=== PATIENT | female | born 1945 | race Caucasian/White ===

== ENCOUNTER 2017-01-22 10:25 | Inpatient (IN) | payer OTHER ==
[2017-01-22 10:35] VITALS: BMI 35.9
--- NOTE | 2017-01-22 11:10 | C.PDOC ---
History Of Present Illness Patient is a 71 y/o female that is sent to the ED by PMD, Dr. Boone, for evaluation of productive cough getting worse for the past 2 weeks. Patient states she was diagnosed with Pneumonia by PMD, pt has lung cancer, diagnosed in 2004. (+) occasional chest pain. Otherwise, denies fever, chills, shortness of breath, or any other associated symptoms at this time. (+)Hx of pneumonia. Time Seen by Provider: 01/22/17 10:47 Chief Complaint (Nursing): Abnormal Labs History Per: Patient History/Exam Limitations: no limitations Onset/Duration Of Symptoms: Days (1 month) Current Symptoms Are (Timing): Still Present Severity: Mild Pain Scale Rating Of: 1 Reports Recently: Treated By A Physician Recent travel outside of the [place]: No Additional History Per: Patient Past Medical History Reviewed: Historical Data, Nursing Documentation, Vital Signs Vital Signs: Last Vital Signs Temp 97.7 F 01/22/17 12:08 Pulse 80 01/22/17 12:08 Resp 22 01/22/17 12:08 BP 179/97 H 01/22/17 12:08 Pulse Ox 96 01/22/17 14:07 - Medical History PMH: Anxiety, Arthritis, Dementia (FORGETFUL AT TIMES. AAO X 3 AT PRESENT), Depression, Diabetes (NIDDM), HTN, Hypercholesterolemia, Kidney Stones, Chronic Kidney Disease Denies: CHF, Colonic Polyps, COPD, HIV, Hypothyroidism, Rheumatoid Arthritis Surgical History: Denies: Pacemaker - [facility] Procedures ESOPHAGOGASTRODUODENOSCOPY [EGD] W/CLOSED BIOPSY (05/21/15) INJECT/INFUSE NEC (02/06/13) Family History: States: Unknown Family Hx - Social History Hx Tobacco Use: No Hx Alcohol Use: No Hx Substance Use: No - Immunization History Hx Tetanus Toxoid Vaccination: No Hx Influenza Vaccination: Yes (2013) Hx Pneumococcal Vaccination: Yes Review Of Systems Except As Marked, All Systems Reviewed And Found Negative. Constitutional: Negative for: Fever, Chills Cardiovascular: Negative for: Chest Pain, Palpitations Respiratory: Positive for: Cough. Negative for: Shortness of Breath, Hemoptysis , Sputum, Wheezing Gastrointestinal: Negative for: Nausea, Vomiting, Abdominal Pain Physical Exam - Physical Exam Appears: Non-toxic, No Acute Distress Skin: Normal Color, Warm, Dry Head: Atraumatic, Normacephalic Eye(s): bilateral: Normal Inspection, EOMI Neck: Normal ROM, Supple Chest: Symmetrical, No Tenderness Cardiovascular: Rhythm Regular, No Murmur Respiratory: No Rales, Rhonchi (bilaterally), Wheezing Gastrointestinal/Abdominal: Soft, No Tenderness Extremity: Normal ROM Neurological/Psych: Oriented x3, Normal Speech, Normal Cognition ED Course And Treatment - Laboratory Results Result Diagrams: 01/22/17 11:32 01/22/17 11:32 ECG: Interpreted By Me, Viewed By Me ECG Rhythm: Sinus Rhythm ECG Interpretation: No Acute Changes Interpretation Of ECG: Left ventricular hypertrophy Rate From EC (bpm) O2 Sat by Pulse Oximetry: 96 (on RA) Pulse Ox Interpretation: Normal - Radiology CXR: Interpreted by Me CXR Interpretation: Yes: No Acute Disease Progress Note: Labs, EKG, CXR ordered and reviewed. On reassessment, pt is resting comfortably, with no acute distress. Medical Decision Making Medical Decision Making: Spoke with Dr. Booen who recommended Zithromax, and Rocephin for the pt and requested regular admission. Disposition Counseled Patient/Family Regarding: Studies Performed, Diagnosis - Disposition Disposition: HOSPITALIZED Disposition Time: 11:34 Condition: STABLE - POA Present On Arrival: None - Clinical Impression Clinical Impression: Lung cancer, Cough - PA / DIRECTOR OF CRITICAL CARE / Resident Statement MD/DO has reviewed & agrees with the documentation as recorded. - Scribe Statement The provider has reviewed the documentation as recorded by the Scribe Sylvia Valencia All medical record entries made by the Scribe were at my direction and personally dictated by me. I have reviewed the chart and agree that the record accurately reflects my personal performance of the history, physical exam, medical decision making, and the department course for this patient. I have also personally directed, reviewed, and agree with the discharge instructions and disposition. Decision To Admit - Pt Status Changed To: Hospital Disposition Of: Inpatient - Admit Certification Admit to Inpatient:: After my assessment, the patient will require hospitalization for at least two midnights. This is because of the severity of symptoms shown, intensity of services needed, and/or the medical risk in this patient being treated as an outpatient. - InPatient: Physician Admission Certification: I certify that this patient requires 2 or more midnights of care for the following reason:: SEE NOTES - . Bed Request Type: Regular Admitting Physician: Rayne Boone Patient Diagnosis: Lung cancer, Cough
[2017-01-22] MEDS ORDERED: cefTRIAXone IV 1 gm in Dextros 50 ML IV ONE (11:13)
[2017-01-22] MEDS ORDERED: Azithromycin 500mg/250ML NS 500 MG/250 ML BAG IV SCH (11:15)
[2017-01-22] MEDS ORDERED: cefTRIAXone IV 1 gm in Dextros 50 ML IVPB ONE (11:21)
[2017-01-22] MEDS ORDERED: Azithromycin 500mg/250ML NS 500 MG/250 ML BAG IVPB ONE (11:22)
[2017-01-22 11:36] LABS: BASO % 0.8 % (0.0-2.0); EOS # 0.3 K/uL (0.0-0.7); EOS % 5.5 % (0.0-4.0); HEMOGLOBIN 13.8 g/dL (11.0-16.0); LYMPH % 33.7 % (20.0-40.0); MEAN CORPUSCULAR HEMOGLOBIN 30.2 pg (27.0-31.0); MEAN CORPUSCULAR HGB CONC 32.6 g/dL (33.0-37.0); MEAN PLATELET VOLUME 9.5 fL (7.2-11.7); MONO # 0.4 K/uL (0.0-0.8); NEUT # 3.2 K/uL (1.8-7.0); RBC 4.56 Mil/uL (3.80-5.20); RED CELL DISTRIBUTION WIDTH 12.9 % (11.5-14.5); WHITE BLOOD COUNT 6.1 K/uL (4.8-10.8)
[2017-01-22 11:37] LABS: MEAN CELL VOLUME 92.4 fL (81.0-99.0)
[2017-01-22 11:48] LABS: ALBUMIN 3.8 g/dL (3.5-5.0)
[2017-01-22 11:50] LABS: GFR AFRICAN-AMERICAN > 60; GFR NON-AFRICAN AMERICAN > 60
[2017-01-22 11:51] LABS: ALB/GLOB RATIO 0.9 (1.0-2.1); ALT/SGPT 46 U/L (9-52); AST/SGOT 56 U/L (14-36); BLOOD UREA NITROGEN 16 mg/dL (7-17)
[2017-01-22 11:52] LABS: CALCIUM 9.1 mg/dl (8.6-10.4)
[2017-01-22 12:00] LABS: B-TYPE NATRIURETIC PEPTIDE 201 pg/mL (0-900)
--- NOTE | 2017-01-22 12:55 | CP.PCM.HP ---
History of Present Illness - History of Present Illness History of Present Illness: Chief complaint: Cough History present illness: 70-year-old female with history of lung cancer, osteoporosis, osteoarthritis, hypertension, diabetes came to the ER with complaining of increasing cough for almost 2 weeks duration. Patient the past had a history of pneumonia also. She was diagnosed with the cancer in 2004. Following that she underwent a surgical intervention as well as chemotherapy. Patient there was doing well until recently, patient went to see a oncologist recently, who had a CAT scan of the chest. CT of the chest is showing evidence of increasing lung mass. Currently she is having increasing cough, and able to bring up the mucus, also associate with chest tightness. No fever noted. Denies any chest pain. But shortness of breath noted. no fever and no mucous but sob and cough Past medical history: Hypertension, hypercholesteremia, diabetes, lung cancer. Surgical history: Cholecystectomy the surgical intervention for the lung cancer chemotherapy. Family history noncontributory. Social history: He denies any alcohol or smoking, drinks coffee daily, no exercise currently. Current medications reviewed. Review of systems: Denies any headache, no visual symptoms, complaining of sore throat, cough, cough with the mucus production, which is yellow in color, sometimes chest tightness and chest pain noted, especially in the back, with the deepest patient. Now the abdominal symptoms, no urinary symptoms. Patient has some gastric mass noted recently, also Patient underwent upper endoscopy, again upper endoscopy scheduled On examination: HEENT PERRLA, neck supple No thyromegaly was noted and no cervical adenopathy noted Patient has a bilateral diffuse wheezing and rhonchi noted CVS regular heart sound, no murmur Abdomen soft and no organomegaly Extremities no pedal edema, no leg swelling, pedal pulses are good. 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 Patient CAT scan of the chest is reviewed. Showing evidence of mediastinal mass involving the left lung, Assessment and recommendation: 70-year-old female with history lung cancer, possible recurrence at this time, came to the office with a possible acute exacerbation of COPD. Antibiotic and corticosteroid advised. Nebulizers advised. possible pneumonia and BOOP lung cancer recurrence possible will add steroid chest CT again may need bronch orders in the cpoe Present on Admission - Present on Admission Any Indicators Present on Admission: No History of DVT/PE: No History of Uncontrolled Diabetes: No Urinary Catheter: No Decubitus Ulcer Present: No Past Patient History - Infectious Disease Hx of Infectious Diseases: None - Past Medical History & Family History Past Medical History?: Yes - Past Social History Smoking Status: Never Smoked - CARDIAC Hx Congestive Heart Failure: No Hx Hypercholesterolemia: Yes Hx Hypertension: Yes Hx Pacemaker: No - PULMONARY Hx Chronic Obstructive Pulmonary Disease (COPD): No - NEUROLOGICAL Hx Dementia: Yes (FORGETFUL AT TIMES. AAO X 3 AT PRESENT) - HEENT Hx HEENT Problems: No - RENAL Hx Chronic Kidney Disease: Yes Hx Kidney Stones: Yes - ENDOCRINE/METABOLIC Hx Diabetes Mellitus Type 2: Yes Hx Hypothyroidism: No - HEMATOLOGICAL/ONCOLOGICAL Hx Chemotherapy: Yes Hx Human Immunodeficiency Virus (HIV): No - INTEGUMENTARY Hx Dermatological Problems: No - MUSCULOSKELETAL/RHEUMATOLOGICAL Hx Arthritis: Yes Hx Falls: No - GASTROINTESTINAL Hx Gastrointestinal Disorders: No - GENITOURINARY/GYNECOLOGICAL Hx Genitourinary Disorders: No - PSYCHIATRIC Hx Anxiety: Yes Hx Bipolar Disorder: Yes Hx Substance Use: No - SURGICAL HISTORY Hx Tubal Ligation: Yes Other/Comment: Left lung - ANESTHESIA Hx Anesthesia: Yes Hx Anesthesia Reactions: No Hx Malignant Hyperthermia: No Meds Allergies/Adverse Reactions: Allergies Allergy/AdvReac Type Severity Reaction Status Date / Time No Known Allergies Allergy Verified 01/22/17 10:28 Results - Vital Signs Recent Vital Signs: Last Vital Signs Temp 97.7 F 01/22/17 12:08 Pulse 80 01/22/17 12:08 Resp 22 01/22/17 12:08 BP 179/97 H 01/22/17 12:08 Pulse Ox 96 01/22/17 12:33 - Labs Result Diagrams: 01/22/17 11:32 01/22/17 11:32 Labs: Laboratory Results - last 24 hr 01/22/17 01/22/17 11:32 11:32 WBC 6.1 RBC 4.56 Hgb 13.8 Hct 42.1 MCV 92.4 D MCH 30.2 MCHC 32.6 L RDW 12.9 Plt Count 219 MPV 9.5 Neut % (Auto) 53.0 Lymph % (Auto) 33.7 Dixon % (Auto) 7.0 Eos % (Auto) 5.5 H Baso % (Auto) 0.8 Neut # 3.2 Lymph # 2.0 Dixon # 0.4 Eos # 0.3 Baso # 0.0 Sodium 139 Potassium 4.3 Chloride 101 Carbon Dioxide 28 Anion Gap 13 BUN 16 Creatinine 0.8 Est GFR ( Amer) > 60 Est GFR (Non-Af Amer) > 60 Random Glucose 166 H Calcium 9.1 Total Bilirubin 1.3 AST 56 H ALT 46 Alkaline Phosphatase 230 H Troponin I < 0.0120 NT-Pro-B Natriuret Pep 201 Total Protein 7.9 Albumin 3.8 Globulin 4.1 H Albumin/Globulin Ratio 0.9 L
[2017-01-22] MEDS: Albuterol-Ipratrop 3 mg / 0.5 (3 ml) UD INH SCH ×2 (14:00→20:25)
[2017-01-22] MEDS: MethylPREDNISolone 40 mg Vial IVP SCH (17:50)
--- NOTE | 2017-01-22 19:42 | RAD ---
PROCEDURE: CHEST RADIOGRAPH, 1 VIEW HISTORY: COUGH COMPARISON: Comparison chest 10/14/2016 FINDINGS: LUNGS: Re- demonstrated is apparent left upper lobe mass density. There may be patchy surrounding infiltrate with possible infiltrate left lung base. Patchy infiltrate right lung base. Questionable left effusion. Followup CT scan recommended Note these findings were discussed with Dr. Glynn at approximately 7 20 p.m. with written down and read back verification. PLEURA: No pneumothorax or pleural fluid seen. CARDIOVASCULAR: Mild cardiomegaly. OSSEOUS STRUCTURES: No significant abnormalities. VISUALIZED UPPER ABDOMEN: Normal. OTHER FINDINGS: None. IMPRESSION: Re- demonstrated is left upper lobe mass density. There may be patchy surrounding infiltrate with possible infiltrate left lung base. Patchy infiltrate right lung base. . Follow-up CT scan recommended Note these findings were discussed with Dr. Parra at approximately 7 20 p.m. with written down and read back verification. Case also placed in PA review folder for followup.
--- NOTE | 2017-01-22 20:09 | CT ---
EXAM: CT Chest Without Intravenous Contrast CLINICAL HISTORY: 71 years old, female; Condition or disease; Lung condition and disease; Pneumonia TECHNIQUE: Axial computed tomography images of the chest without intravenous contrast. This CT exam was performed using one or more of the following dose reduction techniques: automated exposure control, adjustment of the mA and/or kV according to patient size, and/or use of iterative reconstruction technique. Coronal and sagittal reformatted images were created and reviewed. EXAM DATE/TIME: 01/22/2017 12:49 PM COMPARISON: There are no prior studies for comparison. FINDINGS: Lungs and pleural spaces: Trachea and main bronchi are patent. 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 There is left-sided volume loss with elevation of the left diaphragm. There is extensive airspace disease in the left upper lobe.. There are additional patchy parenchymal opacities in the aerated portions of left upper lobe There is partial consolidation of right middle lobe. There is patchy airspace disease in the right lower lobe. There are tree in bud opacities in the right upper lobe. There is no right effusion. There is a small left effusion. Heart and vasculature: The heart is mildly enlarged. There are coronary calcifications.There is fluid in the pericardial recesses. Aorta is normal in caliber.There are vascular calcifications. Main pulmonary artery is normal in caliber. Mediastinum: There are mildly prominent middle mediastinal nodes. Rola are not optimally evaluated without contrast material. There are clips in the left hilum. Thyroid: Thyroid is unremarkable Bones/joints: There are degenerative changes in the osseus structures. There are postsurgical changes of left thoracotomy. Soft tissues: unremarkable Vasculature: See above. Lymph nodes: See above. Liver: There are small calcifications in the liver. Pancreas: Pancreas is atrophic. Stomach and bowel: There is a radiopaque foreign body in the stomach. Upper abdomen: There is pneumobilia. IMPRESSION: Left lower lobe lobectomy; extensive bilateral airspace disease/pneumonia left greater than right with small left effusion; mild cardiomegaly and atherosclerotic disease; pneumobilia; foreign body in the stomach Additional findings as described above.
[2017-01-22] MEDS: Enoxaparin 30 mg Syringe SC SCH (21:20)
[2017-01-23] MEDS: Albuterol-Ipratrop 3 mg / 0.5 (3 ml) UD INH SCH ×2 (01:45→20:50)
[2017-01-23] MEDS: Enoxaparin 30 mg Syringe SC SCH ×2 (09:54→21:35)
[2017-01-23] MEDS: Azithromycin 500 MG in Sodium Chloride 0.9% 250 ML IVPB SCH (09:54)
[2017-01-23] MEDS: MethylPREDNISolone 40 mg Vial IVP SCH ×2 (09:56→17:49)
[2017-01-23] MEDS ORDERED: cefTRIAXone IV 1 gm in Dextros 1 GM in Dextrose 5% In Water 50 ML IVPB SCH (10:00)
[2017-01-24] MEDS: Albuterol-Ipratrop 3 mg / 0.5 (3 ml) UD INH SCH ×4 (01:08→19:51)
[2017-01-24] MEDS ORDERED: Pneumococcal 23-Valent Vaccine IM ONE (10:00)
[2017-01-24] MEDS: Azithromycin 500 MG in Sodium Chloride 0.9% 250 ML IVPB SCH (11:00)
[2017-01-24] MEDS: cefTRIAXone IV 1 gm in Dextros 50 ML IVPB SCH (11:00)
[2017-01-24] MEDS: MethylPREDNISolone 40 mg Vial IVP SCH ×2 (11:02→17:38)
[2017-01-24] MEDS: Enoxaparin 30 mg Syringe SC SCH ×2 (11:23→21:51)
--- NOTE | 2017-01-24 16:05 | CP.PCM.CON ---
History of Present Illness - History of Present Illness History of Present Illness: 71 yo woman known to me from the office, admitted with increasing SOB/MONCADA. Patient has a history of lung cancer in 2004, treated with surgery and ? local RT, has been c/o progressive MONCADA for the past few months, catscan showing B/L infiltrates and labs with increased CEA level. Patient denies any weight loss, dizzy spells. Feels well except fpr the increasing MONCADA. Past Patient History - Infectious Disease Hx of Infectious Diseases: None - Past Medical History & Family History Past Medical History?: Yes - Past Social History Smoking Status: Never Smoked - CARDIAC Hx Congestive Heart Failure: No Hx Hypercholesterolemia: Yes Hx Hypertension: Yes Hx Pacemaker: No - PULMONARY Hx Chronic Obstructive Pulmonary Disease (COPD): No - NEUROLOGICAL Hx Dementia: Yes (FORGETFUL AT TIMES. AAO X 3 AT PRESENT) - HEENT Hx HEENT Problems: No - RENAL Hx Chronic Kidney Disease: Yes Hx Kidney Stones: Yes - ENDOCRINE/METABOLIC Hx Hypothyroidism: No - HEMATOLOGICAL/ONCOLOGICAL Hx Human Immunodeficiency Virus (HIV): No - INTEGUMENTARY Hx Dermatological Problems: No - MUSCULOSKELETAL/RHEUMATOLOGICAL Hx Arthritis: Yes Hx Rheumatoid Arthritis: No - GASTROINTESTINAL Hx Gastrointestinal Disorders: No - GENITOURINARY/GYNECOLOGICAL Hx Genitourinary Disorders: No - PSYCHIATRIC Hx Anxiety: Yes Hx Depression: Yes Hx Substance Use: No - SURGICAL HISTORY Hx Tubal Ligation: Yes Other/Comment: Left lung - ANESTHESIA Hx Anesthesia: Yes Hx Anesthesia Reactions: No Hx Malignant Hyperthermia: No Meds Allergies/Adverse Reactions: Allergies Allergy/AdvReac Type Severity Reaction Status Date / Time No Known Allergies Allergy Verified 01/22/17 10:28 - Medications Medications: Current Medications Albuterol/Ipratropium (Duoneb 3 Mg/0.5 Mg (3 Ml) Ud) 3 ml INH RQ6 [facility] Last Admin: 01/24/17 13:35 Dose: 3 ml Enoxaparin Sodium (Lovenox) 30 mg SC Q12 [facility] Last Admin: 01/24/17 11:23 Dose: Not Given Famotidine (Pepcid) 20 mg PO DAILY [facility] Last Admin: 01/24/17 11:23 Dose: 20 mg Azithromycin 500 mg/ Sodium (Chloride) 250 mls @ 167 mls/hr IVPB Q24H [facility] Last Admin: 01/24/17 11:00 Dose: 167 mls/hr Ceftriaxone Sodium (Rocephin Iv 1 Gm Duplex) 50 mls @ 50 mls/30 min IVPB DAILY [facility] Last Admin: 01/24/17 11:00 Dose: 50 mls/30 min Lisinopril (Zestril) 20 mg PO DAILY [facility] Last Admin: 01/24/17 11:01 Dose: 20 mg Metformin HCl (Glucophage) 500 mg PO BIDBS [facility] Last Admin: 01/24/17 11:01 Dose: 500 mg Methylprednisolone (Solu-Medrol) 20 mg IVP BID [facility] Last Admin: 01/24/17 11:02 Dose: 20 mg Rosuvastatin Calcium (Crestor) 10 mg PO HS [facility] Results - Vital Signs Recent Vital Signs: Last Vital Signs Temp 97.8 F 01/24/17 07:32 Pulse 78 01/24/17 07:32 Resp 20 01/24/17 07:32 BP 147/79 01/24/17 07:32 Pulse Ox 100 01/24/17 07:32 - Labs Result Diagrams: 01/22/17 11:32 01/22/17 11:32 Labs: Laboratory Results - last 24 hr 01/23/17 01/23/17 01/24/17 15:58 20:57 07:24 POC Glucose (mg/dL) 259 H 254 H 227 H 01/24/17 11:35 POC Glucose (mg/dL) 239 H Assessment & Plan (1) Lung cancer Assessment and Plan: 71 yo woman with history of lung cancer in 2004, new MONCADA, increased CEA, increased infiltrates on CAT scan, ? benign process versus recurrent or new primary cancer. Patient is scheduled for a biopsy. Will reorder CEA level Status: Suspected
--- NOTE | 2017-01-24 19:37 | CP.PCM.PN ---
Subjective - Date & Time of Evaluation Date of Evaluation: 01/24/17 Time of Evaluation: 19:37 - Subjective Subjective: Patient is feeling much better today. But very eager for bronchoscopy. Patient is concerned about anesthesia related complications. Patient has no chest pain at this time. No nausea vomiting. Denies any other major active symptoms Objective - Vital Signs/Intake and Output Vital Signs (last 24 hours): Temp Pulse Resp BP Pulse Ox 98.1 F 84 20 171/93 H 96 01/24/17 16:00 01/24/17 16:00 01/24/17 16:00 01/24/17 16:00 01/24/17 16:00 Vital signs reviewed No neck vein distention noted Chest good air entry bilaterally, no wheezing or rales noted CVS regular heart sound, no murmur noted Abdomen soft, nontender. 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 3, no functional neurological deficit Intake and Output: 01/24/17 01/25/17 18:59 06:59 Intake Total 200 Balance 200 - Medications Medications: Current Medications Albuterol/Ipratropium (Duoneb 3 Mg/0.5 Mg (3 Ml) Ud) 3 ml INH RQ6 [facility] Last Admin: 01/24/17 13:35 Dose: 3 ml Enoxaparin Sodium (Lovenox) 30 mg SC Q12 [facility] Last Admin: 01/24/17 11:23 Dose: Not Given Famotidine (Pepcid) 20 mg PO DAILY [facility] Last Admin: 01/24/17 11:23 Dose: 20 mg Azithromycin 500 mg/ Sodium (Chloride) 250 mls @ 167 mls/hr IVPB Q24H [facility] Last Admin: 01/24/17 11:00 Dose: 167 mls/hr Ceftriaxone Sodium (Rocephin Iv 1 Gm Duplex) 50 mls @ 50 mls/30 min IVPB DAILY [facility] Last Admin: 01/24/17 11:00 Dose: 50 mls/30 min Lisinopril (Zestril) 20 mg PO DAILY [facility] Last Admin: 01/24/17 11:01 Dose: 20 mg Metformin HCl (Glucophage) 500 mg PO BIDBS [facility] Last Admin: 01/24/17 17:37 Dose: 500 mg Methylprednisolone (Solu-Medrol) 20 mg IVP BID [facility] Last Admin: 01/24/17 17:38 Dose: 20 mg Rosuvastatin Calcium (Crestor) 10 mg PO HS [facility] - Labs Labs: 01/22/17 11:32 01/22/17 11:32 Assessment and Plan (1) Atypical pneumonia Assessment & Plan: patient with a possible atypical pneumonia. Lung cancer cannot be rul recurrence. We'll plan for bronchosc in the morning. Status: Acute (2) Cough Status: Acute (3) Lung cancer Status: Suspected
--- NOTE | 2017-01-24 19:38 | CP.PCM.PN ---
Subjective - Date & Time of Evaluation Date of Evaluation: 01/23/17 Time of Evaluation: 19:38 - Subjective Subjective: The patient is feeling much better in her symptoms. The cough is less. Mucus production is less. Appetite is good. Currently patient is receiving antibiotic. Patient had a history of lung cancer. Currently being treated for pneumonia, atypical in this nature currently. Appetite is good. No diarrhea noted Objective - Vital Signs/Intake and Output Vital Signs (last 24 hours): Temp Pulse Resp BP Pulse Ox 98.1 F 84 20 171/93 H 96 01/24/17 16:00 01/24/17 16:00 01/24/17 16:00 01/24/17 16:00 01/24/17 16:00 Intake and Output: 01/24/17 01/25/17 18:59 06:59 Intake Total 200 Balance 200 Vital signs reviewed No neck vein distention noted Chest good air entry bilaterally, no wheezing or rales noted CVS regular heart sound, no murmur noted Abdomen soft, nontender. 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 3, no functional neurological deficit - Medications Medications: Current Medications Albuterol/Ipratropium (Duoneb 3 Mg/0.5 Mg (3 Ml) Ud) 3 ml INH RQ6 [facility] Last Admin: 01/24/17 13:35 Dose: 3 ml Enoxaparin Sodium (Lovenox) 30 mg SC Q12 [facility] Last Admin: 01/24/17 11:23 Dose: Not Given Famotidine (Pepcid) 20 mg PO DAILY [facility] Last Admin: 01/24/17 11:23 Dose: 20 mg Azithromycin 500 mg/ Sodium (Chloride) 250 mls @ 167 mls/hr IVPB Q24H [facility] Last Admin: 01/24/17 11:00 Dose: 167 mls/hr Ceftriaxone Sodium (Rocephin Iv 1 Gm Duplex) 50 mls @ 50 mls/30 min IVPB DAILY [facility] Last Admin: 01/24/17 11:00 Dose: 50 mls/30 min Lisinopril (Zestril) 20 mg PO DAILY [facility] Last Admin: 01/24/17 11:01 Dose: 20 mg Metformin HCl (Glucophage) 500 mg PO BIDBS [facility] Last Admin: 01/24/17 17:37 Dose: 500 mg Methylprednisolone (Solu-Medrol) 20 mg IVP BID [facility] Last Admin: 01/24/17 17:38 Dose: 20 mg Rosuvastatin Calcium (Crestor) 10 mg PO HS [facility] - Labs Labs: 01/22/17 11:32 01/22/17 11:32 Assessment and Plan (1) Atypical pneumonia Status: Acute (2) Lung cancer Assessment & Plan: Patient is currently having possibly atypical pneumonia, and empirical antibiotic. Lung cancer possible. Follow-up CAT scan. Status: Suspected
[2017-01-25] MEDS: Albuterol-Ipratrop 3 mg / 0.5 (3 ml) UD INH SCH ×4 (01:16→20:44)
[2017-01-25 07:24] LABS: MEAN CORPUSCULAR HEMOGLOBIN 30.2 pg (27.0-31.0)
[2017-01-25 07:30] LABS: ALBUMIN 3.5 g/dL (3.5-5.0)
[2017-01-25 07:32] LABS: GFR AFRICAN-AMERICAN > 60; GFR NON-AFRICAN AMERICAN > 60
[2017-01-25 07:33] LABS: ALB/GLOB RATIO 0.9 (1.0-2.1); ALT/SGPT 32 U/L (9-52); AST/SGOT 32 U/L (14-36); BLOOD UREA NITROGEN 18 mg/dL (7-17); PROTHROMBIN TIME 11.3 SECONDS (9.7-12.2)
[2017-01-25 07:34] LABS: CALCIUM 9.7 mg/dl (8.6-10.4)
[2017-01-25 07:41] LABS: HEMOGLOBIN 13.6 g/dL (11.0-16.0); MEAN CELL VOLUME 90.8 fL (81.0-99.0); MEAN CORPUSCULAR HGB CONC 33.2 g/dL (33.0-37.0); MEAN PLATELET VOLUME 10.2 fL (7.2-11.7); RBC 4.49 Mil/uL (3.80-5.20)
[2017-01-25 07:44] LABS: WHITE BLOOD COUNT 11.6 K/uL (4.8-10.8)
[2017-01-25] MEDS: Lidocaine 2% Inj (20ml) ONE ×2 (08:11→08:30)
[2017-01-25] MEDS: EPINEPHrine 1 mg/ml (1:1000) Inj ONE ×2 (08:13→08:30)
[2017-01-25] MEDS: MethylPREDNISolone 40 mg Vial IVP SCH ×2 (12:40→17:40)
[2017-01-25] MEDS: Enoxaparin 30 mg Syringe SC SCH ×2 (12:40→21:55)
[2017-01-25] MEDS: cefTRIAXone IV 1 gm in Dextros 50 ML IVPB SCH (12:41)
[2017-01-25] MEDS: Azithromycin 500 MG in Sodium Chloride 0.9% 250 ML IVPB SCH (12:42)
--- NOTE | 2017-01-25 14:42 | RAD ---
HISTORY: R/O PTX- POST BRONCH COMPARISON: 01/22/2017. FINDINGS: LUNGS: Postoperative findings, prior left lower lobectomy. Stable consolidative changes/ infiltrates bilaterally. PLEURA: No significant pleural effusion identified, no pneumothorax apparent. CARDIOVASCULAR: Normal. OSSEOUS STRUCTURES: No significant abnormalities. VISUALIZED UPPER ABDOMEN: Normal. OTHER FINDINGS: None. IMPRESSION: No significant interval change compared to the prior examination(s). No pneumothorax status post bronchoscopy.
--- NOTE | 2017-01-25 16:56 | RAD ---
PROCEDURE: Fluoroscopy up to 1 hour HISTORY: LUNG CA. COMPARISON: None TECHNIQUE: Total fluoroscopic time utilized during the procedure is 56.2 seconds FINDINGS: Submitted images current procedure 3 IMPRESSION: Less than 1 hour fluoroscopic time utilized during the performance of the procedure
--- NOTE | 2017-01-25 20:08 | CP.PCM.PN ---
Subjective - Date & Time of Evaluation Date of Evaluation: 01/25/17 Time of Evaluation: 20:06 - Subjective Subjective: Patient this morning underwent a bronchoscopy by Dr. Alexis. During the procedure patient had a slight tachycardia, tachypnea. But postoperatively patient is currently doing well, some cough noted, no mucus production. No chest pain. She is feeling much better, good appetite noted. Cough is still noted Objective - Vital Signs/Intake and Output Vital Signs (last 24 hours): Temp Pulse Resp BP Pulse Ox 98.3 F 78 20 117/75 96 01/25/17 16:00 01/25/17 16:00 01/25/17 16:00 01/25/17 16:01 01/25/17 16:00 Vital signs reviewed No neck vein distention noted bilateral wheezing CVS regular heart sound, no murmur noted Abdomen soft, nontender. 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 oriented 3, no functional neurological deficit Intake and Output: 01/25/17 01/26/17 18:59 06:59 Intake Total 500 Balance 500 - Medications Medications: Current Medications Albuterol/Ipratropium (Duoneb 3 Mg/0.5 Mg (3 Ml) Ud) 3 ml INH RQ6 [facility] Last Admin: 01/25/17 13:38 Dose: Not Given Amlodipine Besylate (Norvasc) 5 mg PO DAILY [facility] Last Admin: 01/25/17 12:39 Dose: 5 mg Enoxaparin Sodium (Lovenox) 30 mg SC Q12 [facility] Last Admin: 01/25/17 12:40 Dose: 30 mg Famotidine (Pepcid) 20 mg PO DAILY [facility] Last Admin: 01/25/17 12:39 Dose: 20 mg Azithromycin 500 mg/ Sodium (Chloride) 250 mls @ 167 mls/hr IVPB Q24H [facility] Last Admin: 01/25/17 12:42 Dose: 167 mls/hr Ceftriaxone Sodium (Rocephin Iv 1 Gm Duplex) 50 mls @ 50 mls/30 min IVPB DAILY [facility] Last Admin: 01/25/17 12:41 Dose: 50 mls/30 min Lisinopril (Zestril) 20 mg PO DAILY [facility] Last Admin: 01/25/17 12:40 Dose: 20 mg Metformin HCl (Glucophage) 500 mg PO BIDBS [facility] Last Admin: 01/25/17 17:40 Dose: 500 mg Methylprednisolone (Solu-Medrol) 20 mg IVP BID [facility] Last Admin: 01/25/17 17:40 Dose: 20 mg Rosuvastatin Calcium (Crestor) 10 mg PO HS [facility] Last Admin: 01/24/17 21:51 Dose: 10 mg - Labs Labs: 01/25/17 07:13 01/25/17 07:13 PT 11.3 SECONDS (9.7-12.2) 01/25/17 07:13 INR 1.0 01/25/17 07:13 APTT 28 SECONDS (21-34) 01/25/17 07:13 Assessment and Plan (1) Atypical pneumonia Assessment & Plan: Patient with a history of lung cancer, concerned about the recurrence at this time. Atypical pneumonia. Bronchoalveolar pneumonia cannot be ruled out. We'll follow the biopsy in the culture report. Probably will start the patient on corticosteroids. Tomorrow planned for a transthoracic biopsy. But will hold for now. Possibly will do a PET scan as an outpatient also. Continue the antibiotic Status: Acute (2) Cough Status: Acute (3) Lung cancer Status: Suspected
--- NOTE | 2017-01-25 20:39 | OP ---
PROCEDURE DATE: 01/25/2017 PROCEDURES: Fiberoptic bronchoscopy with bronchoalveolar lavage and biopsy. INDICATION: Bilateral infiltrates, left greater than right. Rule out infectious etiology. Rule out malignancy. DESCRIPTION OF PROCEDURE: After obtaining consent, through hand frame surgical elastic knitter explaining risks and benefits , the procedure was done by giving anesthesia by the anesthesiologist. The nose and throat were prep ared with lidocaine. The bronchoscope was passed through the left nostril into the throat. There wa s normal movement of vocal cords. After instilling lidocaine, the bronchoscope was advanced in the t rachea. The trachea appeared normal. The main cristhian was sharp. First, the bronchoscope passed int o the right side, which appeared normal. Later the bronchoscope pulled back and passed into the left side. No endobronchial lesions seen. The bronchoscope passed from the left upper lobe. First, the brushing under fluoro and then the multiple biopsies and bronchoalveolar lavage were done. The patient tolerated the procedure well. A small amount of bleeding noted, which stopped. Wei Alexis MD cc: 9 TT: 01/25/2017 20:39:05 karly
[2017-01-26] MEDS: Albuterol-Ipratrop 3 mg / 0.5 (3 ml) UD INH SCH ×4 (01:43→19:07)
[2017-01-26] MEDS: Enoxaparin 30 mg Syringe SC SCH ×2 (09:48→21:51)
[2017-01-26] MEDS: cefTRIAXone IV 1 gm in Dextros 50 ML IVPB SCH (11:53)
[2017-01-26] MEDS: MethylPREDNISolone 40 mg Vial IVP SCH ×2 (11:54→17:30)
[2017-01-26] MEDS: Azithromycin 500 MG in Sodium Chloride 0.9% 250 ML IVPB SCH (11:55)
[2017-01-26 16:00] VITALS: RESP 20
[2017-01-27] MEDS: Albuterol-Ipratrop 3 mg / 0.5 (3 ml) UD INH SCH ×3 (01:05→13:08)
[2017-01-27 09:01] VITALS: BP 136/75; PULSE 77; TEMP 97.7; O2SAT 96
[2017-01-27] MEDS: MethylPREDNISolone 40 mg Vial IVP SCH (10:10)
[2017-01-27] MEDS: Enoxaparin 30 mg Syringe SC SCH (10:16)
[2017-01-27] MEDS: cefTRIAXone IV 1 gm in Dextros 50 ML IVPB SCH (10:20)
[2017-01-27] MEDS: Azithromycin 500 MG in Sodium Chloride 0.9% 250 ML IVPB SCH (10:21)
--- NOTE | 2017-01-27 15:59 | CP.PCM.PN ---
Subjective - Date & Time of Evaluation Date of Evaluation: 01/27/17 Time of Evaluation: 11:00 - Subjective Subjective: Alert and oriented x3,NAD. Objective - Vital Signs/Intake and Output Vital Signs (last 24 hours): Temp Pulse Resp BP Pulse Ox 97.7 F 77 20 136/75 96 01/27/17 08:00 01/27/17 08:00 01/27/17 08:00 01/27/17 08:00 01/27/17 08:00 Intake and Output: 01/27/17 01/27/17 06:59 18:59 Intake Total 690 Balance 690 - Labs Labs: 01/25/17 07:13 01/25/17 07:13 PT 11.3 SECONDS (9.7-12.2) 01/25/17 07:13 INR 1.0 01/25/17 07:13 APTT 28 SECONDS (21-34) 01/25/17 07:13 Assessment and Plan - Assessment and Plan (Free Text) Assessment: Patient is seen and examined. Alert, awake, no acute distress. Able to walk with cane, oxygen saturation at room air remained >94%. D/W DR Boone , discharge plan for today on zithromax, prednisone tapering dose and nebulizer set up. Home PT arranged for to follow up at home for sob and weakness.
--- NOTE | 2017-01-28 16:38 | CARD ---
APPROVED REPORT EKG Measurement Heart [id number] <Conclusion> Normal sinus rhythm Voltage criteria for left ventricular hypertrophy Abnormal ECG
--- NOTE | 2017-02-24 20:51 | CP.PCM.DIS ---
Provider - Provider Date of Admission: 01/22/17 11:14 Attending physician: Rayne Boone MD Time Spent in preparation of Discharge (in minutes): 45 Diagnosis - Discharge Diagnosis (1) Atypical pneumonia Status: Acute (2) Cough Status: Acute (3) Lung cancer Status: Suspected Hospital Course - Lab Results Lab Results: Micro Results 01/25/17 11:56 Other: Please Indicate Mycobacterial Culture - Preliminary 01/25/17 Unknown Bronchial Washings Bronchial Culture - Final Blanca Albicans 01/25/17 Unknown Bronchial Washings Fungal Culture - Final Blanca Albicans 01/22/17 17:00 Blood Blood Culture - Final NO GROWTH AFTER 5 DAYS 01/22/17 17:00 Blood Gram Stain - Final TEST NOT PERFORMED 01/22/17 17:00 Blood Blood Culture - Final NO GROWTH AFTER 5 DAYS 01/22/17 17:00 Blood Gram Stain - Final TEST NOT PERFORMED 01/25/17 Unknown Bronchial Brushings Gram Stain - Final Most Recent Lab Values WBC 11.6 K/uL (4.8-10.8) H D 01/25/17 07:13 RBC 4.49 Mil/uL (3.80-5.20) 01/25/17 07:13 Hgb 13.6 g/dL (11.0-16.0) 01/25/17 07:13 Hct 40.8 % (34.0-47.0) 01/25/17 07:13 MCV 90.8 fL (81.0-99.0) 01/25/17 07:13 MCH 30.2 pg (27.0-31.0) 01/25/17 07:13 MCHC 33.2 g/dL (33.0-37.0) 01/25/17 07:13 RDW 13.0 % (11.5-14.5) 01/25/17 07:13 Plt Count 215 K/uL (130-400) 01/25/17 07:13 MPV 10.2 fL (7.2-11.7) 01/25/17 07:13 Neut % (Auto) 53.0 % (50.0-75.0) 01/22/17 11:32 Lymph % (Auto) 33.7 % (20.0-40.0) 01/22/17 11:32 [place] % (Auto) 7.0 % (0.0-10.0) 01/22/17 11:32 Eos % (Auto) 5.5 % (0.0-4.0) H 01/22/17 11:32 Baso % (Auto) 0.8 % (0.0-2.0) 01/22/17 11:32 Neut # 3.2 K/uL (1.8-7.0) 01/22/17 11:32 Lymph # 2.0 K/uL (1.0-4.3) 01/22/17 11:32 [place] # 0.4 K/uL (0.0-0.8) 01/22/17 11:32 Eos # 0.3 K/uL (0.0-0.7) 01/22/17 11:32 Baso # 0.0 K/uL (0.0-0.2) 01/22/17 11:32 PT 11.3 SECONDS (9.7-12.2) 01/25/17 07:13 INR 1.0 01/25/17 07:13 APTT 28 SECONDS (21-34) 01/25/17 07:13 Sodium 136 mmol/L (132-148) 01/25/17 07:13 Potassium 4.0 mmol/L (3.6-5.2) 01/25/17 07:13 Chloride 100 mmol/L (98-107) 01/25/17 07:13 Carbon Dioxide 27 mmol/L (22-30) 01/25/17 07:13 Anion Gap 14 (10-20) 01/25/17 07:13 BUN 18 mg/dL (7-17) H 01/25/17 07:13 Creatinine 0.7 MG/DL (0.7-1.2) 01/25/17 07:13 Est GFR ( Amer) > 60 01/25/17 07:13 Est GFR (Non-Af Amer) > 60 01/25/17 07:13 POC Glucose (mg/dL) 231 mg/dL (65-110) H 01/27/17 11:05 Random Glucose 198 mg/dL (65-105) H 01/25/17 07:13 Calcium 9.7 mg/dl (8.6-10.4) 01/25/17 07:13 Total Bilirubin 0.9 mg/dL (0.2-1.3) 01/25/17 07:13 AST 32 U/L (14-36) 01/25/17 07:13 ALT 32 U/L (9-52) 01/25/17 07:13 Alkaline Phosphatase 192 U/L (38-126) H 01/25/17 07:13 Troponin I < 0.0120 ng/mL (0.00-0.120) 01/22/17 11:32 NT-Pro-B Natriuret Pep 201 pg/mL (0-900) 01/22/17 11:32 Total Protein 7.4 g/dL (6.3-8.3) 01/25/17 07:13 Albumin 3.5 g/dL (3.5-5.0) 01/25/17 07:13 Globulin 3.8 gm/dL (2.2-3.9) 01/25/17 07:13 Albumin/Globulin Ratio 0.9 (1.0-2.1) L 01/25/17 07:13 - Hospital Course Hospital Course: Chief complaint: Cough History present illness: 70-year-old female with history of lung cancer, osteoporosis, osteoarthritis, hypertension, diabetes came to the ER with complaining of increasing cough for almost 2 weeks duration. Patient the past had a history of pneumonia also. She was diagnosed with the cancer in 2004. Following that she underwent a surgical intervention as well as chemotherapy. Patient there was doing well until recently, patient went to see a oncologist recently, who had a CAT scan of the chest. CT of the chest is showing evidence of increasing lung mass. Currently she is having increasing cough, and able to bring up the mucus, also associate with chest tightness. No fever noted. Denies any chest pain. But shortness of breath noted. no fever and no mucous but sob and cough Past medical history: Hypertension, hypercholesteremia, diabetes, lung cancer. Surgical history: Cholecystectomy the surgical intervention for the lung cancer chemotherapy. Family history noncontributory. Social history: He denies any alcohol or smoking, drinks coffee daily, no exercise currently. Current medications reviewed. Review of systems: Denies any headache, no visual symptoms, complaining of sore throat, cough, cough with the mucus production, which is yellow in color, sometimes chest tightness and chest pain noted, especially in the back, with the deepest patient. Now the abdominal symptoms, no urinary symptoms. Patient has some gastric mass noted recently, also Patient underwent upper endoscopy, again upper endoscopy scheduled On examination: HEENT PERRLA, neck supple No thyromegaly was noted and no cervical adenopathy noted Patient has a bilateral diffuse wheezing and rhonchi noted CVS regular heart sound, no murmur Abdomen soft and no organomegaly Extremities no pedal edema, no leg swelling, pedal pulses are good. 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 Patient CAT scan of the chest is reviewed. Showing evidence of mediastinal mass involving the left lung, Assessment and recommendation: 70-year-old female with history lung cancer, possible recurrence at this time, came to the office with a possible acute exacerbation of COPD. Antibiotic and corticosteroid advised. Nebulizers advised. possible pneumonia and BOOP lung cancer recurrence possible will add steroid chest CT again Patient was started on intravenous antibiotic. During the course the patient is agreed to have the bronchoscopy. Patient underwent a bronchoscopy. But doing the bronchoscopy patient having some difficulty in anesthesia, the complicated but this stabilized after that. Initial bronchoscopic evaluation was negative. Patient continued to improve with the cough. She was feeling better. Clinical stable. Patient discharged home on 01/27/2017. Final diagnosis possible pneumonia. 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 Will send the patient on by mouth antibiotic and a prednisone. Will get a PET scan as an outpatient. After the PET scan. Will follow the patient. Given the history of cancer. Underlying Jose's he cannot be ruled out. The biopsy. Will follow up as an outpatient Discharge Plan - Follow Up Plan Condition: STABLE Disposition: HOME/ ROUTINE Instructions: Prednisone (By mouth), Azithromycin (By mouth), Ipratropium/ Albuterol (By breathing), Lung Cancer (DC), Pneumonia (DC) Referrals: Rayne Boone MD [Staff Provider] -
--- NOTE | 2017-02-24 20:57 | CP.PCM.PN ---
Subjective - Date & Time of Evaluation Date of Evaluation: 01/26/17 Time of Evaluation: 20:57 - Subjective Subjective: patient medically stable. Post bronchoscopy. Cough better. Spoke to the patient and family. Possible discharge plan in morning. On examination: HEENT PERRLA, neck supple No thyromegaly was noted and no cervical adenopathy noted Chest bilateral good air entry, no wheezing or rales noted CVS regular heart sound, no murmur Abdomen soft and no organomegaly Extremities no pedal edema, no leg swelling, pedal pulses are good. 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 Patient with the multiple lung lesions. Possible pneumonia. Malignancy cannot be ruled out. Follow up biopsy Objective - Vital Signs/Intake and Output Vital Signs (last 24 hours): Temp Pulse Resp BP Pulse Ox 97.7 F 77 20 136/75 96 01/27/17 08:00 01/27/17 08:00 01/27/17 08:00 01/27/17 08:00 01/27/17 08:00 - Labs Labs: 01/25/17 07:13 01/25/17 07:13 PT 11.3 SECONDS (9.7-12.2) 01/25/17 07:13 INR 1.0 01/25/17 07:13 APTT 28 SECONDS (21-34) 01/25/17 07:13 Assessment and Plan (1) Atypical pneumonia Status: Acute (2) Cough Status: Acute (3) Lung cancer Status: Suspected
== END 2017-01-27 14:10 | disposition home or self-care (01) | DRG 167 ==
LOC: C.ER 10:25 → C.9E 11:14 → C.3T 11:27
PROVIDERS: ADMIT Internal Medicine; ATTEND Internal Medicine
PROC: 0B988ZX Drainage of Left Upper Lobe Bronchus, Via Natural or Artificial Opening Endoscopic, Diagnostic (ICD-10-PCS; principal; 2017-01-27)
PROC: 0BBG8ZX Excision of Left Upper Lung Lobe, Via Natural or Artificial Opening Endoscopic, Diagnostic (ICD-10-PCS; 2017-01-27)
DX: J18.9 Pneumonia, unspecified organism (principal); C34.12 Malignant neoplasm of upper lobe, left bronchus or lung; E11.22 Type 2 diabetes mellitus with diabetic chronic kidney disease; F03.90 Unspecified dementia, unspecified severity, without behavioral disturbance, psychotic disturbance, mood disturbance, and anxiety; E78.00 Pure hypercholesterolemia, unspecified; I12.9 Hypertensive chronic kidney disease with stage 1 through stage 4 chronic kidney disease, or unspecified chronic kidney disease; M81.0 Age-related osteoporosis without current pathological fracture; N18.9 Chronic kidney disease, unspecified; F41.9 Anxiety disorder, unspecified; F31.9 Bipolar disorder, unspecified; Z87.01 Personal history of pneumonia (recurrent); Z98.51 Tubal ligation status; Z87.442 Personal history of urinary calculi

== ENCOUNTER 2017-05-09 07:11 | Inpatient (IN) | payer OTHER ==
[2017-05-09 07:11] VITALS: BMI 37.8
--- NOTE | 2017-05-09 07:56 | C.PDOC ---
History Of Present Illness Patient is a 72 year female, with past medical history of lung CA, diabetes, HTN , is sent to Emergency Department by PMD, Dr. Boone, for evaluation of worsening pneumonia. Pt states that she developed symptoms of Pneumonia 2 weeks ago. Pt is complaining of worsening cough, and congestion. Patient admits to having chills, mild chest pain, and urinary frequency (pt is taking diuretics). Otherwise, denies any palpitations, abdominal pain, nausea, vomiting, diarrhea, fever, or any other associated symptoms at this time. Chest CT from 04/22/17 reviewed, which shows pt is s/p left lower lobectomy. Also shows increased infiltrates at the right upper and lower lobes. Pt was diagnosed with lung CA in 2004, and had surgical intervention for the lung cancer chemotherapy. Time Seen by Provider: 05/09/17 07:21 Chief Complaint (Nursing): Cough, Cold, Congestion History Per: Patient, Family History/Exam Limitations: no limitations Onset/Duration Of Symptoms: Days (2 weeks) Current Symptoms Are (Timing): Still Present Location Of Pain: None Associated Symptoms: Chills, Cough, Nasal Congestion. denies: Fever, Sore Throat, Sputum, Neck Pain, Nausea, Vomiting, Diarrhea Ear Symptoms: Bilateral: None Recent travel outside of the [place]: No Additional History Per: Patient Past Medical History Reviewed: Historical Data, Nursing Documentation, Vital Signs Vital Signs: Last Vital Signs Temp 97.5 F L 05/09/17 07:15 Pulse 72 05/09/17 08:19 Resp 20 05/09/17 07:15 BP 135/87 05/09/17 07:15 Pulse Ox 95 05/09/17 10:08 - Medical History PMH: Anxiety, Arthritis, Bipolar Disorder, Dementia (FORGETFUL AT TIMES. AAO X 3 AT PRESENT), Depression, Diabetes (NIDDM), HTN, Hypercholesterolemia, Kidney Stones, Chronic Kidney Disease Surgical History: - [facility] Procedures DRAINAGE OF LEFT UPPER LOBE BRONCHUS, ENDO, DIAGN (01/22/17) ESOPHAGOGASTRODUODENOSCOPY [EGD] W/CLOSED BIOPSY (05/21/15) EXCISION OF LEFT UPPER LUNG LOBE, ENDO, DIAGN (01/22/17) INJECT/INFUSE NEC (02/06/13) Family History: States: Unknown Family Hx - Social History Hx Tobacco Use: No Hx Alcohol Use: No Hx Substance Use: No - Immunization History Hx Tetanus Toxoid Vaccination: No Hx Influenza Vaccination: Yes (2013) Hx Pneumococcal Vaccination: Yes Review Of Systems Except As Marked, All Systems Reviewed And Found Negative. Constitutional: Positive for: Chills. Negative for: Fever ENT: Positive for: Nose Congestion. Negative for: Nose Discharge Cardiovascular: Positive for: Chest Pain. Negative for: Palpitations, Edema, Light Headedness Respiratory: Positive for: Cough. Negative for: Hemoptysis, Sputum Gastrointestinal: Negative for: Nausea, Vomiting, Abdominal Pain, Diarrhea Genitourinary: Positive for: Frequency. Negative for: Dysuria, Incontinence, Hematuria Musculoskeletal: Negative for: Neck Pain, Back Pain Skin: Negative for: Rash, Bruising Neurological: Negative for: Headache, Dizziness Physical Exam - Physical Exam Appears: Non-toxic, No Acute Distress Skin: Normal Color, Warm, Dry, No Rash Head: Atraumatic, Normacephalic Eye(s): bilateral: Normal Inspection, EOMI Oral Mucosa: Moist Neck: Normal ROM, Supple Chest: Symmetrical Cardiovascular: Rhythm Regular, No Murmur Respiratory: No Accessory Muscle Use, No Rales, No Rhonchi, No Wheezing, Other ( coarse breath sounds bilaterally) Gastrointestinal/Abdominal: Soft, No Tenderness Extremity: Normal ROM, No Tenderness, Pedal Edema (bilateral), Capillary Refill (<2 sec.), No Deformity Extremity: Bilateral: Atraumatic, Normal Color And Temperature Neurological/Psych: Oriented x3, Normal Speech, Normal Cognition ED Course And Treatment - Laboratory Results Result Diagrams: 05/09/17 08:14 05/09/17 08:14 ECG: Interpreted By Me, Viewed By Me ECG Rhythm: Sinus Rhythm ECG Interpretation: No Acute Changes Interpretation Of ECG: No acute ST/T wave elevation or depression. Rate From EC (bpm) O2 Sat by Pulse Oximetry: 95 (on RA) Pulse Ox Interpretation: Normal Medical Decision Making Medical Decision Making: EKG, CXR, blood work, influenza test ordered and reviewed. CXR shows dens infiltrates. Patient with no fever, normal white count. Attempted to contact DR. Boone, left message and called ICU, pending call back. Spoke with Dr. Boone, will hospitalize patient for further evaluation. Disposition Discussed With : Rayne Boone - Disposition Disposition: HOSPITALIZED Disposition Time: 10:51 Condition: GUARDED - POA Present On Arrival: None - Clinical Impression Clinical Impression: Lung disease - Scribe Statement The provider has reviewed the documentation as recorded by the Rajniibe Sylvia Valencia All medical record entries made by the Scribe were at my direction and personally dictated by me. I have reviewed the chart and agree that the record accurately reflects my personal performance of the history, physical exam, medical decision making, and the department course for this patient. I have also personally directed, reviewed, and agree with the discharge instructions and disposition. Decision To Admit - Pt Status Changed To: Hospital Disposition Of: Inpatient - Admit Certification Admit to Inpatient:: After my assessment, the patient will require hospitalization for at least two midnights. This is because of the severity of symptoms shown, intensity of services needed, and/or the medical risk in this patient being treated as an outpatient. - InPatient: Physician Admission Certification: I certify that this patient requires 2 or more midnights of care for the following reason:: worstening lung pathology - . Bed Request Type: Regular Patient Diagnosis: Lung disease
[2017-05-09 08:28] LABS: BASO # 0.1 K/uL (0.0-0.2); BASO % 0.7 % (0.0-2.0); EOS # 0.5 K/uL (0.0-0.7); EOS % 6.2 % (0.0-4.0); HEMATOCRIT 44.3 % (34.0-47.0); LYMPH # 2.4 K/uL (1.0-4.3); LYMPH % 31.9 % (20.0-40.0); MEAN CELL VOLUME 92.4 fL (81.0-99.0); MEAN CORPUSCULAR HEMOGLOBIN 30.3 pg (27.0-31.0); MEAN CORPUSCULAR HGB CONC 32.8 g/dL (33.0-37.0); MEAN PLATELET VOLUME 9.9 fL (7.2-11.7); MONO # 0.8 K/uL (0.0-0.8); MONO % 10.6 % (0.0-10.0); NRBC % 0.1 % (0.0-2.0); RED CELL DISTRIBUTION WIDTH 12.7 % (11.5-14.5); WHITE BLOOD COUNT 7.6 K/uL (4.8-10.8)
[2017-05-09 08:50] LABS: ALKALINE PHOSPHATASE 243 U/L (38-126); ALT/SGPT 53 U/L (9-52); AST/SGOT 48 U/L (14-36); BILIRUBIN,TOTAL 1.7 mg/dL (0.2-1.3); BLOOD UREA NITROGEN 15 mg/dL (7-17); CARBON DIOXIDE 25 mmol/L (22-30); CHLORIDE 104 mmol/L (98-107); GFR AFRICAN-AMERICAN > 60; GLUCOSE,RANDOM 146 mg/dL (65-105); POTASSIUM 3.9 mmol/L (3.6-5.2); SODIUM 139 mmol/L (132-148); TOTAL PROTEIN 7.1 g/dL (6.3-8.3)
--- NOTE | 2017-05-09 09:39 | RAD ---
PROCEDURE: CHEST RADIOGRAPH, 1 VIEW HISTORY: SOB COMPARISON: Portable chest 01/25/2017. FINDINGS: LUNGS: Dense infiltrates identified at the left upper lobe extending into the left perihilar region and also identified and are also identified at the left lower lobe/left base. Limited patchy infiltrates in the right perihilar region with remaining right lung adam clear as well as left apex. PLEURA: Small pleural effusions not excluded. None is seen the right. No pneumothorax bilaterally appear CARDIOVASCULAR: Inocencio silhouette appears stable. No definite pulmonary vascular derangement identified. OSSEOUS STRUCTURES: No significant abnormalities. VISUALIZED UPPER ABDOMEN: Normal. OTHER FINDINGS: None. IMPRESSION: Interval dense infiltrate is seen at the mid inferior left lung zones with small pleural effusion not excluded. Limited patchy infiltrate is seen at the right perihilar region.
[2017-05-09] MEDS ORDERED: Albuterol 0.083% Inhal Sol (2.5 mg/3 mL) UD INH PRN (15:25)
[2017-05-09] MEDS: cefTRIAXone IV 1 gm in Dextros 50 ML IVPB SCH (16:46)
[2017-05-09] MEDS: (Novolog) Insulin Aspart, Recombinant 100 u/ml 10 ml vial SC SCH ×2 (16:55→22:11)
[2017-05-09] MEDS: guaiFENesin 600 mg ER Tab PO SCH (17:53)
[2017-05-09] MEDS: Azithromycin 500 MG in Sodium Chloride 0.9% 250 ML IVPB SCH (17:53)
[2017-05-09] MEDS: Albuterol-Ipratrop 3 mg / 0.5 (3 ml) UD INH SCH (19:36)
--- NOTE | 2017-05-09 20:06 | CP.PCM.PN ---
Subjective - Date & Time of Evaluation Date of Evaluation: 05/09/17 Time of Evaluation: 20:04 - Subjective Subjective: pt admitted with worsening cough left lung mass or penumonia spoke to family will need bronch but last time she had bronch but non specific will continue to monitor on antibiotic on steroid Cough History present illness: 70-year-old female with history of lung cancer, osteoporosis, osteoarthritis, hypertension, diabetes came to the ER with complaining of increasing cough for almost 2 weeks duration. Patient the past had a history of pneumonia also. She was diagnosed with the cancer in 2004. Following that she underwent a surgical intervention as well as chemotherapy. Patient there was doing well until recently, patient went to see a oncologist recently, who had a CAT scan of the chest. CT of the chest is showing evidence of increasing lung mass. Currently she is having increasing cough, and able to bring up the mucus, also associate with chest tightness. No fever noted. Denies any chest pain. But shortness of breath noted. no fever and no mucous but sob and cough Past medical history: Hypertension, hypercholesteremia, diabetes, lung cancer. Surgical history: Cholecystectomy the surgical intervention for the lung cancer chemotherapy. Family history noncontributory. Social history: He denies any alcohol or smoking, drinks coffee daily, no exercise currently. Current medications reviewed. Review of systems: Denies any headache, no visual symptoms, complaining of sore throat, cough, cough with the mucus production, which is yellow in color, sometimes chest tightness and chest pain noted, especially in the back, with the deepest patient. Now the abdominal symptoms, no urinary symptoms. Patient has some gastric mass noted recently, also Patient underwent upper endoscopy, again upper endoscopy scheduled On examination: HEENT PERRLA, neck supple No thyromegaly was noted and no cervical adenopathy noted Patient has a bilateral diffuse wheezing and rhonchi noted CVS regular heart sound, no murmur Abdomen soft and no organomegaly Extremities no pedal edema, no leg swelling, pedal pulses are good. 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 Patient CAT scan of the chest is reviewed. Showing evidence of mediastinal mass involving the left lung, Assessment and recommendation: 70-year-old female with history lung cancer, possible recurrence at this time, came to the office with a possible acute exacerbation of COPD. Antibiotic and corticosteroid advised. Nebulizers advised. possible pneumonia and BOOP lung cancer recurrence possible will add steroid chest CT again may need bronch orders in the cpoe Objective - Vital Signs/Intake and Output Vital Signs (last 24 hours): Temp Pulse Resp BP Pulse Ox 97.7 F 81 20 138/73 94 L 05/09/17 15:38 05/09/17 19:36 05/09/17 15:38 05/09/17 15:38 05/09/17 15:38 - Medications Medications: Current Medications Albuterol Sulfate (Albuterol 0.083% Inhal Juanis (2.5 Mg/3 Ml) Ud) 2.5 mg INH RQ6 PRN PRN Reason: Shortness of Breath Albuterol/Ipratropium (Duoneb 3 Mg/0.5 Mg (3 Ml) Ud) 3 ml INH RQ6 [facility] Last Admin: 05/09/17 19:36 Dose: 3 ml Furosemide (Lasix) 20 mg PO QAM [facility] Guaifenesin (Mucinex La) 600 mg PO BID [facility] Last Admin: 05/09/17 17:53 Dose: 600 mg Ceftriaxone Sodium (Rocephin Iv 1 Gm Duplex) 50 mls @ 100 mls/hr IVPB DAILY [facility] Last Admin: 05/09/17 16:46 Dose: 100 mls/hr Azithromycin 500 mg/ Sodium (Chloride) 250 mls @ 167 mls/hr IVPB DAILY [facility] Last Admin: 05/09/17 17:53 Dose: 167 mls/hr Insulin Aspart (Novolog) 0 unit SC ACHS [facility] PRN Reason: Protocol Last Admin: 05/09/17 16:55 Dose: Not Given Lisinopril (Zestril) 20 mg PO QAM [facility] Metformin HCl (Glucophage) 500 mg PO BID [facility] Last Admin: 05/09/17 17:53 Dose: 500 mg Methylprednisolone (Solu-Medrol) 40 mg IVP Q8 [facility]
[2017-05-09] MEDS: MethylPREDNISolone 40 mg Vial IVP SCH (21:20)
[2017-05-10] MEDS: Albuterol-Ipratrop 3 mg / 0.5 (3 ml) UD INH SCH ×4 (01:41→19:56)
[2017-05-10] MEDS: MethylPREDNISolone 40 mg Vial IVP SCH ×3 (06:17→21:41)
[2017-05-10 08:06] LABS: HEMATOCRIT 43.6 % (34.0-47.0); MEAN CELL VOLUME 91.6 fL (81.0-99.0); MEAN CORPUSCULAR HEMOGLOBIN 30.5 pg (27.0-31.0); MEAN CORPUSCULAR HGB CONC 33.3 g/dL (33.0-37.0); MEAN PLATELET VOLUME 10.3 fL (7.2-11.7); RED CELL DISTRIBUTION WIDTH 12.7 % (11.5-14.5); WHITE BLOOD COUNT 7.6 K/uL (4.8-10.8)
[2017-05-10 08:27] LABS: CHLORIDE 105 mmol/L (98-107); POTASSIUM 4.1 mmol/L (3.6-5.2); SODIUM 139 mmol/L (132-148)
[2017-05-10 08:29] LABS: GFR AFRICAN-AMERICAN > 60
[2017-05-10 08:30] LABS: ALKALINE PHOSPHATASE 240 U/L (38-126); ALT/SGPT 55 U/L (9-52); AST/SGOT 50 U/L (14-36); BLOOD UREA NITROGEN 16 mg/dL (7-17); CALCIUM 9.6 mg/dl (8.6-10.4); CARBON DIOXIDE 21 mmol/L (22-30); GLUCOSE,RANDOM 246 mg/dL (65-105); TOTAL PROTEIN 7.2 g/dL (6.3-8.3)
[2017-05-10] MEDS: (Novolog) Insulin Aspart, Recombinant 100 u/ml 10 ml vial SC SCH ×4 (08:51→21:53)
[2017-05-10] MEDS: guaiFENesin 600 mg ER Tab PO SCH ×2 (09:42→17:28)
[2017-05-10] MEDS: cefTRIAXone IV 1 gm in Dextros 50 ML IVPB SCH (09:42)
[2017-05-10] MEDS: Azithromycin 500 MG in Sodium Chloride 0.9% 250 ML IVPB SCH (10:50)
--- NOTE | 2017-05-10 14:52 | CARD ---
APPROVED REPORT EKG Measurement Heart [id number] <Conclusion> Normal sinus rhythm Voltage criteria for left ventricular hypertrophy Abnormal ECG
--- NOTE | 2017-05-10 21:19 | CP.PCM.HP ---
History of Present Illness - History of Present Illness History of Present Illness: Chief complaint: Cough History present illness: 72-year-old female with history of lung cancer, osteoporosis, osteoarthritis, hypertension, diabetes came to the ER with complaining of increasing cough for almost 2 weeks duration. Patient the past had a history of pneumonia also. She was diagnosed with the lung cancer in 2004. Following that she underwent a surgical intervention as well as chemotherapy. Patient there was doing well until recently, patient went to see a oncologist recently, who had a CAT scan of the chest. CT of the chest is showing evidence of increasing lung mass. Currently she is having increasing cough, and able to bring up the mucus, also associate with chest tightness. No fever noted. Denies any chest pain. But shortness of breath noted. no fever and no mucous but sob and cough Past medical history: Hypertension, hypercholesteremia, diabetes, lung cancer. Surgical history: Cholecystectomy the surgical intervention for the lung cancer chemotherapy. Family history noncontributory. Social history: He denies any alcohol or smoking, drinks coffee daily, no exercise currently. Current medications reviewed. Review of systems: Denies any headache, no visual symptoms, complaining of sore throat, cough, cough with the mucus production, which is yellow in color, sometimes chest tightness and chest pain noted, especially in the back, with the deepest patient. Now the abdominal symptoms, no urinary symptoms. Patient has some gastric mass noted recently, also Patient had a bronchoscopy in the past. On examination: HEENT PERRLA, neck supple No thyromegaly was noted and no cervical adenopathy noted Patient has a bilateral diffuse wheezing and rhonchi noted CVS regular heart sound, no murmur Abdomen soft and no organomegaly Extremities no pedal edema, no leg swelling, pedal pulses are good. 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 Ration recently underwent a CT of the chest, increasing left upper lung mass noted. CT of the PET scan showing there was no increased metabolic activity noted. But the size of the masses increasing at this time. Assessment and recommendation: 72-year-old female with history lung cancer, possible recurrence at this time, came to the office with a possible acute exacerbation of COPD. Antibiotic and corticosteroid advised. Nebulizers advised. possible pneumonia and BOOP lung cancer recurrence possible will add steroid may need bronch orders in the cpoe Present on Admission - Present on Admission Any Indicators Present on Admission: No History of DVT/PE: No History of Uncontrolled Diabetes: No Urinary Catheter: No Decubitus Ulcer Present: No Past Patient History - Infectious Disease Hx of Infectious Diseases: None - Past Medical History & Family History Past Medical History?: Yes - Past Social History Smoking Status: Never Smoked - CARDIAC Hx Hypertension: Yes - PULMONARY Hx Respiratory Disorders: Yes Hx Chronic Obstructive Pulmonary Disease (COPD): No Hx Lung Cancer: Yes Hx Pneumonia: Yes - NEUROLOGICAL Hx Neurological Disorder: Yes Hx Dementia: Yes (FORGETFUL AT TIMES. AAO X 3 AT PRESENT) - HEENT Hx HEENT Problems: No - RENAL Hx Chronic Kidney Disease: Yes Hx Kidney Stones: Yes - ENDOCRINE/METABOLIC Hx Diabetes Mellitus Type 2: Yes - HEMATOLOGICAL/ONCOLOGICAL Hx Blood Disorders: No Hx Human Immunodeficiency Virus (HIV): No - INTEGUMENTARY Hx Dermatological Problems: No - MUSCULOSKELETAL/RHEUMATOLOGICAL Hx Arthritis: Yes - GASTROINTESTINAL Hx Gastrointestinal Disorders: No - GENITOURINARY/GYNECOLOGICAL Hx Genitourinary Disorders: No - PSYCHIATRIC Hx Psychophysiologic Disorder: Yes Hx Anxiety: Yes Hx Bipolar Disorder: Yes Hx Depression: Yes Hx Substance Use: No - SURGICAL HISTORY Hx Surgeries: Yes Other/Comment: left lower lobectomy - ANESTHESIA Hx Anesthesia: Yes Hx Anesthesia Reactions: No Hx Malignant Hyperthermia: No Has any member of the family had a problem w/ anesthesia?: No Meds Allergies/Adverse Reactions: Allergies Allergy/AdvReac Type Severity Reaction Status Date / Time No Known Allergies Allergy Verified 01/28/17 13:56 Results - Vital Signs Recent Vital Signs: Last Vital Signs Temp 97.6 F 05/10/17 15:37 Pulse 75 05/10/17 15:37 Resp 18 05/10/17 15:37 BP 135/82 05/10/17 15:37 Pulse Ox 97 05/10/17 15:37 - Labs Result Diagrams: 05/10/17 07:51 05/10/17 07:51 Labs: Laboratory Results - last 24 hr 05/09/17 05/10/17 05/10/17 21:40 06:26 07:51 WBC 7.6 RBC 4.76 Hgb 14.5 Hct 43.6 MCV 91.6 MCH 30.5 MCHC 33.3 RDW 12.7 Plt Count 249 MPV 10.3 Sodium Potassium Chloride Carbon Dioxide Anion Gap BUN Creatinine Est GFR ( Amer) Est GFR (Non-Af Amer) POC Glucose (mg/dL) 147 H 285 H Random Glucose Calcium Total Bilirubin AST ALT Alkaline Phosphatase Total Protein Albumin Globulin Albumin/Globulin Ratio 05/10/17 05/10/17 05/10/17 07:51 11:27 16:41 WBC RBC Hgb Hct MCV MCH MCHC RDW Plt Count MPV Sodium 139 Potassium 4.1 Chloride 105 Carbon Dioxide 21 L Anion Gap 17 BUN 16 Creatinine 0.8 Est GFR ( Amer) > 60 Est GFR (Non-Af Amer) > 60 POC Glucose (mg/dL) 370 H 262 H Random Glucose 246 H Calcium 9.6 Total Bilirubin 1.0 AST 50 H ALT 55 H Alkaline Phosphatase 240 H Total Protein 7.2 Albumin 3.6 Globulin 3.6 Albumin/Globulin Ratio 1.0 05/10/17 20:51 WBC RBC Hgb Hct MCV MCH MCHC RDW Plt Count MPV Sodium Potassium Chloride Carbon Dioxide Anion Gap BUN Creatinine Est GFR ( Amer) Est GFR (Non-Af Amer) POC Glucose (mg/dL) 348 H Random Glucose Calcium Total Bilirubin AST ALT Alkaline Phosphatase Total Protein Albumin Globulin Albumin/Globulin Ratio
--- NOTE | 2017-05-10 21:23 | CP.PCM.PN ---
Subjective - Date & Time of Evaluation Date of Evaluation: 05/10/17 Time of Evaluation: 21:23 - Subjective Subjective: Patient is feeling much better in her symptoms. Less cough noted, less congestion noted, and also less shortness of breath. She denies any nausea vomiting. Patient's vital signs reviewed Chest good air entry, minimal expiratory wheezing Assessment and recommendation: 72-year-old female with history of hypertension, lung cancer, pedal edema. Patient now admitted with a possible acute exacerbation of underlying bronchopneumonia. COPD exacerbation possible. Currently on antibiotic and corticosteroids. Even though there is a worsening lung mass, but so for the evidence is less likely for malignancy. But underlying bronchopneumonia, other infectious process cannot be ruled out. Definitely will get the biopsy if needed. We'll plan need possibly on Objective - Vital Signs/Intake and Output Vital Signs (last 24 hours): Temp Pulse Resp BP Pulse Ox 97.6 F 75 18 135/82 97 05/10/17 15:37 05/10/17 15:37 05/10/17 15:37 05/10/17 15:37 05/10/17 15:37 - Medications Medications: Current Medications Albuterol/Ipratropium (Duoneb 3 Mg/0.5 Mg (3 Ml) Ud) 3 ml INH RQ6 [facility] Last Admin: 05/10/17 19:56 Dose: 3 ml Furosemide (Lasix) 20 mg PO QAM [facility] Last Admin: 05/10/17 09:42 Dose: 20 mg Guaifenesin (Mucinex La) 600 mg PO BID [facility] Last Admin: 05/10/17 17:28 Dose: 600 mg Ceftriaxone Sodium (Rocephin Iv 1 Gm Duplex) 50 mls @ 100 mls/hr IVPB DAILY [facility] Last Admin: 05/10/17 09:42 Dose: 100 mls/hr Azithromycin 500 mg/ Sodium (Chloride) 250 mls @ 167 mls/hr IVPB DAILY [facility] Last Admin: 05/10/17 10:50 Dose: 167 mls/hr Insulin Aspart (Novolog) 0 unit SC ACHS [facility] PRN Reason: Protocol Last Admin: 05/10/17 17:28 Dose: 4 unit Lisinopril (Zestril) 20 mg PO QAM [facility] Last Admin: 05/10/17 09:42 Dose: 20 mg Metformin HCl (Glucophage) 500 mg PO BID [facility] Last Admin: 05/10/17 17:28 Dose: 500 mg Methylprednisolone (Solu-Medrol) 40 mg IVP Q8 [facility] Last Admin: 05/10/17 14:52 Dose: 40 mg - Labs Labs: 05/10/17 07:51 05/10/17 07:51
[2017-05-11] MEDS: Albuterol-Ipratrop 3 mg / 0.5 (3 ml) UD INH SCH ×4 (01:50→20:15)
[2017-05-11] MEDS: MethylPREDNISolone 40 mg Vial IVP SCH ×3 (05:39→22:25)
[2017-05-11 08:21] LABS: HEMATOCRIT 44.7 % (34.0-47.0); MEAN CELL VOLUME 92.5 fL (81.0-99.0); MEAN CORPUSCULAR HEMOGLOBIN 30.7 pg (27.0-31.0); MEAN CORPUSCULAR HGB CONC 33.2 g/dL (33.0-37.0); MEAN PLATELET VOLUME 10.6 fL (7.2-11.7); RED CELL DISTRIBUTION WIDTH 12.6 % (11.5-14.5)
[2017-05-11 08:24] LABS: WHITE BLOOD COUNT 16.6 K/uL (4.8-10.8)
[2017-05-11 08:27] LABS: CHLORIDE 103 mmol/L (98-107); POTASSIUM 4.2 mmol/L (3.6-5.2); SODIUM 137 mmol/L (132-148)
[2017-05-11 08:30] LABS: CARBON DIOXIDE 23 mmol/L (22-30); GFR AFRICAN-AMERICAN > 60
[2017-05-11 08:31] LABS: BLOOD UREA NITROGEN 19 mg/dL (7-17); CALCIUM 9.9 mg/dl (8.6-10.4); GLUCOSE,RANDOM 313 mg/dL (65-105)
[2017-05-11] MEDS: (Novolog) Insulin Aspart, Recombinant 100 u/ml 10 ml vial SC SCH ×4 (08:34→22:26)
[2017-05-11] MEDS: cefTRIAXone IV 1 gm in Dextros 50 ML IVPB SCH (10:32)
[2017-05-11] MEDS: guaiFENesin 600 mg ER Tab PO SCH ×2 (10:36→18:46)
[2017-05-11] MEDS: Azithromycin 500 MG in Sodium Chloride 0.9% 250 ML IVPB SCH (11:22)
[2017-05-12] MEDS: Albuterol-Ipratrop 3 mg / 0.5 (3 ml) UD INH SCH ×4 (02:05→19:18)
[2017-05-12] MEDS: MethylPREDNISolone 40 mg Vial IVP SCH ×3 (05:04→22:18)
[2017-05-12] MEDS: (Novolog) Insulin Aspart, Recombinant 100 u/ml 10 ml vial SC SCH ×4 (07:30→22:18)
[2017-05-12] MEDS: cefTRIAXone IV 1 gm in Dextros 50 ML IVPB SCH (10:01)
[2017-05-12] MEDS: guaiFENesin 600 mg ER Tab PO SCH ×2 (10:04→18:32)
[2017-05-12] MEDS: Azithromycin 500 MG in Sodium Chloride 0.9% 250 ML IVPB SCH (10:04)
--- NOTE | 2017-05-12 10:28 | CP.PCM.PN ---
Subjective - Date & Time of Evaluation Date of Evaluation: 05/11/17 Time of Evaluation: 10:28 - Subjective Subjective: Patient is having significant improvement in the cough, shortness of breath also improving. Patient is able tablet without any difficulty. Less cough noted On examination: HEENT PERRLA, neck supple No thyromegaly was noted and no cervical adenopathy noted Minimal wheezing noted bilaterally CVS regular heart sound, no murmur Abdomen soft and no organomegaly Extremities no pedal edema, no leg swelling, pedal pulses are good. 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 Chest x-ray bilateral diffuse infiltrative changes. Assessment and recommendation: 72-year-old female admitted with a diffuse worsening pneumonia, most likely noninfectious process. Recent CAT scan showing evidence of worsening pneumonia, I advised the patient to start on anti-inflammatory to, on corticosteroid, and antibiotic now. Bronchoscopy in a.m. Objective - Vital Signs/Intake and Output Vital Signs (last 24 hours): Temp Pulse Resp BP Pulse Ox 97.5 F L 82 20 157/94 H 95 05/12/17 07:05 05/12/17 07:05 05/12/17 07:05 05/12/17 07:05 05/12/17 07:05 Intake and Output: 05/12/17 05/12/17 06:59 18:59 Intake Total 410 Balance 410 - Medications Medications: Current Medications Albuterol/Ipratropium (Duoneb 3 Mg/0.5 Mg (3 Ml) Ud) 3 ml INH RQ6 [facility] Last Admin: 05/12/17 07:51 Dose: 3 ml Furosemide (Lasix) 20 mg PO QAM [facility] Last Admin: 05/12/17 10:03 Dose: Not Given Guaifenesin (Mucinex La) 600 mg PO BID [facility] Last Admin: 05/12/17 10:04 Dose: Not Given Ceftriaxone Sodium (Rocephin Iv 1 Gm Duplex) 50 mls @ 100 mls/hr IVPB DAILY [facility] Last Admin: 05/12/17 10:01 Dose: 100 mls/hr Azithromycin 500 mg/ Sodium (Chloride) 250 mls @ 167 mls/hr IVPB DAILY [facility] Last Admin: 05/12/17 10:04 Dose: 167 mls/hr Insulin Aspart (Novolog) 0 unit SC ACHS [facility] PRN Reason: Protocol Last Admin: 05/12/17 07:30 Dose: Not Given Lisinopril (Zestril) 20 mg PO QAM [facility] Last Admin: 05/12/17 10:03 Dose: Not Given Metformin HCl (Glucophage) 500 mg PO BID [facility] Last Admin: 05/12/17 10:03 Dose: Not Given Methylprednisolone (Solu-Medrol) 40 mg IVP Q8 [facility] Last Admin: 05/12/17 05:04 Dose: 40 mg - Labs Labs: 05/11/17 08:04 05/11/17 08:04 PT 11.8 SECONDS (9.7-12.2) 05/11/17 11:14 INR 1.0 05/11/17 11:14 APTT 28 SECONDS (21-34) 05/11/17 11:14
[2017-05-12] MEDS ORDERED: EPINEPHrine 1 mg/ml (1:1000) Inj ONE (12:59)
[2017-05-12] MEDS ORDERED: Sodium Chloride 0.9% 0 ML IV ONE (12:59)
[2017-05-12] MEDS ORDERED: Lidocaine 2% Inj (20ml) ONE (12:59)
[2017-05-12] MEDS ORDERED: Propofol 10 mg/ml Inj (20 ML) ONE (13:54)
[2017-05-12] MEDS ORDERED: Midazolam 2 MG/2 ML VIAL ONE (13:54)
[2017-05-12] MEDS ORDERED: Lactated Ringer's 1,000 ML IV ONE (13:55)
[2017-05-12] MEDS ORDERED: Lidocaine 4% (Laryng-O-Jet) Kit MM ONE (13:58)
--- NOTE | 2017-05-12 14:20 | PCM.SURG1 ---
Surgeon's Initial Post Op Note - Surgeon's Notes Surgeon: Paolo Financial Investigator: none Pre-Operative Diagnosis: lung mass Operative Findings: diffuse bronchial erythema and easy bleeding and lung mass Post-Operative Diagnosis: same Operation Performed: brochial biopsy. washing. brushing Specimen/Specimens Removed: bal and washing and brushing Estimated Blood Loss: EBL {In ML}: 2 Date of Surgery/Procedure: 05/12/17 Time of Surgery/Procedure: 14:19
[2017-05-12] MEDS ORDERED: Albuterol-Ipratrop 3 mg / 0.5 (3 ml) UD INH ONE (14:30)
[2017-05-12] MEDS ORDERED: Albuterol 0.083% Inhal Sol (2.5 mg/3 mL) UD INH PRN (14:47)
[2017-05-12] MEDS ORDERED: Racepinephrine 2.25% Inhal Soln 0.5 ML UD NEB ONE (15:00)
--- NOTE | 2017-05-12 16:31 | RAD ---
HISTORY: bronchoscopy COMPARISON: 05/09/2017 0750 hour FINDINGS: LUNGS: The left perihilar mass is similar-appearing. The right mid lung zone patchy infiltrate the more extensive. The left basal opacity/ consolidation and/or effusion and/or atelectasis is similar. PLEURA: As above. No pneumothorax CARDIOVASCULAR: Normal. OSSEOUS STRUCTURES: Thoracic spondylosis VISUALIZED UPPER ABDOMEN: Normal. OTHER FINDINGS: None. IMPRESSION: Status post bronchoscopy. No pneumothorax seen. Left perihilar mass as before Left basal consolidation and/or effusion similar. Right mid lung zone patchy opacity slightly increased
--- NOTE | 2017-05-12 16:36 | RAD ---
PROCEDURE: HISTORY: COMPARISON: TECHNIQUE: Total fluoroscopic time utilized during the procedure: 23.8 seconds. Total dose 0.77831 mGy cm squared FINDINGS: Submitted images from the current procedure: 3 Please refer to the physician's notes performing the procedure. IMPRESSION: Less than 1 hour fluoroscopic time utilized during performance of the procedure
[2017-05-12 16:54] VITALS: RESP 20
[2017-05-13] MEDS: Albuterol-Ipratrop 3 mg / 0.5 (3 ml) UD INH SCH ×3 (02:03→13:32)
[2017-05-13 02:28] VITALS: TEMP 97.7
[2017-05-13] MEDS: MethylPREDNISolone 40 mg Vial IVP SCH (05:39)
[2017-05-13] MEDS: (Novolog) Insulin Aspart, Recombinant 100 u/ml 10 ml vial SC SCH ×2 (08:02→12:00)
[2017-05-13 08:34] VITALS: PULSE 70; O2SAT 95
[2017-05-13] MEDS: guaiFENesin 600 mg ER Tab PO SCH (09:40)
[2017-05-13] MEDS: cefTRIAXone IV 1 gm in Dextros 50 ML IVPB SCH (09:41)
[2017-05-13 09:42] VITALS: BP 142/67
[2017-05-13] MEDS: Azithromycin 500 MG in Sodium Chloride 0.9% 250 ML IVPB SCH (09:43)
--- NOTE | 2017-05-13 12:37 | CP.PCM.PN ---
Subjective - Date & Time of Evaluation Date of Evaluation: 05/13/17 Time of Evaluation: 12:31 - Subjective Subjective: PT SEEN BY INSIDE SALES SUPERVISOR AND DR. NDIAYE. PER DR. NDIAYE PT IS CLEARED TO GO HOME LATE AFTERNOON/EARLY EVENING. PT IS COMFORTABLE. HAS C/O SCANT VAGINAL BLEEDING BUT NO PELVIC PAIN. PER DR. NDIAYE, PT TO F/U OP WITH ELECTRONICS SCALE TESTER (PT GOES TO [facility]) AND WILL MAKE APPT WITH THEM FOR 1 WEEK. TO F/U WITH DR. NDIAYE IN THE OFFICE WITHIN 1 WEEK. RX FOR ZITHRO AND MEDROL SENT TO PT'S PHARMACY. ALL MEDS, D/C AND F/U INFORMATION DISCUSSED WITH PT AND DAUGHTER AT BEDSIDE. NO FURTHER ORDERS. Objective - Vital Signs/Intake and Output Vital Signs (last 24 hours): Temp Pulse Resp BP Pulse Ox 97.7 F 70 20 142/67 95 05/13/17 07:20 05/13/17 07:20 05/13/17 07:20 05/13/17 09:40 05/13/17 07:20 Intake and Output: 05/13/17 05/13/17 06:59 18:59 Intake Total 850 Balance 850 - Medications Medications: Current Medications Albuterol Sulfate (Albuterol 0.083% Inhal Juanis (2.5 Mg/3 Ml) Ud) 2.5 mg INH ONCE PRN PRN Reason: Wheezing Albuterol/Ipratropium (Duoneb 3 Mg/0.5 Mg (3 Ml) Ud) 3 ml INH RQ6 [facility] Last Admin: 05/13/17 07:22 Dose: 3 ml Furosemide (Lasix) 20 mg PO QAM [facility] Last Admin: 05/13/17 09:40 Dose: 20 mg Guaifenesin (Mucinex La) 600 mg PO BID [facility] Last Admin: 05/13/17 09:40 Dose: 600 mg Ceftriaxone Sodium (Rocephin Iv 1 Gm Duplex) 50 mls @ 100 mls/hr IVPB DAILY [facility] Last Admin: 05/13/17 09:41 Dose: 100 mls/hr Azithromycin 500 mg/ Sodium (Chloride) 250 mls @ 167 mls/hr IVPB DAILY [facility] Last Admin: 05/13/17 09:43 Dose: 167 mls/hr Insulin Aspart (Novolog) 0 unit SC ACHS [facility] PRN Reason: Protocol Last Admin: 05/13/17 08:02 Dose: 6 unit Lisinopril (Zestril) 20 mg PO QAM [facility] Last Admin: 05/13/17 09:40 Dose: 20 mg Metformin HCl (Glucophage) 500 mg PO BID [facility] Last Admin: 05/13/17 09:41 Dose: 500 mg Methylprednisolone (Solu-Medrol) 40 mg IVP Q8 [facility] Last Admin: 05/13/17 05:39 Dose: 40 mg - Labs Labs: 05/11/17 08:04 05/11/17 08:04 PT 11.8 SECONDS (9.7-12.2) 05/11/17 11:14 INR 1.0 05/11/17 11:14 APTT 28 SECONDS (21-34) 05/11/17 11:14
--- NOTE | 2017-05-13 14:41 | CP.PCM.DIS ---
Provider - Provider Date of Admission: 05/09/17 10:52 Attending physician: Rayne Boone MD Time Spent in preparation of Discharge (in minutes): 45 Hospital Course - Lab Results Lab Results: Micro Results 05/09/17 08:15 Blood Blood Culture - Preliminary NO GROWTH AFTER 3 DAYS 05/09/17 07:45 Blood Blood Culture - Preliminary NO GROWTH AFTER 3 DAYS Most Recent Lab Values WBC 16.6 K/uL (4.8-10.8) H D 05/11/17 08:04 RBC 4.83 Mil/uL (3.80-5.20) 05/11/17 08:04 Hgb 14.8 g/dL (11.0-16.0) 05/11/17 08:04 Hct 44.7 % (34.0-47.0) 05/11/17 08:04 MCV 92.5 fL (81.0-99.0) 05/11/17 08:04 MCH 30.7 pg (27.0-31.0) 05/11/17 08:04 MCHC 33.2 g/dL (33.0-37.0) 05/11/17 08:04 RDW 12.6 % (11.5-14.5) 05/11/17 08:04 Plt Count 267 K/uL (130-400) 05/11/17 08:04 MPV 10.6 fL (7.2-11.7) 05/11/17 08:04 Neut % (Auto) 50.6 % (50.0-75.0) 05/09/17 08:14 Lymph % (Auto) 31.9 % (20.0-40.0) 05/09/17 08:14 [place] % (Auto) 10.6 % (0.0-10.0) H 05/09/17 08:14 Eos % (Auto) 6.2 % (0.0-4.0) H 05/09/17 08:14 Baso % (Auto) 0.7 % (0.0-2.0) 05/09/17 08:14 Neut # 3.8 K/uL (1.8-7.0) 05/09/17 08:14 Lymph # 2.4 K/uL (1.0-4.3) 05/09/17 08:14 [place] # 0.8 K/uL (0.0-0.8) 05/09/17 08:14 Eos # 0.5 K/uL (0.0-0.7) 05/09/17 08:14 Baso # 0.1 K/uL (0.0-0.2) 05/09/17 08:14 PT 11.8 SECONDS (9.7-12.2) 05/11/17 11:14 INR 1.0 05/11/17 11:14 APTT 28 SECONDS (21-34) 05/11/17 11:14 Sodium 137 mmol/L (132-148) 05/11/17 08:04 Potassium 4.2 mmol/L (3.6-5.2) 05/11/17 08:04 Chloride 103 mmol/L (98-107) 05/11/17 08:04 Carbon Dioxide 23 mmol/L (22-30) 05/11/17 08:04 Anion Gap 15 (10-20) 05/11/17 08:04 BUN 19 mg/dL (7-17) H 05/11/17 08:04 Creatinine 0.7 MG/DL (0.7-1.2) 05/11/17 08:04 Est GFR ( Amer) > 60 05/11/17 08:04 Est GFR (Non-Af Amer) > 60 05/11/17 08:04 POC Glucose (mg/dL) 333 mg/dL (65-110) H 05/13/17 11:33 Random Glucose 313 mg/dL (65-105) H 05/11/17 08:04 Calcium 9.9 mg/dl (8.6-10.4) 05/11/17 08:04 Total Bilirubin 1.0 mg/dL (0.2-1.3) 05/10/17 07:51 AST 50 U/L (14-36) H 05/10/17 07:51 ALT 55 U/L (9-52) H 05/10/17 07:51 Alkaline Phosphatase 240 U/L (38-126) H 05/10/17 07:51 Troponin I < 0.0120 ng/mL (0.00-0.120) 05/09/17 08:14 NT-Pro-B Natriuret Pep 140 pg/mL (0-900) 05/09/17 08:14 Total Protein 7.2 g/dL (6.3-8.3) 05/10/17 07:51 Albumin 3.6 g/dL (3.5-5.0) 05/10/17 07:51 Globulin 3.6 gm/dL (2.2-3.9) 05/10/17 07:51 Albumin/Globulin Ratio 1.0 (1.0-2.1) 05/10/17 07:51 Influenza Typ A,B (EIA) Negative for flu a/b (NEGATIVE) 05/09/17 07:52 - Hospital Course Hospital Course: Cough History present illness: 72-year-old female with history of lung cancer, osteoporosis, osteoarthritis, hypertension, diabetes came to the ER with complaining of increasing cough for almost 2 weeks duration. Patient the past had a history of pneumonia also. She was diagnosed with the lung cancer in 2004. Following that she underwent a surgical intervention as well as chemotherapy. Patient there was doing well until recently, patient went to see a oncologist recently, who had a CAT scan of the chest. CT of the chest is showing evidence of increasing lung mass. Currently she is having increasing cough, and able to bring up the mucus, also associate with chest tightness. No fever noted. Denies any chest pain. But shortness of breath noted. no fever and no mucous but sob and cough Past medical history: Hypertension, hypercholesteremia, diabetes, lung cancer. Surgical history: Cholecystectomy the surgical intervention for the lung cancer chemotherapy. Family history noncontributory. Social history: He denies any alcohol or smoking, drinks coffee daily, no exercise currently. Current medications reviewed. Review of systems: Denies any headache, no visual symptoms, complaining of sore throat, cough, cough with the mucus production, which is yellow in color, sometimes chest tightness and chest pain noted, especially in the back, with the deepest patient. Now the abdominal symptoms, no urinary symptoms. Patient has some gastric mass noted recently, also Patient had a bronchoscopy in the past. On examination: HEENT PERRLA, neck supple No thyromegaly was noted and no cervical adenopathy noted Patient has a bilateral diffuse wheezing and rhonchi noted CVS regular heart sound, no murmur Abdomen soft and no organomegaly Extremities no pedal edema, no leg swelling, pedal pulses are good. 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 Ration recently underwent a CT of the chest, increasing left upper lung mass noted. CT of the PET scan showing there was no increased metabolic activity noted. But the size of the masses increasing at this time. Assessment and recommendation: 72-year-old female with history lung cancer, possible recurrence at this time, came to the office with a possible acute exacerbation of COPD. Antibiotic and corticosteroid advised. Nebulizers advised. possible pneumonia and BOOP lung cancer recurrence possible will add steroid may need bronch orders in the oe Hospital course: Patient initially started on intravenous corticosteroid, bronchodilators, and the antibiotic. Within 3 days the patient started having significant improvement in the cough, and shortness of breath. Will get oxygen also improving. Patient is currently stable otherwise. I spoke to the patient's family. They agreed for bronchoscopy. Bronchoscopy was done yesterday. Post bronchoscopy. She's doing well. Minimal mucus with the blood noted, otherwise patient is doing well. Patient will be discharged home today. She will continue Zithromax, Medrol Misael, bronchodilators. Will closely monitor the lung mass. Follow up the pathology of the bronchoscopy. Even though there is a worsening lung changes in the CAT scan, recent pet scan is inconclusive. I explained to the family the chance of having a recurrent lung cancer is though it is high, still no pathological evidence yet. . Not able to get it we will repeat the PET scan aching, and possibly biopsy again used to be done. Most likely patient has bronchial pneumonia, possible chronic organizing pneumonia, may need long-term corticosteroid. Discharge Plan - Discharge Medications Prescriptions: Aspirin [Adult Low Dose Aspirin EC] 81 mg PO DAILY #30 tablet. Methylprednisolone [Medrol Dose Pack (21 tabs)] 4 mg PO DAILY #21 mg Azithromycin [Zithromax] 500 mg PO DAILY #5 tab - Follow Up Plan Condition: GUARDED Disposition: HOME/ ROUTINE Instructions: Aspirin (By mouth), Azithromycin (By mouth), Methylprednisolone ( By mouth), Heart Healthy Diet (DC), Flexible Bronchoscopy (DC), Pneumonia (DC) Additional Instructions: CELESTE VITALIY PHILIP DEL DR. BOONE EN DURAN OFICINA ENTRE VITALIY SEMANA---LLAME LA OFICINA PARA HACER LA HORA DE PHILIP. SIGUE TOMANDO DURAN MEDICAMENTOS EN CASA. DOS RECETAS NUEVAS: ZITHROMAX (ANTIBIOTICO) 500 MG POR LA BOCA DIARIA PARA VITALIY SEMANA. MEDROL (STEROID, PARA INFLAMACCION DE LOS PULMONES) TERMINA EL PACQUETE ENTRE. ES NORMAL PARA QUE DURAN AZUCAR SUBE CON EL STEROID; YA CUANDO TERMINAS TOMANDO LA MEDICINA DURAN AZUCAR REGRESA A NORMAL. CELESTE VITALIY PHILIP CON DURAN GYNOCOLOGO EN LA OFICINA ENTRE VITALIY SEMANA. SI USTED TIENES MAS PREGUNTAS, PUEDE LLAMAR AL OFICINA DE DURAN MEDICO. Referrals: Rayne Boone MD [Staff Provider] -
== END 2017-05-13 15:24 | disposition home or self-care (01) | DRG 197 ==
LOC: C.ER 07:11 → C.9E 10:52 → C.6T 12:53
PROVIDERS: ADMIT Internal Medicine; ATTEND Internal Medicine
DX: J84.89 Other specified interstitial pulmonary diseases (principal); J44.0 Chronic obstructive pulmonary disease with (acute) lower respiratory infection; E11.22 Type 2 diabetes mellitus with diabetic chronic kidney disease; F03.90 Unspecified dementia, unspecified severity, without behavioral disturbance, psychotic disturbance, mood disturbance, and anxiety; J44.1 Chronic obstructive pulmonary disease with (acute) exacerbation; E11.9 Type 2 diabetes mellitus without complications; F31.9 Bipolar disorder, unspecified; F41.9 Anxiety disorder, unspecified; E78.00 Pure hypercholesterolemia, unspecified; I12.9 Hypertensive chronic kidney disease with stage 1 through stage 4 chronic kidney disease, or unspecified chronic kidney disease; N18.9 Chronic kidney disease, unspecified; Z79.4 Long term (current) use of insulin; Z85.118 Personal history of other malignant neoplasm of bronchus and lung; M19.90 Unspecified osteoarthritis, unspecified site

== ENCOUNTER 2017-06-03 08:20 | Day surgery (SDC) | payer OTHER ==
[2017-06-03] MEDS ORDERED: ceFAZolin 1 gm FROZEN Premix 1 GM/50 ML ML IVPB ONE (10:01)
--- NOTE | 2017-06-03 10:23 | CP.SDSHP ---
Same Day Surgery H & P - History Proposed Procedure: Right port placement Pre-Op Diagnosis: Lung cancer - Allergies Allergies: Allergies No Known Allergies Allergy (Verified 01/28/17 13:56) - Physical Exam Mental Status: Alert & Oriented x3 Neuro: WNL Heart: WNL Lungs: WNL - Impression Impression: Pt with recently diagnosed left lung cancer refered for port placement. Plan right IJV port placement. Informed consent obtained. Pt. 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
[2017-06-03] MEDS ORDERED: Midazolam 2 MG/2 ML VIAL ONE (10:29)
--- NOTE | 2017-06-03 11:13 | PCM.SURG1 ---
Surgeon's Initial Post Op Note - Surgeon's Notes Surgeon: Laureano Ling MD Jacquard Plate Maker: NONE Type of Anesthesia: IV Sedation Pre-Operative Diagnosis: Lung cancer Operative Findings: US showed a patent right IJV Post-Operative Diagnosis: Lung cancer Operation Performed: Right port placement. Specimen/Specimens Removed: none Estimated Blood Loss: EBL {In ML}: 4 Blood Products Given: N/A Drains Used: No Drains Post-Op Condition: Fair Date of Surgery/Procedure: 06/03/17 Time of Surgery/Procedure: 11:10
== END 2017-06-03 13:15 | disposition home or self-care (01) ==
LOC: C.SPRAD 08:20
PROVIDERS: ATTEND Radiology Vascular & Interventional Radiology
DX: C34.92 Malignant neoplasm of unspecified part of left bronchus or lung (principal)
CPT/HCPCS: 36569; J0690; J1644; J2250

== ENCOUNTER 2017-08-31 10:03 | Inpatient (IN) | payer OTHER ==
[2017-08-31 10:04] VITALS: BMI 37.8
[2017-08-31] MEDS ORDERED: Sodium Chloride 0.9% 1,000 ML IV SCH (10:45)
[2017-08-31] MEDS: Albuterol-Ipratrop 3 mg / 0.5 (3 ml) UD IH SCH ×3 (10:55→12:06)
[2017-08-31] MEDS ORDERED: Albuterol-Ipratrop 3 mg / 0.5 (3 ml) UD ONE ×2 (10:55→11:51)
--- NOTE | 2017-08-31 10:58 | RAD ---
PROCEDURE: Chest dated HISTORY: SOB. COMPARISON: Comparison chest dated 05/12/[address] scan chest dated 04/22/2017. FINDINGS: Interval placement right IJ MediPort with tip in the SVC. LUNGS: Changes of left lower lobectomy less well seen compared to high-resolution CT chest however persistent elevation left hemidiaphragm with opacity in the left upper/mid lung stone and possibly some atelectasis and or scarring left lung base. Small left effusion not excluded. Masslike opacity in the right perihilar region. PLEURA: As above. No obvious pneumothorax CARDIOVASCULAR: Normal. OSSEOUS STRUCTURES: No significant abnormalities. VISUALIZED UPPER ABDOMEN: Normal. OTHER FINDINGS: None. IMPRESSION: Changes of left lower lobectomy less well seen compared to high-resolution CT chest however persistent elevation left hemidiaphragm with opacity in the left upper/mid lung stone and possibly some atelectasis and or scarring left lung base. Small left effusion not excluded. Masslike opacity in the right perihilar region.
--- NOTE | 2017-08-31 10:59 | C.PDOC ---
History Of Present Illness 72 y/o female with PMHx of Lung cancer presents to ED with complaints of RUQ abdominal pain and cough for "few days". As per daughter who is at bedside, patient is on chemotherapy and last received on 08/18. Patient is noted to have pedal edema but as per daughter that is at baseline. Patient denies fever, chills, vomiting, diarrhea or any other complaints at this time. Time Seen by Provider: 08/31/17 10:15 Chief Complaint (Nursing): Shortness Of Breath History Per: Patient, Family History/Exam Limitations: language barrier Onset/Duration Of Symptoms: Days Current Symptoms Are (Timing): Still Present Initiating Event: Upper Respiratory Illness Past Medical History Reviewed: Historical Data, Nursing Documentation, Vital Signs Vital Signs: Last Vital Signs Temp 97.4 F L 08/31/17 10:13 Pulse 125 H 08/31/17 17:00 Resp 30 H 08/31/17 17:00 BP 132/78 08/31/17 17:00 Pulse Ox 90 L 08/31/17 17:32 - Medical History PMH: Anxiety, Arthritis, Bipolar Disorder, CHF, Dementia (FORGETFUL AT TIMES. AAO X 3 AT PRESENT), Depression, Diabetes (NIDDM), HTN, Hypercholesterolemia, Kidney Stones, Pneumonia, Chronic Kidney Disease Surgical History: No Surg Hx - [facility] Procedures DRAINAGE OF LEFT LUNG, ENDO, DIAGN (05/09/17) DRAINAGE OF LEFT UPPER LUNG LOBE, ENDO, DIAGN (01/22/17) ESOPHAGOGASTRODUODENOSCOPY [EGD] W/CLOSED BIOPSY (05/21/15) EXCISION OF LEFT UPPER LOBE BRONCHUS, ENDO, DIAGN (01/22/17) INJECT/INFUSE NEC (02/06/13) Family History: States: No Known Family Hx - Social History Hx Tobacco Use: No Hx Alcohol Use: No Hx Substance Use: No - Immunization History Hx Tetanus Toxoid Vaccination: No Hx Influenza Vaccination: Yes (2013) Hx Pneumococcal Vaccination: Yes Review Of Systems Constitutional: Negative for: Fever, Chills Cardiovascular: Negative for: Chest Pain Respiratory: Positive for: Cough. Negative for: Shortness of Breath Gastrointestinal: Positive for: Abdominal Pain. Negative for: Nausea, Vomiting Skin: Negative for: Rash Physical Exam - Physical Exam Appears: Non-toxic, No Acute Distress Skin: Warm, Dry, No Rash Head: Atraumatic, Normacephalic Oral Mucosa: Moist Throat: Normal, No Erythema, No Exudate Neck: Supple Chest: Other (Port on right upper chest) Cardiovascular: Rhythm Regular Respiratory: No Rales, Rhonchi (Bilateral), No Wheezing Gastrointestinal/Abdominal: Soft, No Tenderness, No Guarding, No Rebound Back: No CVA Tenderness, Other (Right anterior lateral rib tenderness) Extremity: Normal ROM, Pedal Edema Neurological/Psych: Oriented x3 ED Course And Treatment - Laboratory Results Result Diagrams: 08/31/17 11:04 08/31/17 11:04 Lab Interpretation: No Acute Changes ECG: Interpreted By Me ECG Rhythm: Sinus Tachycardia ECG Interpretation: No Acute Changes Rate From EC O2 Sat by Pulse Oximetry: 90 (RA) Pulse Ox Interpretation: Normal - Radiology CXR: Viewed By Me (FINDINGS:), Read By Radiologist - CT Scan/US No standard instances Other Rad Studies (CT/US): Read By Radiologist, Radiology Report Reviewed CT/US Interpretation: FINDINGS: PULMONARY ARTERIES: Study reveals filling defects within distal aspect right pulmonary artery extending superiorly middle lobe and lower lobe branches as well as the proximal segmental branches of the right upper middle and lower lobes. Note these findings were discussed with ER nurse Estella at approximately 3:25 p.m. with written down and read back verification. The left main pulmonary artery and left upper lobe branches appear patent. Distal left lower lobe segmental and subsegmental branches are not well delineated due to left lower lobe consolidation that may represent atelectasis and/or infiltrate. There is also a small left-sided effusion which contributes. . Pulmonary trunk measures approximately 3.2 cm. AORTA: No acute findings. No thoracic aortic aneurysm. Ascending thoracic aorta measures approximately 3.05 cm and descending thoracic aorta measures approximately 2.4 cm. LUNGS: As mentioned above, there are bilateral lower lobe consolidation changes which may in part represent atelectasis and/or infiltrate and the case in the right lower and middle lobe regions, possible concomitant infarct changes. Consolidation changes left upper lobe. . PLEURAL SPACES: Small left- sided effusion as described above. No evidence of pneumothorax. HEART: The heart size is within range of normal. Slight left ventricular hypertrophy. No significant pericardial effusion. LYMPH NODES: Few tiny prevascular and mediastinal lymph nodes are present nonspecific. Evaluation for hilar adenopathy slightly limited due to on the aforementioned pulmonary embolus some on the right side and bilateral consolidation changes. BONES, CHEST WALL: Mild multilevel degenerative spondylosis of the thoracic spine. No acute compression fractures no retropulsed fragments. OTHER FINDINGS: Note again made of small amount of pneumobilia left lobe liver decreased from prior study however. IMPRESSION: Large pulmonary embolus within the distal right main pulmonary artery that extends into the upper lobe middle lobe and lower lobe branches and proximal segmental/ subsegmental branches. Bilateral lower lobe consolidation may represent some combination of atelectasis and or infiltrate with left-sided effusion ; concomitant infarct changes on the right side may contribute. . Mild consolidation changes also present within the middle lobe. Mild biapical pleural thickening and minimal adjacent parenchymal scarring. Referring clinician where these findings as detailed above. Progress Note: treated with duoneb x 3. IVF NSS @ 100 ml/hr. Patient developed increase dyspnea and hypoxia with exertion. Treated with non- rebreathing mask. CTA ordered. Case discussed with Dr Amisha Valencia (hospitalist) who agrees with admission to Dr Shirley. CTA (+) PE. Heparin bolus at 5,000 units. Heparin drip per protocol. case discussed and patient evaluated by Dr Shirley wgo requested ABGs Reassessment Condition: Unchanged - Physician Consult Information Physician Contacted: Sanjay Shirley Outcome Of Conversation: admit to tele Medical Decision Making Medical Decision Making: Plan: Blood work, UA, ECG, Influenza, Albuterol ordered Disposition Discussed With .: Sanjay Shirley Doctor Will See Patient In The: Hospital - Disposition Disposition: HOSPITALIZED Disposition Time: 17:00 Condition: GUARDED - POA Present On Arrival: None - Clinical Impression Clinical Impression: Pulmonary embolism, History of lung cancer - PA / [employer]ISTRATOR / Resident Statement MD/DO has reviewed & agrees with the documentation as recorded. - Scribe Statement The provider has reviewed the documentation as recorded by the Rufino Vallecillo All medical record entries made by the Rufino were at my direction and personally dictated by me. I have reviewed the chart and agree that the record accurately reflects my personal performance of the history, physical exam, medical decision making, and the department course for this patient. I have also personally directed, reviewed, and agree with the discharge instructions and disposition. Decision To Admit - Pt Status Changed To: Hospital Disposition Of: Inpatient - Admit Certification Admit to Inpatient:: After my assessment, the patient will require hospitalization for at least two midnights. This is because of the severity of symptoms shown, intensity of services needed, and/or the medical risk in this patient being treated as an outpatient. - InPatient: Physician Admission Certification: I certify that this patient requires 2 or more midnights of care for the following reason:: PE. Dyspnea. Lung Ca - . Bed Request Type: Telemetry Admitting Physician: Sanjay Shirley Patient Diagnosis: Pulmonary embolism, History of lung cancer
[2017-08-31 11:17] LABS: BASO % 0.1 % (0.0-2.0); EOS % 0.5 % (0.0-4.0); LYMPH # 1.3 K/uL (1.0-4.3); LYMPH % 21.1 % (20.0-40.0); MEAN CELL VOLUME 91.9 fL (81.0-99.0); MEAN CORPUSCULAR HEMOGLOBIN 31.1 pg (27.0-31.0); MEAN CORPUSCULAR HGB CONC 33.8 g/dL (33.0-37.0); MEAN PLATELET VOLUME 10.1 fL (7.2-11.7); MONO # 1.2 K/uL (0.0-0.8); MONO % 19.9 % (0.0-10.0); NEUT # 3.6 K/uL (1.8-7.0); NEUT % 58.4 % (50.0-75.0); RBC 3.88 Mil/uL (3.80-5.20); RED CELL DISTRIBUTION WIDTH 14.6 % (11.5-14.5)
[2017-08-31 11:21] LABS: ALBUMIN 3.3 g/dL (3.5-5.0); ALT/SGPT 57 U/L (9-52); AST/SGOT 60 U/L (14-36); BLOOD UREA NITROGEN 6 mg/dL (7-17); CALCIUM 8.7 mg/dl (8.6-10.4); GFR AFRICAN-AMERICAN > 60; GFR NON-AFRICAN AMERICAN > 60; LIPASE 38 U/L (23-300)
[2017-08-31 11:25] LABS: HEMOGLOBIN 12.1 g/dL (11.0-16.0); WHITE BLOOD COUNT 6.1 K/uL (4.8-10.8)
[2017-08-31 11:27] LABS: ALB/GLOB RATIO 0.8 (1.0-2.1)
[2017-08-31 11:28] LABS: B-TYPE NATRIURETIC PEPTIDE 2870 pg/mL (0-900)
[2017-08-31] MEDS ORDERED: Albuterol 0.083% Inhal Sol (2.5 mg/3 mL) UD ONE (12:35)
[2017-08-31] MEDS ORDERED: Iodixanol 320 MG/ML 100 ML BOTTLE IV ONE ×2 (13:23→13:52)
--- NOTE | 2017-08-31 15:41 | CT ---
PROCEDURE: CTA chest dated 08/31/2016 HISTORY: Dyspnea. COMPARISON: Comparison made with CT scan chest 04/22/2017. TECHNIQUE: Axial computed tomography images were obtained of the chest in the pulmonary arterial phase of enhancement. Coronal and sagittal reformatted images were created and reviewed. Intravenous contrast dose: 100 cc Visipaque 320 Radiation dose: Total exam DLP = 467.47 mGy-cm. This CT exam was performed using one or more of the following dose reduction techniques: Automated exposure control, adjustment of the mA and/or kV according to patient size, and/or use of iterative reconstruction technique. FINDINGS: PULMONARY ARTERIES: Study reveals filling defects within distal aspect right pulmonary artery extending superiorly middle lobe and lower lobe branches as well as the proximal segmental branches of the right upper middle and lower lobes. Note these findings were discussed with ER nurse Estella at approximately 3:25 p.m. with written down and read back verification. The left main pulmonary artery and left upper lobe branches appear patent. Distal left lower lobe segmental and subsegmental branches are not well delineated due to left lower lobe consolidation that may represent atelectasis and/or infiltrate. There is also a small left-sided effusion which contributes. . Pulmonary trunk measures approximately 3.2 cm. AORTA: No acute findings. No thoracic aortic aneurysm. Ascending thoracic aorta measures approximately 3.05 cm and descending thoracic aorta measures approximately 2.4 cm. LUNGS: As mentioned above, there are bilateral lower lobe consolidation changes which may in part represent atelectasis and/or infiltrate and the case in the right lower and middle lobe regions, possible concomitant infarct changes. Consolidation changes left upper lobe. . PLEURAL SPACES: Small left-sided effusion as described above. No evidence of pneumothorax. HEART: The heart size is within range of normal. Slight left ventricular hypertrophy. No significant pericardial effusion. LYMPH NODES: Few tiny prevascular and mediastinal lymph nodes are present nonspecific. Evaluation for hilar adenopathy slightly limited due to on the aforementioned pulmonary embolus some on the right side and bilateral consolidation changes BONES, CHEST WALL: Mild multilevel degenerative spondylosis of the thoracic spine. No acute compression fractures no retropulsed fragments. OTHER FINDINGS: Note again made of small amount of pneumobilia left lobe liver decreased from prior study however. IMPRESSION: Large pulmonary embolus within the distal right main pulmonary artery that extends into the upper lobe middle lobe and lower lobe branches and proximal segmental/ subsegmental branches. Bilateral lower lobe consolidation may represent some combination of atelectasis and or infiltrate with left-sided effusion ; concomitant infarct changes on the right side may contribute. . Mild consolidation changes also present within the middle lobe. Mild biapical pleural thickening and minimal adjacent parenchymal scarring. Referring clinician where these findings as detailed above.
[2017-08-31] MEDS ORDERED: Heparin 25,000units in D5W 25,000 UNITS/250 ML BAG IV ONE (16:00)
[2017-08-31 16:08] LABS: ABG ALLEN TEST PO; ARTERIAL BLOOD GAS HCO3 20.6 mmol/L (21-28); ARTERIAL BLOOD GAS HEMOGLOBIN 12.2 g/dL (11.7-17.4); ARTERIAL BLOOD GAS O2 SAT 98.6 % (95-98); ARTERIAL BLOOD GAS PCO2 27 mm/Hg (35-45); ARTERIAL BLOOD GAS PH 7.42 (7.35-7.45); ARTERIAL BLOOD GAS PO2 187 mm/Hg (80-100); ARTERIAL BLOOD GAS TCO2 18.3 mmol/L (22-28)
[2017-08-31] MEDS ORDERED: Heparin25000 units/250ml 1/2NS 25,000 UNITS/250 ML BAG IV ONE (16:15)
[2017-08-31] MEDS ORDERED: Enoxaparin 80 mg Syringe SC STA (16:21)
[2017-08-31] MEDS ORDERED: Enoxaparin 100 mg Syringe SC STA (16:26)
--- NOTE | 2017-08-31 17:36 | CP.PCM.CON ---
<Karmen Zheng - Last Filed: 08/31/17 18:52> History of Present Illness - History of Present Illness History of Present Illness: CC difficulty breathing HPI: 72F PMH: lung cancer, anxiety, arthritis, bipolar disorder, CHF, dementia, depression, diabetes (NIDDM/T2DM), hypercholesterolemia, kidney stones, CKD Patient states she has had difficulty breathing and a dry cough for 3 days. Patient states she walks at home with a cane without problems or shortness of breath. Per patient she does not have high cholesterol or kidney problems. per EHR, PMH history list is as listed above. ROS: admits to edema, non-productive cough. Patient denies abdominal pain, chest pain, diarrhea, constipation. Last chemotherapy 08/18/17 02/23/17 PET: no evidence of FDG avid lymphadenopathy in chest and abdomen. No evidence of distant mets to abdomen and pelvis. PMH: lung cancer, anxiety, arthritis, bipolar disorder, CHF, dementia, depression, diabetes (NIDDM/T2DM), hypercholesterolemia, kidney stones, CKD, diverticulosis Surgery: Portacath 06/03/2017, left lobectomy,tubal ligation Social history: no smoking history, no alcohol history, no illicit drugs. Allergies: NKDA Past Patient History - Infectious Disease Hx of Infectious Diseases: None - Past Medical History & Family History Past Medical History?: Yes - Past Social History Smoking Status: Never Smoked - CARDIAC Hx Congestive Heart Failure: Yes Hx Hypercholesterolemia: Yes Hx Hypertension: Yes - PULMONARY Hx Pneumonia: Yes - NEUROLOGICAL Hx Dementia: Yes (FORGETFUL AT TIMES. AAO X 3 AT PRESENT) - HEENT Hx HEENT Problems: No - RENAL Hx Chronic Kidney Disease: Yes Hx Kidney Stones: Yes - INTEGUMENTARY Hx Dermatological Problems: No - MUSCULOSKELETAL/RHEUMATOLOGICAL Hx Arthritis: Yes - GASTROINTESTINAL Hx Gastrointestinal Disorders: No - GENITOURINARY/GYNECOLOGICAL Hx Genitourinary Disorders: No - PSYCHIATRIC Hx Anxiety: Yes Hx Bipolar Disorder: Yes Hx Depression: Yes Hx Substance Use: No - SURGICAL HISTORY Hx Surgeries: Yes Hx Pulmonary Surgery: Yes (LEFT LUNG) Hx Tubal Ligation: Yes Other/Comment: HX:left lower lobectomy. HX: BRONCHOSCOPY(05/12/17) - ANESTHESIA Hx Anesthesia: Yes Hx Anesthesia Reactions: No Hx Malignant Hyperthermia: No Meds Allergies/Adverse Reactions: Allergies Allergy/AdvReac Type Severity Reaction Status Date / Time No Known Allergies Allergy Verified 01/28/17 13:56 - Medications Medications: Current Medications Aspirin (Ecotrin) 81 mg PO DAILY [facility] Enoxaparin Sodium (Lovenox) 90 mg SC Q12 [facility] Furosemide (Lasix) 20 mg PO QAM [facility] Glipizide (Glucotrol) 5 mg PO DAILY [facility] Sodium Chloride (Sodium Chloride 0.9%) 1,000 mls @ 100 mls/hr IV .Q10H [facility] Last Admin: 08/31/17 11:02 Dose: 100 mls/hr Megestrol Acetate (Megace) 40 mg PO DAILY [facility] Pantoprazole Sodium (Protonix Ec Tab) 40 mg PO DAILY [facility] Prednisone (Prednisone Tab) 20 mg PO DAILY [facility] Sitagliptin Phosphate (Januvia) 25 mg PO DAILY [facility] Physical Exam - Constitutional Appears: Well, Non-toxic - Head Exam Head Exam: ATRAUMATIC, NORMAL INSPECTION - Eye Exam Eye Exam: EOMI, Normal appearance - ENT Exam ENT Exam: Mucous Membranes Moist - Neck Exam Neck exam: Positive for: Full Rom. Negative for: Tenderness - Respiratory Exam Respiratory Exam: Decreased Breath Sounds (on left), NORMAL BREATHING PATTERN. absent: Accessory Muscle Use - Cardiovascular Exam Cardiovascular Exam: REGULAR RHYTHM, +S1, +S2 - GI/Abdominal Exam GI & Abdominal Exam: Normal Bowel Sounds, Soft. absent: Tenderness - Extremities Exam Extremities exam: Positive for: pedal edema - Neurological Exam Neurological exam: Alert, CN II-XII Intact, Oriented x3 - Skin Skin Exam: Dry, Mottled, Warm Results - Vital Signs Recent Vital Signs: Last Vital Signs Temp 97.4 F L 08/31/17 10:13 Pulse 125 H 08/31/17 17:00 Resp 30 H 08/31/17 17:00 BP 132/78 08/31/17 17:00 Pulse Ox 90 L 08/31/17 17:32 - Labs Result Diagrams: 08/31/17 11:04 08/31/17 11:04 Labs: Laboratory Results - last 24 hr 08/31/17 08/31/17 08/31/17 10:37 11:04 11:04 WBC 6.1 D RBC 3.88 Hgb 12.1 D Hct 35.7 MCV 91.9 MCH 31.1 H MCHC 33.8 RDW 14.6 H Plt Count 120 L D MPV 10.1 Neut % (Auto) 58.4 Lymph % (Auto) 21.1 [place] % (Auto) 19.9 H Eos % (Auto) 0.5 Baso % (Auto) 0.1 Neut # 3.6 Lymph # 1.3 [place] # 1.2 H Eos # 0.0 Baso # 0.0 Differential Comment Puncture Site pCO2 pO2 HCO3 ABG pH ABG Total CO2 ABG O2 Saturation ABG Base Excess ABG Hemoglobin ABG Carboxyhemoglobin POC ABG HHb (Measured) ABG Methemoglobin Patricio Test A-a O2 Difference Respiratory Index Hgb O2 Saturation FiO2 Sodium 133 Potassium 3.3 L Chloride 104 Carbon Dioxide 23 Anion Gap 9 L BUN 6 L Creatinine 0.6 L Est GFR ( Amer) > 60 Est GFR (Non-Af Amer) > 60 Random Glucose 245 H Calcium 8.7 Total Bilirubin 1.6 H AST 60 H ALT 57 H Alkaline Phosphatase 295 H D NT-Pro-B Natriuret Pep 2870 H Total Protein 7.3 Albumin 3.3 L Globulin 4.0 H Albumin/Globulin Ratio 0.8 L Lipase 38 Influenza Typ A,B (EIA) Negative for flu a/b 08/31/17 16:05 WBC RBC Hgb Hct MCV MCH MCHC RDW Plt Count MPV Neut % (Auto) Lymph % (Auto) [place] % (Auto) Eos % (Auto) Baso % (Auto) Neut # Lymph # [place] # Eos # Baso # Differential Comment Puncture Site Rr pCO2 27 L pO2 187 H HCO3 20.6 L ABG pH 7.42 ABG Total CO2 18.3 L ABG O2 Saturation 98.6 H ABG Base Excess -5.6 L ABG Hemoglobin 12.2 ABG Carboxyhemoglobin 0.8 POC ABG HHb (Measured) 1.4 ABG Methemoglobin 1.1 Patricio Test Po A-a O2 Difference 492.0 Respiratory Index 2.6 Hgb O2 Saturation 96.7 FiO2 100.0 Sodium Potassium Chloride Carbon Dioxide Anion Gap BUN Creatinine Est GFR ( Amer) Est GFR (Non-Af Amer) Random Glucose Calcium Total Bilirubin AST ALT Alkaline Phosphatase NT-Pro-B Natriuret Pep Total Protein Albumin Globulin Albumin/Globulin Ratio Lipase Influenza Typ A,B (EIA) Assessment & Plan - Assessment and Plan (Free Text) Assessment: 72F PMH: lung cancer, anxiety, arthritis, bipolar disorde,r CHF, dementia, depression, diabetes (NIDDM/T2DM), hypercholesterolemia, kidney stones, pneumonia, chronic kidney disease presents with abdominal pain and cough for a few days and was found to have a PE on CTA last chemo 08/18 Neuro: history of dementia history of bipolar disorder history of depression Sedation: none Cardio: CHF history (preserved EF, diastolic dysfunction. last echo 01/18/16) Pulm: history of pneumonia history of Lung cancer (last chemo 08/18) 08/31/17 found to have PE 08/31/17 CTA: right sided PE 08/31/17 CXR left lower lobectomy less well seen compared to CT chest. elevation of left hemidiaphragm with atelectasis and or scarring left lung base. small left effusion not excluded. Masslike opacity in the right perihilar region. lovenox for PE 90mg SC Q12H Prednisone 20mg POQD GI: f/u CMP 05/2015 colonoscopy: diverticulosis, internal hemorrhoids, bowel adhesions. no bleeding Endo: NIDDM/T2DM Hx Hypercholesterolemia Accucheck ACHS home meds: glipizide 5mg POQD, januvia 25mg POQD Megestrol 40mg PO QD Nephro history of kidney stones CKD history, BUN/Cr, GFR >60 I/Os IVF: NS 100cc/hr Prophylaxis: DVT: patient is on lovenox for PE 90mg SC Q12H GI: protonix 40mg PO QD discussed with Dr. Reuben Zheng DO PGY1 - Date & Time Date: 08/31/17 Time: 17:37 <Wei Alexis - Last Filed: 08/31/17 19:08> Meds - Medications Medications: Current Medications Aspirin (Ecotrin) 81 mg PO DAILY [facility] Enoxaparin Sodium (Lovenox) 90 mg SC Q12 [facility] Furosemide (Lasix) 20 mg PO QAM [facility] Glipizide (Glucotrol) 5 mg PO DAILY [facility] Sodium Chloride (Sodium Chloride 0.9%) 1,000 mls @ 100 mls/hr IV .Q10H [facility] Last Admin: 08/31/17 11:02 Dose: 100 mls/hr Megestrol Acetate (Megace) 40 mg PO DAILY [facility] Pantoprazole Sodium (Protonix Ec Tab) 40 mg PO DAILY [facility] Potassium Chloride (K-Dur 20 Meq Er Tab) 20 meq PO DAILY [facility] Prednisone (Prednisone Tab) 20 mg PO DAILY [facility] Sitagliptin Phosphate (Januvia) 25 mg PO DAILY [facility] Results - Vital Signs Recent Vital Signs: Last Vital Signs Temp 98.4 F 08/31/17 18:44 Pulse 118 H 08/31/17 18:44 Resp 24 08/31/17 18:44 BP 127/70 08/31/17 18:44 Pulse Ox 100 08/31/17 18:44 - Labs Result Diagrams: 08/31/17 11:04 08/31/17 11:04 Labs: Laboratory Results - last 24 hr 08/31/17 08/31/17 08/31/17 10:37 11:04 11:04 WBC 6.1 D RBC 3.88 Hgb 12.1 D Hct 35.7 MCV 91.9 MCH 31.1 H MCHC 33.8 RDW 14.6 H Plt Count 120 L D MPV 10.1 Neut % (Auto) 58.4 Lymph % (Auto) 21.1 [place] % (Auto) 19.9 H Eos % (Auto) 0.5 Baso % (Auto) 0.1 Neut # 3.6 Lymph # 1.3 [place] # 1.2 H Eos # 0.0 Baso # 0.0 Differential Comment Puncture Site pCO2 pO2 HCO3 ABG pH ABG Total CO2 ABG O2 Saturation ABG Base Excess ABG Hemoglobin ABG Carboxyhemoglobin POC ABG HHb (Measured) ABG Methemoglobin Patricio Test A-a O2 Difference Respiratory Index Hgb O2 Saturation FiO2 Sodium 133 Potassium 3.3 L Chloride 104 Carbon Dioxide 23 Anion Gap 9 L BUN 6 L Creatinine 0.6 L Est GFR ( Amer) > 60 Est GFR (Non-Af Amer) > 60 Random Glucose 245 H Calcium 8.7 Total Bilirubin 1.6 H AST 60 H ALT 57 H Alkaline Phosphatase 295 H D NT-Pro-B Natriuret Pep 2870 H Total Protein 7.3 Albumin 3.3 L Globulin 4.0 H Albumin/Globulin Ratio 0.8 L Lipase 38 Urine Color Urine Clarity Urine pH Ur Specific Veteran Urine Protein Urine Glucose (UA) Urine Ketones Urine Blood Urine Nitrate Urine Bilirubin Urine Urobilinogen Ur Leukocyte Esterase Urine WBC (Auto) Urine RBC (Auto) Ur Squamous Epith Cells Urine Bacteria Influenza Typ A,B (EIA) Negative for flu a/b 08/31/17 08/31/17 16:05 18:07 WBC RBC Hgb Hct MCV MCH MCHC RDW Plt Count MPV Neut % (Auto) Lymph % (Auto) [place] % (Auto) Eos % (Auto) Baso % (Auto) Neut # Lymph # [place] # Eos # Baso # Differential Comment Puncture Site Rr pCO2 27 L pO2 187 H HCO3 20.6 L ABG pH 7.42 ABG Total CO2 18.3 L ABG O2 Saturation 98.6 H ABG Base Excess -5.6 L ABG Hemoglobin 12.2 ABG Carboxyhemoglobin 0.8 POC ABG HHb (Measured) 1.4 ABG Methemoglobin 1.1 Patricio Test Po A-a O2 Difference 492.0 Respiratory Index 2.6 Hgb O2 Saturation 96.7 FiO2 100.0 Sodium Potassium Chloride Carbon Dioxide Anion Gap BUN Creatinine Est GFR ( Amer) Est GFR (Non-Af Amer) Random Glucose Calcium Total Bilirubin AST ALT Alkaline Phosphatase NT-Pro-B Natriuret Pep Total Protein Albumin Globulin Albumin/Globulin Ratio Lipase Urine Color Yellow Urine Clarity Clear Urine pH 5.0 Ur Specific Veteran 1.010 Urine Protein 1+ H Urine Glucose (UA) 3+ H Urine Ketones 1+ H Urine Blood Negative Urine Nitrate Negative Urine Bilirubin Negative Urine Urobilinogen 2.0 H Ur Leukocyte Esterase Neg Urine WBC (Auto) 2 Urine RBC (Auto) 2 Ur Squamous Epith Cells 3 Urine Bacteria Rare Influenza Typ A,B (EIA) Attending/Attestation - Attestation I have personally seen and examined this patient.: Yes I have fully participated in the care of the patient.: Yes I have reviewed all pertinent clinical information: Yes Notes (Text): 08/31/17 19:07 patient seen and examined Spoke with family at length 72-year-old female with a history of lung cancer admitted with shortness of breath CT angio consistent with pulmonary embolism On Lovenox Refusing BiPAP High flow oxygen Echocardiogram Venous Doppler of the lower legs
--- NOTE | 2017-08-31 18:10 | CP.PCM.HP ---
History of Present Illness - History of Present Illness History of Present Illness: CC difficulty breathing HPI: 72F PMH: lung cancer, anxiety, arthritis, bipolar disorder, CHF, dementia, depression, diabetes (NIDDM/T2DM), hypercholesterolemia, kidney stones, CKD Patient states she has had difficulty breathing and a dry cough for 3 days. Patient states she walks at home with a cane without problems or shortness of breath. Per patient she does not have high cholesterol or kidney problems. per EHR, PMH history list is as listed above. ROS: admits to edema, non-productive cough. Patient denies abdominal pain, chest pain, diarrhea, constipation. Last chemotherapy 08/18/17 02/23/17 PET: no evidence of FDG avid lymphadenopathy in chest and abdomen. No evidence of distant mets to abdomen and pelvis. PMH: lung cancer, anxiety, arthritis, bipolar disorder, CHF, dementia, depression, diabetes (NIDDM/T2DM), hypercholesterolemia, kidney stones, CKD, diverticulosis Surgery: Portacat 06/03/2017, left lobectomy,tubal ligation Social history: no smoking history, no alcohol history, no illicit drugs. Allergies: NKDA Present on Admission - Present on Admission Any Indicators Present on Admission: Yes History of DVT/PE: Yes History of Uncontrolled Diabetes: No Urinary Catheter: No Decubitus Ulcer Present: No Past Patient History - Infectious Disease Hx of Infectious Diseases: None - Past Medical History & Family History Past Medical History?: Yes - Past Social History Smoking Status: Never Smoked - CARDIAC Hx Congestive Heart Failure: Yes Hx Hypercholesterolemia: Yes Hx Hypertension: Yes - PULMONARY Hx Pneumonia: Yes - NEUROLOGICAL Hx Dementia: Yes (FORGETFUL AT TIMES. AAO X 3 AT PRESENT) - HEENT Hx HEENT Problems: No - RENAL Hx Chronic Kidney Disease: Yes Hx Kidney Stones: Yes - INTEGUMENTARY Hx Dermatological Problems: No - MUSCULOSKELETAL/RHEUMATOLOGICAL Hx Arthritis: Yes - GASTROINTESTINAL Hx Gastrointestinal Disorders: No - GENITOURINARY/GYNECOLOGICAL Hx Genitourinary Disorders: No - PSYCHIATRIC Hx Anxiety: Yes Hx Bipolar Disorder: Yes Hx Depression: Yes Hx Substance Use: No - SURGICAL HISTORY Hx Surgeries: Yes Hx Pulmonary Surgery: Yes (LEFT LUNG) Hx Tubal Ligation: Yes Other/Comment: HX:left lower lobectomy. HX: BRONCHOSCOPY(05/12/17) - ANESTHESIA Hx Anesthesia: Yes Hx Anesthesia Reactions: No Hx Malignant Hyperthermia: No Meds Allergies/Adverse Reactions: Allergies Allergy/AdvReac Type Severity Reaction Status Date / Time No Known Allergies Allergy Verified 01/28/17 13:56 Physical Exam - Additional Findings Additional findings: - Constitutional Appears: Well, Non-toxic - Head Exam Head Exam: ATRAUMATIC, NORMAL INSPECTION - Eye Exam Eye Exam: EOMI, Normal appearance - ENT Exam ENT Exam: Mucous Membranes Moist - Neck Exam Neck exam: Positive for: Full Rom. Negative for: Tenderness - Respiratory Exam Respiratory Exam: Decreased Breath Sounds (on left), NORMAL BREATHING PATTERN. absent: Accessory Muscle Use - Cardiovascular Exam Cardiovascular Exam: REGULAR RHYTHM, +S1, +S2 - GI/Abdominal Exam GI & Abdominal Exam: Normal Bowel Sounds, Soft. absent: Tenderness - Extremities Exam Extremities exam: Positive for: pedal edema - Neurological Exam Neurological exam: Alert, CN II-XII Intact, Oriented x3 - Skin Skin Exam: Dry, Mottled, Warm Results - Vital Signs Recent Vital Signs: Last Vital Signs Temp 97.4 F L 08/31/17 10:13 Pulse 125 H 08/31/17 17:00 Resp 32 H 08/31/17 17:40 BP 132/78 08/31/17 17:00 Pulse Ox 90 L 08/31/17 17:34 - Labs Result Diagrams: 08/31/17 11:04 08/31/17 11:04 Labs: Laboratory Results - last 24 hr 08/31/17 08/31/17 08/31/17 10:37 11:04 11:04 WBC 6.1 D RBC 3.88 Hgb 12.1 D Hct 35.7 MCV 91.9 MCH 31.1 H MCHC 33.8 RDW 14.6 H Plt Count 120 L D MPV 10.1 Neut % (Auto) 58.4 Lymph % (Auto) 21.1 Jerome % (Auto) 19.9 H Eos % (Auto) 0.5 Baso % (Auto) 0.1 Neut # 3.6 Lymph # 1.3 Jerome # 1.2 H Eos # 0.0 Baso # 0.0 Differential Comment Puncture Site pCO2 pO2 HCO3 ABG pH ABG Total CO2 ABG O2 Saturation ABG Base Excess ABG Hemoglobin ABG Carboxyhemoglobin POC ABG HHb (Measured) ABG Methemoglobin Patricio Test A-a O2 Difference Respiratory Index Hgb O2 Saturation FiO2 Sodium 133 Potassium 3.3 L Chloride 104 Carbon Dioxide 23 Anion Gap 9 L BUN 6 L Creatinine 0.6 L Est GFR ( Amer) > 60 Est GFR (Non-Af Amer) > 60 Random Glucose 245 H Calcium 8.7 Total Bilirubin 1.6 H AST 60 H ALT 57 H Alkaline Phosphatase 295 H D NT-Pro-B Natriuret Pep 2870 H Total Protein 7.3 Albumin 3.3 L Globulin 4.0 H Albumin/Globulin Ratio 0.8 L Lipase 38 Influenza Typ A,B (EIA) Negative for flu a/b 08/31/17 16:05 WBC RBC Hgb Hct MCV MCH MCHC RDW Plt Count MPV Neut % (Auto) Lymph % (Auto) Jerome % (Auto) Eos % (Auto) Baso % (Auto) Neut # Lymph # Jerome # Eos # Baso # Differential Comment Puncture Site Rr pCO2 27 L pO2 187 H HCO3 20.6 L ABG pH 7.42 ABG Total CO2 18.3 L ABG O2 Saturation 98.6 H ABG Base Excess -5.6 L ABG Hemoglobin 12.2 ABG Carboxyhemoglobin 0.8 POC ABG HHb (Measured) 1.4 ABG Methemoglobin 1.1 Patricio Test Po A-a O2 Difference 492.0 Respiratory Index 2.6 Hgb O2 Saturation 96.7 FiO2 100.0 Sodium Potassium Chloride Carbon Dioxide Anion Gap BUN Creatinine Est GFR ( Amer) Est GFR (Non-Af Amer) Random Glucose Calcium Total Bilirubin AST ALT Alkaline Phosphatase NT-Pro-B Natriuret Pep Total Protein Albumin Globulin Albumin/Globulin Ratio Lipase Influenza Typ A,B (EIA) Assessment & Plan - Assessment and Plan (Free Text) Assessment: 72F PMH: lung cancer, anxiety, arthritis, bipolar disorde,r CHF, dementia, depression, diabetes (NIDDM/T2DM), hypercholesterolemia, kidney stones, pneumonia, chronic kidney disease presents with abdominal pain and cough for a few days and was found to have a PE on CTA last chemo 08/18 Neuro: history of dementia history of bipolar disorder history of depression Sedation: none Cardio: CHF history (preserved EF, diastolic dysfunction. last echo 01/18/16) Pulm: history of pneumonia history of Lung cancer (last chemo 08/18) 08/31/17 found to have PE 08/31/17 CTA: right sided PE 08/31/17 CXR left lower lobectomy less well seen compared to CT chest. elevation of left hemidiaphragm with atelectasis and or scarring left lung base. small left effusion not excluded. Masslike opacity in the right perihilar region. lovenox for PE 90mg SC Q12H Prednisone 20mg POQD GI: f/u CMP 05/2015 colonoscopy: diverticulosis, internal hemorrhoids, bowel adhesions. no bleeding Endo: NIDDM/T2DM Hx Hypercholesterolemia Accucheck ACHS home meds: glipizide 5mg POQD, januvia 25mg POQD Megestrol 40mg PO QD Nephro history of kidney stones CKD history, BUN/Cr, GFR >60 I/Os IVF: NS 100cc/hr Prophylaxis: DVT: patient is on lovenox for PE 90mg SC Q12H GI: protonix 40mg PO QD discussed with Dr. Reuben Zheng DO PGY1 - Date & Time Date: 08/31/17 Time: 18:10
[2017-08-31 18:15] LABS: SQUAMOUS EPITHIAL 3 /hpf (0-5); URINE BACTERIA RARE (<OCC); URINE BILIRUBIN NEGATIVE (NEGATIVE); URINE BLOOD NEGATIVE (NEGATIVE); URINE CLARITY Clear (Clear); URINE COLOR Yellow (YELLOW); URINE GLUCOSE (UA) 3+ mg/dL (Normal); URINE LEUKOCYTE ESTERASE NEG Leu/uL (Negative); URINE NITRATE NEGATIVE (NEGATIVE); URINE PROTEIN 1+ mg/dL (NEGATIVE)
--- NOTE | 2017-08-31 19:43 | CP.PCM.HP ---
History of Present Illness - History of Present Illness History of Present Illness: Hx taken from Patient, patient's daughter, and patients granddaughter This patient is a 72 year old Swedish speaking female with a stated PMHx of Lung CA, s/p 2005 lobectomty, HTN, DMII, HLD (from past chart), and chronic leg edema who presents with complaints of progressively worsening SOB, dry cough, and 10/10 sharp, radiating rib pain that begins in the right flank area and radiates to under her right breast. Patient had reoccurrence Pain is worse with deep inspiration. Patient deny sick contacts but states she had URI symptoms for the past month. She also denies any recent travel or immobility. She states that she does need 2 pillows to sleep without getting SOB. Normally she states she can walk about 5 blocks without getting short of breath. She denied any history of CHF. She denies any fevers, chills, palpitations, nausea, vomiting, abdominal pain, changes in bowel habits or urinary symptoms. Patient lives alone and is minimally able to to her ADL's around the house. Her daughter has had to help her more with her ADL's recently. She normally uses a cane to walk. Denied any hx of CHF or hyperlipidemia. Denies being on home oxygen. ROS POSITIVE: radiating back pain, SOB, non-productive cough, recent URI, orthopnea NEGATIVES: Sick contacts, long period of immobilization, pato, chills, palpitations, nausea, vomiting, abdominal pain, changes in bowel habits or urinary symptoms PMHx: Lung CA, s/p 2005 lobectomty, HTN, DMII, HLD (from past chart), and chronic leg edema PSHx: Lobectomy 2004, tubal ligation Allergies: NKDA Social Hx: Denies smoking, alcohol, or any illicit drug use. Lives alone. 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 Jesus Dillon Support Services Specialist: Dr. Boone Oncologist: Sasha Miller Present on Admission - Present on Admission Any Indicators Present on Admission: No Past Patient History - Infectious Disease Hx of Infectious Diseases: None - Past Medical History & Family History Past Medical History?: Yes - Past Social History Smoking Status: Never Smoked - CARDIAC Hx Congestive Heart Failure: Yes Hx Hypercholesterolemia: Yes Hx Hypertension: Yes - PULMONARY Hx Pneumonia: Yes - NEUROLOGICAL Hx Dementia: Yes (FORGETFUL AT TIMES. AAO X 3 AT PRESENT) - HEENT Hx HEENT Problems: No - RENAL Hx Chronic Kidney Disease: Yes Hx Kidney Stones: Yes - INTEGUMENTARY Hx Dermatological Problems: No - MUSCULOSKELETAL/RHEUMATOLOGICAL Hx Arthritis: Yes - GASTROINTESTINAL Hx Gastrointestinal Disorders: No - GENITOURINARY/GYNECOLOGICAL Hx Genitourinary Disorders: No - PSYCHIATRIC Hx Anxiety: Yes Hx Bipolar Disorder: Yes Hx Depression: Yes Hx Substance Use: No - SURGICAL HISTORY Hx Surgeries: Yes Hx Pulmonary Surgery: Yes (LEFT LUNG) Hx Tubal Ligation: Yes Other/Comment: HX:left lower lobectomy. HX: BRONCHOSCOPY(05/12/17) - ANESTHESIA Hx Anesthesia: Yes Hx Anesthesia Reactions: No Hx Malignant Hyperthermia: No Meds Allergies/Adverse Reactions: Allergies Allergy/AdvReac Type Severity Reaction Status Date / Time No Known Allergies Allergy Verified 01/28/17 13:56 Physical Exam - Constitutional Appears: Non-toxic, In Acute Distress, Chronically Ill - Head Exam Head Exam: NORMAL INSPECTION, NORMOCEPHALIC - Eye Exam Eye Exam: EOMI, Normal appearance - ENT Exam ENT Exam: Mucous Membranes Moist - Respiratory Exam Respiratory Exam: Accessory Muscle Use, Rhonchi (Left Lower Lobe). absent: Rales, Wheezes, Stridor, NORMAL BREATHING PATTERN - Cardiovascular Exam Cardiovascular Exam: Tachycardia, REGULAR RHYTHM, +S1, +S2 - GI/Abdominal Exam GI & Abdominal Exam: Distended (Habitus), Normal Bowel Sounds, Soft. absent: Firm, Guarding, Rebound, Rigid, Tenderness - Extremities Exam Extremities exam: Positive for: pedal edema (chronic, non pitting ), tenderness (Lower Ext. B/L ) - Back Exam Back exam: CVA tenderness (R) - Neurological Exam Neurological exam: Alert, Oriented x3 - Psychiatric Exam Psychiatric exam: Normal Affect, Normal Mood - Skin Skin Exam: Dry, Intact, Normal Color, Warm Results - Vital Signs Recent Vital Signs: Last Vital Signs Temp 98.4 F 08/31/17 18:44 Pulse 118 H 08/31/17 18:44 Resp 24 08/31/17 18:44 BP 127/70 08/31/17 18:44 Pulse Ox 100 08/31/17 18:44 - Labs Result Diagrams: 08/31/17 11:04 08/31/17 11:04 Labs: Laboratory Results - last 24 hr 08/31/17 08/31/17 08/31/17 10:37 11:04 11:04 WBC 6.1 D RBC 3.88 Hgb 12.1 D Hct 35.7 MCV 91.9 MCH 31.1 H MCHC 33.8 RDW 14.6 H Plt Count 120 L D MPV 10.1 Neut % (Auto) 58.4 Lymph % (Auto) 21.1 Barton % (Auto) 19.9 H Eos % (Auto) 0.5 Baso % (Auto) 0.1 Neut # 3.6 Lymph # 1.3 Barton # 1.2 H Eos # 0.0 Baso # 0.0 Differential Comment Puncture Site pCO2 pO2 HCO3 ABG pH ABG Total CO2 ABG O2 Saturation ABG Base Excess ABG Hemoglobin ABG Carboxyhemoglobin POC ABG HHb (Measured) ABG Methemoglobin Patricio Test A-a O2 Difference Respiratory Index Hgb O2 Saturation FiO2 Sodium 133 Potassium 3.3 L Chloride 104 Carbon Dioxide 23 Anion Gap 9 L BUN 6 L Creatinine 0.6 L Est GFR ( Amer) > 60 Est GFR (Non-Af Amer) > 60 Random Glucose 245 H Calcium 8.7 Total Bilirubin 1.6 H AST 60 H ALT 57 H Alkaline Phosphatase 295 H D NT-Pro-B Natriuret Pep 2870 H Total Protein 7.3 Albumin 3.3 L Globulin 4.0 H Albumin/Globulin Ratio 0.8 L Lipase 38 Urine Color Urine Clarity Urine pH Ur Specific [place] Urine Protein Urine Glucose (UA) Urine Ketones Urine Blood Urine Nitrate Urine Bilirubin Urine Urobilinogen Ur Leukocyte Esterase Urine WBC (Auto) Urine RBC (Auto) Ur Squamous Epith Cells Urine Bacteria Influenza Typ A,B (EIA) Negative for flu a/b 08/31/17 08/31/17 16:05 18:07 WBC RBC Hgb Hct MCV MCH MCHC RDW Plt Count MPV Neut % (Auto) Lymph % (Auto) Barton % (Auto) Eos % (Auto) Baso % (Auto) Neut # Lymph # Barton # Eos # Baso # Differential Comment Puncture Site Rr pCO2 27 L pO2 187 H HCO3 20.6 L ABG pH 7.42 ABG Total CO2 18.3 L ABG O2 Saturation 98.6 H ABG Base Excess -5.6 L ABG Hemoglobin 12.2 ABG Carboxyhemoglobin 0.8 POC ABG HHb (Measured) 1.4 ABG Methemoglobin 1.1 Patricio Test Po A-a O2 Difference 492.0 Respiratory Index 2.6 Hgb O2 Saturation 96.7 FiO2 100.0 Sodium Potassium Chloride Carbon Dioxide Anion Gap BUN Creatinine Est GFR ( Amer) Est GFR (Non-Af Amer) Random Glucose Calcium Total Bilirubin AST ALT Alkaline Phosphatase NT-Pro-B Natriuret Pep Total Protein Albumin Globulin Albumin/Globulin Ratio Lipase Urine Color Yellow Urine Clarity Clear Urine pH 5.0 Ur Specific [place] 1.010 Urine Protein 1+ H Urine Glucose (UA) 3+ H Urine Ketones 1+ H Urine Blood Negative Urine Nitrate Negative Urine Bilirubin Negative Urine Urobilinogen 2.0 H Ur Leukocyte Esterase Neg Urine WBC (Auto) 2 Urine RBC (Auto) 2 Ur Squamous Epith Cells 3 Urine Bacteria Rare Influenza Typ A,B (EIA) Assessment & Plan - Assessment and Plan (Free Text) Assessment: 72 year old Swedish speaking female with a stated PMHx of Lung CA, s/p 2005 lobectomty, HTN, DMII, HLD (from past chart), and chronic leg edema admitted for evaluation and treatment of PE Plan: PE (Pulmonary Embolism) Likely 2/2 to decreased mobility and Malignancy CXR (Admission): Changes of left lower lobectomy less well seen compared to high -resolution CT chest however persistent elevation left hemidiaphragm with opacity in the left upper/mid lung stone and possibly some atelectasis and or scarring left lung base. Small left effusion not excluded. Masslike opacity in the right perihilar region. Chest CT (Admission): Large pulmonary embolus within the distal right main pulmonary artery that extends into the upper lobe middle lobe and lower lobe branches and proximal segmental/ subsegmental branches. Bilateral lower lobe consolidation may represent some combination of atelectasis and or infiltrate with left-sided effusion ; concomitant infarct changes on the right side may contribute. . Mild consolidation changes also present within the middle lobe. Mild biapical pleural thickening and minimal adjacent parenchymal scarring. Referring clinician where these findings as detailed above. EKG (Admission): Sinus Tach, No acute ST or T wave changes. Official Read - PENDING Pulm/ICU Consult - Dr. Alexis Oncology Consult - Dr. Palathingal Palliative Care consult - Massimo Chambers Heparin Bolus in the ED Lovenox 90mg SC Q12. Duonebs PRN Hx of Lung CA Last chemotherapy session was 08/18/17. Home Prednisone 20 PO daily Home Megestrol 40mg PO Oncology Consult - Dr. Bowie Hx of HTN No HTN meds in home med list. She has been Normotensive Monitor Home ASA 81 Daily Hx of B/L leg edema Home Furosemide 20 QAM Hx of DMII Home GlipiZide 5mg Daily Home Sitagliptin 25mg Daily HypoKalemia One 40 meQ Potassium Ordered 20 meq LUANN Daily per ICU Dispo: Called daughter at 20:14 today and asked if she can bring all the patient 's medications in tomorrow for review. She agreed Patient seen and discussed with Attending Danilo Rubi PGY1 - Date & Time Date: 08/31/17 Time: 16:00
[2017-08-31] MEDS ORDERED: Potassium Chloride 20 mEq ER Tab PO ONE (21:01)
[2017-08-31] MEDS: Albuterol-Ipratrop 3 mg / 0.5 (3 ml) UD INH PRN (21:26)
[2017-08-31] MEDS ORDERED: Enoxaparin 100 mg Syringe SC SCH (22:00)
--- NOTE | 2017-09-01 01:03 | CARD ---
APPROVED REPORT EKG Measurement Heart [id number] <Conclusion> Sinus tachycardia Left anterior fascicular block Voltage criteria for left ventricular hypertrophy T wave abnormality, consider anterior ischemia Abnormal ECG
[2017-09-01] MEDS: Enoxaparin 100 mg Syringe SC SCH ×3 (03:57→22:47)
[2017-09-01 06:20] LABS: BASO % 0.1 % (0.0-2.0); EOS % 0.4 % (0.0-4.0); LYMPH # 1.3 K/uL (1.0-4.3); LYMPH % 23.4 % (20.0-40.0); MEAN CELL VOLUME 93.2 fL (81.0-99.0); MEAN CORPUSCULAR HEMOGLOBIN 31.3 pg (27.0-31.0); MEAN CORPUSCULAR HGB CONC 33.6 g/dL (33.0-37.0); MEAN PLATELET VOLUME 10.8 fL (7.2-11.7); MONO # 1.2 K/uL (0.0-0.8); MONO % 21.9 % (0.0-10.0); NEUT % 54.2 % (50.0-75.0); PLATELET COUNT 152 K/uL (130-400); RBC 3.51 Mil/uL (3.80-5.20); WHITE BLOOD COUNT 5.6 K/uL (4.8-10.8)
[2017-09-01 07:36] LABS: HDL CHOLESTEROL 32 mg/dL (30-70)
[2017-09-01 07:47] LABS: LDL CHOLESTEROL 97 mg/dL (0-129)
[2017-09-01 08:09] LABS: LYMPHOCYTE 29 % (20-40); MONOCYTE 16 % (0-10); NEUTROPHIL 55 % (50-75); TOTAL CELLS COUNTED 100
[2017-09-01 08:10] LABS: ANISOCYTOSIS SLIGHT; PLATELET ESTIMATE NORMAL (NORMAL)
[2017-09-01 08:29] LABS: ALB/GLOB RATIO 0.8 (1.0-2.1); ALT/SGPT 62 U/L (9-52); AST/SGOT 64 U/L (14-36); BLOOD UREA NITROGEN 7 mg/dL (7-17); CALCIUM 8.4 mg/dl (8.6-10.4); GFR AFRICAN-AMERICAN > 60; GFR NON-AFRICAN AMERICAN > 60
[2017-09-01] MEDS: Albuterol-Ipratrop 3 mg / 0.5 (3 ml) UD INH PRN (08:45)
[2017-09-01] MEDS: Pantoprazole 40 mg EC Tab PO SCH (09:57)
[2017-09-01] MEDS: Potassium Chloride 20 mEq ER Tab PO SCH (09:58)
[2017-09-01] MEDS: (Novolin R) Insulin Human Regular 100 units/ml vial SC SCH ×3 (12:09→22:00)
--- NOTE | 2017-09-01 17:05 | CP.PCM.CON ---
History of Present Illness - History of Present Illness History of Present Illness: 72 yo woman with history of metastatic lung cancer on chemo with Alimta/Carbo/ ketruda for the past 2 months, admitted with SOB, difficulty speaking at rest increasing SOB, found to have a large P.E., currently on Lovenox, . The patient says she feels a little better, is able to talk, but still in bed, unable to walk independently. Patient denies any fever, cough, phlegm.The patient has a past medical history of lung cancer in 2004, S/p resection followed by chemo. Past Patient History - Infectious Disease Hx of Infectious Diseases: None - Past Medical History & Family History Past Medical History?: Yes - Past Social History Smoking Status: Never Smoked - CARDIAC Hx Congestive Heart Failure: Yes Hx Hypercholesterolemia: Yes Hx Hypertension: Yes - PULMONARY Hx Pneumonia: Yes - NEUROLOGICAL Hx Dementia: Yes (FORGETFUL AT TIMES. AAO X 3 AT PRESENT) - HEENT Hx HEENT Problems: No - RENAL Hx Chronic Kidney Disease: Yes Hx Kidney Stones: Yes - INTEGUMENTARY Hx Dermatological Problems: No - MUSCULOSKELETAL/RHEUMATOLOGICAL Hx Arthritis: Yes - GASTROINTESTINAL Hx Gastrointestinal Disorders: No - GENITOURINARY/GYNECOLOGICAL Hx Genitourinary Disorders: No - PSYCHIATRIC Hx Anxiety: Yes Hx Bipolar Disorder: Yes Hx Depression: Yes Hx Substance Use: No - SURGICAL HISTORY Hx Surgeries: Yes Hx Pulmonary Surgery: Yes (LEFT LUNG) Hx Tubal Ligation: Yes Other/Comment: HX:left lower lobectomy. HX: BRONCHOSCOPY(05/12/17) - ANESTHESIA Hx Anesthesia: Yes Hx Anesthesia Reactions: No Hx Malignant Hyperthermia: No Meds Allergies/Adverse Reactions: Allergies Allergy/AdvReac Type Severity Reaction Status Date / Time No Known Allergies Allergy Verified 01/28/17 13:56 - Medications Medications: Current Medications Albuterol/Ipratropium (Duoneb 3 Mg/0.5 Mg (3 Ml) Ud) 3 ml INH RQ2 PRN PRN Reason: SOB and Cough Last Admin: 09/01/17 08:45 Dose: 3 ml Aspirin (Ecotrin) 81 mg PO DAILY [facility] Last Admin: 09/01/17 09:57 Dose: 81 mg Enoxaparin Sodium (Lovenox) 90 mg SC Q12 [facility] Last Admin: 09/01/17 09:59 Dose: 90 mg Furosemide (Lasix) 20 mg PO QAM [facility] Last Admin: 09/01/17 09:58 Dose: 20 mg Glipizide (Glucotrol) 5 mg PO DAILY [facility] Last Admin: 09/01/17 09:57 Dose: 5 mg Insulin Human Regular (Novolin R) 0 unit SC ACHS [facility] PRN Reason: Protocol Last Admin: 09/01/17 12:09 Dose: 4 unit Megestrol Acetate (Megace) 40 mg PO DAILY [facility] Last Admin: 09/01/17 09:57 Dose: 40 mg Pantoprazole Sodium (Protonix Ec Tab) 40 mg PO DAILY [facility] Last Admin: 09/01/17 09:57 Dose: 40 mg Potassium Chloride (K-Dur 20 Meq Er Tab) 20 meq PO DAILY [facility] Last Admin: 09/01/17 09:58 Dose: 20 meq Prednisone (Prednisone Tab) 20 mg PO DAILY [facility] Last Admin: 09/01/17 10:25 Dose: 20 mg Sitagliptin Phosphate (Januvia) 25 mg PO DAILY [facility] Last Admin: 09/01/17 09:57 Dose: 25 mg Results - Vital Signs Recent Vital Signs: Last Vital Signs Temp 98.0 F 09/01/17 15:00 Pulse 101 H 09/01/17 15:00 Resp 18 09/01/17 15:00 BP 106/75 09/01/17 15:00 Pulse Ox 95 09/01/17 15:00 - Labs Result Diagrams: 09/01/17 06:13 09/01/17 06:13 Labs: Laboratory Results - last 24 hr 08/31/17 08/31/17 08/31/17 18:07 21:11 22:09 WBC RBC Hgb Hct MCV MCH MCHC RDW Plt Count MPV Neut % (Auto) Lymph % (Auto) [place] % (Auto) Eos % (Auto) Baso % (Auto) Neut # Lymph # [place] # Eos # Baso # Neutrophils % (Manual) Lymphocytes % (Manual) Monocytes % (Manual) Platelet Estimate Anisocytosis (manual) Sodium Potassium Chloride Carbon Dioxide Anion Gap BUN Creatinine Est GFR ( Amer) Est GFR (Non-Af Amer) POC Glucose (mg/dL) 275 H Random Glucose Hemoglobin A1c 8.3 H D Calcium Total Bilirubin AST ALT Alkaline Phosphatase Total Protein Albumin Globulin Albumin/Globulin Ratio Triglycerides Cholesterol LDL Cholesterol Direct HDL Cholesterol Urine Color Yellow Urine Clarity Clear Urine pH 5.0 Ur Specific [place] 1.010 Urine Protein 1+ H Urine Glucose (UA) 3+ H Urine Ketones 1+ H Urine Blood Negative Urine Nitrate Negative Urine Bilirubin Negative Urine Urobilinogen 2.0 H Ur Leukocyte Esterase Neg Urine WBC (Auto) 2 Urine RBC (Auto) 2 Ur Squamous Epith Cells 3 Urine Bacteria Rare 09/01/17 09/01/17 09/01/17 06:13 06:13 06:13 WBC 5.6 RBC 3.51 L Hgb 11.0 Hct 32.7 L MCV 93.2 MCH 31.3 H MCHC 33.6 RDW 15.0 H Plt Count 152 MPV 10.8 Neut % (Auto) 54.2 Lymph % (Auto) 23.4 [place] % (Auto) 21.9 H Eos % (Auto) 0.4 Baso % (Auto) 0.1 Neut # 3.0 Lymph # 1.3 [place] # 1.2 H Eos # 0.0 Baso # 0.0 Neutrophils % (Manual) 55 Lymphocytes % (Manual) 29 Monocytes % (Manual) 16 H Platelet Estimate Normal Anisocytosis (manual) Slight Sodium 134 Potassium 4.3 Chloride 106 Carbon Dioxide 23 Anion Gap 10 BUN 7 Creatinine 0.6 L Est GFR ( Amer) > 60 Est GFR (Non-Af Amer) > 60 POC Glucose (mg/dL) Random Glucose 244 H Hemoglobin A1c Calcium 8.4 L Total Bilirubin 1.9 H AST 64 H ALT 62 H Alkaline Phosphatase 252 H Total Protein 6.6 Albumin 3.0 L Globulin 3.6 Albumin/Globulin Ratio 0.8 L Triglycerides 75 Cholesterol 149 LDL Cholesterol Direct 97 HDL Cholesterol 32 Urine Color Urine Clarity Urine pH Ur Specific [place] Urine Protein Urine Glucose (UA) Urine Ketones Urine Blood Urine Nitrate Urine Bilirubin Urine Urobilinogen Ur Leukocyte Esterase Urine WBC (Auto) Urine RBC (Auto) Ur Squamous Epith Cells Urine Bacteria 09/01/17 09/01/17 09/01/17 06:38 11:55 16:30 WBC RBC Hgb Hct MCV MCH MCHC RDW Plt Count MPV Neut % (Auto) Lymph % (Auto) [place] % (Auto) Eos % (Auto) Baso % (Auto) Neut # Lymph # [place] # Eos # Baso # Neutrophils % (Manual) Lymphocytes % (Manual) Monocytes % (Manual) Platelet Estimate Anisocytosis (manual) Sodium Potassium Chloride Carbon Dioxide Anion Gap BUN Creatinine Est GFR ( Amer) Est GFR (Non-Af Amer) POC Glucose (mg/dL) 223 H 253 H 270 H Random Glucose Hemoglobin A1c Calcium Total Bilirubin AST ALT Alkaline Phosphatase Total Protein Albumin Globulin Albumin/Globulin Ratio Triglycerides Cholesterol LDL Cholesterol Direct HDL Cholesterol Urine Color Urine Clarity Urine pH Ur Specific [place] Urine Protein Urine Glucose (UA) Urine Ketones Urine Blood Urine Nitrate Urine Bilirubin Urine Urobilinogen Ur Leukocyte Esterase Urine WBC (Auto) Urine RBC (Auto) Ur Squamous Epith Cells Urine Bacteria Assessment & Plan - Assessment and Plan (Free Text) Assessment: Metastatic lung cancer on palliative chemo, new large PE, patient feeling a little better, with stable vitals, most likely etio being cancer, chemo and relative immobilization. Agree with AC, no indication for hypercoagulable work up.
--- NOTE | 2017-09-01 17:22 | CP.PCM.CON ---
History of Present Illness - History of Present Illness History of Present Illness: Palliative consult requested by Elicia MCCARTHY for goals of care and Code status discussion Patient is a 72 yo female admitted from home with RUQ pain and cough X 2 days. Upon admission the CT chest was significant for PE to right pulmonary artery. Patient started on Lovenox 90 mcg BID. PMH: lung CA, diagnosed 2004, on / off chemo Tx, fallowed by Doctor Azeb Baez for onco, ordered chemo X 6 weeks, last chemo 08/18/17 Soc. Hx: lives alone, , daughter Sarah involved in care Fam. Hx: mother from DM complications Review of Systems - Review of Systems All systems: reviewed and no additional remarkable complaints except Review of Systems: ROS obtained from nuring due to patient's shortness of breath. per nursing, patient remained on high flow of O2, afebrile Past Patient History - Infectious Disease Hx of Infectious Diseases: None - Past Medical History & Family History Past Medical History?: Yes - Past Social History Smoking Status: Never Smoked - CARDIAC Hx Congestive Heart Failure: Yes Hx Hypercholesterolemia: Yes Hx Hypertension: Yes - PULMONARY Hx Pneumonia: Yes - NEUROLOGICAL Hx Dementia: Yes (FORGETFUL AT TIMES. AAO X 3 AT PRESENT) - HEENT Hx HEENT Problems: No - RENAL Hx Chronic Kidney Disease: Yes Hx Kidney Stones: Yes - INTEGUMENTARY Hx Dermatological Problems: No - MUSCULOSKELETAL/RHEUMATOLOGICAL Hx Arthritis: Yes - GASTROINTESTINAL Hx Gastrointestinal Disorders: No - GENITOURINARY/GYNECOLOGICAL Hx Genitourinary Disorders: No - PSYCHIATRIC Hx Anxiety: Yes Hx Bipolar Disorder: Yes Hx Depression: Yes Hx Substance Use: No - SURGICAL HISTORY Hx Surgeries: Yes Hx Pulmonary Surgery: Yes (LEFT LUNG) Hx Tubal Ligation: Yes Other/Comment: HX:left lower lobectomy. HX: BRONCHOSCOPY(05/12/17) - ANESTHESIA Hx Anesthesia: Yes Hx Anesthesia Reactions: No Hx Malignant Hyperthermia: No Meds Allergies/Adverse Reactions: Allergies Allergy/AdvReac Type Severity Reaction Status Date / Time No Known Allergies Allergy Verified 01/28/17 13:56 - Medications Medications: Current Medications Albuterol/Ipratropium (Duoneb 3 Mg/0.5 Mg (3 Ml) Ud) 3 ml INH RQ2 PRN PRN Reason: SOB and Cough Last Admin: 09/01/17 08:45 Dose: 3 ml Aspirin (Ecotrin) 81 mg PO DAILY [facility] Last Admin: 09/01/17 09:57 Dose: 81 mg Enoxaparin Sodium (Lovenox) 90 mg SC Q12 [facility] Last Admin: 09/01/17 09:59 Dose: 90 mg Furosemide (Lasix) 20 mg PO QAM [facility] Last Admin: 09/01/17 09:58 Dose: 20 mg Glipizide (Glucotrol) 5 mg PO DAILY [facility] Last Admin: 09/01/17 09:57 Dose: 5 mg Insulin Human Regular (Novolin R) 0 unit SC [facility] PRN Reason: Protocol Last Admin: 09/01/17 12:09 Dose: 4 unit Megestrol Acetate (Megace) 40 mg PO DAILY [facility] Last Admin: 09/01/17 09:57 Dose: 40 mg Pantoprazole Sodium (Protonix Ec Tab) 40 mg PO DAILY [facility] Last Admin: 09/01/17 09:57 Dose: 40 mg Potassium Chloride (K-Dur 20 Meq Er Tab) 20 meq PO DAILY [facility] Last Admin: 09/01/17 09:58 Dose: 20 meq Prednisone (Prednisone Tab) 20 mg PO DAILY [facility] Last Admin: 09/01/17 10:25 Dose: 20 mg Sitagliptin Phosphate (Januvia) 25 mg PO DAILY [facility] Last Admin: 09/01/17 09:57 Dose: 25 mg Physical Exam - Constitutional Appears: In Acute Distress, Chronically Ill - Head Exam Head Exam: ATRAUMATIC, NORMAL INSPECTION, NORMOCEPHALIC - Eye Exam Eye Exam: EOMI, Normal appearance, PERRL Pupil Exam: NORMAL ACCOMODATION, PERRL - Neck Exam Neck exam: Positive for: Normal Inspection - Respiratory Exam Respiratory Exam: Accessory Muscle Use, Decreased Breath Sounds - Cardiovascular Exam Cardiovascular Exam: Tachycardia, REGULAR RHYTHM - GI/Abdominal Exam GI & Abdominal Exam: Normal Bowel Sounds, Soft - Rectal Exam Rectal Exam: Deferred - Extremities Exam Extremities exam: Positive for: pedal edema - Back Exam Back exam: NORMAL INSPECTION - Neurological Exam Neurological exam: Alert, Oriented x3 Additional comments: lack of short term memory - Psychiatric Exam Psychiatric exam: Normal Affect, Normal Mood - Skin Skin Exam: Mottled, Normal Color, Warm Results - Vital Signs Recent Vital Signs: Last Vital Signs Temp 98.0 F 09/01/17 15:00 Pulse 101 H 09/01/17 15:00 Resp 18 09/01/17 15:00 BP 106/75 09/01/17 15:00 Pulse Ox 95 09/01/17 15:00 - Labs Result Diagrams: 09/01/17 06:13 09/01/17 06:13 Labs: Laboratory Results - last 24 hr 08/31/17 08/31/17 08/31/17 18:07 21:11 22:09 WBC RBC Hgb Hct MCV MCH MCHC RDW Plt Count MPV Neut % (Auto) Lymph % (Auto) Bureau % (Auto) Eos % (Auto) Baso % (Auto) Neut # Lymph # Bureau # Eos # Baso # Neutrophils % (Manual) Lymphocytes % (Manual) Monocytes % (Manual) Platelet Estimate Anisocytosis (manual) Sodium Potassium Chloride Carbon Dioxide Anion Gap BUN Creatinine Est GFR ( Amer) Est GFR (Non-Af Amer) POC Glucose (mg/dL) 275 H Random Glucose Hemoglobin A1c 8.3 H D Calcium Total Bilirubin AST ALT Alkaline Phosphatase Total Protein Albumin Globulin Albumin/Globulin Ratio Triglycerides Cholesterol LDL Cholesterol Direct HDL Cholesterol Urine Color Yellow Urine Clarity Clear Urine pH 5.0 Ur Specific Glade 1.010 Urine Protein 1+ H Urine Glucose (UA) 3+ H Urine Ketones 1+ H Urine Blood Negative Urine Nitrate Negative Urine Bilirubin Negative Urine Urobilinogen 2.0 H Ur Leukocyte Esterase Neg Urine WBC (Auto) 2 Urine RBC (Auto) 2 Ur Squamous Epith Cells 3 Urine Bacteria Rare 09/01/17 09/01/17 09/01/17 06:13 06:13 06:13 WBC 5.6 RBC 3.51 L Hgb 11.0 Hct 32.7 L MCV 93.2 MCH 31.3 H MCHC 33.6 RDW 15.0 H Plt Count 152 MPV 10.8 Neut % (Auto) 54.2 Lymph % (Auto) 23.4 Bureau % (Auto) 21.9 H Eos % (Auto) 0.4 Baso % (Auto) 0.1 Neut # 3.0 Lymph # 1.3 Bureau # 1.2 H Eos # 0.0 Baso # 0.0 Neutrophils % (Manual) 55 Lymphocytes % (Manual) 29 Monocytes % (Manual) 16 H Platelet Estimate Normal Anisocytosis (manual) Slight Sodium 134 Potassium 4.3 Chloride 106 Carbon Dioxide 23 Anion Gap 10 BUN 7 Creatinine 0.6 L Est GFR ( Amer) > 60 Est GFR (Non-Af Amer) > 60 POC Glucose (mg/dL) Random Glucose 244 H Hemoglobin A1c Calcium 8.4 L Total Bilirubin 1.9 H AST 64 H ALT 62 H Alkaline Phosphatase 252 H Total Protein 6.6 Albumin 3.0 L Globulin 3.6 Albumin/Globulin Ratio 0.8 L Triglycerides 75 Cholesterol 149 LDL Cholesterol Direct 97 HDL Cholesterol 32 Urine Color Urine Clarity Urine pH Ur Specific Glade Urine Protein Urine Glucose (UA) Urine Ketones Urine Blood Urine Nitrate Urine Bilirubin Urine Urobilinogen Ur Leukocyte Esterase Urine WBC (Auto) Urine RBC (Auto) Ur Squamous Epith Cells Urine Bacteria 09/01/17 09/01/17 09/01/17 06:38 11:55 16:30 WBC RBC Hgb Hct MCV MCH MCHC RDW Plt Count MPV Neut % (Auto) Lymph % (Auto) Bureau % (Auto) Eos % (Auto) Baso % (Auto) Neut # Lymph # Bureau # Eos # Baso # Neutrophils % (Manual) Lymphocytes % (Manual) Monocytes % (Manual) Platelet Estimate Anisocytosis (manual) Sodium Potassium Chloride Carbon Dioxide Anion Gap BUN Creatinine Est GFR ( Amer) Est GFR (Non-Af Amer) POC Glucose (mg/dL) 223 H 253 H 270 H Random Glucose Hemoglobin A1c Calcium Total Bilirubin AST ALT Alkaline Phosphatase Total Protein Albumin Globulin Albumin/Globulin Ratio Triglycerides Cholesterol LDL Cholesterol Direct HDL Cholesterol Urine Color Urine Clarity Urine pH Ur Specific Glade Urine Protein Urine Glucose (UA) Urine Ketones Urine Blood Urine Nitrate Urine Bilirubin Urine Urobilinogen Ur Leukocyte Esterase Urine WBC (Auto) Urine RBC (Auto) Ur Squamous Epith Cells Urine Bacteria Assessment & Plan - Assessment and Plan (Free Text) Assessment: Palliative consult Code status Full Code, there is no Advance Directive on chart, PPS 20% I reviewed medical records, all diagnostic studies, examined patient in the bed , discussed goals of care with Daughter Sarah Patient is alert, oriented to person, with lack of short term memory. Patent is on O2 via NC. Breathing shallow, fast, shortness of breath worsened with exertion while talking. Oral mucousa dry. Patient is obese. There is a significant pitting edema of LEs. Per daughter at bed side, it has been patient' s normal. BNP 2870 on admission. lasix on board. Pain denied. BP 110/47, HR 112, O2Sat 100 %., afebrile WBC 5.6, Hb 11.0, Alb 3.0 Goals of care discussed with patient's daughter Sarah. Translation to Setswana used. Daughter sates that her mother had been fighting cancer for many years, since 2004. Per daughter, patient was pretty much independent at home with some assistance with grocery shopping and food preparing. The daughter also admits that she had discussion with Doctor Donnie and understood that patient had a cloth in her lungs what makes her breathing difficult. Daughter hopes , her mother will recover from this episode of PE and return home. She would like her mother to continue with her last chemo tx on 09/18/17. I offered more information about usual course of lung cancer and suggested Code status discussion. Daughter was questioned if she had ever talked to her mother about the end of life care and how would she want to . The daughter was very clear that her and her mother would want all reasonable care to be applied to support patent's life, including chemo Tx. If comes to the point that patient reaches end of her life and no more Tx was left to offer, patient would prefer to natural . RITA reviewed. Daughter stated understanding. She reported needing to discuss it over with the rest of her 4 brothers. I supported her. Impression * This is a chronically ill patient with acute PE causing respiratory distress * Patient is in need of O2 supply and assistance with ADLs to preserve energy * SOB on exertion * Significant pedal edema * Lack of short term memory, forgetful * Daughter Sarah ) advocates for patient * Code status discussed but not decided upon; 4 more sons to be involved in decision Suggestion * Continue O2 supplement * Continue lasix * Assist with ADLs * Promote skin integrity Palliative care will continue to fallow up with this patient for further goals of care discussion. Daughter Sarah provided with my contact info. Discussed with nursing. Time taken to discuss Advanced Care planing is 45 min. Thank you for consulting palliative care
--- NOTE | 2017-09-01 18:07 | CP.PCM.PN ---
Subjective - Date & Time of Evaluation Date of Evaluation: 09/01/17 Time of Evaluation: 10:00 - Subjective Subjective: the patient seen and examined Still on high flow oxygen Appears tachypneic Denies chest pain Daughter said patient slept well last night Afebrile No chest pain On Lovenox Seen by cardiology Awaiting echocardiogram Objective - Vital Signs/Intake and Output Vital Signs (last 24 hours): Temp Pulse Resp BP Pulse Ox 98.0 F 101 H 18 106/75 95 09/01/17 15:00 09/01/17 15:00 09/01/17 15:00 09/01/17 15:00 09/01/17 15:00 Intake and Output: 09/01/17 09/01/17 06:59 18:59 Intake Total 480 Balance 480 - Medications Medications: Current Medications Albuterol/Ipratropium (Duoneb 3 Mg/0.5 Mg (3 Ml) Ud) 3 ml INH RQ2 PRN PRN Reason: SOB and Cough Last Admin: 09/01/17 08:45 Dose: 3 ml Aspirin (Ecotrin) 81 mg PO DAILY [facility] Last Admin: 09/01/17 09:57 Dose: 81 mg Enoxaparin Sodium (Lovenox) 90 mg SC Q12 [facility] Last Admin: 09/01/17 09:59 Dose: 90 mg Furosemide (Lasix) 20 mg PO QAM [facility] Last Admin: 09/01/17 09:58 Dose: 20 mg Glipizide (Glucotrol) 5 mg PO DAILY [facility] Last Admin: 09/01/17 09:57 Dose: 5 mg Insulin Human Regular (Novolin R) 0 unit SC [facility] PRN Reason: Protocol Last Admin: 09/01/17 12:09 Dose: 4 unit Megestrol Acetate (Megace) 40 mg PO DAILY [facility] Last Admin: 09/01/17 09:57 Dose: 40 mg Pantoprazole Sodium (Protonix Ec Tab) 40 mg PO DAILY [facility] Last Admin: 09/01/17 09:57 Dose: 40 mg Potassium Chloride (K-Dur 20 Meq Er Tab) 20 meq PO DAILY [facility] Last Admin: 09/01/17 09:58 Dose: 20 meq Prednisone (Prednisone Tab) 20 mg PO DAILY [facility] Last Admin: 09/01/17 10:25 Dose: 20 mg Sitagliptin Phosphate (Januvia) 25 mg PO DAILY [facility] Last Admin: 09/01/17 09:57 Dose: 25 mg - Labs Labs: 09/01/17 06:13 09/01/17 06:13 - Head Exam Head Exam: ATRAUMATIC, NORMOCEPHALIC - Eye Exam Eye Exam: Normal appearance - ENT Exam ENT Exam: Mucous Membranes Moist - Neck Exam Neck Exam: Normal Inspection - Respiratory Exam Respiratory Exam: Decreased Breath Sounds - Cardiovascular Exam Cardiovascular Exam: Tachycardia - GI/Abdominal Exam GI & Abdominal Exam: Soft, Normal Bowel Sounds - Rectal Exam Rectal Exam: NORMAL INSPECTION - Neurological Exam Neurological Exam: Awake Assessment and Plan (1) Pulmonary embolism Assessment & Plan: Lovenox Echocardiogram Venous Doppler lower extremities Patient refusing BiPAP high flow oxygen ICU eval Status: Acute (2) History of lung cancer Status: Acute
[2017-09-01] MEDS ORDERED: Potassium Chloride 20 mEq ER Tab PO ONE (20:18)
--- NOTE | 2017-09-01 21:15 | CP.PCM.PN ---
Subjective - Date & Time of Evaluation Date of Evaluation: 09/01/17 Time of Evaluation: 10:00 - Subjective Subjective: Patient has been seen and examined. Patient reports mild improvement of her back pain that radiates to her front. She also reports only mild improvement of her SOB. She still reports some chest pain with deep inspiration but states that it has improved from yesterday. Objective - Vital Signs/Intake and Output Vital Signs (last 24 hours): Temp Pulse Resp BP Pulse Ox 98.0 F 101 H 18 106/75 95 09/01/17 15:00 09/01/17 15:00 09/01/17 15:00 09/01/17 15:00 09/01/17 15:00 Intake and Output: 09/01/17 09/02/17 18:59 06:59 Intake Total 480 Balance 480 - Medications Medications: Current Medications Albuterol/Ipratropium (Duoneb 3 Mg/0.5 Mg (3 Ml) Ud) 3 ml INH RQ2 PRN PRN Reason: SOB and Cough Last Admin: 09/01/17 08:45 Dose: 3 ml Aspirin (Ecotrin) 81 mg PO DAILY [facility] Last Admin: 09/01/17 09:57 Dose: 81 mg Enoxaparin Sodium (Lovenox) 90 mg SC Q12 [facility] Last Admin: 09/01/17 09:59 Dose: 90 mg Furosemide (Lasix) 20 mg PO QAM [facility] Last Admin: 09/01/17 09:58 Dose: 20 mg Glipizide (Glucotrol) 5 mg PO DAILY [facility] Last Admin: 09/01/17 09:57 Dose: 5 mg Insulin Human Regular (Novolin R) 0 unit SC ACHS [facility] PRN Reason: Protocol Last Admin: 09/01/17 18:06 Dose: 4 unit Megestrol Acetate (Megace) 40 mg PO DAILY [facility] Last Admin: 09/01/17 09:57 Dose: 40 mg Pantoprazole Sodium (Protonix Ec Tab) 40 mg PO DAILY [facility] Last Admin: 09/01/17 09:57 Dose: 40 mg Potassium Chloride (K-Dur 20 Meq Er Tab) 20 meq PO DAILY [facility] Last Admin: 09/01/17 09:58 Dose: 20 meq Prednisone (Prednisone Tab) 20 mg PO DAILY [facility] Last Admin: 09/01/17 10:25 Dose: 20 mg Sitagliptin Phosphate (Januvia) 25 mg PO DAILY [facility] Last Admin: 09/01/17 09:57 Dose: 25 mg - Labs Labs: 09/01/17 06:13 09/01/17 06:13 - Additional Findings Additional findings: - Constitutional Appears: Non-toxic, In Acute Distress, Chronically Ill - Head Exam Head Exam: NORMAL INSPECTION, NORMOCEPHALIC - Eye Exam Eye Exam: EOMI, Normal appearance - ENT Exam ENT Exam: Mucous Membranes Moist - Respiratory Exam Respiratory Exam: Accessory Muscle Use, Rhonchi (Left Lower Lobe). absent: Rales, Wheezes, Stridor, NORMAL BREATHING PATTERN - Cardiovascular Exam Cardiovascular Exam: Tachycardia, REGULAR RHYTHM, +S1, +S2 - GI/Abdominal Exam GI & Abdominal Exam: Distended (Habitus), Normal Bowel Sounds, Soft, Tenderness (RLQ, RUQ) absent: Firm, Guarding, Rebound, Rigid, - Extremities Exam Extremities exam: Positive for: pedal edema (chronic, non pitting ), tenderness (improved) (Lower Ext. B/L ) - Back Exam Back exam: CVA tenderness (R) - Neurological Exam Neurological exam: Alert, Oriented x3 - Psychiatric Exam Psychiatric exam: Normal Affect, Normal Mood - Skin Skin Exam: Dry, Intact, Normal Color, Warm Assessment and Plan - Assessment and Plan (Free Text) Assessment: 72 year old Romanian speaking female with a stated PMHx of Lung CA, s/p 2005 lobectomty, HTN, DMII, HLD (from past chart), and chronic leg edema admitted for evaluation and treatment of PE Plan: PE (Pulmonary Embolism) Likely 2/2 to decreased chemo, relative immobility and Malignancy CXR (Admission): Changes of left lower lobectomy less well seen compared to high -resolution CT chest however persistent elevation left hemidiaphragm with opacity in the left upper/mid lung stone and possibly some atelectasis and or scarring left lung base. Small left effusion not excluded. Masslike opacity in the right perihilar region. Chest CT (Admission): Large pulmonary embolus within the distal right main pulmonary artery that extends into the upper lobe middle lobe and lower lobe branches and proximal segmental/ subsegmental branches. Bilateral lower lobe consolidation may represent some combination of atelectasis and or infiltrate with left-sided effusion ; concomitant infarct changes on the right side may contribute. . Mild consolidation changes also present within the middle lobe. Mild biapical pleural thickening and minimal adjacent parenchymal scarring. Referring clinician where these findings as detailed above. EKG (Admission): Sinus Tach, No acute ST or T wave changes. Official Read - PENDING Pulm/ICU Consult - Dr. Alexis Oncology Consult - Dr. Bowie Palliative Care consult - Massimo Chambers Heparin Bolus in the ED Lovenox 90mg SC Q12. Duonebs PRN Hx of Lung CA Last chemotherapy session was 08/18/17. Home Prednisone 20 PO daily Home Megestrol 40mg PO Oncology Consult - Dr. Bowie - Recs Appreciated Hx of HTN No HTN meds in home med list. She has been Normotensive Monitor Home ASA 81 Daily Hx of B/L leg edema Home Furosemide 20 QAM B/L Lower Ext. venous dopplers - Done, F/U on Read. Hx of DMII Home GlipiZide 5mg Daily Home Sitagliptin 25mg Daily ISS HypoKalemia (Resolved) Monitor 20 meq LUANN Daily per ICU Goals of Care Palliative Care Consult - Recs Appreciated Palliative care will continue to oallow up with this patient for further goals of care discussion. Daughter Sarah provided with contact info. Dispo: Spoke to daughter again today, and she stated she would bring medications tomorrow Patient seen and discussed with Attending Danilo Rubi PGY1
[2017-09-02 07:25] LABS: BASO % 0.2 % (0.0-2.0); EOS % 0.8 % (0.0-4.0); HEMOGLOBIN 10.8 g/dL (11.0-16.0); LYMPH # 1.5 K/uL (1.0-4.3); LYMPH % 24.9 % (20.0-40.0); MEAN CELL VOLUME 93.6 fL (81.0-99.0); MEAN CORPUSCULAR HEMOGLOBIN 31.9 pg (27.0-31.0); MEAN CORPUSCULAR HGB CONC 34.1 g/dL (33.0-37.0); MEAN PLATELET VOLUME 10.6 fL (7.2-11.7); MONO # 1.2 K/uL (0.0-0.8); NEUT # 3.1 K/uL (1.8-7.0); NEUT % 53.1 % (50.0-75.0); NRBC % 0.1 % (0.0-2.0); PLATELET COUNT 196 K/uL (130-400); RBC 3.39 Mil/uL (3.80-5.20); RED CELL DISTRIBUTION WIDTH 15.6 % (11.5-14.5); WHITE BLOOD COUNT 5.9 K/uL (4.8-10.8)
[2017-09-02] MEDS: (Novolin R) Insulin Human Regular 100 units/ml vial SC SCH ×4 (08:11→21:27)
[2017-09-02 08:21] LABS: ALB/GLOB RATIO 0.8 (1.0-2.1); ALT/SGPT 69 U/L (9-52); AST/SGOT 61 U/L (14-36); BLOOD UREA NITROGEN 12 mg/dL (7-17); CALCIUM 8.8 mg/dl (8.6-10.4); GFR AFRICAN-AMERICAN > 60; GFR NON-AFRICAN AMERICAN > 60
[2017-09-02] MEDS: Pantoprazole 40 mg EC Tab PO SCH (09:27)
[2017-09-02] MEDS: Potassium Chloride 20 mEq ER Tab PO SCH (09:28)
[2017-09-02] MEDS: Enoxaparin 100 mg Syringe SC SCH ×2 (09:28→22:24)
--- NOTE | 2017-09-02 09:42 | CP.PCM.PN ---
Subjective - Date & Time of Evaluation Date of Evaluation: 09/02/17 Time of Evaluation: 09:36 - Subjective Subjective: PGY-[address] Shirley. No acute events overnight. She is currently refusing bipap and is on high flow oxygen. Patient reports mild improvement of her back pain that radiates to her front. She also reports only mild improvement of her SOB. She still reports some chest pain with deep inspiration but states that it has improved from yesterday. Objective - Vital Signs/Intake and Output Vital Signs (last 24 hours): Temp Pulse Resp BP Pulse Ox 98.3 F 101 H 20 116/75 96 09/02/17 08:45 09/02/17 08:45 09/02/17 09:03 09/02/17 09:30 09/02/17 08:45 - Medications Medications: Current Medications Albuterol/Ipratropium (Duoneb 3 Mg/0.5 Mg (3 Ml) Ud) 3 ml INH RQ2 PRN PRN Reason: SOB and Cough Last Admin: 09/01/17 08:45 Dose: 3 ml Aspirin (Ecotrin) 81 mg PO DAILY [facility] Last Admin: 09/02/17 09:28 Dose: 81 mg Enoxaparin Sodium (Lovenox) 90 mg SC Q12 [facility] Last Admin: 09/02/17 09:28 Dose: 90 mg Furosemide (Lasix) 20 mg PO QAM [facility] Last Admin: 09/02/17 09:30 Dose: 20 mg Glipizide (Glucotrol) 5 mg PO DAILY [facility] Last Admin: 09/02/17 09:28 Dose: 5 mg Insulin Human Regular (Novolin R) 0 unit SC ACHS [facility] PRN Reason: Protocol Last Admin: 09/02/17 08:11 Dose: 2 unit Megestrol Acetate (Megace) 40 mg PO DAILY [facility] Last Admin: 09/02/17 09:28 Dose: 40 mg Pantoprazole Sodium (Protonix Ec Tab) 40 mg PO DAILY [facility] Last Admin: 09/02/17 09:27 Dose: 40 mg Potassium Chloride (K-Dur 20 Meq Er Tab) 20 meq PO DAILY [facility] Last Admin: 09/02/17 09:28 Dose: 20 meq Prednisone (Prednisone Tab) 20 mg PO DAILY [facility] Last Admin: 09/02/17 09:28 Dose: 20 mg Sitagliptin Phosphate (Januvia) 25 mg PO DAILY [facility] Last Admin: 09/02/17 09:28 Dose: 25 mg - Labs Labs: 09/02/17 07:01 09/02/17 07:01 - Additional Findings Additional findings: - Constitutional Appears: Non-toxic, In Acute Distress, Chronically Ill - Head Exam Head Exam: NORMAL INSPECTION, NORMOCEPHALIC - Eye Exam Eye Exam: EOMI, Normal appearance - ENT Exam ENT Exam: Mucous Membranes Moist - Respiratory Exam Respiratory Exam: Accessory Muscle Use, Rhonchi (Left Lower Lobe). absent: Rales, Wheezes, Stridor, NORMAL BREATHING PATTERN - Cardiovascular Exam Cardiovascular Exam: Tachycardia, REGULAR RHYTHM, +S1, +S2 - GI/Abdominal Exam GI & Abdominal Exam: Distended (Habitus), Normal Bowel Sounds, Soft, Tenderness (RLQ, RUQ) absent: Firm, Guarding, Rebound, Rigid, - Extremities Exam Extremities exam: Positive for: pedal edema (chronic, non pitting ), tenderness (improved) (Lower Ext. B/L ) - Back Exam Back exam: CVA tenderness (R) - Neurological Exam Neurological exam: Alert, Oriented x3 - Psychiatric Exam Psychiatric exam: Normal Affect, Normal Mood - Skin Skin Exam: Dry, Intact, Normal Color, Warm Assessment and Plan - Assessment and Plan (Free Text) Assessment: Assessment: 72 year old Armenian speaking female with a stated PMHx of Lung CA, s/p 2005 lobectomty, HTN, DMII, HLD (from past chart), and chronic leg edema admitted for evaluation and treatment of PE PE (Pulmonary Embolism) Likely 2/2 to decreased chemo, relative immobility and Malignancy Pulm/ICU Consult - Dr. Alexis Oncology Consult - Dr. Bowie * Agree with AC, no indication for hypercoagulable work up Palliative Care consult - Massimo Chambers * Code status discussed but not decided upon On high flow oxygen - decrease FiO2 slowly Imaging: CXR (Admission): Changes of left lower lobectomy less well seen compared to high -resolution CT chest however persistent elevation left hemidiaphragm with opacity in the left upper/mid lung stone and possibly some atelectasis and or scarring left lung base. Small left effusion not excluded. Masslike opacity in the right perihilar region. Chest CT (Admission): Large pulmonary embolus within the distal right main pulmonary artery that extends into the upper lobe middle lobe and lower lobe branches and proximal segmental/ subsegmental branches. Bilateral lower lobe consolidation may represent some combination of atelectasis and or infiltrate with left-sided effusion ; concomitant infarct changes on the right side may contribute. . Mild consolidation changes also present within the middle lobe. Mild biapical pleural thickening and minimal adjacent parenchymal scarring. Referring clinician where these findings as detailed above. EKG (Admission): Sinus Tach, No acute ST or T wave changes. F/U ECHO Meds: Heparin Bolus in the ED Lovenox 90mg SC Q12. Duonebs PRN Hx of Lung CA Oncology Consult - Dr. Bowie - Recs Appreciated * on chemo with Alimta/Carbo/ketruda for the past 2 months Last chemotherapy session was 08/18/17 Home Prednisone 20 PO daily Home Megestrol 40mg PO Hx of HTN No HTN meds in home med list. She has been Normotensive Monitor Home ASA 81 Daily Hx of B/L leg edema Home Furosemide 20 QAM Duplex scan LE B/L 08/31/17: No evidence of deep or superficial vein thrombosis of lower extremities bilaterally. Normal valve function bilaterally. Hx of DMII Home GlipiZide 5mg Daily Home Sitagliptin 25mg Daily ISS HypoKalemia (Resolved) Monitor 20 meq LUANN Daily per ICU Goals of Care Palliative Care Consult - Recs Appreciated Palliative care will continue to oallow up with this patient for further goals of care discussion. Marciano Smith provided with contact info. Dispo: Spoke to daughter again today, and she stated she would bring medications tomorrow Patient seen and discussed with Attending
[2017-09-02 09:52] LABS: BANDS 1 % (0-2); LYMPHOCYTE 27 % (20-40); MONOCYTE 20 % (0-10); NEUTROPHIL 52 % (50-75); TOTAL CELLS COUNTED 100
[2017-09-02 09:53] LABS: PLATELET ESTIMATE NORMAL (NORMAL)
[2017-09-02 09:54] LABS: ANISOCYTOSIS SLIGHT; POIKILOCYTOSIS SLIGHT
--- NOTE | 2017-09-02 11:16 | VASCLAB ---
PROCEDURE: Lower Extremity Venous Duplex Exam. HISTORY: Rule out DVT PRIORS: None. TECHNIQUE: Bilateral common femoral, femoral, popliteal and posterior tibial, peroneal and great saphenous veins were evaluated. Flow was assessed with color Doppler, compressibility, assessment of phasic flow and augmentation response. Report prepared by Angel Lee, AZUL, RVT FINDINGS: RIGHT: 1. Common Femoral Vein: 1.1. Compressibility - Fully compressible: Thrombus - None : Flow - Phasic: Augmentation -Normal: Reflux - None. 2. Femoral Vein: 2.1. Compressibility - Fully compressible: Thrombus - None : Flow - Phasic: Augmentation -Normal: Reflux - None. 3. Popliteal Vein: 3.1. Compressibility - Fully compressible: Thrombus - None : Flow - Phasic: Augmentation -Normal: Reflux - None. 4. Posterior Tibial Vein: 4.1. Compressibility - Fully compressible: Thrombus - None: Flow - Phasic: Augmentation -Normal: Reflux - None. 5. Peroneal Vein: 5.1. Compressibility - Fully compressible: Thrombus - None: Flow - Phasic: Augmentation -Normal: Reflux - None. 6. Great Saphenous Vein: 6.1. Compressibility - Fully compressible: Thrombus - None: Flow - Phasic: Augmentation - Normal: Reflux - None. LEFT: 1. Common Femoral Vein: 1.1. Compressibility - Fully compressible: Thrombus - None: Flow - Phasic: Augmentation -Normal: Reflux - None. 2. Femoral Vein: 2.1. Compressibility - Fully compressible: Thrombus - None: Flow - Phasic: Augmentation -Normal: Reflux - None. 3. Popliteal Vein: 3.1. Compressibility - Fully compressible: Thrombus - None : Flow - Phasic: Augmentation -Normal: Reflux - None. 4. Posterior Tibial Vein: 4.1. Compressibility - Fully compressible: Thrombus - None: Flow - Phasic: Augmentation -Normal: Reflux - None. 5. Peroneal Vein: 5.1. Compressibility - Fully compressible: Thrombus - None: Flow - Phasic: Augmentation -Normal: Reflux - None. 6. Great Saphenous Vein: 6.1. Compressibility - Fully compressible: Thrombus - None: Flow - Phasic: Augmentation - Normal: Reflux - None. OTHER FINDINGS: Right: None significant. Left: None significant. IMPRESSION: Right: No evidence of deep or superficial vein thrombosis of the right lower extremity. Normal valve function noted of the right side. Left: No evidence of deep or superficial vein thrombosis of the left lower extremity. Normal valve function noted of the left side.
--- NOTE | 2017-09-02 12:52 | CP.PCM.PN ---
Subjective - Date & Time of Evaluation Date of Evaluation: 09/02/17 Time of Evaluation: 10:20 - Subjective Subjective: Patient seen and examined Still complaining of shortness of breath Afebrile Denies any cough Being treated for pulmonary embolism Awaiting echocardiogram Objective - Vital Signs/Intake and Output Vital Signs (last 24 hours): Temp Pulse Resp BP Pulse Ox 98.3 F 101 H 20 116/75 96 09/02/17 08:45 09/02/17 08:45 09/02/17 09:03 09/02/17 09:30 09/02/17 08:45 - Medications Medications: Current Medications Albuterol/Ipratropium (Duoneb 3 Mg/0.5 Mg (3 Ml) Ud) 3 ml INH RQ2 PRN PRN Reason: SOB and Cough Last Admin: 09/01/17 08:45 Dose: 3 ml Aspirin (Ecotrin) 81 mg PO DAILY [facility] Last Admin: 09/02/17 09:28 Dose: 81 mg Enoxaparin Sodium (Lovenox) 90 mg SC Q12 [facility] Last Admin: 09/02/17 09:28 Dose: 90 mg Furosemide (Lasix) 20 mg PO QAM [facility] Last Admin: 09/02/17 09:30 Dose: 20 mg Glipizide (Glucotrol) 5 mg PO DAILY [facility] Last Admin: 09/02/17 09:28 Dose: 5 mg Insulin Human Regular (Novolin R) 0 unit SC ACHS [facility] PRN Reason: Protocol Last Admin: 09/02/17 12:33 Dose: 3 unit Megestrol Acetate (Megace) 40 mg PO DAILY [facility] Last Admin: 09/02/17 09:28 Dose: 40 mg Pantoprazole Sodium (Protonix Ec Tab) 40 mg PO DAILY [facility] Last Admin: 09/02/17 09:27 Dose: 40 mg Potassium Chloride (K-Dur 20 Meq Er Tab) 20 meq PO DAILY [facility] Last Admin: 09/02/17 09:28 Dose: 20 meq Prednisone (Prednisone Tab) 20 mg PO DAILY [facility] Last Admin: 09/02/17 09:28 Dose: 20 mg Sitagliptin Phosphate (Januvia) 25 mg PO DAILY [facility] Last Admin: 09/02/17 09:28 Dose: 25 mg - Labs Labs: 09/02/17 07:01 09/02/17 07:01 - Head Exam Head Exam: ATRAUMATIC, NORMOCEPHALIC - Eye Exam Eye Exam: Normal appearance - ENT Exam ENT Exam: Mucous Membranes Moist - Neck Exam Neck Exam: Normal Inspection - Respiratory Exam Respiratory Exam: Decreased Breath Sounds - Cardiovascular Exam Cardiovascular Exam: Irregular Rhythm - GI/Abdominal Exam GI & Abdominal Exam: Soft, Normal Bowel Sounds Assessment and Plan (1) Pulmonary embolism Assessment & Plan: Continue Lovenox Echocardiogram and venous Doppler Cardiology followup High flow oxygen Status: Acute (2) History of lung cancer Status: Acute
--- NOTE | 2017-09-02 18:39 | CP.PCM.CON ---
History of Present Illness - History of Present Illness History of Present Illness: I was asked to see patient by Dr Alexis. Patient is a 72 year old female with PMH HTN lung carcinoma who presents with dyspnea. Patient started with a dry cough, and progressive dyspnea. Patient was found to have a PE. She complains of dyspnea at rest, and was found to have a PE. She has improved with oxygen therapy. Review of Systems - Constitutional Constitutional: absent: As Per HPI, Anorexia, Chills, Daytime Sleepiness, Excessive Sweating, Fatigue, Fever, Frequent Falls, Headache, Increased Appetite , Lethargy, Malaise, Night Sweats, Snoring, Sleep Apnea, Weight Gain, Weight Loss, Weakness, Other - EENT Eyes: absent: As Per HPI, Blind Spots, Blurred Vision, Change in Vision, Decreased Night Vision, Diplopia, Discharge, Dry Eye, Exophthalmos, Floaters, Irritation, Itchy Eyes, Loss of Peripheral Vision, Pain, Photophobia, Requires Corrective Lenses, Sees Flashes, Spots in Vision, Tunnel Vision, Other Visual Disturbances, Loss of Vision, Other Ears: absent: As Per HPI, Decreased Hearing, Ear Discharge, Ear Pain, Tinnitus, Abnormal Hearing, Disequilibrium, Dizziness, Other Nose/Mouth/Throat: absent: As Per HPI, Epistaxis, Nasal Congestion, Nasal Discharge, Nasal Obstruction, Nasal Trauma, Nose Pain, Post Nasal Drip, Sinus Pain, Sinus Pressure, Bleeding Gums, Change in Voice, Dental Pain, Dry Mouth, Dysphagia, Halitosis, Hoarsness, Lip Swelling, Mouth Lesions, Mouth Pain, Odynophagia, Sore Throat, Throat Swelling, Tongue Swelling, Facial Pain, Neck Pain, Neck Mass, Other - Breasts Breasts: absent: As Per HPI, Change in Shape, Mass, Pain, Nipple Discharge, Nipple Inversion, Skin Changes, Swelling, Other - Cardiovascular Cardiovascular: Dyspnea - Respiratory Respiratory: Dyspnea, Chest Congestion - Gastrointestinal Gastrointestinal: absent: As Per HPI, Abdominal Pain, Belching, Bloating, Change in Bowel Habits, Change in Stool Character, Coffee Ground Emesis, Constipation, Cramping, Diarrhea, Dyspepsia, Dysphagia, Early Satiety, Excessive Flatus, Fecal Incontinence, Heartburn, Hematemesis, Hematochezia, Loose Stools, Melena, Nausea, Odynophagia, Temesmus, Vomiting, Other - Genitourinary Genitourinary: absent: As Per HPI, Change in Urinary Stream, Difficulty Urinating, Dysuria, Flank Pain, Hematuria, Pyuria, Nocturia, Urinary Incontinence, Urinary Frequency, Urinary Hesitance, Urinary Urgency, Voiding Freq/Small Amts, Freq UTI, Hx Renal/Bladder Calculi, Hx /Renal Surgery, Bladder Distension, Other - Musculoskeletal Musculoskeletal: absent: As Per HPI, Abnormal Gait, Arthralgias, Atrophy, Back Pain, Deformity, Joint Swelling, Limited Range of Motion, Loss of Height, Muscle Cramps, Muscle Weakness, Myalgias, Neck Pain, Numbness, Radiating Pain into Limb, Stiffness, Tingling, Other - Integumentary Integumentary: absent: As Per HPI, Acne, Alopecia, Bleeding Lesions, Change in Hair, Change in Nails, Change in Pigmentation, Changing Lesions, Dry Skin, Erythema, Furuncle, Hirsutism, Lesions, New Lesions, Non-Healing Lesions, Photosensitivity, Pruritus, Rash, Skin Pain, Skin Ulcer, Sores, Striae, Swelling , Unusual Bruising, Wounds, Jaundice, Other - Neurological Neurological: absent: As Per HPI, Abnormal Gait, Abnormal Hearing, Abnormal Movements, Abnormal Speech, Behavioral Changes, Burning Sensations, Confusion, Convulsions, Disequilibrium, Dizziness, Numbness, Focal Weakness, Frequent Falls , Headaches, Lack of Coordination, Loss of Vision, Memory Loss, Paresthesias, Radicular Pain, Restless Legs, Sensory Deficit, Syncope, Tingling, Tremor, Vertigo, Weakness, Other Visual Disturbances, Other - Psychiatric Psychiatric: absent: As Per HPI, Abnormal Sleep Pattern, Anhedonia, Anxiety, Auditory Hallucinations, Behavioral Changes, Change in Appetite, Change in Libido, Confusion, Depression, Difficulty Concentrating, Hallucinations, Homicidal Ideation, Hopelessness, Irritability, Memory Loss, Mood Swings, Panic Attacks, Paranoia, Suicidal Ideation, Visual Hallucinations, Tactile Hallucinations, Other - Endocrine Endocrine: absent: As Per HPI, Change in Body Appearance, Change in Libido, Cold Intolorance, Deepening of Voice, Excessive Sweating, Fatigue, Flushing, Heat Intolorance, Increase in Ring/Shoe/Hat Size, Palpitations, Polydipsia, Polyphagia, Polyuria, Other - Hematologic/Lymphatic Hematologic: absent: As Per HPI, Easy Bleeding, Easy Bruising, Lymphadenopathy, Other Past Patient History - Infectious Disease Hx of Infectious Diseases: None - Past Medical History & Family History Past Medical History?: Yes - Past Social History Smoking Status: Never Smoked - CARDIAC Hx Congestive Heart Failure: Yes Hx Hypercholesterolemia: Yes Hx Hypertension: Yes - PULMONARY Hx Pneumonia: Yes - NEUROLOGICAL Hx Dementia: Yes (FORGETFUL AT TIMES. AAO X 3 AT PRESENT) - HEENT Hx HEENT Problems: No - RENAL Hx Chronic Kidney Disease: Yes Hx Kidney Stones: Yes - INTEGUMENTARY Hx Dermatological Problems: No - MUSCULOSKELETAL/RHEUMATOLOGICAL Hx Arthritis: Yes - GASTROINTESTINAL Hx Gastrointestinal Disorders: No - GENITOURINARY/GYNECOLOGICAL Hx Genitourinary Disorders: No - PSYCHIATRIC Hx Anxiety: Yes Hx Bipolar Disorder: Yes Hx Depression: Yes Hx Substance Use: No - SURGICAL HISTORY Hx Surgeries: Yes Hx Pulmonary Surgery: Yes (LEFT LUNG) Hx Tubal Ligation: Yes Other/Comment: HX:left lower lobectomy. HX: BRONCHOSCOPY(05/12/17) - ANESTHESIA Hx Anesthesia: Yes Hx Anesthesia Reactions: No Hx Malignant Hyperthermia: No Meds Allergies/Adverse Reactions: Allergies Allergy/AdvReac Type Severity Reaction Status Date / Time No Known Allergies Allergy Verified 01/28/17 13:56 - Medications Medications: Current Medications Albuterol/Ipratropium (Duoneb 3 Mg/0.5 Mg (3 Ml) Ud) 3 ml INH RQ2 PRN PRN Reason: SOB and Cough Last Admin: 09/01/17 08:45 Dose: 3 ml Aspirin (Ecotrin) 81 mg PO DAILY [facility] Last Admin: 09/02/17 09:28 Dose: 81 mg Enoxaparin Sodium (Lovenox) 90 mg SC Q12 [facility] Last Admin: 09/02/17 09:28 Dose: 90 mg Furosemide (Lasix) 20 mg PO QAM [facility] Last Admin: 09/02/17 09:30 Dose: 20 mg Glipizide (Glucotrol) 5 mg PO DAILY [facility] Last Admin: 09/02/17 09:28 Dose: 5 mg Insulin Human Regular (Novolin R) 0 unit SC ACHS [facility] PRN Reason: Protocol Last Admin: 09/02/17 17:13 Dose: 6 unit Megestrol Acetate (Megace) 40 mg PO DAILY [facility] Last Admin: 09/02/17 09:28 Dose: 40 mg Pantoprazole Sodium (Protonix Ec Tab) 40 mg PO DAILY [facility] Last Admin: 09/02/17 09:27 Dose: 40 mg Potassium Chloride (K-Dur 20 Meq Er Tab) 20 meq PO DAILY [facility] Last Admin: 09/02/17 09:28 Dose: 20 meq Prednisone (Prednisone Tab) 20 mg PO DAILY [facility] Last Admin: 09/02/17 09:28 Dose: 20 mg Sitagliptin Phosphate (Januvia) 25 mg PO DAILY [facility] Last Admin: 09/02/17 09:28 Dose: 25 mg Physical Exam - Constitutional Appears: Toxic - Head Exam Head Exam: NORMAL INSPECTION - Eye Exam Eye Exam: Normal appearance - ENT Exam ENT Exam: Mucous Membranes Moist - Neck Exam Neck exam: Positive for: Full Rom - Respiratory Exam Respiratory Exam: Decreased Breath Sounds - Cardiovascular Exam Cardiovascular Exam: REGULAR RHYTHM - GI/Abdominal Exam GI & Abdominal Exam: Normal Bowel Sounds - Rectal Exam Rectal Exam: Deferred - Extremities Exam Extremities exam: Positive for: normal inspection - Back Exam Back exam: NORMAL INSPECTION - Neurological Exam Neurological exam: Alert, Oriented x3 - Skin Skin Exam: Normal Color Results - Vital Signs Recent Vital Signs: Last Vital Signs Temp 98.2 F 09/02/17 15:20 Pulse 99 H 09/02/17 15:20 Resp 16 09/02/17 17:39 BP 122/69 09/02/17 15:20 Pulse Ox 96 09/02/17 15:20 - Labs Result Diagrams: 09/02/17 07:01 09/02/17 07:01 Labs: Laboratory Results - last 24 hr 09/01/17 09/02/17 09/02/17 21:44 06:19 07:01 WBC 5.9 RBC 3.39 L Hgb 10.8 L Hct 31.8 L MCV 93.6 MCH 31.9 H MCHC 34.1 RDW 15.6 H Plt Count 196 MPV 10.6 Neut % (Auto) 53.1 Lymph % (Auto) 24.9 [place] % (Auto) 21.0 H Eos % (Auto) 0.8 Baso % (Auto) 0.2 Neut # 3.1 Lymph # 1.5 [place] # 1.2 H Eos # 0.0 Baso # 0.0 Neutrophils % (Manual) 52 Band Neutrophils % 1 Lymphocytes % (Manual) 27 Monocytes % (Manual) 20 H Platelet Estimate Normal Poikilocytosis (manual Slight Anisocytosis (manual) Slight Sodium Potassium Chloride Carbon Dioxide Anion Gap BUN Creatinine Est GFR ( Amer) Est GFR (Non-Af Amer) POC Glucose (mg/dL) 262 H 186 H Random Glucose Calcium Total Bilirubin AST ALT Alkaline Phosphatase Total Protein Albumin Globulin Albumin/Globulin Ratio 09/02/17 09/02/17 09/02/17 07:01 12:11 16:19 WBC RBC Hgb Hct MCV MCH MCHC RDW Plt Count MPV Neut % (Auto) Lymph % (Auto) [place] % (Auto) Eos % (Auto) Baso % (Auto) Neut # Lymph # [place] # Eos # Baso # Neutrophils % (Manual) Band Neutrophils % Lymphocytes % (Manual) Monocytes % (Manual) Platelet Estimate Poikilocytosis (manual Anisocytosis (manual) Sodium 136 Potassium 3.6 Chloride 106 Carbon Dioxide 27 Anion Gap 8 L BUN 12 Creatinine 0.7 Est GFR ( Amer) > 60 Est GFR (Non-Af Amer) > 60 POC Glucose (mg/dL) 218 H 316 H Random Glucose 189 H Calcium 8.8 Total Bilirubin 1.6 H AST 61 H ALT 69 H Alkaline Phosphatase 255 H Total Protein 6.6 Albumin 3.0 L Globulin 3.6 Albumin/Globulin Ratio 0.8 L - EKG Data EKG Interpreted by: Myself Assessment & Plan (1) Pulmonary embolism Assessment and Plan: Patient will require anticoagulant therapy. will review echocardiogram. I discussed case with the family Status: Acute
--- NOTE | 2017-09-02 18:45 | CP.PCM.PN ---
Subjective - Date & Time of Evaluation Date of Evaluation: 09/02/17 Time of Evaluation: 18:40 - Subjective Subjective: Echocardiogram reviewed. Left ventricular function is at the lower limits of normal. The RV appears dilated and mildly hypokinetic. Pleural effusion is noted. continue anticoagulation. Objective - Vital Signs/Intake and Output Vital Signs (last 24 hours): Temp Pulse Resp BP Pulse Ox 98.2 F 99 H 16 122/69 96 09/02/17 15:20 09/02/17 15:20 09/02/17 17:39 09/02/17 15:20 09/02/17 15:20 Intake and Output: 09/02/17 09/02/17 06:59 18:59 Intake Total 600 Balance 600 - Medications Medications: Current Medications Albuterol/Ipratropium (Duoneb 3 Mg/0.5 Mg (3 Ml) Ud) 3 ml INH RQ2 PRN PRN Reason: SOB and Cough Last Admin: 09/01/17 08:45 Dose: 3 ml Aspirin (Ecotrin) 81 mg PO DAILY [facility] Last Admin: 09/02/17 09:28 Dose: 81 mg Enoxaparin Sodium (Lovenox) 90 mg SC Q12 [facility] Last Admin: 09/02/17 09:28 Dose: 90 mg Furosemide (Lasix) 20 mg PO QAM [facility] Last Admin: 09/02/17 09:30 Dose: 20 mg Glipizide (Glucotrol) 5 mg PO DAILY [facility] Last Admin: 09/02/17 09:28 Dose: 5 mg Insulin Human Regular (Novolin R) 0 unit SC ACHS [facility] PRN Reason: Protocol Last Admin: 09/02/17 17:13 Dose: 6 unit Megestrol Acetate (Megace) 40 mg PO DAILY [facility] Last Admin: 09/02/17 09:28 Dose: 40 mg Pantoprazole Sodium (Protonix Ec Tab) 40 mg PO DAILY [facility] Last Admin: 09/02/17 09:27 Dose: 40 mg Potassium Chloride (K-Dur 20 Meq Er Tab) 20 meq PO DAILY [facility] Last Admin: 09/02/17 09:28 Dose: 20 meq Prednisone (Prednisone Tab) 20 mg PO DAILY [facility] Last Admin: 09/02/17 09:28 Dose: 20 mg Sitagliptin Phosphate (Januvia) 25 mg PO DAILY [facility] Last Admin: 09/02/17 09:28 Dose: 25 mg - Labs Labs: 09/02/17 07:01 09/02/17 07:01 Assessment and Plan (1) Pulmonary embolism Status: Acute
[2017-09-03] MEDS: Albuterol-Ipratrop 3 mg / 0.5 (3 ml) UD INH PRN ×5 (00:58→21:49)
[2017-09-03 06:55] LABS: ALBUMIN 3.1 g/dL (3.5-5.0); ALT/SGPT 78 U/L (9-52); AST/SGOT 72 U/L (14-36); BASO % 0.1 % (0.0-2.0); BLOOD UREA NITROGEN 14 mg/dL (7-17); CALCIUM 9.1 mg/dl (8.6-10.4); EOS # 0.1 K/uL (0.0-0.7); GFR AFRICAN-AMERICAN > 60; GFR NON-AFRICAN AMERICAN > 60; HEMOGLOBIN 11.2 g/dL (11.0-16.0); LYMPH # 1.7 K/uL (1.0-4.3); LYMPH % 25.8 % (20.0-40.0); MEAN CORPUSCULAR HEMOGLOBIN 31.8 pg (27.0-31.0); MEAN CORPUSCULAR HGB CONC 34.2 g/dL (33.0-37.0); MEAN PLATELET VOLUME 10.1 fL (7.2-11.7); MONO # 1.4 K/uL (0.0-0.8); MONO % 21.5 % (0.0-10.0); NEUT # 3.4 K/uL (1.8-7.0); NEUT % 51.6 % (50.0-75.0); PLATELET COUNT 284 K/uL (130-400); RBC 3.52 Mil/uL (3.80-5.20); RED CELL DISTRIBUTION WIDTH 15.3 % (11.5-14.5); WHITE BLOOD COUNT 6.5 K/uL (4.8-10.8)
[2017-09-03 06:57] LABS: ALB/GLOB RATIO 0.8 (1.0-2.1)
[2017-09-03] MEDS: (Novolin R) Insulin Human Regular 100 units/ml vial SC SCH ×4 (07:41→22:38)
--- NOTE | 2017-09-03 09:10 | CP.PCM.PN ---
<NormKarmen - Last Filed: 09/03/17 15:54> Subjective - Date & Time of Evaluation Date of Evaluation: 09/03/17 Time of Evaluation: 09:12 - Subjective Subjective: Progress note for Dr. Alvarado Patient seen and examined at bedside on hi-lisbeth 30%. Patient states she hasn't been sleeping well for the past four days and that she feels really hot. Ice packs were brought for the patient and she felt better. Patient denies fevers, chills. Patient used a non-rebreather overnight and continues to use breathing treatments. Objective - Vital Signs/Intake and Output Vital Signs (last 24 hours): Temp Pulse Resp BP Pulse Ox 98.4 F 111 H 18 93/65 L 99 09/03/17 08:57 09/03/17 08:57 09/03/17 08:57 09/03/17 08:57 09/03/17 08:57 Intake and Output: 09/03/17 09/03/17 06:59 18:59 Intake Total 660 Balance 660 - Medications Medications: Current Medications Albuterol/Ipratropium (Duoneb 3 Mg/0.5 Mg (3 Ml) Ud) 3 ml INH RQ2 PRN PRN Reason: SOB and Cough Last Admin: 09/03/17 07:25 Dose: 3 ml Aspirin (Ecotrin) 81 mg PO DAILY [facility] Last Admin: 09/02/17 09:28 Dose: 81 mg Docusate Sodium (Colace) 100 mg PO BID [facility] Last Admin: 09/02/17 22:24 Dose: 100 mg Enoxaparin Sodium (Lovenox) 90 mg SC Q12 [facility] Last Admin: 09/02/17 22:24 Dose: 90 mg Furosemide (Lasix) 20 mg PO QAM [facility] Last Admin: 09/02/17 09:30 Dose: 20 mg Glipizide (Glucotrol) 5 mg PO DAILY [facility] Last Admin: 09/02/17 09:28 Dose: 5 mg Potassium Chloride (Potassium Chloride 20 Meq/100 Ml) 20 meq in 100 mls @ 50 mls/hr IVPB Q2H [facility] Stop: 09/03/17 13:59 Last Admin: 09/03/17 08:16 Dose: 50 mls/hr Insulin Human Regular (Novolin R) 0 unit SC ACHS [facility] PRN Reason: Protocol Last Admin: 09/03/17 07:41 Dose: Not Given Megestrol Acetate (Megace) 40 mg PO DAILY [facility] Last Admin: 09/02/17 09:28 Dose: 40 mg Pantoprazole Sodium (Protonix Ec Tab) 40 mg PO DAILY [facility] Last Admin: 09/02/17 09:27 Dose: 40 mg Potassium Chloride (K-Dur 20 Meq Er Tab) 20 meq PO DAILY [facility] Last Admin: 09/02/17 09:28 Dose: 20 meq Prednisone (Prednisone Tab) 20 mg PO DAILY [facility] Last Admin: 09/02/17 09:28 Dose: 20 mg Sitagliptin Phosphate (Januvia) 25 mg PO DAILY [facility] Last Admin: 09/02/17 09:28 Dose: 25 mg - Labs Labs: 09/03/17 06:34 09/03/17 06:34 - Constitutional Appears: Non-toxic, No Acute Distress - Head Exam Head Exam: NORMAL INSPECTION - Eye Exam Eye Exam: EOMI, Normal appearance - ENT Exam ENT Exam: Mucous Membranes Moist - Neck Exam Neck Exam: Full ROM. absent: Tenderness, Thyromegaly - Respiratory Exam Respiratory Exam: Rhonchi (left lower lobe), Wheezes (expiratory), NORMAL BREATHING PATTERN. absent: Accessory Muscle Use - Cardiovascular Exam Cardiovascular Exam: Tachycardia, REGULAR RHYTHM, +S1, +S2 - GI/Abdominal Exam GI & Abdominal Exam: Soft. absent: Tenderness - Extremities Exam Extremities Exam: Pedal Edema, Tenderness (tenderness on palpation.). absent: Joint Swelling - Back Exam Back Exam: Full ROM - Neurological Exam Neurological Exam: Alert, Awake, Oriented x3 - Psychiatric Exam Psychiatric exam: Normal Affect, Normal Mood - Skin Skin Exam: Dry, Warm Assessment and Plan - Assessment and Plan (Free Text) Assessment: 72 year old Amharic speaking female with a stated PMHx of Lung CA, s/p 2005 lobectomy, HTN, T2DM, HLD (from past chart), and chronic leg edema admitted for evaluation and treatment of PE PE (Pulmonary Embolism) Likely 2/2 to decreased chemo, relative immobility and Malignancy Pulm/ICU Consult - Dr. Alexis Oncology Consult - Dr. Bowie * Agree with AC, no indication for hypercoagulable work up Palliative Care consult - Massimo Chambers * Code status discussed but not decided upon On high flow oxygen - decrease FiO2 slowly Imaging: CXR (Admission): Changes of left lower lobectomy less well seen compared to high -resolution CT chest however persistent elevation left hemidiaphragm with opacity in the left upper/mid lung stone and possibly some atelectasis and or scarring left lung base. Small left effusion not excluded. Masslike opacity in the right perihilar region. Chest CT (Admission): Large pulmonary embolus within the distal right main pulmonary artery that extends into the upper lobe middle lobe and lower lobe branches and proximal segmental/ subsegmental branches. Bilateral lower lobe consolidation may represent some combination of atelectasis and or infiltrate with left-sided effusion ; concomitant infarct changes on the right side may contribute. . Mild consolidation changes also present within the middle lobe. Mild biapical pleural thickening and minimal adjacent parenchymal scarring. Referring clinician where these findings as detailed above. EKG (Admission): Sinus Tach, No acute ST or T wave changes. F/U ECHO Meds: Heparin Bolus in the ED Lovenox 90mg SC Q12. Duonebs PRN Constipation Colace PRN ordered Miralax 17gm QD PRN Hx of Lung CA Oncology Consult - Dr. Bowie - Recs Appreciated * on chemo with Alimta/Carbo/ketruda for the past 2 months Last chemotherapy session was 08/18/17 Home Prednisone 20 PO daily Home Megestrol 40mg PO Hx of HTN No HTN meds in home med list. She has been Normotensive Monitor Home ASA 81 Daily Hx of B/L leg edema Home Furosemide 20 QAM Duplex scan LE B/L 08/31/17: No evidence of deep or superficial vein thrombosis of lower extremities bilaterally. Normal valve function bilaterally. Hx of DMII Home GlipiZide 5mg Daily Home Sitagliptin 25mg Daily ISS HypoKalemia (Resolved) Monitor 20 meq LUANN Daily per ICU Goals of Care Palliative Care Consult - Recs Appreciated Palliative care will continue to oallow up with this patient for further goals of care discussion. Daughter Sarah provided with contact info. Dispo: Spoke to daughter again today, and she stated she would bring medications tomorrow Patient seen and discussed with Attending Karmen Zheng DO PGY1 <Mary Alvarado V - Last Filed: 09/03/17 20:23> Objective - Vital Signs/Intake and Output Vital Signs (last 24 hours): Temp Pulse Resp BP Pulse Ox 98.2 F 99 H 20 110/77 100 01/13/18 15:25 09/03/17 15:25 09/03/17 15:25 09/03/17 15:25 09/03/17 15:25 Intake and Output: 09/03/17 09/04/17 18:59 06:59 Intake Total 680 Balance 680 - Medications Medications: Current Medications Acetylcysteine (Acetylcysteine 20%) 4 ml INH Q6H [facility] Albuterol/Ipratropium (Duoneb 3 Mg/0.5 Mg (3 Ml) Ud) 3 ml INH RQ2 PRN PRN Reason: SOB and Cough Last Admin: 09/03/17 14:02 Dose: 3 ml Aspirin (Ecotrin) 81 mg PO DAILY [facility] Last Admin: 09/03/17 10:10 Dose: 81 mg Docusate Sodium (Colace) 100 mg PO BID [facility] Last Admin: 09/03/17 17:48 Dose: 100 mg Enoxaparin Sodium (Lovenox) 90 mg SC Q12 [facility] Furosemide (Lasix) 20 mg PO QAM [facility] Last Admin: 09/03/17 10:10 Dose: 20 mg Glipizide (Glucotrol) 5 mg PO DAILY [facility] Last Admin: 09/03/17 10:11 Dose: 5 mg Magnesium Sulfate/Dextrose (Magnesium Sulfate 1 Gm/100 Ml D5w) 1 gm in 100 mls @ 200 mls/hr IVPB ONCE ONE Stop: 09/03/17 21:29 Insulin Human Regular (Novolin R) 0 unit SC ACHS [facility] PRN Reason: Protocol Last Admin: 09/03/17 17:30 Dose: 6 unit Megestrol Acetate (Megace) 40 mg PO DAILY [facility] Last Admin: 09/03/17 10:10 Dose: 40 mg Pantoprazole Sodium (Protonix Ec Tab) 40 mg PO DAILY [facility] Last Admin: 09/03/17 10:10 Dose: 40 mg Polyethylene Glycol (Miralax) 17 gm PO DAILY PRN PRN Reason: Constipation Last Admin: 09/03/17 11:08 Dose: 17 gm Potassium Chloride (K-Dur 20 Meq Er Tab) 20 meq PO DAILY [facility] Last Admin: 09/03/17 10:10 Dose: 20 meq Prednisone (Prednisone Tab) 20 mg PO DAILY [facility] Last Admin: 09/03/17 10:10 Dose: 20 mg Sitagliptin Phosphate (Januvia) 25 mg PO DAILY [facility] Last Admin: 09/03/17 10:10 Dose: 25 mg - Labs Labs: 09/03/17 06:34 09/03/17 06:34 Attending/Attestation - Attestation I have personally seen and examined this patient.: Yes I have fully participated in the care of the patient.: Yes I have reviewed all pertinent clinical information, including history, physical exam and plan: Yes Notes (Text): Patient seen, examined and case discussed with day-time resident. Patient will known history of lung cancer on active chemotherapy for past two months, last session 08/18/17. Patient came in as acute respiratory distress, was found to have pulmonary embolus involving right main pulm artery and extending upper lobe middle lobe and lower lobe. Patient is on theraputic Lovenox. Patient seen with her daughter and grand-daughter at bedside. Patient reports she has not had bowel movements in several days. Patient reports respiratory distress requiring nebulizer machine treatments. Patient doesn't like Bipap but is tolerating Vasoperm at bedside. Assessment/Plan 1) Pulmonary Embolus Acute Respiratory Distress * Well's Criteria: high risk for Pulmonary Embolus * Pulmonary - Dr. Alexis help appreciated * Cardiology: Dr. Donahue on board-->help appreciated * Echocardiogram reviewed. * Left ventricular function is at the lower limits of normal. * The RV appears dilated and mildly hypokinetic. * Oncology Consult - Dr. Bowie help appreciated * Palliative Care consult - Massimo Chambers help appreciated * Imaging: * CXR (Admission): Changes of left lower lobectomy less well seen compared to high-resolution CT chest however persistent elevation left hemidiaphragm with opacity in the left upper/mid lung stone and possibly some atelectasis and or scarring left lung base. Small left effusion not excluded. Masslike opacity in the right perihilar region. * Chest CT (Admission): Large pulmonary embolus within the distal right main pulmonary artery that extends into the upper lobe middle lobe and lower lobe branches and proximal segmental/ subsegmental branches. Bilateral lower lobe consolidation may represent some combination of atelectasis and or infiltrate with left-sided effusion ; concomitant infarct changes on the right side may contribute. Mild consolidation changes also present within the middle lobe. Mild biapical pleural thickening and minimal adjacent parenchymal scarring. Referring clinician where these findings as detailed above. * EKG (Admission): Sinus Tach, No acute ST or T wave changes. * Pending official report on echocardiogram * Meds: * Heparin Bolus in the ED * Lovenox 90mg SC Q12. 2) Constipation * Colace 100mg PO BID * Miralax 17gm QD PRN constipation * Recommend prune juice * Patient reports she has not had bowel movements for multiple days 3) Hx of Metastatic Lung CA * Oncology Consult - Dr. Bowie - Dmitry Appreciated * Hx of s/p resection; followed by chemo with Alimta/Carbo/ketruda for the past 2 months * Last chemotherapy session was 08/18/17 * Home Prednisone 20 PO daily * Home Megestrol 40mg PO daily 4) Hx of Hypertension * Home ASA 81mg Daily as cardioprotective agent * Home Furosemide 20mg PO QAM * Kdur 20mg PO daily * Monitor vital signs 5) Hx of B/L leg edema * Home Furosemide 20 QAM * Duplex scan LE B/L 08/31/17: No evidence of deep or superficial vein thrombosis of lower extremities bilaterally. Normal valve function bilaterally. 6) Hx of DMII * [id number]: 8.3 * Home GlipiZide 5mg Daily * Home Sitagliptin 25mg Daily * RISS 7) HypoKalemia * Repleted today * monitor check Mg2+ and K daily 8) Prophylactic care * Therapeutic lovenox * Pulm is recommending for eliquis * Protonix 40mg PO daily for GI ppx * Palliative care on board * Lack of short term memory, forgetful * Daughter Sarah ) advocates for patient * Code status discussed but not decided upon; 4 more sons to be involved in decision Disposition: monitor respiratory status f/u heme onc in regards to pulm recommendation to start eliquis f/u for bowel movement f/u official echocardiogram
[2017-09-03 09:31] LABS: ANISOCYTOSIS SLIGHT; BANDS 2 % (0-2); EOSINOPHIL 1 % (0-4); LARGE PLATELETS PRESENT; LYMPHOCYTE 19 % (20-40); MONOCYTE 19 % (0-10); NEUTROPHIL 59 % (50-75); PLATELET ESTIMATE NORMAL (NORMAL); TOTAL CELLS COUNTED 100
[2017-09-03 09:32] LABS: GIANT PLATELETS PRESENT
[2017-09-03 09:33] LABS: HYPOCHROMIC SLIGHT; POLYCHROMIC SLIGHT; TOXIC GRANULATION PRESENT
[2017-09-03] MEDS: Enoxaparin 100 mg Syringe SC SCH (10:09)
[2017-09-03] MEDS: Pantoprazole 40 mg EC Tab PO SCH (10:10)
[2017-09-03] MEDS: Potassium Chloride 20 mEq ER Tab PO SCH (10:10)
[2017-09-03] MEDS: POLYETHYLENE GLYCOL 3350 17 GM/Dose PACKET PO PRN (11:08)
[2017-09-03 12:06] LABS: MAGNESIUM 1.5 mg/dL (1.6-2.3)
--- NOTE | 2017-09-03 17:28 | CP.PCM.PN ---
Subjective - Date & Time of Evaluation Date of Evaluation: 09/03/17 Time of Evaluation: 16:00 - Subjective Subjective: the patient seen and examined On high flow oxygen Less shortness of breath Afebrile No chest pain On Lovenox Objective - Vital Signs/Intake and Output Vital Signs (last 24 hours): Temp Pulse Resp BP Pulse Ox 98.2 F 99 H 20 110/77 100 09/03/17 15:25 09/03/17 15:25 09/03/17 15:25 09/03/17 15:25 09/03/17 15:25 Intake and Output: 09/03/17 09/03/17 06:59 18:59 Intake Total 660 680 Balance 660 680 - Medications Medications: Current Medications Acetylcysteine (Acetylcysteine 20%) 4 ml INH Q6H [facility] Albuterol/Ipratropium (Duoneb 3 Mg/0.5 Mg (3 Ml) Ud) 3 ml INH RQ2 PRN PRN Reason: SOB and Cough Last Admin: 09/03/17 14:02 Dose: 3 ml Aspirin (Ecotrin) 81 mg PO DAILY [facility] Last Admin: 09/03/17 10:10 Dose: 81 mg Docusate Sodium (Colace) 100 mg PO BID [facility] Last Admin: 09/03/17 10:10 Dose: 100 mg Enoxaparin Sodium (Lovenox) 90 mg SC Q12 [facility] Furosemide (Lasix) 20 mg PO QAM [facility] Last Admin: 09/03/17 10:10 Dose: 20 mg Glipizide (Glucotrol) 5 mg PO DAILY [facility] Last Admin: 09/03/17 10:11 Dose: 5 mg Insulin Human Regular (Novolin R) 0 unit SC ACHS [facility] PRN Reason: Protocol Last Admin: 09/03/17 11:54 Dose: 2 unit Megestrol Acetate (Megace) 40 mg PO DAILY [facility] Last Admin: 09/03/17 10:10 Dose: 40 mg Pantoprazole Sodium (Protonix Ec Tab) 40 mg PO DAILY [facility] Last Admin: 09/03/17 10:10 Dose: 40 mg Polyethylene Glycol (Miralax) 17 gm PO DAILY PRN PRN Reason: Constipation Last Admin: 09/03/17 11:08 Dose: 17 gm Potassium Chloride (K-Dur 20 Meq Er Tab) 20 meq PO DAILY [facility] Last Admin: 09/03/17 10:10 Dose: 20 meq Prednisone (Prednisone Tab) 20 mg PO DAILY [facility] Last Admin: 09/03/17 10:10 Dose: 20 mg Sitagliptin Phosphate (Januvia) 25 mg PO DAILY [facility] Last Admin: 09/03/17 10:10 Dose: 25 mg - Labs Labs: 09/03/17 06:34 09/03/17 06:34 - Head Exam Head Exam: ATRAUMATIC, NORMOCEPHALIC - Eye Exam Eye Exam: Normal appearance - ENT Exam ENT Exam: Mucous Membranes Moist - Neck Exam Neck Exam: Normal Inspection - Respiratory Exam Respiratory Exam: Clear to Ausculation Bilateral - Cardiovascular Exam Cardiovascular Exam: REGULAR RHYTHM - GI/Abdominal Exam GI & Abdominal Exam: Soft Assessment and Plan (1) Pulmonary embolism Assessment & Plan: continue Lovenox Start eliquis Status: Acute (2) History of lung cancer Status: Acute
[2017-09-03 19:35] LABS: ABG ALLEN TEST P; ARTERIAL BLOOD GAS HCO3 19.4 mmol/L (21-28); ARTERIAL BLOOD GAS HEMOGLOBIN 9.2 g/dL (11.7-17.4); ARTERIAL BLOOD GAS O2 SAT 99.2 % (95-98); ARTERIAL BLOOD GAS PCO2 25 mm/Hg (35-45); ARTERIAL BLOOD GAS PH 7.42 (7.35-7.45); ARTERIAL BLOOD GAS PO2 182 mm/Hg (80-100)
[2017-09-03] MEDS ORDERED: Magnesium Sulfate 1 gm in D5W 1 GM/100 ML BAG IVPB ONE (21:00)
[2017-09-03] MEDS: Acetylcysteine 20% Inhal Soln (4ml) INH SCH (21:49)
[2017-09-03] MEDS: Enoxaparin 120 mg Syringe SC SCH (21:57)
[2017-09-04] MEDS: Acetylcysteine 20% Inhal Soln (4ml) INH SCH ×3 (03:55→19:32)
[2017-09-04] MEDS: Albuterol-Ipratrop 3 mg / 0.5 (3 ml) UD INH PRN (03:55)
[2017-09-04] MEDS: (Novolin R) Insulin Human Regular 100 units/ml vial SC SCH ×4 (07:42→22:13)
[2017-09-04 07:47] LABS: BASO % 0.2 % (0.0-2.0); EOS # 0.1 K/uL (0.0-0.7); EOS % 1.6 % (0.0-4.0); HEMOGLOBIN 11.2 g/dL (11.0-16.0); LYMPH # 1.8 K/uL (1.0-4.3); LYMPH % 24.9 % (20.0-40.0); MEAN CELL VOLUME 92.2 fL (81.0-99.0); MEAN CORPUSCULAR HEMOGLOBIN 32.2 pg (27.0-31.0); MEAN PLATELET VOLUME 9.9 fL (7.2-11.7); MONO # 1.4 K/uL (0.0-0.8); MONO % 19.8 % (0.0-10.0); NEUT # 3.8 K/uL (1.8-7.0); NEUT % 53.5 % (50.0-75.0); NRBC % 0.1 % (0.0-2.0); RBC 3.48 Mil/uL (3.80-5.20); WHITE BLOOD COUNT 7.1 K/uL (4.8-10.8)
[2017-09-04 08:11] LABS: ALB/GLOB RATIO 0.9 (1.0-2.1); ALBUMIN 3.1 g/dL (3.5-5.0); ALT/SGPT 79 U/L (9-52); AST/SGOT 64 U/L (14-36); BLOOD UREA NITROGEN 10 mg/dL (7-17); CALCIUM 8.7 mg/dl (8.6-10.4); GFR AFRICAN-AMERICAN > 60; GFR NON-AFRICAN AMERICAN > 60
[2017-09-04] MEDS: POLYETHYLENE GLYCOL 3350 17 GM/Dose PACKET PO PRN (09:39)
[2017-09-04] MEDS: Enoxaparin 120 mg Syringe SC SCH (09:39)
[2017-09-04] MEDS: Potassium Chloride 20 mEq ER Tab PO SCH (09:39)
[2017-09-04] MEDS: Pantoprazole 40 mg EC Tab PO SCH (09:40)
--- NOTE | 2017-09-04 11:58 | CP.PCM.PN ---
<Karmen Zheng - Last Filed: 09/04/17 12:04> Subjective - Date & Time of Evaluation Date of Evaluation: 09/04/17 Time of Evaluation: 12:02 - Subjective Subjective: Progress note for Dr. Paulino Patient states she has a headache, denies fever, chills. Patient admits to chest pain, which is not new, related to Pulmonary embolism. Patient states she doesn't like the breathing treatment. Objective - Vital Signs/Intake and Output Vital Signs (last 24 hours): Temp Pulse Resp BP Pulse Ox 98.2 F 108 H 20 106/74 96 09/04/17 07:25 09/04/17 07:25 09/04/17 07:25 09/04/17 09:40 09/04/17 07:25 Intake and Output: 09/04/17 09/04/17 06:59 18:59 Intake Total 540 Balance 540 - Medications Medications: Current Medications Acetylcysteine (Acetylcysteine 20%) 4 ml INH Q6H [facility] Last Admin: 09/04/17 08:46 Dose: Not Given Albuterol/Ipratropium (Duoneb 3 Mg/0.5 Mg (3 Ml) Ud) 3 ml INH RQ2 PRN PRN Reason: SOB and Cough Last Admin: 09/04/17 03:55 Dose: 3 ml Aspirin (Ecotrin) 81 mg PO DAILY [facility] Last Admin: 09/04/17 09:40 Dose: 81 mg Docusate Sodium (Colace) 100 mg PO BID [facility] Last Admin: 09/04/17 09:40 Dose: 100 mg Enoxaparin Sodium (Lovenox) 90 mg SC Q12 [facility] Last Admin: 09/04/17 09:39 Dose: 90 mg Furosemide (Lasix) 20 mg PO QAM [facility] Last Admin: 09/04/17 09:40 Dose: 20 mg Glipizide (Glucotrol) 5 mg PO DAILY [facility] Last Admin: 09/04/17 09:40 Dose: 5 mg Insulin Human Regular (Novolin R) 0 unit SC ACHS [facility] PRN Reason: Protocol Last Admin: 09/04/17 07:42 Dose: Not Given Megestrol Acetate (Megace) 40 mg PO DAILY [facility] Last Admin: 09/04/17 09:40 Dose: 40 mg Pantoprazole Sodium (Protonix Ec Tab) 40 mg PO DAILY [facility] Last Admin: 09/04/17 09:40 Dose: 40 mg Polyethylene Glycol (Miralax) 17 gm PO DAILY PRN PRN Reason: Constipation Last Admin: 09/04/17 09:39 Dose: 17 gm Potassium Chloride (K-Dur 20 Meq Er Tab) 20 meq PO DAILY [facility] Last Admin: 09/04/17 09:39 Dose: 20 meq Prednisone (Prednisone Tab) 20 mg PO DAILY [facility] Last Admin: 09/04/17 09:40 Dose: 20 mg Sitagliptin Phosphate (Januvia) 25 mg PO DAILY [facility] Last Admin: 09/04/17 09:40 Dose: 25 mg - Labs Labs: 09/04/17 07:30 09/04/17 07:30 - Constitutional Appears: Non-toxic - Head Exam Head Exam: ATRAUMATIC, NORMAL INSPECTION, NORMOCEPHALIC - Eye Exam Eye Exam: EOMI, Normal appearance - ENT Exam ENT Exam: Mucous Membranes Moist - Neck Exam Neck Exam: Full ROM, Normal Inspection - Respiratory Exam Respiratory Exam: Clear to Ausculation Bilateral, NORMAL BREATHING PATTERN - Cardiovascular Exam Cardiovascular Exam: REGULAR RHYTHM, +S1, +S2 - GI/Abdominal Exam GI & Abdominal Exam: Soft Additional comments: no guarding, rebound. distended, no tenderness - Extremities Exam Extremities Exam: Full ROM, Normal Inspection, Pedal Edema (chronic pedal edema with dry, hyperpigmented skin) - Back Exam Back Exam: Full ROM, NORMAL INSPECTION - Neurological Exam Neurological Exam: Alert, Awake - Psychiatric Exam Psychiatric exam: Normal Affect, Normal Mood - Skin Skin Exam: Dry, Intact, Normal Color Assessment and Plan - Assessment and Plan (Free Text) Assessment: 72 year old [place]er speaking female with a stated PMHx of Lung CA, s/p 2005 lobectomy, HTN, T2DM, HLD (from past chart), and chronic leg edema admitted for evaluation and treatment of PE PE (Pulmonary Embolism) Likely 2/2 to decreased chemo, relative immobility and Malignancy Pulm/ICU Consult - Dr. Alexis Oncology Consult - Dr. Bowie * Agree with AC, no indication for hypercoagulable work up Palliative Care consult - Massimo Chambers * Code status discussed but not decided upon On high flow oxygen - decrease FiO2 slowly Imaging: CXR (Admission): Changes of left lower lobectomy less well seen compared to high -resolution CT chest however persistent elevation left hemidiaphragm with opacity in the left upper/mid lung stone and possibly some atelectasis and or scarring left lung base. Small left effusion not excluded. Masslike opacity in the right perihilar region. Chest CT (Admission): Large pulmonary embolus within the distal right main pulmonary artery that extends into the upper lobe middle lobe and lower lobe branches and proximal segmental/ subsegmental branches. Bilateral lower lobe consolidation may represent some combination of atelectasis and or infiltrate with left-sided effusion ; concomitant infarct changes on the right side may contribute. . Mild consolidation changes also present within the middle lobe. Mild biapical pleural thickening and minimal adjacent parenchymal scarring. Referring clinician where these findings as detailed above. EKG (Admission): Sinus Tach, No acute ST or T wave changes. F/U ECHO Meds: Heparin Bolus in the ED Lovenox 90mg SC Q12. Duonebs PRN Constipation Colace PRN ordered Miralax 17gm QD PRN Hx of Lung CA Oncology Consult - Dr. Bowie - Recs Appreciated * on chemo with Alimta/Carbo/ketruda for the past 2 months Last chemotherapy session was 08/18/17 Home Prednisone 20 PO daily Home Megestrol 40mg PO Hx of HTN No HTN meds in home med list. She has been Normotensive Monitor Home ASA 81 Daily Hx of B/L leg edema Home Furosemide 20 QAM Duplex scan LE B/L 08/31/17: No evidence of deep or superficial vein thrombosis of lower extremities bilaterally. Normal valve function bilaterally. Hx of t2dm Home GlipiZide 5mg Daily Home Sitagliptin 25mg Daily ISS HypoKalemia (Resolved) Monitor 20 meq LUANN Daily per ICU Goals of Care Palliative Care Consult - Recs Appreciated Palliative care will continue to follow up with this patient for further goals of care discussion. Daughter Sarah provided with contact info. per Dr. Alexis, switch to Eliquis Patient seen and discussed with Attending 09/04: patient switched to Eliquis discussed with Dr. Jefferson Zheng, DO PGY1 <Hallie Paulino - Last Filed: 09/04/17 15:48> Objective - Vital Signs/Intake and Output Vital Signs (last 24 hours): Temp Pulse Resp BP Pulse Ox 98.2 F 108 H 20 106/74 96 09/04/17 07:25 09/04/17 07:25 09/04/17 07:25 09/04/17 09:40 09/04/17 07:25 Intake and Output: 09/04/17 09/04/17 06:59 18:59 Intake Total 540 480 Balance 540 480 - Medications Medications: Current Medications Acetylcysteine (Acetylcysteine 20%) 4 ml INH Q6H [facility] Last Admin: 09/04/17 08:46 Dose: Not Given Albuterol/Ipratropium (Duoneb 3 Mg/0.5 Mg (3 Ml) Ud) 3 ml INH RQ2 PRN PRN Reason: SOB and Cough Last Admin: 09/04/17 03:55 Dose: 3 ml Aspirin (Ecotrin) 81 mg PO DAILY [facility] Last Admin: 09/04/17 09:40 Dose: 81 mg Docusate Sodium (Colace) 100 mg PO BID [facility] Last Admin: 09/04/17 09:40 Dose: 100 mg Enoxaparin Sodium (Lovenox) 90 mg SC Q12 [facility] Last Admin: 09/04/17 09:39 Dose: 90 mg Furosemide (Lasix) 20 mg PO QAM [facility] Last Admin: 09/04/17 09:40 Dose: 20 mg Glipizide (Glucotrol) 5 mg PO DAILY [facility] Last Admin: 09/04/17 09:40 Dose: 5 mg Insulin Human Regular (Novolin R) 0 unit SC ACHS [facility] PRN Reason: Protocol Last Admin: 09/04/17 12:27 Dose: 2 unit Megestrol Acetate (Megace) 40 mg PO DAILY [facility] Last Admin: 09/04/17 09:40 Dose: 40 mg Pantoprazole Sodium (Protonix Ec Tab) 40 mg PO DAILY [facility] Last Admin: 09/04/17 09:40 Dose: 40 mg Polyethylene Glycol (Miralax) 17 gm PO DAILY PRN PRN Reason: Constipation Last Admin: 09/04/17 09:39 Dose: 17 gm Potassium Chloride (K-Dur 20 Meq Er Tab) 20 meq PO DAILY [facility] Last Admin: 09/04/17 09:39 Dose: 20 meq Prednisone (Prednisone Tab) 20 mg PO DAILY [facility] Last Admin: 09/04/17 09:40 Dose: 20 mg Sitagliptin Phosphate (Januvia) 25 mg PO DAILY [facility] Last Admin: 09/04/17 09:40 Dose: 25 mg - Labs Labs: 09/04/17 07:30 09/04/17 07:30 Attending/Attestation - Attestation I have personally seen and examined this patient.: Yes I have fully participated in the care of the patient.: Yes I have reviewed all pertinent clinical information, including history, physical exam and plan: Yes Notes (Text): Patient was seen and examined,lying comfortable D/W the resident 1. PE (Pulmonary Embolism) Likely 2/2 to decreased chemo, relative immobility and Malignancy Pulm/ICU Consult - Dr. Alexis start on Eliquis Oncology Consult - Dr. Bowie continue Eliquis,follow Echo Imaging: CXR (Admission): Changes of left lower lobectomy less well seen compared to high -resolution CT chest however persistent elevation left hemidiaphragm with opacity in the left upper/mid lung stone and possibly some atelectasis and or scarring left lung base. Small left effusion not excluded. Masslike opacity in the right perihilar region. Chest CT (Admission): Large pulmonary embolus within the distal right main pulmonary artery that extends into the upper lobe middle lobe and lower lobe branches and proximal segmental/ subsegmental branches. Bilateral lower lobe consolidation may represent some combination of atelectasis and or infiltrate with left-sided effusion ; concomitant infarct changes on the right side may contribute. . Mild consolidation changes also present within the middle lobe. Mild biapical pleural thickening and minimal adjacent parenchymal scarring. Referring clinician where these findings as detailed above. EKG (Admission): Sinus Tach, No acute ST or T wave changes. 2.Constipation Colace PRN ordered Miralax 17gm QD PRN 3.Lung CA Oncology Consult - Dr. Bowie chemo with Alimta/Carbo/ketruda for the past 2 months Last chemotherapy session was 08/18/17 Prednisone 20 PO daily and megace palliative card consult requested 4.Hx of HTN monitor BP Home ASA 81 Daily 5.Hx of B/L leg edema Home Furosemide 20 QAM No DVT on doppler 6.Hx of DMII Home GlipiZide 5mg Daily Home Sitagliptin 25mg Daily ISS 7.Goals of Care Palliative Care Consult - Recs Appreciated Dr Alvarado Spoke to daughter yesterday
[2017-09-05] MEDS: Acetylcysteine 20% Inhal Soln (4ml) INH SCH ×3 (01:35→19:46)
[2017-09-05 06:19] LABS: BASO % 0.1 % (0.0-2.0); EOS # 0.1 K/uL (0.0-0.7); EOS % 1.6 % (0.0-4.0); HEMOGLOBIN 10.7 g/dL (11.0-16.0); LYMPH # 2.4 K/uL (1.0-4.3); LYMPH % 30.7 % (20.0-40.0); MEAN CORPUSCULAR HEMOGLOBIN 32.2 pg (27.0-31.0); MEAN CORPUSCULAR HGB CONC 34.6 g/dL (33.0-37.0); MEAN PLATELET VOLUME 9.8 fL (7.2-11.7); MONO # 1.5 K/uL (0.0-0.8); MONO % 18.3 % (0.0-10.0); NEUT # 3.9 K/uL (1.8-7.0); NEUT % 49.3 % (50.0-75.0); RBC 3.34 Mil/uL (3.80-5.20); RED CELL DISTRIBUTION WIDTH 14.9 % (11.5-14.5); WHITE BLOOD COUNT 7.9 K/uL (4.8-10.8)
[2017-09-05 06:42] LABS: ALB/GLOB RATIO 0.8 (1.0-2.1); ALBUMIN 2.9 g/dL (3.5-5.0); ALT/SGPT 71 U/L (9-52); AST/SGOT 60 U/L (14-36); BLOOD UREA NITROGEN 14 mg/dL (7-17); GFR AFRICAN-AMERICAN > 60; GFR NON-AFRICAN AMERICAN > 60
--- NOTE | 2017-09-05 07:31 | CP.PCM.PN ---
<SarahMaikel silva - Last Filed: 09/05/17 17:36> Subjective - Date & Time of Evaluation Date of Evaluation: 09/05/17 Time of Evaluation: 08:40 - Subjective Subjective: Medicine progress note for Dr. Paulino Patient seen and examined at bedside. Patient complaining of dry cough, diffuse generalized body pain, and dyspnea at times. Patient had poor sleep last night due to her pain and cough. Objective - Vital Signs/Intake and Output Vital Signs (last 24 hours): Temp Pulse Resp BP Pulse Ox 97.6 F 92 H 20 114/75 99 09/04/17 23:15 09/04/17 23:15 09/04/17 23:15 09/04/17 23:15 09/04/17 23:15 Intake and Output: 09/05/17 09/05/17 06:59 18:59 Intake Total 720 Balance 720 - Medications Medications: Current Medications Acetylcysteine (Acetylcysteine 20%) 4 ml INH RQ6 [facility] Last Admin: 09/05/17 01:35 Dose: Not Given Albuterol/Ipratropium (Duoneb 3 Mg/0.5 Mg (3 Ml) Ud) 3 ml INH RQ2 PRN PRN Reason: SOB and Cough Last Admin: 09/04/17 03:55 Dose: 3 ml Apixaban (Eliquis) 10 mg PO BID [facility] Stop: 09/11/17 10:01 Last Admin: 09/04/17 17:19 Dose: 10 mg Apixaban (Eliquis) 5 mg PO BID [facility] Aspirin (Ecotrin) 81 mg PO DAILY [facility] Last Admin: 09/04/17 09:40 Dose: 81 mg Docusate Sodium (Colace) 100 mg PO BID [facility] Last Admin: 09/04/17 17:19 Dose: 100 mg Furosemide (Lasix) 20 mg PO QAM [facility] Last Admin: 09/04/17 09:40 Dose: 20 mg Glipizide (Glucotrol) 5 mg PO DAILY [facility] Last Admin: 09/04/17 09:40 Dose: 5 mg Insulin Human Regular (Novolin R) 0 unit SC ACHS [facility] PRN Reason: Protocol Last Admin: 09/04/17 22:13 Dose: Not Given Megestrol Acetate (Megace) 40 mg PO DAILY [facility] Last Admin: 09/04/17 09:40 Dose: 40 mg Pantoprazole Sodium (Protonix Ec Tab) 40 mg PO DAILY [facility] Last Admin: 09/04/17 09:40 Dose: 40 mg Polyethylene Glycol (Miralax) 17 gm PO DAILY PRN PRN Reason: Constipation Last Admin: 09/04/17 09:39 Dose: 17 gm Potassium Chloride (K-Dur 20 Meq Er Tab) 20 meq PO DAILY [facility] Last Admin: 09/04/17 09:39 Dose: 20 meq Prednisone (Prednisone Tab) 20 mg PO DAILY [facility] Last Admin: 09/04/17 09:40 Dose: 20 mg Sitagliptin Phosphate (Januvia) 25 mg PO DAILY [facility] Last Admin: 09/04/17 09:40 Dose: 25 mg - Labs Labs: 09/05/17 06:10 09/05/17 06:10 - Constitutional Appears: No Acute Distress - Eye Exam Eye Exam: EOMI, Normal appearance - ENT Exam ENT Exam: Mucous Membranes Moist - Respiratory Exam Respiratory Exam: Decreased Breath Sounds. absent: Rales, Rhonchi, Wheezes - Cardiovascular Exam Cardiovascular Exam: REGULAR RHYTHM, +S1, +S2 - GI/Abdominal Exam GI & Abdominal Exam: Soft, Normal Bowel Sounds. absent: Distended, Tenderness - Extremities Exam Extremities Exam: Pedal Edema (chronic with dry, hyperpigmented skin) - Neurological Exam Neurological Exam: Alert, Awake - Psychiatric Exam Psychiatric exam: Normal Affect, Normal Mood - Skin Skin Exam: Dry, Warm Assessment and Plan - Assessment and Plan (Free Text) Plan: PE (Pulmonary Embolism) Likely 2/2 to decreased chemo, relative immobility and Malignancy Pulm/ICU Consult - Dr. Alexis Oncology Consult - Dr. Bowie * Agree with AC, no indication for hypercoagulable work up Palliative Care consult - Massimo Chambers * Code status discussed but not decided upon On high flow oxygen - decrease FiO2 slowly Imaging: CXR (Admission): Changes of left lower lobectomy less well seen compared to high -resolution CT chest however persistent elevation left hemidiaphragm with opacity in the left upper/mid lung stone and possibly some atelectasis and or scarring left lung base. Small left effusion not excluded. Masslike opacity in the right perihilar region. Chest CT (Admission): Large pulmonary embolus within the distal right main pulmonary artery that extends into the upper lobe middle lobe and lower lobe branches and proximal segmental/ subsegmental branches. Bilateral lower lobe consolidation may represent some combination of atelectasis and or infiltrate with left-sided effusion ; concomitant infarct changes on the right side may contribute. . Mild consolidation changes also present within the middle lobe. Mild biapical pleural thickening and minimal adjacent parenchymal scarring. Referring clinician where these findings as detailed above. EKG (Admission): Sinus Tach, No acute ST or T wave changes. F/U ECHO Patient off of Nasal cannula was saturating about 91% on room air, and this dropped to 88% saturation with ambulation on room air. Patient will need home oxygen, so discharge is delayed pending home O2. Meds: Heparin Bolus in the ED Lovenox 90mg SC A69--krizlfov to Eliquis per pulm starting on 09/04 Duonebs PRN Constipation Colace 100 mg PO BID Miralax 17gm QD PRN Hx of Lung CA Oncology Consult - Dr. Bowie - Recs Appreciated * on chemo with Alimta/Carbo/ketruda for the past 2 months Last chemotherapy session was 08/18/17 Home Prednisone 20 PO daily Home Megestrol 40mg PO Hx of HTN No HTN meds in home med list. She has been Normotensive Monitor Home ASA 81 Daily Hx of B/L leg edema Home Furosemide 20 QAM Duplex scan LE B/L 08/31/17: No evidence of deep or superficial vein thrombosis of lower extremities bilaterally. Normal valve function bilaterally. Hx of t2dm Home GlipiZide 5mg Daily Home Sitagliptin 25mg Daily ISS HypoKalemia (Resolved) Monitor 20 meq LUANN Daily per ICU Goals of Care Palliative Care Consult - Recs Appreciated Palliative care will continue to follow up with this patient for further goals of care discussion. Daughter Sarah provided with contact info. Disposition: Patient off of Nasal cannula was saturating about 91% on room air, and this dropped to 88% saturation with ambulation on room air. Patient will need home oxygen, so discharge is delayed pending home O2. Case DW Dr. Jefferson Gould PGY-1 <Hallie Paulino - Last Filed: 09/05/17 18:17> Objective - Vital Signs/Intake and Output Vital Signs (last 24 hours): Temp Pulse Resp BP Pulse Ox 98.1 F 86 20 118/74 90 L 09/05/17 16:00 09/05/17 16:00 09/05/17 16:00 09/05/17 16:00 09/05/17 16:20 Intake and Output: 09/05/17 09/05/17 06:59 18:59 Intake Total 720 Balance 720 - Medications Medications: Current Medications Acetaminophen (Tylenol 325mg Tab) 650 mg PO Q6 PRN PRN Reason: headache, pain, fever Last Admin: 09/05/17 13:34 Dose: 650 mg Acetylcysteine (Acetylcysteine 20%) 4 ml INH RQ6 [facility] Last Admin: 09/05/17 08:11 Dose: Not Given Albuterol/Ipratropium (Duoneb 3 Mg/0.5 Mg (3 Ml) Ud) 3 ml INH RQ2 PRN PRN Reason: SOB and Cough Last Admin: 09/04/17 03:55 Dose: 3 ml Apixaban (Eliquis) 10 mg PO BID [facility] Stop: 09/11/17 10:01 Last Admin: 09/05/17 11:10 Dose: 10 mg Apixaban (Eliquis) 5 mg PO BID [facility] Last Admin: 09/05/17 17:32 Dose: 5 mg Aspirin (Ecotrin) 81 mg PO DAILY [facility] Last Admin: 09/05/17 11:10 Dose: 81 mg Docusate Sodium (Colace) 100 mg PO BID [facility] Last Admin: 09/05/17 17:31 Dose: 100 mg Furosemide (Lasix) 20 mg PO QAM [facility] Last Admin: 09/05/17 11:05 Dose: 20 mg Glipizide (Glucotrol) 5 mg PO DAILY [facility] Last Admin: 09/05/17 11:10 Dose: 5 mg Insulin Human Regular (Novolin R) 0 unit SC ACHS [facility] PRN Reason: Protocol Last Admin: 09/05/17 13:06 Dose: 3 unit Megestrol Acetate (Megace) 40 mg PO DAILY [facility] Last Admin: 09/05/17 11:10 Dose: 40 mg Pantoprazole Sodium (Protonix Ec Tab) 40 mg PO DAILY [facility] Last Admin: 09/05/17 11:10 Dose: 40 mg Polyethylene Glycol (Miralax) 17 gm PO DAILY PRN PRN Reason: Constipation Last Admin: 09/05/17 11:10 Dose: 17 gm Potassium Chloride (K-Dur 20 Meq Er Tab) 20 meq PO DAILY [facility] Last Admin: 09/05/17 11:10 Dose: 20 meq Prednisone (Prednisone Tab) 20 mg PO DAILY [facility] Last Admin: 09/05/17 11:10 Dose: 20 mg Sitagliptin Phosphate (Januvia) 25 mg PO DAILY [facility] Last Admin: 09/05/17 11:10 Dose: 25 mg - Labs Labs: 09/05/17 06:10 09/05/17 06:10 Attending/Attestation - Attestation I have personally seen and examined this patient.: Yes I have fully participated in the care of the patient.: Yes I have reviewed all pertinent clinical information, including history, physical exam and plan: Yes Notes (Text): patient was seen and examined Discussed with the resident Her pulse ox went down to 88% on ambulation. She will need home oxygen.She refuses to got to rehab We will f/u pulmonary and possible d/c home tomorrow I agree with the resident's documentation of the assessment and the plan
[2017-09-05] MEDS: (Novolin R) Insulin Human Regular 100 units/ml vial SC SCH ×4 (07:51→21:27)
[2017-09-05] MEDS: Potassium Chloride 20 mEq ER Tab PO SCH (11:10)
[2017-09-05] MEDS: POLYETHYLENE GLYCOL 3350 17 GM/Dose PACKET PO PRN (11:10)
[2017-09-05] MEDS: Pantoprazole 40 mg EC Tab PO SCH (11:10)
[2017-09-05] MEDS ORDERED: Potassium Chloride 20 mEq ER Tab PO ONE (11:31)
--- NOTE | 2017-09-05 18:16 | CP.PCM.PN ---
Subjective - Date & Time of Evaluation Date of Evaluation: 09/05/17 Time of Evaluation: 09:00 - Subjective Subjective: Patient seen and examined Breathing much improved Started on eliquis No active bleeding Afebrile Objective - Vital Signs/Intake and Output Vital Signs (last 24 hours): Temp Pulse Resp BP Pulse Ox 98.1 F 86 20 118/74 90 L 09/05/17 16:00 09/05/17 16:00 09/05/17 16:00 09/05/17 16:00 09/05/17 16:20 Intake and Output: 09/05/17 09/05/17 06:59 18:59 Intake Total 720 Balance 720 - Medications Medications: Current Medications Acetaminophen (Tylenol 325mg Tab) 650 mg PO Q6 PRN PRN Reason: headache, pain, fever Last Admin: 09/05/17 13:34 Dose: 650 mg Acetylcysteine (Acetylcysteine 20%) 4 ml INH RQ6 [facility] Last Admin: 09/05/17 08:11 Dose: Not Given Albuterol/Ipratropium (Duoneb 3 Mg/0.5 Mg (3 Ml) Ud) 3 ml INH RQ2 PRN PRN Reason: SOB and Cough Last Admin: 09/04/17 03:55 Dose: 3 ml Apixaban (Eliquis) 10 mg PO BID [facility] Stop: 09/11/17 10:01 Last Admin: 09/05/17 11:10 Dose: 10 mg Apixaban (Eliquis) 5 mg PO BID [facility] Last Admin: 09/05/17 17:32 Dose: 5 mg Aspirin (Ecotrin) 81 mg PO DAILY [facility] Last Admin: 09/05/17 11:10 Dose: 81 mg Docusate Sodium (Colace) 100 mg PO BID [facility] Last Admin: 09/05/17 17:31 Dose: 100 mg Furosemide (Lasix) 20 mg PO QAM [facility] Last Admin: 09/05/17 11:05 Dose: 20 mg Glipizide (Glucotrol) 5 mg PO DAILY [facility] Last Admin: 09/05/17 11:10 Dose: 5 mg Insulin Human Regular (Novolin R) 0 unit SC ACHS [facility] PRN Reason: Protocol Last Admin: 09/05/17 13:06 Dose: 3 unit Megestrol Acetate (Megace) 40 mg PO DAILY [facility] Last Admin: 09/05/17 11:10 Dose: 40 mg Pantoprazole Sodium (Protonix Ec Tab) 40 mg PO DAILY [facility] Last Admin: 09/05/17 11:10 Dose: 40 mg Polyethylene Glycol (Miralax) 17 gm PO DAILY PRN PRN Reason: Constipation Last Admin: 09/05/17 11:10 Dose: 17 gm Potassium Chloride (K-Dur 20 Meq Er Tab) 20 meq PO DAILY [facility] Last Admin: 09/05/17 11:10 Dose: 20 meq Prednisone (Prednisone Tab) 20 mg PO DAILY [facility] Last Admin: 09/05/17 11:10 Dose: 20 mg Sitagliptin Phosphate (Januvia) 25 mg PO DAILY [facility] Last Admin: 09/05/17 11:10 Dose: 25 mg - Labs Labs: 09/05/17 06:10 09/05/17 06:10 Assessment and Plan (1) Pulmonary embolism Status: Acute (2) History of lung cancer Status: Acute
--- NOTE | 2017-09-05 18:48 | CARD ---
APPROVED REPORT EXAM: Two-dimensional and M-mode echocardiogram with Doppler and color Doppler. Other Information Quality : GoodRhythm : INDICATION Dyspnea Pulmonary Embolism Congestive Heart Failure Lung Cancer RISK FACTORS Diabetes 2D DIMENSIONS IVSd0.9 (0.7-1.1cm)LVDd2.6 (3.9-5.9cm) PWd1.3 (0.7-1.1cm)LVDs1.7 (2.5-4.0cm) FS (%) 34.5 %LVEF (%)65.7 (>50%) M-Mode DIMENSIONS Left Atrium (MM)3.78 (2.5-4.0cm)Aortic Root2.86 (2.2-3.7cm) Aortic Cusp Exc.1.99 (1.5-2.0cm) Mitral Valve MV E Lbbtixnp84.6cm/sMV A Hqgusign393.0cm/sE/A ratio0.5 TDI E/Lateral E'0.0E/Medial E'0.0 Tricuspid Valve TR Peak Lrxbdqpf760pf/sTR Peak Gr.[id number] <Conclusion> Left ventricle: thickness: normal; size: normal; overall ejection fraction: 65%: diastolic filling pressures: elevated Mitral valve: annulus: normal: leaflets:l mild calcific thickening: excursion: normal; no significant trans-mitral gradient:no significant incompetence: left atrium: normal Aortic valve: leaflets: normal: excursion: normal; no significant trans-aortic gradient: No significant incompetence: aortic root: normal Right sided Structures: chambers appear dilated Pulmonary valve: normal; no significant incompetence; Tricuspid valve: normal; mild incompetence: Intra-cardiac hemodynamics: pulmonary systolic pressures: 60 mmHg; central venous pressures: normal No pericardial effusion
[2017-09-06] MEDS: Acetylcysteine 20% Inhal Soln (4ml) INH SCH ×3 (01:16→13:33)
[2017-09-06 07:22] LABS: ALB/GLOB RATIO 0.8 (1.0-2.1); ALBUMIN 3.3 g/dL (3.5-5.0); ALT/SGPT 91 U/L (9-52); AST/SGOT 77 U/L (14-36); BASO % 0.2 % (0.0-2.0); BLOOD UREA NITROGEN 14 mg/dL (7-17); CALCIUM 9.4 mg/dl (8.6-10.4); EOS # 0.2 K/uL (0.0-0.7); EOS % 1.9 % (0.0-4.0); GFR AFRICAN-AMERICAN > 60; GFR NON-AFRICAN AMERICAN > 60; HEMOGLOBIN 12.1 g/dL (11.0-16.0); LYMPH # 2.8 K/uL (1.0-4.3); LYMPH % 28.3 % (20.0-40.0); MEAN CELL VOLUME 93.4 fL (81.0-99.0); MEAN CORPUSCULAR HEMOGLOBIN 31.9 pg (27.0-31.0); MEAN CORPUSCULAR HGB CONC 34.2 g/dL (33.0-37.0); MONO # 1.6 K/uL (0.0-0.8); MONO % 16.4 % (0.0-10.0); NEUT # 5.2 K/uL (1.8-7.0); NEUT % 53.2 % (50.0-75.0); NRBC % 0.1 % (0.0-2.0); RBC 3.8 Mil/uL (3.80-5.20); RED CELL DISTRIBUTION WIDTH 15.4 % (11.5-14.5); WHITE BLOOD COUNT 9.8 K/uL (4.8-10.8)
[2017-09-06] MEDS: Albuterol-Ipratrop 3 mg / 0.5 (3 ml) UD INH PRN (08:07)
[2017-09-06 08:09] VITALS: TEMP 98
[2017-09-06 10:17] VITALS: RESP 22
[2017-09-06] MEDS: POLYETHYLENE GLYCOL 3350 17 GM/Dose PACKET PO PRN (10:31)
[2017-09-06] MEDS: Potassium Chloride 20 mEq ER Tab PO SCH (10:32)
[2017-09-06] MEDS: Pantoprazole 40 mg EC Tab PO SCH (10:33)
[2017-09-06 10:35] VITALS: BP 120/70
[2017-09-06] MEDS: (Novolin R) Insulin Human Regular 100 units/ml vial SC SCH ×2 (10:35→12:19)
[2017-09-06 10:37] LABS: ABG ALLEN TEST POS; ARTERIAL BLOOD GAS HCO3 23.9 mmol/L (21-28); ARTERIAL BLOOD GAS HEMOGLOBIN 11.5 g/dL (11.7-17.4); ARTERIAL BLOOD GAS O2 SAT 94.2 % (95-98); ARTERIAL BLOOD GAS PCO2 32 mm/Hg (35-45); ARTERIAL BLOOD GAS PH 7.45 (7.35-7.45); ARTERIAL BLOOD GAS PO2 60 mm/Hg (80-100); ARTERIAL BLOOD GAS TCO2 23.2 mmol/L (22-28)
[2017-09-06 12:54] VITALS: O2SAT 90
--- NOTE | 2017-09-06 12:55 | CP.PCM.DIS ---
Provider - Provider Date of Admission: 08/31/17 13:29 Attending physician: Hallie Paulino MD Primary care physician: Dr. Jesus Dillon Consults: Heme/onc: Dr. Merinoathingal Pulmonology: Dr. Alexis Time Spent in preparation of Discharge (in minutes): 40 Diagnosis - Discharge Diagnosis (1) Pulmonary embolism Status: Acute (2) Lung cancer Status: Chronic (3) Diabetes mellitus Status: Chronic (4) Hypertension Status: Chronic (5) Bilateral leg edema Status: Chronic (6) Prophylactic measure Status: Acute Hospital Course - Lab Results Lab Results: Most Recent Lab Values WBC 9.8 K/uL (4.8-10.8) 09/06/17 06:33 RBC 3.80 Mil/uL (3.80-5.20) 09/06/17 06:33 Hgb 12.1 g/dL (11.0-16.0) 09/06/17 06:33 Hct 35.5 % (34.0-47.0) 09/06/17 06:33 MCV 93.4 fL (81.0-99.0) 09/06/17 06:33 MCH 31.9 pg (27.0-31.0) H 09/06/17 06:33 MCHC 34.2 g/dL (33.0-37.0) 09/06/17 06:33 RDW 15.4 % (11.5-14.5) H 09/06/17 06:33 Plt Count 376 K/uL (130-400) 09/06/17 06:33 MPV 10.0 fL (7.2-11.7) 09/06/17 06:33 Neut % (Auto) 53.2 % (50.0-75.0) 09/06/17 06:33 Lymph % (Auto) 28.3 % (20.0-40.0) 09/06/17 06:33 [place] % (Auto) 16.4 % (0.0-10.0) H 09/06/17 06:33 Eos % (Auto) 1.9 % (0.0-4.0) 09/06/17 06:33 Baso % (Auto) 0.2 % (0.0-2.0) 09/06/17 06:33 Neut # 5.2 K/uL (1.8-7.0) 09/06/17 06:33 Lymph # 2.8 K/uL (1.0-4.3) 09/06/17 06:33 Gl[place]ock # 1.6 K/uL (0.0-0.8) H 09/06/17 06:33 Eos # 0.2 K/uL (0.0-0.7) 09/06/17 06:33 Baso # 0.0 K/uL (0.0-0.2) 09/06/17 06:33 Neutrophils % (Manual) 59 % (50-75) 09/03/17 06:34 Band Neutrophils % 2 % (0-2) 09/03/17 06:34 Lymphocytes % (Manual) 19 % (20-40) L 09/03/17 06:34 Monocytes % (Manual) 19 % (0-10) H 09/03/17 06:34 Eosinophils % (Manual) 1 % (0-4) 09/03/17 06:34 Differential Comment 08/31/17 11:04 Toxic Granulation Present 09/03/17 06:34 Platelet Estimate Normal (NORMAL) 09/03/17 06:34 Large Platelets Present 09/03/17 06:34 Giant Platelets Present 09/03/17 06:34 Polychromasia Slight 09/03/17 06:34 Hypochromasia (manual) Slight 09/03/17 06:34 Poikilocytosis (manual Slight 09/02/17 07:01 Anisocytosis (manual) Slight 09/03/17 06:34 Puncture Site Rr 09/06/17 10:30 pCO2 32 mm/Hg (35-45) L 09/06/17 10:30 pO2 60 mm/Hg (80-100) L 09/06/17 10:30 HCO3 23.9 mmol/L (21-28) 09/06/17 10:30 ABG pH 7.45 (7.35-7.45) 09/06/17 10:30 ABG Total CO2 23.2 mmol/L (22-28) 09/06/17 10:30 ABG O2 Saturation 94.2 % (95-98) L 09/06/17 10:30 ABG Base Excess -1.2 mmol/L (-2.0-3.0) 09/06/17 10:30 ABG Hemoglobin 11.5 g/dL (11.7-17.4) L 09/06/17 10:30 ABG Carboxyhemoglobin 1.6 % (0.5-1.5) H 09/06/17 10:30 POC ABG HHb (Measured) 5.6 % (0.0-5.0) H 09/06/17 10:30 ABG Methemoglobin 1.1 % (0.0-3.0) 09/06/17 10:30 Patricio Test Pos 09/06/17 10:30 A-a O2 Difference 50.0 mm/Hg 09/06/17 10:30 Respiratory Index 0.8 09/06/17 10:30 Hgb O2 Saturation 91.7 % (95.0-98.0) L 09/06/17 10:30 Liter Flow 30.0 09/03/17 19:30 FiO2 21.0 % 09/06/17 10:30 Sodium 136 mmol/L (132-148) 09/06/17 06:33 Potassium 3.5 mmol/L (3.6-5.2) L 09/06/17 06:33 Chloride 101 mmol/L (98-107) 09/06/17 06:33 Carbon Dioxide 27 mmol/L (22-30) 09/06/17 06:33 Anion Gap 12 (10-20) 09/06/17 06:33 BUN 14 mg/dL (7-17) 09/06/17 06:33 Creatinine 0.7 mg/dL (0.7-1.2) 09/06/17 06:33 Est GFR ( Amer) > 60 09/06/17 06:33 Est GFR (Non-Af Amer) > 60 09/06/17 06:33 POC Glucose (mg/dL) 200 mg/dL (65-110) H 09/06/17 10:55 Random Glucose 113 mg/dL (65-105) H 09/06/17 06:33 Hemoglobin A1c 8.3 % (4.2-6.5) H D 08/31/17 22:09 Calcium 9.4 mg/dl (8.6-10.4) 09/06/17 06:33 Phosphorus 2.3 mg/dL (2.5-4.5) L 09/03/17 06:34 Magnesium 1.5 mg/dL (1.6-2.3) L 09/03/17 06:34 Total Bilirubin 0.8 mg/dL (0.2-1.3) 09/06/17 06:33 AST 77 U/L (14-36) H D 09/06/17 06:33 ALT 91 U/L (9-52) H D 09/06/17 06:33 Alkaline Phosphatase 331 U/L (38-126) H 09/06/17 06:33 NT-Pro-B Natriuret Pep 2870 pg/mL (0-900) H 08/31/17 11:04 Total Protein 7.6 g/dL (6.3-8.3) 09/06/17 06:33 Albumin 3.3 g/dL (3.5-5.0) L 09/06/17 06:33 Globulin 4.3 gm/dL (2.2-3.9) H 09/06/17 06:33 Albumin/Globulin Ratio 0.8 (1.0-2.1) L 09/06/17 06:33 Triglycerides 75 mg/dL (0-149) 09/01/17 06:13 Cholesterol 149 mg/dL (0-199) 09/01/17 06:13 LDL Cholesterol Direct 97 mg/dL (0-129) 09/01/17 06:13 HDL Cholesterol 32 mg/dL (30-70) 09/01/17 06:13 Lipase 38 U/L (23-300) 08/31/17 11:04 Urine Color Yellow (YELLOW) 08/31/17 18:07 Urine Clarity Clear (Clear) 08/31/17 18:07 Urine pH 5.0 (5.0-8.0) 08/31/17 18:07 Ur Specific [place] 1.010 (1.003-1.030) 08/31/17 18:07 Urine Protein 1+ mg/dL (NEGATIVE) H 08/31/17 18:07 Urine Glucose (UA) 3+ mg/dL (Normal) H 08/31/17 18:07 Urine Ketones 1+ mg/dL (NEGATIVE) H 08/31/17 18:07 Urine Blood Negative (NEGATIVE) 08/31/17 18:07 Urine Nitrate Negative (NEGATIVE) 08/31/17 18:07 Urine Bilirubin Negative (NEGATIVE) 08/31/17 18:07 Urine Urobilinogen 2.0 mg/dL (0.2-1.0) H 08/31/17 18:07 Ur Leukocyte Esterase Neg Mary Jane/uL (Negative) 08/31/17 18:07 Urine WBC (Auto) 2 /hpf (0-5) 08/31/17 18:07 Urine RBC (Auto) 2 /hpf (0-3) 08/31/17 18:07 Ur Squamous Epith Cells 3 /hpf (0-5) 08/31/17 18:07 Urine Bacteria Rare (<OCC) 08/31/17 18:07 Influenza Typ A,B (EIA) Negative for flu a/b (NEGATIVE) 08/31/17 10:37 - Hospital Course Hospital Course: Initial Note: "72F PMH: lung cancer, anxiety, arthritis, bipolar disorder, CHF, dementia, depression, diabetes (NIDDM/T2DM), hypercholesterolemia, kidney stones, CKD Patient states she has had difficulty breathing and a dry cough for 3 days. Patient states she walks at home with a cane without problems or shortness of breath. Per patient she does not have high cholesterol or kidney problems. per EHR, PMH history list is as listed above. ROS: admits to edema, non-productive cough. Patient denies abdominal pain, chest pain, diarrhea, constipation. Last chemotherapy 08/18/17 02/23/17 PET: no evidence of FDG avid lymphadenopathy in chest and abdomen. No evidence of distant mets to abdomen and pelvis." Hospital Course: This patient was admitted due to worsening shortness of breath, dry cough, and radiating right flank pain into her the area under her breast. Chest CTA showed large pulmonary embolus within the distal right pulmonary artery. Pulmonology was consulted and a lower extremity dopplers showed no evidence of a DVT in the lower extremities. Patient was given Heparin bolus in the ED before transitioning to therapeutic Lovenox. On 09/04/17 in the evening, patient was transitioned to Eliquis per pulmonology. Upon discharge, patient will take Eliquis 10 mg PO BID until Tuesday09/11/17 in the morning and then decrease dosing to 5 mg PO BID thereafter. Patient's O2 saturation on room air was 91% and ambulating on room air at 88%. Patient refused CAMILO but was amenable to home physical therapy services. Per Dr. Alexis, he will arrange for home oxygen to be delivered to the patient's home. Patient also has a history of lung cancer s/p lobectomy in 2004, currently on chemo with Alimta/Carbo/Ketruda for the past 2 months. Last chemotherpay session was on 08/18/17. Heme-Onc was consulted and recommended no need for hypercoagulable workup at this time. This is a summary of the hospital course. Please refer to the medical records for more information. Discharge Exam - Additional Findings Additional findings: - Constitutional Appears: No Acute Distress - Eye Exam Eye Exam: EOMI, Normal appearance - ENT Exam ENT Exam: Mucous Membranes Moist - Respiratory Exam Respiratory Exam: Decreased Breath Sounds. absent: Rales, Rhonchi, Wheezes - Cardiovascular Exam Cardiovascular Exam: REGULAR RHYTHM, +S1, +S2 - GI/Abdominal Exam GI & Abdominal Exam: Soft, Normal Bowel Sounds. absent: Distended, Tenderness - Extremities Exam Extremities Exam: Pedal Edema (chronic with dry, hyperpigmented skin) - Neurological Exam Neurological Exam: Alert, Awake - Psychiatric Exam Psychiatric exam: Normal Affect, Normal Mood - Skin Skin Exam: Dry, Warm Discharge Plan - Discharge Medications Prescriptions: Apixaban [Eliquis] 5 mg PO BID #30 tab - Follow Up Plan Condition: STABLE Disposition: HOME/ ROUTINE Instructions: Apixaban (By mouth), Chest Pain (DC), Pulmonary Embolism (DC), Heart Healthy Diet (DC), Using Oxygen at Home (DC), How to Use a Nebulizer (DC) , Low Sodium Diet (DC) Additional Instructions: Eliquis: take 2 tabs totaling 10 mg twice a day with the last dose being the morning of Monday September 11, 2017. After that take only 1 tab twice a day starting in the evening of 09/11/17. This is the medication for your blood clot in the lung. Please continue all of your home medications as they were prescribed. Please follow up with Dr. Dillon within 7 days of discharge. Please follow up with your lung doctor Dr. Boone within 7 days of discharge. Please follow up with your cancer doctor Dr. Bowie within 7 days of discharge. If you have any new or worsening symptoms, please go to the nearest emergency room. Dr. Alexis the lung doctor will arrange for home oxygen to be delivered to the patient's home. Patient is for home with Home care services for physical therapy, Diagnosis: Pulmonary Embolus and Lung Cancer. Eliquis: Conrad 2 pestaas que sumen 10 mg dos veces al da y la ltima dosis sea la maana del bishop 21 de en2017. Despus de eso, tome solo 1 tableta dos veces al da a partir de la noche del 09/11/17. Rossy es el medicamento para blair cogulo de corey en el pulmn. Contine con todos los medicamentos de blair casa anne marie aden fueron recetados. Por favor, kumar un seguimiento con el Dr. Yoder dentro de los 7 woods posteriores al erica. Por favor, kumar un seguimiento con blair doctor de pulmn Dr. Boone dentro de los 7 woods de brian sido dado de erica. Por favor, kumar un seguimiento con blair doctor en cncer Dr. Bowie dentro de los 7 woods posteriores al erica. Si tiene sntomas nuevos o que empeoran, vaya a la christian de emergencias ms cercana. El Dr. Alexis, el mdico de pulmn, pantera los arreglos necesarios para que el ox ari del hogar llegue a la casa del paciente. Referrals: Rayne Boone MD [Staff Provider] - 1 Week Sasha Bowie MD [Staff Provider] - 1 Week Jesus Dillon MD [Staff Provider] - 1 Week
[2017-09-06 15:22] VITALS: PULSE 106
--- NOTE | 2017-09-06 18:13 | CP.PCM.PN ---
Subjective - Date & Time of Evaluation Date of Evaluation: 09/06/17 Time of Evaluation: 10:20 - Subjective Subjective: Pt was seen and evaluated at bedside. Pt resting in bed comfortably. Off nasal cannula. Afebrile. States shortness of breath and dry cough have improved, but not resolved. Both worsen with exertion and improve with rest. Pt also complains of slightly improved but persistent chest pain with cough. Denies palpitations, fever, chills. Exam: Lungs: diminsihed breath sounds bilateral bases A/P: Pulmonary embolism Pt to be discharged on home oxygen and Elaquis 09/06 ABG: pCO2: 32, pO2: 60, HCO3: 23.9, pH: 7.45 09/01 Echo- LVEF: 65%. see full report 08/31 CT-A chest- Large pulmonary embolus within the distal right main pulmonary artery that extends into the upper lobe middle lobe and lower lobe branches and proximal segmental/ subsegmental branches. Bilateral lower lobe consolidation may represent some combination of atelectasis and or infiltrate with left-sided effusion ; concomitant infarct changes on the right side may contribute. . Mild consolidation changes also present within the middle lobe. Mild biapical pleural thickening and minimal adjacent parenchymal scarring. Referring clinician where these findings as detailed above. 08/31 Doppler- Right: No evidence of deep or superficial vein thrombosis of the Right lower extremity. Normal valve function on right side. Left: No evidence of deep or superficial vein thrombosis of the left lower extremity. Normal valve function noted on Left side. Objective - Vital Signs/Intake and Output Vital Signs (last 24 hours): Temp Pulse Resp BP Pulse Ox 98 F 106 H 22 120/70 90 L 09/06/17 08:07 09/06/17 12:35 09/06/17 08:07 09/06/17 10:34 09/06/17 12:53 Intake and Output: 09/06/17 09/06/17 06:59 18:59 Intake Total 240 480 Balance 240 480 - Labs Labs: 09/06/17 06:33 09/06/17 06:33 Assessment and Plan (1) Pulmonary embolism Status: Acute (2) History of lung cancer Status: Acute
== END 2017-09-06 15:46 | disposition home or self-care (01) | DRG 176 ==
LOC: C.ER 10:03 → C.9E 13:29 → C.6T 17:21
PROVIDERS: ADMIT Internal Medicine; ATTEND Internal Medicine
DX: I26.99 Other pulmonary embolism without acute cor pulmonale (principal); E11.22 Type 2 diabetes mellitus with diabetic chronic kidney disease; I13.0 Hypertensive heart and chronic kidney disease with heart failure and stage 1 through stage 4 chronic kidney disease, or unspecified chronic kidney disease; I50.30 Unspecified diastolic (congestive) heart failure; C34.90 Malignant neoplasm of unspecified part of unspecified bronchus or lung; J98.11 Atelectasis; N18.9 Chronic kidney disease, unspecified; Z79.4 Long term (current) use of insulin; F31.9 Bipolar disorder, unspecified; F03.90 Unspecified dementia, unspecified severity, without behavioral disturbance, psychotic disturbance, mood disturbance, and anxiety; F32.9 Major depressive disorder, single episode, unspecified; E78.00 Pure hypercholesterolemia, unspecified; Z51.5 Encounter for palliative care; E87.6 Hypokalemia

== ENCOUNTER 2017-09-20 14:24 | Inpatient (IN) | payer OTHER ==
[2017-09-20 14:32] VITALS: BMI 33.3
--- NOTE | 2017-09-20 16:46 | C.PDOC ---
History Of Present Illness <Nunu Galindo - Last Filed: 09/20/17 18:45> <Kaleigh Adkins - Last Filed: 09/20/17 21:55> 72 y/o female with history of Lung Cancer (2004), HTN and DM presents to ED with complaints of vaginal bleeding for 5 days. Patient notes she has changes pad hourly and has clots. States she feels weak with associated lightheadedness. Patient is on anticoagulation medication- Eliquis for PE but ran out 1 week ago. Denies chest pain, sob, abdominal pain, dysuria or any other complaints at this time. (Nunu Galindo) History Per: Patient History/Exam Limitations: no limitations Onset/Duration Of Symptoms: Days Current Symptoms Are (Timing): Still Present <Nunu Galindo - Last Filed: 09/20/17 18:45> <Kaleigh Adkins - Last Filed: 09/20/17 21:55> Time Seen by Provider: 09/20/17 16:13 Chief Complaint (Nursing): Female Genitourinary Past Medical History Reviewed: Historical Data, Nursing Documentation, Vital Signs - Medical History PMH: Anxiety, Arthritis, Bipolar Disorder, CHF, Dementia (FORGETFUL AT TIMES. AAO X 3 AT PRESENT), Depression, Diabetes (NIDDM), HTN, Hypercholesterolemia, Kidney Stones, Pneumonia, Chronic Kidney Disease Surgical History: No Surg Hx Family History: States: No Known Family Hx - Social History Hx Tobacco Use: No Hx Alcohol Use: No Hx Substance Use: No - Immunization History Hx Tetanus Toxoid Vaccination: Yes Hx Influenza Vaccination: Yes Hx Pneumococcal Vaccination: Yes <Nunu Galindo - Last Filed: 09/20/17 18:45> Vital Signs: Last Vital Signs Temp 97.7 F 09/20/17 14:32 Pulse 95 H 09/20/17 20:14 Resp 20 09/20/17 20:14 BP 138/84 09/20/17 20:14 Pulse Ox 99 09/20/17 20:14 - [facility] Procedures DRAINAGE OF LEFT LUNG, ENDO, DIAGN (05/09/17) DRAINAGE OF LEFT UPPER LUNG LOBE, ENDO, DIAGN (01/22/17) ESOPHAGOGASTRODUODENOSCOPY [EGD] W/CLOSED BIOPSY (05/21/15) EXCISION OF LEFT UPPER LOBE BRONCHUS, ENDO, DIAGN (01/22/17) INJECT/INFUSE NEC (02/06/13) Review Of Systems Constitutional: Negative for: Fever, Chills Cardiovascular: Positive for: Light Headedness. Negative for: Chest Pain Respiratory: Negative for: Shortness of Breath Genitourinary: Positive for: Vaginal Bleeding. Negative for: Dysuria, Vaginal Discharge Skin: Negative for: Rash Neurological: Positive for: Weakness <Nunu Galindo - Last Filed: 09/20/17 18:45> Physical Exam - Physical Exam Appears: Non-toxic, No Acute Distress Skin: Warm, Dry, No Rash Head: Atraumatic, Normacephalic Eye(s): bilateral: Normal Inspection, EOMI Nose: Normal Neck: Normal ROM, Supple Chest: Symmetrical Cardiovascular: Rhythm Regular Respiratory: Rales Gastrointestinal/Abdominal: Soft, No Tenderness, No Guarding, No Rebound Extremity: Pedal Edema (pt notes its chronic), No Deformity Neurological/Psych: Oriented x3, Normal Speech <Nunu Galindo - Last Filed: 09/20/17 18:45> ED Course And Treatment - Laboratory Results Result Diagrams: 09/20/17 17:02 09/20/17 17:02 ECG: Interpreted By Me, Viewed By Me ECG Rhythm: Sinus Rhythm Interpretation Of ECG: T wave inversion on V2V3 Rate From EC (BPM) O2 Sat by Pulse Oximetry: 98 (RA) Pulse Ox Interpretation: Normal Progress Note: Obstructive series, UA, ECG ordered. Case discussed with Dr Bowie who requests CT chest abd pelvis and admission to hospitalist. Case endorsed to Dr. Adkins Pending Re evaluation and Dispo <Nunu Galindo - Last Filed: 09/20/17 18:45> - Laboratory Results Result Diagrams: 09/20/17 17:02 09/20/17 17:02 <Kaleigh Adkins - Last Filed: 09/20/17 21:55> Disposition - Disposition Disposition Time: 18:51 <Nunu Galindo - Last Filed: 09/20/17 18:45> Discussed With : Eron Valencia Comment: accepted the pt on his service and took over the care at 9:53 PM Doctor Will See Patient In The: Hospital Counseled Patient/Family Regarding: Studies Performed, Diagnosis - POA Present On Arrival: Poor Glycemic Control <ImeldaKaleigh serna - Last Filed: 09/20/17 21:55> - Disposition Disposition: HOSPITALIZED Condition: FAIR Forms: [facility] (Georgian) - Clinical Impression Clinical Impression: Pulmonary embolism, Vaginal bleeding, Pneumonia - PA / FOSTER WINDER / Resident Statement MD/DO has reviewed & agrees with the documentation as recorded. - Scribe Statement The provider has reviewed the documentation as recorded by the Scribe <Nunu Galindo - Last Filed: 09/20/17 18:45> <Kaleigh Adkins - Last Filed: 09/20/17 21:55> - Scribe Statement Osmany Vallecillo All medical record entries made by the Scribe were at my direction and personally dictated by me. I have reviewed the chart and agree that the record accurately reflects my personal performance of the history, physical exam, medical decision making, and the department course for this patient. I have also personally directed, reviewed, and agree with the discharge instructions and disposition. (Nunu Galindo) Decision To Admit <Nunu Galindo - Last Filed: 09/20/17 18:45> - Pt Status Changed To: Hospital Disposition Of: Inpatient - Admit Certification Admit to Inpatient:: After my assessment, the patient will require hospitalization for at least two midnights. This is because of the severity of symptoms shown, intensity of services needed, and/or the medical risk in this patient being treated as an outpatient. - InPatient: Physician Admission Certification: I certify that this patient requires 2 or more midnights of care for the following reason:: After my assessment, the patient will require hospitalization for at least two midnights. This is because of the severity of symptoms shown, intensity of services needed, and/or the medical risk in this patient being treated as an outpatient. - . Bed Request Type: Telemetry Admitting Physician: Eron Valencia <Kaleigh Adkins - Last Filed: 09/20/17 21:55> - . Patient Diagnosis: Pulmonary embolism, Vaginal bleeding, Pneumonia
[2017-09-20 17:11] LABS: BASO # 0.1 K/uL (0.0-0.2); BASO % 0.8 % (0.0-2.0); EOS # 0.3 K/uL (0.0-0.7); HEMOGLOBIN 11.6 g/dL (11.0-16.0); LYMPH # 2.3 K/uL (1.0-4.3); LYMPH % 33.7 % (20.0-40.0); MEAN CORPUSCULAR HEMOGLOBIN 32.2 pg (27.0-31.0); MEAN CORPUSCULAR HGB CONC 33.7 g/dL (33.0-37.0); MEAN PLATELET VOLUME 9.7 fL (7.2-11.7); MONO # 0.8 K/uL (0.0-0.8); MONO % 12.1 % (0.0-10.0); NEUT # 3.3 K/uL (1.8-7.0); NEUT % 49.4 % (50.0-75.0); NRBC % 0.1 % (0.0-2.0); RBC 3.6 Mil/uL (3.80-5.20); RED CELL DISTRIBUTION WIDTH 15.5 % (11.5-14.5); WHITE BLOOD COUNT 6.7 K/uL (4.8-10.8)
[2017-09-20 17:18] LABS: MEAN CELL VOLUME 95.6 fL (81.0-99.0)
[2017-09-20 17:21] LABS: ALB/GLOB RATIO 0.9 (1.0-2.1); ALBUMIN 3.2 g/dL (3.5-5.0); ALT/SGPT 80 U/L (9-52); AST/SGOT 66 U/L (14-36); BLOOD UREA NITROGEN 8 mg/dL (7-17); CALCIUM 9.5 mg/dl (8.6-10.4); GFR AFRICAN-AMERICAN > 60; GFR NON-AFRICAN AMERICAN > 60
[2017-09-20 17:27] LABS: INR 1.1; PROTHROMBIN TIME 12.7 SECONDS (9.7-12.2)
[2017-09-20 17:32] LABS: CK-MB 0.42 ng/mL (0.0-3.38)
[2017-09-20 17:40] LABS: SQUAMOUS EPITHIAL 1 /hpf (0-5); URINE BILIRUBIN NEGATIVE (NEGATIVE); URINE BLOOD 3+ (NEGATIVE); URINE CLARITY Hazy (Clear); URINE COLOR Red (YELLOW); URINE GLUCOSE (UA) 3+ mg/dL (Normal); URINE NITRATE NEGATIVE (NEGATIVE); URINE PROTEIN 2+ mg/dL (NEGATIVE)
[2017-09-20 17:41] LABS: URINE LEUKOCYTE ESTERASE 1+ Leu/uL (Negative)
[2017-09-20] MEDS ORDERED: Iodixanol 320 MG/ML 100 ML BOTTLE IV ONE (18:43)
--- NOTE | 2017-09-20 21:02 | CT ---
EXAM: CT Abdomen and Pelvis With Intravenous Contrast EXAM DATE/TIME: 09/20/2017 5:43 PM CLINICAL HISTORY: 72 years old, female; Pain; Abdominal pain; Generalized; Additional info: Vaginal bleeding/ h/o malignancy TECHNIQUE: Axial computed tomography images of the abdomen and pelvis with intravenous contrast. All CT scans at this facility use one or more dose reduction techniques, viz.: automated exposure control; ma/kV adjustment per patient size (including targeted exams where dose is matched to indication; i.e. head); or iterative reconstruction technique. Coronal and sagittal reformatted images were created and reviewed. CONTRAST: 100 mL of visipaque 320 administered intravenously. COMPARISON: No relevant prior studies available. FINDINGS: LIMITATIONS: Moderate streak/motion artifact. LOWER THORAX: Findings in the lung bases are described in the separate dedicated CT chest report. ABDOMEN: LIVER: Pneumobilia. This could be post operative in etiology, such as related to prior sphincterotomy or choledochojejunostomy. GALLBLADDER AND BILE DUCTS: Gallbladder is not seen, and may be contracted or surgically absent. PANCREAS: Pancreas is atrophic. No CT evidence of acute pancreatitis. SPLEEN: No acute abnormality of the spleen identified. ADRENALS: No acute abnormality of the adrenal glands identified. KIDNEYS AND URETERS: Multiple nonobstructing right renal stones. Low density lesions in the kidneys bilaterally, most likely representing cysts. The largest of these measures 1 cm. No evidence of hydroureteronephrosis. STOMACH AND BOWEL: Metallic density in the lumen of the stomach. This could represent a surgical biopsy clip or an ingested metallic foreign body. Extensive diverticulosis. There is no definite acute diverticulitis, allowing for motion artifact. Otherwise, no significant abnormality of the bowel is identified. No evidence of small bowel obstruction. APPENDIX: Appendix is seen, and is within normal limits in appearance. PELVIS: BLADDER: Tiny focus of air in the bladder lumen, presumably iatrogenic. Recommend clinical correlation. REPRODUCTIVE: Uterus appears mildly enlarged for age. The This could be secondary to fibroids. No evidence of large adnexal masses. ABDOMEN and PELVIS: INTRAPERITONEAL SPACE: No evidence of free intraperitoneal air or fluid. BONES/JOINTS: Bony structures appear demineralized. SOFT TISSUES: No acute abnormality of the visualized soft tissues is seen. VASCULATURE: No evidence of abdominal aortic aneurysm. No evidence of periaortic hemorrhage. LYMPH NODES: No evidence of diffuse lymphadenopathy. IMPRESSION: - No definite acute process. Exam is limited by motion artifact, however. - Metallic density in the lumen of the stomach. This could represent a surgical biopsy clip or an ingested metallic foreign body. Recommend clinical correlation. - See above for remaining findings.
--- NOTE | 2017-09-20 21:33 | CT ---
EXAM: CT Angiography Chest With Intravenous Contrast EXAM DATE/TIME: 09/20/2017 5:43 PM CLINICAL HISTORY: 72 years old, female; Signs and symptoms; Shortness of breath; Additional info: H/o pe TECHNIQUE: Axial computed tomographic angiography images of the chest with intravenous contrast using pulmonary embolism protocol. All CT scans at this facility use one or more dose reduction techniques, viz.: automated exposure control; ma/kV adjustment per patient size (including targeted exams where dose is matched to indication; i.e. head); or iterative reconstruction technique. MIP reconstructed images were created and reviewed. Coronal and sagittal reformatted images were created and reviewed. CONTRAST: 0 mL of visipaque 320 administered intravenously. COMPARISON: Prior CT chest of 08/31/2017. FINDINGS: PULMONARY ARTERIES: Filling defects are seen in the right pulmonary artery peripherally, and in the right lower lobe pulmonary artery, compatible with pulmonary emboli. Compared to the prior CT, the amount of clot present is significantly decreased, compatible with resolving pulmonary emboli. AORTA: No evidence of aortic dissection. LUNGS: Findings highly suspicious for bilateral pneumonia, greater on the left. There are large, confluent areas of dense consolidation in the left upper lobe and left lower lobe. Multifocal, scattered areas of consolidation and multiple tree in bud opacities are seen in the right lung. Small cystic areas are again seen in an area of consolidation in the superior segment of the right lower lobe. Compared to the prior study, there is decreasing consolidation in the right lower lobe, but otherwise, the consolidation as mostly persistent and unchanged. Postoperative changes in the left lung, most likely related to previous left lower lobectomy. There is associated volume loss in the left lung. Patent large airways. PLEURAL SPACE: Small left pleural effusion, grossly stable in appearance. No pneumothorax is seen. HEART: Coronary artery calcification. Heart appears mildly enlarged. BONES/JOINTS: No acute bony abnormality identified. SOFT TISSUES: No acute abnormality of the visualized soft tissues seen. LYMPH NODES: No evidence of diffuse lymphadenopathy. TUBES, LINES AND DEVICES: Right Mediport catheter in place, which terminates In the right atrium IMPRESSION: - Right-sided pulmonary emboli, decreased in amount compared to a 08/31/2017 CT, compatible with chronic, resolving pulmonary emboli. - Findings highly suspicious for persistent bilateral pneumonia. Compared to the prior CT, this appears mildly improved in the right lung, but it otherwise does not appear appreciably changed, with large areas of dense consolidation again seen in the left lung. - Small left pleural effusion. - See above for remaining findings.
[2017-09-20] MEDS ORDERED: Piperacillin/Tazobact 3.375 gm 100 ML IVPB STA (21:44)
[2017-09-21] MEDS ORDERED: Albuterol-Ipratrop 3 mg / 0.5 (3 ml) UD ONE (08:00)
[2017-09-21] MEDS: Albuterol-Ipratrop 3 mg / 0.5 (3 ml) UD INH SCH ×2 (08:14→21:00)
--- NOTE | 2017-09-21 09:05 | RAD ---
PROCEDURE: Radiographs of the chest and abdomen (obstructive series) HISTORY: Abd Pain COMPARISON: CT angiography of the pulmonary arteries dated 08/31/2017 ; CT scan of the abdomen and pelvis dated 05/07/2014. TECHNIQUE: AP radiograph of the chest, with upright and supine radiographs of the abdomen. FINDINGS: CHEST: Lungs: Right mid lung, left upper and lower lung consolidations. Cardiovascular: Normal size heart. No pulmonary vascular congestion. Pleura: Elevation of the left hemidiaphragm. No pleural fluid. No pneumothorax. Other findings: Right internal jugular access chest port, unchanged. ABDOMEN AND PELVIS: Bowel: Unremarkable bowel gas pattern. No evidence of mechanical obstruction. Free air: None. Bones: Degenerative changes. Other findings: Linear metallic object in the epigastric region. IMPRESSION: Right mid, left upper and left lower lung consolidations. No evidence of mechanical bowel obstruction.
[2017-09-21] MEDS ORDERED: GlipiZIDE 2.5 mg Tab PO SCH (10:00)
[2017-09-21] MEDS: (Novolin R) Insulin Human Regular 100 units/ml vial SC SCH ×4 (10:29→22:10)
[2017-09-21] MEDS ORDERED: (Novolin R) Insulin Human Regular 100 units/ml vial ONE (10:30)
--- NOTE | 2017-09-21 11:01 | CP.PCM.CON ---
History of Present Illness - History of Present Illness History of Present Illness: 72 with h/o lung cncer and recetely diagnosed PE came with c/o vaginal bleeding started on /of since aug 12. pt has min bleeding now. pt stoppd having her period >20 yrs ago.pt stopped the anticouglant 1week ago as it was finished.pt has been here since 09/20/17 at 2pm obhx 5 x pmh dm/pe/kristyn cance all nkda psh none soch den pelvic exam ext gen small blood, cervix closed, ut 8-9weeks size,no active bleding. pad dry abd soft,non tender Past Patient History - Infectious Disease Hx of Infectious Diseases: None - Past Medical History & Family History Past Medical History?: Yes - Past Social History Smoking Status: Never Smoked - CARDIAC Hx Congestive Heart Failure: Yes Hx Hypercholesterolemia: Yes Hx Hypertension: Yes - PULMONARY Hx Pneumonia: Yes - NEUROLOGICAL Hx Dementia: Yes (FORGETFUL AT TIMES. AAO X 3 AT PRESENT) - HEENT Hx HEENT Problems: No - RENAL Hx Chronic Kidney Disease: Yes Hx Kidney Stones: Yes - INTEGUMENTARY Hx Dermatological Problems: No - MUSCULOSKELETAL/RHEUMATOLOGICAL Hx Arthritis: Yes - GASTROINTESTINAL Hx Gastrointestinal Disorders: No - GENITOURINARY/GYNECOLOGICAL Hx Genitourinary Disorders: No - PSYCHIATRIC Hx Anxiety: Yes Hx Bipolar Disorder: Yes Hx Depression: Yes Hx Substance Use: No - SURGICAL HISTORY Hx Surgeries: Yes Hx Pulmonary Surgery: Yes (LEFT LUNG) Hx Tubal Ligation: Yes Other/Comment: HX:left lower lobectomy. HX: BRONCHOSCOPY(05/12/17) - ANESTHESIA Hx Anesthesia: Yes Hx Anesthesia Reactions: No Hx Malignant Hyperthermia: No Meds Allergies/Adverse Reactions: Allergies Allergy/AdvReac Type Severity Reaction Status Date / Time No Known Allergies Allergy Verified 09/20/17 14:31 - Medications Medications: Current Medications Albuterol/Ipratropium (Duoneb 3 Mg/0.5 Mg (3 Ml) Ud) 3 ml INH RQ6 [facility] Last Admin: 09/21/17 08:14 Dose: 3 ml Furosemide (Lasix) 20 mg PO QAM [facility] Last Admin: 09/21/17 10:01 Dose: 20 mg Glipizide (Glucotrol) 5 mg PO DAILY [facility] Last Admin: 09/21/17 10:01 Dose: 5 mg Azithromycin 500 mg/ Sodium (Chloride) 250 mls @ 250 mls/hr IVPB DAILY [facility] Ceftriaxone Sodium 1 gm/ (Sodium Chloride) 100 mls @ 100 mls/hr IVPB DAILY [facility] Last Admin: 09/21/17 10:01 Dose: 100 mls/hr Insulin Human Regular (Novolin R) 0 unit SC ACHS [facility] PRN Reason: Protocol Last Admin: 09/21/17 10:29 Dose: 2 unit Megestrol Acetate (Megace) 40 mg PO DAILY [facility] Last Admin: 09/21/17 10:02 Dose: 40 mg Prednisone (Prednisone Tab) 20 mg PO DAILY [facility] Last Admin: 09/21/17 10:02 Dose: 20 mg Sitagliptin Phosphate (Januvia) 25 mg PO DAILY [facility] Last Admin: 09/21/17 10:01 Dose: 25 mg Physical Exam - Exam External exam: NORMAL EXTERNAL EXAM Speculum exam: Vaginal Bleeding (min) Bimanual exam: NORMAL BIMANUAL EXAM Results - Vital Signs Recent Vital Signs: Last Vital Signs Temp 98.7 F 09/21/17 03:55 Pulse 103 H 09/21/17 10:50 Resp 22 09/21/17 10:50 BP 134/79 09/21/17 10:50 Pulse Ox 97 09/21/17 10:50 - Labs Result Diagrams: 09/20/17 17:02 09/20/17 17:02 Labs: Laboratory Results - last 24 hr 09/20/17 09/20/17 09/20/17 17:02 17:02 17:02 WBC 6.7 RBC 3.60 L Hgb 11.6 Hct 34.4 MCV 95.6 D MCH 32.2 H MCHC 33.7 RDW 15.5 H Plt Count 200 D MPV 9.7 Neut % (Auto) 49.4 L Lymph % (Auto) 33.7 Ogle % (Auto) 12.1 H Eos % (Auto) 4.0 Baso % (Auto) 0.8 Neut # (Auto) 3.3 Lymph # (Auto) 2.3 Ogle # (Auto) 0.8 Eos # (Auto) 0.3 Baso # (Auto) 0.1 PT 12.7 H INR 1.1 APTT 29 Sodium 130 L Potassium 3.7 Chloride 102 Carbon Dioxide 22 Anion Gap 10 BUN 8 Creatinine 0.6 L Est GFR ( Amer) > 60 Est GFR (Non-Af Amer) > 60 POC Glucose (mg/dL) Random Glucose 297 H Calcium 9.5 Total Bilirubin 0.9 AST 66 H ALT 80 H Alkaline Phosphatase 336 H Total Creatine Kinase 32 CK-MB (Mass) 0.42 Troponin I < 0.0120 Total Protein 7.0 Albumin 3.2 L Globulin 3.7 Albumin/Globulin Ratio 0.9 L Urine Color Urine Clarity Urine pH Ur Specific [place] Urine Protein Urine Glucose (UA) Urine Ketones Urine Blood Urine Nitrate Urine Bilirubin Urine Urobilinogen Ur Leukocyte Esterase Urine WBC (Auto) Urine RBC (Auto) Ur Squamous Epith Cells 09/20/17 09/21/17 09/21/17 17:02 08:03 10:09 WBC RBC Hgb Hct MCV MCH MCHC RDW Plt Count MPV Neut % (Auto) Lymph % (Auto) Ogle % (Auto) Eos % (Auto) Baso % (Auto) Neut # (Auto) Lymph # (Auto) Ogle # (Auto) Eos # (Auto) Baso # (Auto) PT INR APTT Sodium Potassium Chloride Carbon Dioxide Anion Gap BUN Creatinine Est GFR ( Amer) Est GFR (Non-Af Amer) POC Glucose (mg/dL) 234 H 210 H Random Glucose Calcium Total Bilirubin AST ALT Alkaline Phosphatase Total Creatine Kinase CK-MB (Mass) Troponin I Total Protein Albumin Globulin Albumin/Globulin Ratio Urine Color Red Urine Clarity Hazy Urine pH 6.0 Ur Specific [place] 1.014 Urine Protein 2+ H Urine Glucose (UA) 3+ H Urine Ketones Negative Urine Blood 3+ H Urine Nitrate Negative Urine Bilirubin Negative Urine Urobilinogen 2.0 H Ur Leukocyte Esterase 1+ H Urine WBC (Auto) 21 H Urine RBC (Auto) 892 H Ur Squamous Epith Cells 1 Assessment & Plan - Assessment and Plan (Free Text) Assessment: 72 with H/o lung cancer/Diabetic/PMB Plan: pelvic/transvaginal sonogram cont medical management pad count will continue fllow up - Date & Time Date: 09/21/17 Time: 11:40
[2017-09-21] MEDS: Azithromycin 500 MG in Sodium Chloride 0.9% 250 ML IVPB SCH (12:26)
--- NOTE | 2017-09-21 17:24 | CP.PCM.CON ---
History of Present Illness - History of Present Illness History of Present Illness: 72 yo woman with nonsmallcell adenocarcinoma of the lung diagnosed 6 months ago , was able to get 2 cycles of chemo with Carbo/Alimta and Keytruda, further treatments interrupted by large pulmonary embolus diagnosed few weeks ago, discharged home on PO Eliquis, now with vaginal bleeding, seen by Community Coordinator, CAT scans showing thickening of the endometrium, awaiting further tests as per Community Coordinator. Past Patient History - Infectious Disease Hx of Infectious Diseases: None - Past Medical History & Family History Past Medical History?: Yes - Past Social History Smoking Status: Never Smoked - CARDIAC Hx Congestive Heart Failure: Yes Hx Hypercholesterolemia: Yes Hx Hypertension: Yes - PULMONARY Hx Pneumonia: Yes - NEUROLOGICAL Hx Dementia: Yes (FORGETFUL AT TIMES. AAO X 3 AT PRESENT) - HEENT Hx HEENT Problems: No - RENAL Hx Chronic Kidney Disease: Yes Hx Kidney Stones: Yes - INTEGUMENTARY Hx Dermatological Problems: No - MUSCULOSKELETAL/RHEUMATOLOGICAL Hx Arthritis: Yes - GASTROINTESTINAL Hx Gastrointestinal Disorders: No - GENITOURINARY/GYNECOLOGICAL Hx Genitourinary Disorders: No - PSYCHIATRIC Hx Anxiety: Yes Hx Bipolar Disorder: Yes Hx Depression: Yes Hx Substance Use: No - SURGICAL HISTORY Hx Surgeries: Yes Hx Pulmonary Surgery: Yes (LEFT LUNG) Hx Tubal Ligation: Yes Other/Comment: HX:left lower lobectomy. HX: BRONCHOSCOPY(05/12/17) - ANESTHESIA Hx Anesthesia: Yes Hx Anesthesia Reactions: No Hx Malignant Hyperthermia: No Meds Allergies/Adverse Reactions: Allergies Allergy/AdvReac Type Severity Reaction Status Date / Time No Known Allergies Allergy Verified 09/20/17 14:31 - Medications Medications: Current Medications Albuterol/Ipratropium (Duoneb 3 Mg/0.5 Mg (3 Ml) Ud) 3 ml INH RQ6 [facility] Last Admin: 09/21/17 08:14 Dose: 3 ml Furosemide (Lasix) 20 mg PO QAM [facility] Last Admin: 09/21/17 10:01 Dose: 20 mg Glipizide (Glucotrol) 5 mg PO DAILY [facility] Azithromycin 500 mg/ Sodium (Chloride) 250 mls @ 250 mls/hr IVPB DAILY [facility] Last Admin: 09/21/17 12:26 Dose: 250 mls/hr Ceftriaxone Sodium 1 gm/ (Sodium Chloride) 100 mls @ 100 mls/hr IVPB DAILY [facility] Last Admin: 09/21/17 10:01 Dose: 100 mls/hr Insulin Human Regular (Novolin R) 0 unit SC ACHS [facility] PRN Reason: Protocol Last Admin: 09/21/17 10:29 Dose: 2 unit Megestrol Acetate (Megace) 40 mg PO DAILY [facility] Last Admin: 09/21/17 10:02 Dose: 40 mg Prednisone (Prednisone Tab) 20 mg PO DAILY [facility] Last Admin: 09/21/17 10:02 Dose: 20 mg Sitagliptin Phosphate (Januvia) 25 mg PO DAILY [facility] Last Admin: 09/21/17 10:01 Dose: 25 mg Results - Vital Signs Recent Vital Signs: Last Vital Signs Temp 98.9 F 09/21/17 15:00 Pulse 99 H 09/21/17 15:00 Resp 18 09/21/17 15:00 BP 120/88 09/21/17 15:00 Pulse Ox 98 09/21/17 15:00 - Labs Result Diagrams: 09/20/17 17:02 09/20/17 17:02 Labs: Laboratory Results - last 24 hr 09/20/17 09/20/17 09/20/17 17:02 17:02 17:02 WBC 6.7 RBC 3.60 L Hgb 11.6 Hct 34.4 MCV 95.6 D MCH 32.2 H MCHC 33.7 RDW 15.5 H Plt Count 200 D MPV 9.7 Neut % (Auto) 49.4 L Lymph % (Auto) 33.7 Williamson % (Auto) 12.1 H Eos % (Auto) 4.0 Baso % (Auto) 0.8 Neut # (Auto) 3.3 Lymph # (Auto) 2.3 Williamson # (Auto) 0.8 Eos # (Auto) 0.3 Baso # (Auto) 0.1 PT 12.7 H INR 1.1 APTT 29 Sodium 130 L Potassium 3.7 Chloride 102 Carbon Dioxide 22 Anion Gap 10 BUN 8 Creatinine 0.6 L Est GFR ( Amer) > 60 Est GFR (Non-Af Amer) > 60 POC Glucose (mg/dL) Random Glucose 297 H Calcium 9.5 Total Bilirubin 0.9 AST 66 H ALT 80 H Alkaline Phosphatase 336 H Total Creatine Kinase 32 CK-MB (Mass) 0.42 Troponin I < 0.0120 Total Protein 7.0 Albumin 3.2 L Globulin 3.7 Albumin/Globulin Ratio 0.9 L Urine Color Urine Clarity Urine pH Ur Specific [place] Urine Protein Urine Glucose (UA) Urine Ketones Urine Blood Urine Nitrate Urine Bilirubin Urine Urobilinogen Ur Leukocyte Esterase Urine WBC (Auto) Urine RBC (Auto) Ur Squamous Epith Cells 09/20/17 09/21/17 09/21/17 17:02 08:03 10:09 WBC RBC Hgb Hct MCV MCH MCHC RDW Plt Count MPV Neut % (Auto) Lymph % (Auto) [place] % (Auto) Eos % (Auto) Baso % (Auto) Neut # (Auto) Lymph # (Auto) [place] # (Auto) Eos # (Auto) Baso # (Auto) PT INR APTT Sodium Potassium Chloride Carbon Dioxide Anion Gap BUN Creatinine Est GFR ( Amer) Est GFR (Non-Af Amer) POC Glucose (mg/dL) 234 H 210 H Random Glucose Calcium Total Bilirubin AST ALT Alkaline Phosphatase Total Creatine Kinase CK-MB (Mass) Troponin I Total Protein Albumin Globulin Albumin/Globulin Ratio Urine Color Red Urine Clarity Hazy Urine pH 6.0 Ur Specific [place] 1.014 Urine Protein 2+ H Urine Glucose (UA) 3+ H Urine Ketones Negative Urine Blood 3+ H Urine Nitrate Negative Urine Bilirubin Negative Urine Urobilinogen 2.0 H Ur Leukocyte Esterase 1+ H Urine WBC (Auto) 21 H Urine RBC (Auto) 892 H Ur Squamous Epith Cells 1 09/21/17 09/21/17 13:37 16:32 WBC RBC Hgb Hct MCV MCH MCHC RDW Plt Count MPV Neut % (Auto) Lymph % (Auto) Williamson % (Auto) Eos % (Auto) Baso % (Auto) Neut # (Auto) Lymph # (Auto) [place] # (Auto) Eos # (Auto) Baso # (Auto) PT INR APTT Sodium Potassium Chloride Carbon Dioxide Anion Gap BUN Creatinine Est GFR ( Amer) Est GFR (Non-Af Amer) POC Glucose (mg/dL) 373 H 268 H Random Glucose Calcium Total Bilirubin AST ALT Alkaline Phosphatase Total Creatine Kinase CK-MB (Mass) Troponin I Total Protein Albumin Globulin Albumin/Globulin Ratio Urine Color Urine Clarity Urine pH Ur Specific [place] Urine Protein Urine Glucose (UA) Urine Ketones Urine Blood Urine Nitrate Urine Bilirubin Urine Urobilinogen Ur Leukocyte Esterase Urine WBC (Auto) Urine RBC (Auto) Ur Squamous Epith Cells
--- NOTE | 2017-09-21 18:41 | CP.PCM.HP ---
Past Patient History - Infectious Disease Hx of Infectious Diseases: None - Past Medical History & Family History Past Medical History?: Yes - Past Social History Smoking Status: Never Smoked - CARDIAC Hx Congestive Heart Failure: Yes Hx Hypercholesterolemia: Yes Hx Hypertension: Yes - PULMONARY Hx Pneumonia: Yes - NEUROLOGICAL Hx Dementia: Yes (FORGETFUL AT TIMES. AAO X 3 AT PRESENT) - HEENT Hx HEENT Problems: No - RENAL Hx Chronic Kidney Disease: Yes Hx Kidney Stones: Yes - INTEGUMENTARY Hx Dermatological Problems: No - MUSCULOSKELETAL/RHEUMATOLOGICAL Hx Arthritis: Yes - GASTROINTESTINAL Hx Gastrointestinal Disorders: No - GENITOURINARY/GYNECOLOGICAL Hx Genitourinary Disorders: No - PSYCHIATRIC Hx Anxiety: Yes Hx Bipolar Disorder: Yes Hx Depression: Yes Hx Substance Use: No - SURGICAL HISTORY Hx Surgeries: Yes Hx Pulmonary Surgery: Yes (LEFT LUNG) Hx Tubal Ligation: Yes Other/Comment: HX:left lower lobectomy. HX: BRONCHOSCOPY(05/12/17) - ANESTHESIA Hx Anesthesia: Yes Hx Anesthesia Reactions: No Hx Malignant Hyperthermia: No Meds Allergies/Adverse Reactions: Allergies Allergy/AdvReac Type Severity Reaction Status Date / Time No Known Allergies Allergy Verified 09/20/17 14:31 Physical Exam - Constitutional Appears: Well - Head Exam Head Exam: ATRAUMATIC, NORMAL INSPECTION, NORMOCEPHALIC - Eye Exam Eye Exam: EOMI, Normal appearance, PERRL Pupil Exam: NORMAL ACCOMODATION, PERRL - ENT Exam ENT Exam: Mucous Membranes Moist, Normal Exam - Neck Exam Neck exam: Positive for: Normal Inspection - Respiratory Exam Respiratory Exam: Decreased Breath Sounds - Cardiovascular Exam Cardiovascular Exam: REGULAR RHYTHM, +S1, +S2 - GI/Abdominal Exam GI & Abdominal Exam: Diminished Bowel Sounds, Soft - Rectal Exam Rectal Exam: Deferred Results - Vital Signs Recent Vital Signs: Last Vital Signs Temp 98.9 F 09/21/17 15:00 Pulse 99 H 09/21/17 15:00 Resp 18 09/21/17 15:00 BP 120/88 09/21/17 15:00 Pulse Ox 98 09/21/17 15:00 - Labs Result Diagrams: 09/20/17 17:02 09/20/17 17:02 Labs: Laboratory Results - last 24 hr 09/21/17 09/21/17 09/21/17 08:03 10:09 13:37 POC Glucose (mg/dL) 234 H 210 H 373 H 09/21/17 16:32 POC Glucose (mg/dL) 268 H
--- NOTE | 2017-09-21 18:48 | CP.PCM.CON ---
History of Present Illness - History of Present Illness History of Present Illness: 72 y/o Female with PMHx of Lung CA, Pulmonary Embolism, Pneumonia, HTN, and DM presents to the ED complaining of vaginal bleeding X 5 days a/w dizziness. She was admitted 3 weeks prior to this event with PE and Pneumonia, and she was discharged on 09/06/17. She denies taking antibiotics at home. She is on Elliquis but reports running out one week ago. She was also recently diagnosed with a recurrance of lung cancer on 05/09/17, for which she is recieving chemotherapy. She denies shortness of breath, chest pain, fevers, chills, and any other complaints at this time. Review of Systems - Review of Systems All systems: reviewed and no additional remarkable complaints except (cough and sneezing with vaginal bleedingc) Past Patient History - Infectious Disease Hx of Infectious Diseases: None - Past Medical History & Family History Past Medical History?: Yes - Past Social History Smoking Status: Never Smoked - CARDIAC Hx Congestive Heart Failure: Yes Hx Hypercholesterolemia: Yes Hx Hypertension: Yes - PULMONARY Hx Pneumonia: Yes - NEUROLOGICAL Hx Dementia: Yes (FORGETFUL AT TIMES. AAO X 3 AT PRESENT) - HEENT Hx HEENT Problems: No - RENAL Hx Chronic Kidney Disease: Yes Hx Kidney Stones: Yes - INTEGUMENTARY Hx Dermatological Problems: No - MUSCULOSKELETAL/RHEUMATOLOGICAL Hx Arthritis: Yes - GASTROINTESTINAL Hx Gastrointestinal Disorders: No - GENITOURINARY/GYNECOLOGICAL Hx Genitourinary Disorders: No - PSYCHIATRIC Hx Anxiety: Yes Hx Bipolar Disorder: Yes Hx Depression: Yes Hx Substance Use: No - SURGICAL HISTORY Hx Surgeries: Yes Hx Pulmonary Surgery: Yes (LEFT LUNG) Hx Tubal Ligation: Yes Other/Comment: HX:left lower lobectomy. HX: BRONCHOSCOPY(05/12/17) - ANESTHESIA Hx Anesthesia: Yes Hx Anesthesia Reactions: No Hx Malignant Hyperthermia: No Meds Allergies/Adverse Reactions: Allergies Allergy/AdvReac Type Severity Reaction Status Date / Time No Known Allergies Allergy Verified 09/20/17 14:31 - Medications Medications: Current Medications Albuterol/Ipratropium (Duoneb 3 Mg/0.5 Mg (3 Ml) Ud) 3 ml INH RQ6 [facility] Last Admin: 09/21/17 08:14 Dose: 3 ml Furosemide (Lasix) 20 mg PO QAM [facility] Last Admin: 09/21/17 10:01 Dose: 20 mg Glipizide (Glucotrol) 5 mg PO DAILY [facility] Heparin Sodium (Porcine) (Heparin) 5,000 units SC Q12 [facility] Azithromycin 500 mg/ Sodium (Chloride) 250 mls @ 250 mls/hr IVPB DAILY [facility] Last Admin: 09/21/17 12:26 Dose: 250 mls/hr Ceftriaxone Sodium 1 gm/ (Sodium Chloride) 100 mls @ 100 mls/hr IVPB DAILY [facility] Last Admin: 09/21/17 10:01 Dose: 100 mls/hr Insulin Human Regular (Novolin R) 0 unit SC ACHS [facility] PRN Reason: Protocol Last Admin: 09/21/17 17:53 Dose: 3 unit Prednisone (Prednisone Tab) 20 mg PO DAILY [facility] Last Admin: 09/21/17 10:02 Dose: 20 mg Sitagliptin Phosphate (Januvia) 25 mg PO DAILY [facility] Last Admin: 09/21/17 10:01 Dose: 25 mg Physical Exam - Head Exam Head Exam: ATRAUMATIC, NORMOCEPHALIC - Eye Exam Eye Exam: Normal appearance - ENT Exam ENT Exam: Mucous Membranes Moist - Neck Exam Neck exam: Positive for: Normal Inspection - Respiratory Exam Respiratory Exam: Decreased Breath Sounds - Cardiovascular Exam Cardiovascular Exam: REGULAR RHYTHM - GI/Abdominal Exam GI & Abdominal Exam: Normal Bowel Sounds Results - Vital Signs Recent Vital Signs: Last Vital Signs Temp 98.9 F 09/21/17 15:00 Pulse 99 H 09/21/17 15:00 Resp 18 09/21/17 15:00 BP 120/88 09/21/17 15:00 Pulse Ox 98 09/21/17 15:00 - Labs Result Diagrams: 09/20/17 17:02 09/20/17 17:02 Labs: Laboratory Results - last 24 hr 09/21/17 09/21/17 09/21/17 08:03 10:09 13:37 POC Glucose (mg/dL) 234 H 210 H 373 H 09/21/17 16:32 POC Glucose (mg/dL) 268 H Assessment & Plan (1) Pneumonia Status: Acute Comment: 1. Pulmonary embolism. -CT angio (09/20/17) shows residual embolism is the right pulmonary artery and the right lower lobe pulmonary artery. Compared to prior CT, the amount of clot present is significantly reduced and is compatible with a resolving PE. - restart Elliquis. 2. Pneumonia. - CT () shows bilateral pneumonia, greater on the left. Compared to prior study, there is decreasing consolidation in the RLL but is otherwise unchanged. - Zosyn. 3. Lung CA. - consider Palliative care consult (2) Pulmonary embolism Status: Acute (3) Vaginal bleeding Status: Acute
--- NOTE | 2017-09-21 19:48 | US ---
EXAM: US Pelvis Complete, Transabdominal CLINICAL HISTORY: 72 years old, female; Signs and symptoms; Other: Vag bleed; Patient HX: Prior 03-13-17; Additional info: Post menapusal bleeding TECHNIQUE: Real-time transabdominal pelvic ultrasound (complete) with image documentation. COMPARISON: PELVIS/TRANSVAG US 2016-10-14 16:34 FINDINGS: Uterus/cervix: Uterus measures 9.8 x 5.4 x 6.3 cm in size. Heterogeneous uterus. Endometrium: 1.9 cm in thickness. Right ovary: Not visualized. Left ovary: Not visualized. Free fluid: No significant free fluid. Bladder: Unremarkable as visualized. IMPRESSION: 1. Thickened endometrium, abnormal in postmenopausal patient. Endometrial carcinoma is diagnosis of exclusion. Clinical correlation and follow up are recommended. EXAM: US Pelvis, Transvaginal CLINICAL HISTORY: 72 years old, female; Signs and symptoms; Other: Vag bleed; Patient HX: Prior 03-13-17; Additional info: Post menapusal bleeding TECHNIQUE: Real-time transvaginal pelvic ultrasound (complete) with image documentation. Transvaginal imaging was used for better evaluation of the endometrium and adnexa. COMPARISON: PELVIS/TRANSVAG US 2016-10-14 16:34 FINDINGS: Uterus/cervix: Uterus measures 9.8 x 5.4 x 6.3 cm in size. Heterogeneous uterus. Endometrium: 1.9 cm in thickness. Right ovary: Not visualized. Left ovary: Not visualized. Free fluid: No significant free fluid. Bladder: Empty bladder which cannot be evaluated with this probe.
[2017-09-22] MEDS: Albuterol-Ipratrop 3 mg / 0.5 (3 ml) UD INH SCH ×3 (01:17→13:07)
[2017-09-22 02:11] VITALS: RESP 20
[2017-09-22 06:35] LABS: HEMOGLOBIN 10.8 g/dL (11.0-16.0); MEAN CELL VOLUME 95.3 fL (81.0-99.0); MEAN CORPUSCULAR HEMOGLOBIN 32.8 pg (27.0-31.0); MEAN CORPUSCULAR HGB CONC 34.4 g/dL (33.0-37.0); MEAN PLATELET VOLUME 10.2 fL (7.2-11.7); RBC 3.29 Mil/uL (3.80-5.20); RED CELL DISTRIBUTION WIDTH 15.3 % (11.5-14.5)
[2017-09-22] MEDS: (Novolin R) Insulin Human Regular 100 units/ml vial SC SCH ×3 (08:24→17:25)
[2017-09-22] MEDS: Azithromycin 500 MG in Sodium Chloride 0.9% 250 ML IVPB SCH (11:48)
--- NOTE | 2017-09-22 11:59 | CP.PCM.PN ---
Subjective - Date & Time of Evaluation Date of Evaluation: 09/22/17 Time of Evaluation: 11:56 - Subjective Subjective: The patient's bleeding is better, minimal spotting. Hemoglobin lower. Objective - Vital Signs/Intake and Output Vital Signs (last 24 hours): Temp Pulse Resp BP Pulse Ox 97.2 F L 86 20 113/76 100 09/22/17 07:49 09/22/17 07:49 09/22/17 07:49 09/22/17 09:47 09/22/17 07:49 - Medications Medications: Current Medications Albuterol/Ipratropium (Duoneb 3 Mg/0.5 Mg (3 Ml) Ud) 3 ml INH RQ6 [facility] Last Admin: 09/22/17 07:37 Dose: Not Given Ferric Sodium Gluconate Complex (Ferrlecit) 125 mg IVPB DAILY [facility] Stop: 09/30/17 12:01 Furosemide (Lasix) 20 mg PO QAM [facility] Last Admin: 09/22/17 09:47 Dose: 20 mg Glipizide (Glucotrol) 5 mg PO DAILY [facility] Last Admin: 09/22/17 09:44 Dose: 5 mg Heparin Sodium (Porcine) (Heparin) 5,000 units SC Q12 [facility] Last Admin: 09/22/17 09:44 Dose: 5,000 units Azithromycin 500 mg/ Sodium (Chloride) 250 mls @ 250 mls/hr IVPB DAILY [facility] Last Admin: 09/22/17 11:48 Dose: 250 mls/hr Ceftriaxone Sodium 1 gm/ (Sodium Chloride) 100 mls @ 100 mls/hr IVPB DAILY [facility] Last Admin: 09/22/17 09:45 Dose: 100 mls/hr Insulin Human Regular (Novolin R) 0 unit SC ACHS [facility] PRN Reason: Protocol Last Admin: 09/22/17 08:24 Dose: 3 unit Prednisone (Prednisone Tab) 20 mg PO DAILY [facility] Last Admin: 09/22/17 09:44 Dose: 20 mg Sitagliptin Phosphate (Januvia) 25 mg PO DAILY [facility] Last Admin: 09/22/17 09:44 Dose: 25 mg - Labs Labs: 09/22/17 06:24 09/20/17 17:02 PT 12.7 SECONDS (9.7-12.2) H 09/20/17 17:02 INR 1.1 09/20/17 17:02 APTT 29 SECONDS (21-34) 09/20/17 17:02 Assessment and Plan (1) Lung cancer Assessment & Plan: Metastatic lung cancer, new pulmonary embolus, new vaginal bleeding. The patient will return for follow up, to the office to check labs, follow up with Television Engineering Teacher for a possible D and C. The family and patient aware of the issues, to restart Eliquis as an outpatient , to call if vaginal bleeding resumes and to follow up ERON with Television [employer] Teacher. Status: Chronic
[2017-09-22] MEDS ORDERED: Ferric Sodium Gluconat Complex 62.5 mg/5 ml Vial IVPB SCH ×2 (12:00→14:15)
[2017-09-22] MEDS ORDERED: Ferric Sodium Gluconat Complex 125 MG in Sodium Chloride 0.9% 100 ML IVPB ONE (14:30)
--- NOTE | 2017-09-22 16:08 | CP.PCM.PN ---
Subjective - Date & Time of Evaluation Date of Evaluation: 09/22/17 Time of Evaluation: 11:20 - Subjective Subjective: Patient seen and examined at bedside. Patient is resting comfortably. Symptoms are unchanged from yesterday, patient still denies shortness of breath and chest pain. She reports breathing fine without nasal cannula. 1. Pulmonary embolism -CT angio (09/20/17) shows residual embolism is the right pulmonary artery and the right lower lobe pulmonary artery. Compared to prior CT, the amount of clot present is significantly reduced and is compatible with a resolving PE. - Heparin - Consider discontinuing nasal cannula 2. Pneumonia - CT (09/20/17) shows bilateral pneumonia, greater on the left. Compared to prior study, there is decreasing consolidation in the RLL but is otherwise unchanged. - Zosyn Objective - Vital Signs/Intake and Output Vital Signs (last 24 hours): Temp Pulse Resp BP Pulse Ox 97.2 F L 86 20 113/76 100 09/22/17 07:49 09/22/17 07:49 09/22/17 07:49 09/22/17 09:47 09/22/17 07:49 - Medications Medications: Current Medications Albuterol/Ipratropium (Duoneb 3 Mg/0.5 Mg (3 Ml) Ud) 3 ml INH RQ6 [facility] Last Admin: 09/22/17 13:07 Dose: Not Given Ferric Sodium Gluconate Complex (Ferrlecit) 125 mg IVPB DAILY [facility] Stop: 09/30/17 14:16 Furosemide (Lasix) 20 mg PO QAM [facility] Last Admin: 09/22/17 09:47 Dose: 20 mg Glipizide (Glucotrol) 5 mg PO DAILY [facility] Last Admin: 09/22/17 09:44 Dose: 5 mg Heparin Sodium (Porcine) (Heparin) 5,000 units SC Q12 [facility] Last Admin: 09/22/17 09:44 Dose: 5,000 units Azithromycin 500 mg/ Sodium (Chloride) 250 mls @ 250 mls/hr IVPB DAILY [facility] Last Admin: 09/22/17 11:48 Dose: 250 mls/hr Ceftriaxone Sodium 1 gm/ (Sodium Chloride) 100 mls @ 100 mls/hr IVPB DAILY [facility] Last Admin: 09/22/17 09:45 Dose: 100 mls/hr Insulin Human Regular (Novolin R) 0 unit SC ACHS [facility] PRN Reason: Protocol Last Admin: 09/22/17 14:03 Dose: Not Given Prednisone (Prednisone Tab) 20 mg PO DAILY [facility] Last Admin: 09/22/17 09:44 Dose: 20 mg Sitagliptin Phosphate (Januvia) 25 mg PO DAILY [facility] Last Admin: 09/22/17 09:44 Dose: 25 mg - Labs Labs: 09/22/17 06:24 09/20/17 17:02 PT 12.7 SECONDS (9.7-12.2) H 09/20/17 17:02 INR 1.1 09/20/17 17:02 APTT 29 SECONDS (21-34) 09/20/17 17:02 Assessment and Plan (1) Pneumonia Status: Acute (2) Pulmonary embolism Status: Acute (3) Vaginal bleeding Status: Acute
[2017-09-22 16:36] VITALS: BP 126/81; TEMP 98.4; O2SAT 98
[2017-09-22 17:02] VITALS: PULSE 98
--- NOTE | 2017-09-23 03:54 | CARD ---
APPROVED REPORT EKG Measurement Heart [id number] <Conclusion> Normal sinus rhythm Left axis deviation Voltage criteria for left ventricular hypertrophy Abnormal ECG
== END 2017-09-22 18:13 | disposition home or self-care (01) | DRG 175 ==
LOC: C.ER 14:24 → C.9E 21:46 → C.6T 09-21 13:24
PROVIDERS: ADMIT Internal Medicine Nephrology; ATTEND Internal Medicine Nephrology
DX: I26.99 Other pulmonary embolism without acute cor pulmonale (principal); J18.9 Pneumonia, unspecified organism; N93.9 Abnormal uterine and vaginal bleeding, unspecified; I13.0 Hypertensive heart and chronic kidney disease with heart failure and stage 1 through stage 4 chronic kidney disease, or unspecified chronic kidney disease; E11.22 Type 2 diabetes mellitus with diabetic chronic kidney disease; C34.90 Malignant neoplasm of unspecified part of unspecified bronchus or lung; I50.9 Heart failure, unspecified; F03.90 Unspecified dementia, unspecified severity, without behavioral disturbance, psychotic disturbance, mood disturbance, and anxiety; F31.9 Bipolar disorder, unspecified; E78.00 Pure hypercholesterolemia, unspecified; N18.9 Chronic kidney disease, unspecified; Z85.118 Personal history of other malignant neoplasm of bronchus and lung; Z87.442 Personal history of urinary calculi; Z98.51 Tubal ligation status; Z87.01 Personal history of pneumonia (recurrent)

== ENCOUNTER 2018-05-14 15:08 | Inpatient (IN) | payer OTHER ==
[2018-05-14 15:09] VITALS: BMI 33.3
[2018-05-14] MEDS ORDERED: Sodium Chloride 0.9% 500 ML IV ONE (15:44)
--- NOTE | 2018-05-14 15:48 | C.PDOC ---
History Of Present Illness <Susan Vera - Last Filed: 05/14/18 19:09> <Kaleigh Adkins - Last Filed: 05/14/18 20:05> 73 year old female, with PMHx of lung cancer and diabetes, presents to the emergency department with daughter, complaining of SOB since this morning, associated with mid stertal chest pain. EMT treated pt with ASA and 0.4 nitrolycerin sl. As per daughter, patient is currently in treatment and not in remission. Patient denies any nausea, vomiting, diarrhea, abdominal pain, neck pain, or leg pain. Pt was dxed with lung Ca 13 yrs ago, was in remission and recurred 1 yr ago. Pt is treated with monthly chemo infusions. (Susan Vera) History Per: Patient History/Exam Limitations: no limitations Onset/Duration Of Symptoms: Hrs Current Symptoms Are (Timing): Still Present <Susan Vera - Last Filed: 05/14/18 19:09> <Kaleigh Adkins - Last Filed: 05/14/18 20:05> Time Seen by Provider: 05/14/18 15:44 Chief Complaint (Nursing): Shortness Of Breath Past Medical History Reviewed: Historical Data, Nursing Documentation, Vital Signs - Medical History PMH: Anxiety, Arthritis, Bipolar Disorder, CHF, Dementia (FORGETFUL AT TIMES. AAO X 3 AT PRESENT), Depression, Diabetes (NIDDM), HTN, Hypercholesterolemia, Kidney Stones, Pneumonia, Pulmonary Embolism, Chronic Kidney Disease Denies: COPD Surgical History: Family History: States: No Known Family Hx - Social History Hx Tobacco Use: No Hx Alcohol Use: No Hx Substance Use: No - Immunization History Hx Tetanus Toxoid Vaccination: Yes Hx Influenza Vaccination: Yes Hx Pneumococcal Vaccination: Yes <Susan Vera - Last Filed: 05/14/18 19:09> Vital Signs: Last Vital Signs Temp 98.9 F 05/14/18 19:10 Pulse 105 H 05/14/18 19:10 Resp 24 05/14/18 19:10 BP 108/77 05/14/18 19:10 Pulse Ox 95 05/14/18 19:10 - [facility] Procedures DRAINAGE OF LEFT LUNG, ENDO, DIAGN (05/09/17) DRAINAGE OF LEFT UPPER LUNG LOBE, ENDO, DIAGN (01/22/17) ESOPHAGOGASTRODUODENOSCOPY [EGD] W/CLOSED BIOPSY (05/21/15) EXCISION OF LEFT UPPER LOBE BRONCHUS, ENDO, DIAGN (01/22/17) INJECT/INFUSE NEC (02/06/13) Review Of Systems Except As Marked, All Systems Reviewed And Found Negative. Constitutional: Negative for: Fever, Chills Cardiovascular: Positive for: Chest Pain Respiratory: Positive for: Shortness of Breath Gastrointestinal: Negative for: Nausea, Vomiting, Abdominal Pain, Diarrhea Musculoskeletal: Negative for: Neck Pain, Leg Pain <Susan Vera Filed: 05/14/18 19:09> Physical Exam - Physical Exam Appears: Non-toxic, No Acute Distress Skin: Normal Color, Warm, Dry Head: Atraumatic, Normacephalic Eye(s): bilateral: Normal Inspection Ear(s): Bilateral: Normal Oral Mucosa: Moist Tongue: Normal Appearing Lips: Normal Appearing Neck: Normal, Normal ROM Chest: Symmetrical Cardiovascular: Rhythm Regular, No Murmur Respiratory: Normal Breath Sounds, No Rales, No Rhonchi, No Wheezing Neurological/Psych: Oriented x3, Normal Speech <Susan Vera Filed: 05/14/18 19:09> ED Course And Treatment - Laboratory Results Result Diagrams: 05/14/18 16:06 05/14/18 16:06 Lab Interpretation: Abnormal (leukocytopenia, elevated glucose) ECG Rhythm: Sinus Tachycardia ECG Interpretation: Abnormal Interpretation Of ECG: sinus tachy with PAC, incomplete RBBB, LVH, left ant fascicular block. O2 Sat by Pulse Oximetry: 99 (RA) Pulse Ox Interpretation: Normal - Radiology CXR: Read By Radiologist CXR Interpretation: Yes: No Acute Disease - Other Rad Chest X-Ray X-Ray: Read By Radiologist Interpretation: FINDINGS: The right-sided MediPort terminates in the SVC. LUNGS: There is patient rotation to the left. There is interval decrease in size of airspace disease in the right mid lung. There is persistent masslike opacity in the left upper lobe and retrocardiac consolidation. PLEURA: No pneumothorax. Small left pleural fluid seen. CARDIOVASCULAR: Normal. OSSEOUS STRUCTURES: No significant abnormalities. VISUALIZED UPPER ABDOMEN: Normal. OTHER FINDINGS: None. IMPRESSION: Interval improved aeration in the right mid lung. No change in left upper lobe and left lower lobe airspace disease. Small left pleural effusion is unchanged. <Susan Vera Filed: 05/14/18 19:09> - Laboratory Results Result Diagrams: 05/14/18 16:06 05/14/18 16:06 Pulse Ox Interpretation: Normal <Kaleigh Adkins - Last Filed: 05/14/18 20:05> Critical Care Time - Critical Care Note Total Time (in mins): 30 Documented critical care: time excludes all time spent performing seperately billable procedures. <LucilleKaleigh - Last Filed: 05/14/18 20:05> Medical Decision Making <Susan Vera - Last Filed: 05/14/18 19:09> <LucilleKaleigh - Last Filed: 05/14/18 20:05> Medical Decision Making: Impression: SOB Plan: -Chest X-Ray -Labs -EKG -IV Fluids -Urinalysis CTA (Susan Vera) Disposition - Disposition Disposition Time: 19:07 <Susan Vera - Last Filed: 05/14/18 19:09> Discussed With DrKamini: Eron Valencia Comment: accepted the pt on his service and took over the care at 8PM Doctor Will See Patient In The: ED Counseled Patient/Family Regarding: Studies Performed, Diagnosis - POA Present On Arrival: Poor Glycemic Control <LucilleKaleigh - Last Filed: 05/14/18 20:05> - Disposition Disposition: HOSPITALIZED Condition: GUARDED Forms: [facility] (Slovak) - Clinical Impression Clinical Impression: NSTEMI (non-ST elevated myocardial infarction), Pulmonary embolism, Chest pain - PA / TRACK LAYING SUPERVISOR / Resident Statement MD/DO has reviewed & agrees with the documentation as recorded. - Scribe Statement The provider has reviewed the documentation as recorded by the Scribe <Susan Vera - Last Filed: 05/14/18 19:09> <Kaleigh Adkins - Last Filed: 05/14/18 20:05> - Scribe Statement Evelin Sandoval All medical record entries made by the Scribe were at my direction and personally dictated by me. I have reviewed the chart and agree that the record accurately reflects my personal performance of the history, physical exam, medical decision making, and the department course for this patient. I have also personally directed, reviewed, and agree with the discharge instructions and disposition. (Susan Vera) Physician Patient Turnover Patient Signed Over To: Kaleigh Adkins Handoff Comments: pending CTA <Susan Vera - Last Filed: 05/14/18 19:09>
--- NOTE | 2018-05-14 15:57 | C.PDOC ---
Time Seen by Provider: 05/14/18 15:44 Chief Complaint (Nursing): Shortness Of Breath Past Medical History Vital Signs: Last Vital Signs Temp 98.0 F 05/14/18 15:26 Pulse 116 H 05/14/18 15:26 Resp 30 H 05/14/18 15:26 BP 123/84 05/14/18 15:26 Pulse Ox 99 05/14/18 15:26 - Medical History PMH: Anxiety, Arthritis, Bipolar Disorder, CHF, Dementia (FORGETFUL AT TIMES. AAO X 3 AT PRESENT), Depression, Diabetes (NIDDM), HTN, Hypercholesterolemia, Kidney Stones, Pneumonia, Pulmonary Embolism, Chronic Kidney Disease Denies: COPD Surgical History: - [facility] Procedures DRAINAGE OF LEFT LUNG, ENDO, DIAGN (05/09/17) DRAINAGE OF LEFT UPPER LUNG LOBE, ENDO, DIAGN (01/22/17) ESOPHAGOGASTRODUODENOSCOPY [EGD] W/CLOSED BIOPSY (05/21/15) EXCISION OF LEFT UPPER LOBE BRONCHUS, ENDO, DIAGN (01/22/17) INJECT/INFUSE NEC (02/06/13) Family History: States: Unknown Family Hx - Social History Hx Tobacco Use: No Hx Alcohol Use: No Hx Substance Use: No - Immunization History Hx Tetanus Toxoid Vaccination: Yes Hx Influenza Vaccination: Yes Hx Pneumococcal Vaccination: Yes ED Course And Treatment O2 Sat by Pulse Oximetry: 99 Disposition - Disposition
[2018-05-14 16:16] LABS: BASO % 0.3 % (0.0-2.0); EOS % 0.6 % (0.0-4.0); HEMOGLOBIN 14.4 g/dL (11.0-16.0); LYMPH % 24.6 % (20.0-40.0); MEAN CELL VOLUME 98.6 fL (81.0-99.0); MEAN CORPUSCULAR HEMOGLOBIN 32.8 pg (27.0-31.0); MEAN CORPUSCULAR HGB CONC 33.3 g/dL (33.0-37.0); MEAN PLATELET VOLUME 8.8 fL (7.2-11.7); MONO # 0.7 K/uL (0.0-0.8); MONO % 16.2 % (0.0-10.0); NEUT # 2.5 K/uL (1.8-7.0); NEUT % 58.3 % (50.0-75.0); NRBC % 0.3 % (0.0-2.0); RBC 4.39 Mil/uL (3.80-5.20); RED CELL DISTRIBUTION WIDTH 12.5 % (11.5-14.5); WHITE BLOOD COUNT 4.2 K/uL (4.8-10.8)
--- NOTE | 2018-05-14 16:17 | RAD ---
Date of service: 05/14/2018 PROCEDURE: CHEST RADIOGRAPH, 1 VIEW HISTORY: SOB, chest pain COMPARISON: 08/31/2017. FINDINGS: The right-sided MediPort terminates in the SVC. LUNGS: There is patient rotation to the left. There is interval decrease in size of airspace disease in the right mid lung. There is persistent masslike opacity in the left upper lobe and retrocardiac consolidation. PLEURA: No pneumothorax. Small left pleural fluid seen. CARDIOVASCULAR: Normal. OSSEOUS STRUCTURES: No significant abnormalities. VISUALIZED UPPER ABDOMEN: Normal. OTHER FINDINGS: None. IMPRESSION: Interval improved aeration in the right mid lung. No change in left upper lobe and left lower lobe airspace disease. Small left pleural effusion is unchanged.
[2018-05-14 16:26] LABS: INR 1.1; PROTHROMBIN TIME 12.3 SECONDS (9.7-12.2)
[2018-05-14 16:29] LABS: ALB/GLOB RATIO 0.9 (1.0-2.1); ALT/SGPT 86 U/L (9-52); AST/SGOT 78 U/L (14-36); BLOOD UREA NITROGEN 12 mg/dL (7-17); CALCIUM 10.5 mg/dl (8.6-10.4); GFR NON-AFRICAN AMERICAN > 60
[2018-05-14 16:47] LABS: B-TYPE NATRIURETIC PEPTIDE 396 pg/mL (0-900); CK-MB 1.54 ng/mL (0.0-3.38)
[2018-05-14] MEDS ORDERED: Iodixanol 320 MG/ML 100 ML BOTTLE IV ONE (18:41)
[2018-05-14] MEDS ORDERED: Aspirin 325 mg EC Tablets PO STA (19:36)
[2018-05-14] MEDS ORDERED: Aspirin 325 mg EC Tablets PO ONE (19:40)
[2018-05-14] MEDS ORDERED: Heparin25000 units/250ml 1/2NS 25,000 UNITS/250 ML BAG IV ONE (20:01)
[2018-05-14 20:55] LABS: SQUAMOUS EPITHIAL 5 /hpf (0-5); URINE BACTERIA OCC (<OCC); URINE BILIRUBIN NEGATIVE (NEGATIVE); URINE BLOOD 2+ (NEGATIVE); URINE CLARITY Clear (Clear); URINE COLOR Yellow (YELLOW); URINE GLUCOSE (UA) 3+ mg/dL (Normal); URINE LEUKOCYTE ESTERASE NEG Leu/uL (Negative); URINE PROTEIN NEGATIVE (NEGATIVE)
[2018-05-14] MEDS ORDERED: Azithromycin 500mg/250ML NS 500 MG/250 ML BAG IVPB ONE (22:10)
[2018-05-14] MEDS ORDERED: MethylPREDNISolone 40 mg Vial ONE (22:27)
[2018-05-14] MEDS: Azithromycin 500mg/250ML NS 500 MG/250 ML BAG IVPB SCH (22:30)
[2018-05-14] MEDS: (Novolog) Insulin Aspart, Recombinant 100 u/ml 10 ml vial SC SCH (22:43)
[2018-05-14] MEDS ORDERED: (Novolog) Insulin Aspart, Recombinant 100 u/ml 10 ml vial ONE (22:44)
[2018-05-15 01:31] LABS: CK-MB 3.09 ng/mL (0.0-3.38); TROPONIN I 0.205 ng/mL (0.00-0.120)
[2018-05-15] MEDS: Albuterol-Ipratrop 3 mg / 0.5 (3 ml) UD INH SCH ×3 (03:25→19:59)
[2018-05-15] MEDS ORDERED: MethylPREDNISolone 40 mg Vial ONE (06:41)
[2018-05-15] MEDS ORDERED: Albuterol-Ipratrop 3 mg / 0.5 (3 ml) UD ONE (08:37)
[2018-05-15] MEDS: (Novolog) Insulin Aspart, Recombinant 100 u/ml 10 ml vial SC SCH ×4 (09:10→22:03)
[2018-05-15 09:20] LABS: CK-MB 2.71 ng/mL (0.0-3.38); TROPONIN I 0.114 ng/mL (0.00-0.120)
[2018-05-15] MEDS ORDERED: Enoxaparin 150 mg Syringe SC SCH (09:45)
--- NOTE | 2018-05-15 09:47 | CT ---
Date of service: 05/14/2018 PROCEDURE: CT Chest with contrast (Pulmonary Angiogram) HISTORY: sob, chest pain COMPARISON: 09/20/2017 TECHNIQUE: Axial computed tomography images were obtained of the chest in the pulmonary arterial phase of enhancement. Coronal and sagittal reformatted images were created and reviewed. Intravenous contrast dose: 100 mL Visipaque 320 Radiation dose: Total exam DLP = 421.43 mGy-cm. This CT exam was performed using one or more of the following dose reduction techniques: Automated exposure control, adjustment of the mA and/or kV according to patient size, and/or use of iterative reconstruction technique. FINDINGS: PULMONARY ARTERIES: There has been a marked increase in the extent of pulmonary arterial filling defects when compared to prior examination of 09/20/2017. Extensive filling defects in right upper lobe pulmonary artery branches. Filling defect in right middle lobe and lower lobe pulmonary artery branches extending to far distal lower lobe pulmonary artery branches and also right upper lobe pulmonary artery branches. New left lower lobe pulmonary embolism. AORTA: No acute findings. No thoracic aortic aneurysm. LUNGS: Consolidation in lingular segment left upper lobe, left lower lobe, right lower lobe and anterior and posterior segments right upper lobe. These areas of consolidation are nonspecific and are grossly unchanged. In addition, there is extensive nodular opacity in the anterior right upper lobe increased in extent compared to prior examination. This may be infectious or inflammatory but is not typical sequela of pulmonary embolism. The appearance may also reflect small airways disease with a tree in bud pattern. These chronic opacities may reflect areas of pulmonary infarction. There is no discrete mass identified. There are surgical clips at the left inferior hilum likely reflecting prior partial left lower lobectomy. PLEURAL SPACES: Unremarkable. No effusion or pneumothorax. HEART: Unremarkable. No cardiomegaly. No significant pericardial effusion. LYMPH NODES: No lymphadenopathy. BONES, CHEST WALL: Unremarkable. No fracture or destructive lesion OTHER FINDINGS: There is intrahepatic biliary air in the left lobe of the liver unchanged from prior CT related to prior surgery. IMPRESSION: In comparison to the prior examination of 09/20/2017, there is marked increase in the extent of pulmonary arterial embolus. Right middle lobe, right lower lobe, right upper lobe and left lower lobe pulmonary embolism is detected. Extensive multifocal consolidation, some of which is chronic and may reflect pulmonary infarcts. New extensive nodular opacity in the anterior right upper lobe. Possibly infectious etiology. The preliminary findings for this examination were reported by [facility] at 7:40 p.m. on 05/14/2018. There is discordant of this report with the preliminary findings. Preliminary report was compared to examination of 08/31/2017. Interval examination of 09/20/2017, demonstrated significant improvement in extent of pulmonary embolism as compared to examination of 08/31/2017. There has now been significant worsening in the extent of pulmonary embolism compared to this interval examination of September 20. This discrepancy was discussed by telephone with the nurse, and, in the emergency room, at 9:35 a.m. on 05/15/2018.
[2018-05-15] MEDS ORDERED: cefTRIAXone IV 1 gm in Dextros 1 GM in Dextrose 5% In Water 50 ML IVPB SCH (10:00)
[2018-05-15] MEDS ORDERED: GlipiZIDE 2.5 mg Tab PO SCH (10:00)
[2018-05-15] MEDS ORDERED: Enoxaparin 80 mg Syringe ONE (10:20)
[2018-05-15] MEDS ORDERED: (Novolog) Insulin Aspart, Recombinant 100 u/ml 10 ml vial ONE (10:26)
[2018-05-15] MEDS ORDERED: cefTRIAXone 1 gm 1 GM/100 ML BAG IVPB ONE (10:32)
[2018-05-15] MEDS: Enoxaparin 80 mg Syringe SC SCH (12:57)
[2018-05-15] MEDS: MethylPREDNISolone 40 mg Vial IV SCH ×2 (13:29→22:04)
--- NOTE | 2018-05-15 15:16 | CP.PCM.CON ---
History of Present Illness - History of Present Illness History of Present Illness: 72F PMH: lung cancer, anxiety, arthritis, bipolar disorder, CHF, dementia, depression, diabetes (NIDDM/T2DM), hypercholesterolemia, kidney stones, CKD Patient states she has had difficulty breathing and chest pain for [address] and you done in the emergency room showed worsening pulmonary embolism and lung infiltrate. Denies fever chills. Patient states she is compliant with her meds PMH: lung cancer, anxiety, arthritis, bipolar disorder, CHF, dementia, depression, diabetes (NIDDM/T2DM), hypercholesterolemia, kidney stones, CKD, diverticulosis Surgery: Portacath 06/03/2017, left lobectomy,tubal ligation Social history: no smoking history, no alcohol history, no illicit drugs. Allergies: NKDA Review of Systems - Review of Systems All systems: reviewed and no additional remarkable complaints except (shortness of breath) Past Patient History - Infectious Disease Hx of Infectious Diseases: None - Past Medical History & Family History Past Medical History?: Yes - Past Social History Smoking Status: Never Smoked - CARDIAC Hx Congestive Heart Failure: Yes Hx Hypercholesterolemia: Yes Hx Hypertension: Yes - PULMONARY Hx Chronic Obstructive Pulmonary Disease (COPD): No Hx Pneumonia: Yes Hx Pulmonary Embolism: Yes - NEUROLOGICAL Hx Dementia: Yes (FORGETFUL AT TIMES. AAO X 3 AT PRESENT) - HEENT Hx HEENT Problems: No - RENAL Hx Chronic Kidney Disease: Yes Hx Kidney Stones: Yes - HEMATOLOGICAL/ONCOLOGICAL Hx Blood Disorders: No - INTEGUMENTARY Hx Dermatological Problems: No - MUSCULOSKELETAL/RHEUMATOLOGICAL Hx Arthritis: Yes Hx Falls: No - GASTROINTESTINAL Hx Gastrointestinal Disorders: No - GENITOURINARY/GYNECOLOGICAL Hx Genitourinary Disorders: No - PSYCHIATRIC Hx Anxiety: Yes Hx Bipolar Disorder: Yes Hx Depression: Yes Hx Substance Use: No - SURGICAL HISTORY Hx Surgeries: Yes Hx Pulmonary Surgery: Yes (LEFT LUNG) Hx Tubal Ligation: Yes Other/Comment: HX:left lower lobectomy. HX: BRONCHOSCOPY(05/12/17) - ANESTHESIA Hx Anesthesia: Yes Hx Anesthesia Reactions: No Hx Malignant Hyperthermia: No Meds Allergies/Adverse Reactions: Allergies Allergy/AdvReac Type Severity Reaction Status Date / Time No Known Allergies Allergy Verified 09/20/17 14:31 - Medications Medications: Current Medications Albuterol/Ipratropium (Duoneb 3 Mg/0.5 Mg (3 Ml) Ud) 3 ml INH RQ6 [facility] Last Admin: 05/15/18 08:20 Dose: 3 ml Aspirin (Aspirin) 325 mg PO DAILY [facility] Last Admin: 05/15/18 10:28 Dose: 325 mg Enoxaparin Sodium (Lovenox) 80 mg SC Q12H [facility] Last Admin: 05/15/18 12:57 Dose: Not Given Furosemide (Lasix) 20 mg PO QAM [facility] Last Admin: 05/15/18 10:31 Dose: 20 mg Glipizide (Glucotrol) 5 mg PO DAILY [facility] Ceftriaxone Sodium 1 gm/ (Dextrose) 100 mls @ 50 mls/30 min IVPB DAILY [facility] PRN Reason: Protocol Last Admin: 05/15/18 10:31 Dose: 50 mls/30 min Azithromycin (Zithromax 500mg In Ns Addvantage) 500 mg in 250 mls @ 167 mls/hr IVPB Q24H [facility] PRN Reason: Protocol Last Admin: 05/14/18 22:30 Dose: 167 mls/hr Insulin Aspart (Novolog) 0 unit SC ACHS [facility] PRN Reason: Protocol Last Admin: 05/15/18 12:05 Dose: 3 unit Megestrol Acetate (Megace) 40 mg PO DAILY [facility] Last Admin: 05/15/18 10:28 Dose: 40 mg Methylprednisolone (Solu-Medrol) 40 mg IV Q8 [facility] Last Admin: 05/15/18 13:29 Dose: 40 mg Pantoprazole Sodium (Protonix Inj) 40 mg IVP DAILY [facility] Last Admin: 05/15/18 10:28 Dose: 40 mg Sitagliptin Phosphate (Januvia) 25 mg PO DAILY [facility] Last Admin: 05/15/18 10:28 Dose: 25 mg Temazepam (Restoril) 15 mg PO HS [facility] Last Admin: 05/14/18 22:52 Dose: 15 mg Physical Exam - Head Exam Head Exam: ATRAUMATIC, NORMOCEPHALIC - ENT Exam ENT Exam: Mucous Membranes Moist - Respiratory Exam Respiratory Exam: Rhonchi, Wheezes - Cardiovascular Exam Cardiovascular Exam: REGULAR RHYTHM - GI/Abdominal Exam GI & Abdominal Exam: Normal Bowel Sounds, Soft - Extremities Exam Extremities exam: Positive for: pedal edema Results - Vital Signs Recent Vital Signs: Last Vital Signs Temp 97.3 F L 05/15/18 11:30 Pulse 92 H 09/24/18 11:30 Resp 20 05/15/18 11:30 BP 139/91 H 05/15/18 11:30 Pulse Ox 98 05/15/18 11:30 - Labs Result Diagrams: 05/14/18 16:06 05/14/18 16:06 Labs: Laboratory Results - last 24 hr 05/14/18 05/14/18 05/14/18 16:06 16:06 16:06 WBC 4.2 L D RBC 4.39 Hgb 14.4 D Hct 43.3 MCV 98.6 D MCH 32.8 H MCHC 33.3 RDW 12.5 Plt Count 234 MPV 8.8 Neut % (Auto) 58.3 Lymph % (Auto) 24.6 [place] % (Auto) 16.2 H Eos % (Auto) 0.6 Baso % (Auto) 0.3 Neut # (Auto) 2.5 Lymph # (Auto) 1.0 [place] # (Auto) 0.7 Eos # (Auto) 0.0 Baso # (Auto) 0.0 PT 12.3 H INR 1.1 APTT 30 Sodium 140 Potassium 4.8 Chloride 104 Carbon Dioxide 24 Anion Gap 16 BUN 12 Creatinine 0.8 Est GFR ( Amer) > 60 Est GFR (Non-Af Amer) > 60 POC Glucose (mg/dL) Random Glucose 316 H Calcium 10.5 H Total Bilirubin 1.2 AST 78 H ALT 86 H Alkaline Phosphatase 339 H Total Creatine Kinase 60 CK-MB (Mass) 1.54 Troponin I 0.1530 H* NT-Pro-B Natriuret Pep 396 Total Protein 8.2 Albumin 4.0 Globulin 4.2 H Albumin/Globulin Ratio 0.9 L Urine Color Urine Clarity Urine pH Ur Specific [place] Urine Protein Urine Glucose (UA) Urine Ketones Urine Blood Urine Nitrate Urine Bilirubin Urine Urobilinogen Ur Leukocyte Esterase Urine WBC (Auto) Urine RBC (Auto) Ur Squamous Epith Cells Urine Bacteria 05/14/18 05/14/18 05/15/18 19:52 20:46 00:58 WBC RBC Hgb Hct MCV MCH MCHC RDW Plt Count MPV Neut % (Auto) Lymph % (Auto) [place] % (Auto) Eos % (Auto) Baso % (Auto) Neut # (Auto) Lymph # (Auto) [place] # (Auto) Eos # (Auto) Baso # (Auto) PT INR APTT Sodium Potassium Chloride Carbon Dioxide Anion Gap BUN Creatinine Est GFR ( Amer) Est GFR (Non-Af Amer) POC Glucose (mg/dL) 268 H Random Glucose Calcium Total Bilirubin AST ALT Alkaline Phosphatase Total Creatine Kinase 102 CK-MB (Mass) 3.09 Troponin I 0.2050 H* NT-Pro-B Natriuret Pep Total Protein Albumin Globulin Albumin/Globulin Ratio Urine Color Yellow Urine Clarity Clear Urine pH 6.0 Ur Specific [place] 1.005 Urine Protein Negative Urine Glucose (UA) 3+ H Urine Ketones Negative Urine Blood 2+ H Urine Nitrate Negative Urine Bilirubin Negative Urine Urobilinogen 2.0 H Ur Leukocyte Esterase Neg Urine WBC (Auto) 2 Urine RBC (Auto) 14 H Ur Squamous Epith Cells 5 Urine Bacteria Occ H 05/15/18 05/15/18 05/15/18 07:20 08:50 11:33 WBC RBC Hgb Hct MCV MCH MCHC RDW Plt Count MPV Neut % (Auto) Lymph % (Auto) [place] % (Auto) Eos % (Auto) Baso % (Auto) Neut # (Auto) Lymph # (Auto) [place] # (Auto) Eos # (Auto) Baso # (Auto) PT INR APTT Sodium Potassium Chloride Carbon Dioxide Anion Gap BUN Creatinine Est GFR ( Amer) Est GFR (Non-Af Amer) POC Glucose (mg/dL) 294 H 297 H Random Glucose Calcium Total Bilirubin AST ALT Alkaline Phosphatase Total Creatine Kinase 148 H CK-MB (Mass) 2.71 Troponin I 0.1140 NT-Pro-B Natriuret Pep Total Protein Albumin Globulin Albumin/Globulin Ratio Urine Color Urine Clarity Urine pH Ur Specific [place] Urine Protein Urine Glucose (UA) Urine Ketones Urine Blood Urine Nitrate Urine Bilirubin Urine Urobilinogen Ur Leukocyte Esterase Urine WBC (Auto) Urine RBC (Auto) Ur Squamous Epith Cells Urine Bacteria Assessment & Plan (1) Pulmonary embolism Status: Acute Comment: Lovenox 1 mg per KG. Venous Doppler of lower extremities. IVC filter. IV antibiotics (2) Pneumonia Status: Acute
--- NOTE | 2018-05-15 18:02 | CP.PCM.CON ---
History of Present Illness - History of Present Illness History of Present Illness: I was asked to evaluate patient by Dr Valencia. Patient is a 73 year ld female with PMH HTN, lung CAD, PE on eliquis who presents with dyspnea. The patient was previously diagnosed with PE and was placed on Eliquis. She states she developed bleeding and was taking it every other day. She was noted to have worsening dyspnea one day prior to her presentation. The patient was found to have PE. She denies current chest pain although she has dyspnea on exertion. Review of Systems - Constitutional Constitutional: absent: As Per HPI, Anorexia, Chills, Daytime Sleepiness, Excessive Sweating, Fatigue, Fever, Frequent Falls, Headache, Increased Appetite , Lethargy, Malaise, Night Sweats, Snoring, Sleep Apnea, Weight Gain, Weight Loss, Weakness, Other - EENT Eyes: absent: As Per HPI, Blind Spots, Blurred Vision, Change in Vision, Decreased Night Vision, Diplopia, Discharge, Dry Eye, Exophthalmos, Floaters, Irritation, Itchy Eyes, Loss of Peripheral Vision, Pain, Photophobia, Requires Corrective Lenses, Sees Flashes, Spots in Vision, Tunnel Vision, Other Visual Disturbances, Loss of Vision, Other Ears: absent: As Per HPI, Decreased Hearing, Ear Discharge, Ear Pain, Tinnitus, Abnormal Hearing, Disequilibrium, Dizziness, Other Nose/Mouth/Throat: absent: As Per HPI, Epistaxis, Nasal Congestion, Nasal Discharge, Nasal Obstruction, Nasal Trauma, Nose Pain, Post Nasal Drip, Sinus Pain, Sinus Pressure, Bleeding Gums, Change in Voice, Dental Pain, Dry Mouth, Dysphagia, Halitosis, Hoarsness, Lip Swelling, Mouth Lesions, Mouth Pain, Odynophagia, Sore Throat, Throat Swelling, Tongue Swelling, Facial Pain, Neck Pain, Neck Mass, Other - Cardiovascular Cardiovascular: absent: As Per HPI, Acrocyanosis, Chest Pain, Chest Pain at Rest , Chest Pain with Activity, Claudication, Diaphoresis, Dyspnea, Dyspnea on Exertion, Edema, Irregular Heart Rhythm, Pain Radiating to Arm/Neck/Jaw, Leg Edema, Leg Ulcers, Lightheadedness, Orthopnea, Palpitations, Paroxysmal Nocturnal Dyspnea, Pedal Edema, Radiating Pain, Rapid Heart Rate, Slow Heart Rate, Syncope, Other - Respiratory Respiratory: Dyspnea - Gastrointestinal Gastrointestinal: absent: As Per HPI, Abdominal Pain, Belching, Bloating, Change in Bowel Habits, Change in Stool Character, Coffee Ground Emesis, Constipation, Cramping, Diarrhea, Dyspepsia, Dysphagia, Early Satiety, Excessive Flatus, Fecal Incontinence, Heartburn, Hematemesis, Hematochezia, Loose Stools, Melena, Nausea, Odynophagia, Temesmus, Vomiting, Other - Genitourinary Genitourinary: absent: As Per HPI, Change in Urinary Stream, Difficulty Urinating, Dysuria, Flank Pain, Hematuria, Pyuria, Nocturia, Urinary Incontinence, Urinary Frequency, Urinary Hesitance, Urinary Urgency, Voiding Freq/Small Amts, Freq UTI, Hx Renal/Bladder Calculi, Hx /Renal Surgery, Bladder Distension, Other - Musculoskeletal Musculoskeletal: absent: As Per HPI, Abnormal Gait, Arthralgias, Atrophy, Back Pain, Deformity, Joint Swelling, Limited Range of Motion, Loss of Height, Muscle Cramps, Muscle Weakness, Myalgias, Neck Pain, Numbness, Radiating Pain into Limb, Stiffness, Tingling, Other - Integumentary Integumentary: absent: As Per HPI, Acne, Alopecia, Bleeding Lesions, Change in Hair, Change in Nails, Change in Pigmentation, Changing Lesions, Dry Skin, Erythema, Furuncle, Hirsutism, Lesions, New Lesions, Non-Healing Lesions, Photosensitivity, Pruritus, Rash, Skin Pain, Skin Ulcer, Sores, Striae, Swelling , Unusual Bruising, Wounds, Jaundice, Other - Neurological Neurological: absent: As Per HPI, Abnormal Gait, Abnormal Hearing, Abnormal Movements, Abnormal Speech, Behavioral Changes, Burning Sensations, Confusion, Convulsions, Disequilibrium, Dizziness, Numbness, Focal Weakness, Frequent Falls , Headaches, Lack of Coordination, Loss of Vision, Memory Loss, Paresthesias, Radicular Pain, Restless Legs, Sensory Deficit, Syncope, Tingling, Tremor, Vertigo, Weakness, Other Visual Disturbances, Other - Psychiatric Psychiatric: absent: As Per HPI, Abnormal Sleep Pattern, Anhedonia, Anxiety, Auditory Hallucinations, Behavioral Changes, Change in Appetite, Change in Libido, Confusion, Depression, Difficulty Concentrating, Hallucinations, Homicidal Ideation, Hopelessness, Irritability, Memory Loss, Mood Swings, Panic Attacks, Paranoia, Suicidal Ideation, Visual Hallucinations, Tactile Hallucinations, Other - Endocrine Endocrine: absent: As Per HPI, Change in Body Appearance, Change in Libido, Cold Intolorance, Deepening of Voice, Excessive Sweating, Fatigue, Flushing, Heat Intolorance, Increase in Ring/Shoe/Hat Size, Palpitations, Polydipsia, Polyphagia, Polyuria, Other - Hematologic/Lymphatic Hematologic: absent: As Per HPI, Easy Bleeding, Easy Bruising, Lymphadenopathy, Other Past Patient History - Infectious Disease Hx of Infectious Diseases: None - Past Medical History & Family History Past Medical History?: Yes - Past Social History Smoking Status: Never Smoked - CARDIAC Hx Congestive Heart Failure: Yes Hx Hypercholesterolemia: Yes Hx Hypertension: Yes - PULMONARY Hx Chronic Obstructive Pulmonary Disease (COPD): No Hx Pneumonia: Yes Hx Pulmonary Embolism: Yes - NEUROLOGICAL Hx Dementia: Yes (FORGETFUL AT TIMES. AAO X 3 AT PRESENT) - HEENT Hx HEENT Problems: No - RENAL Hx Chronic Kidney Disease: Yes Hx Kidney Stones: Yes - HEMATOLOGICAL/ONCOLOGICAL Hx Blood Disorders: No - INTEGUMENTARY Hx Dermatological Problems: No - MUSCULOSKELETAL/RHEUMATOLOGICAL Hx Arthritis: Yes Hx Falls: No - GASTROINTESTINAL Hx Gastrointestinal Disorders: No - GENITOURINARY/GYNECOLOGICAL Hx Genitourinary Disorders: No - PSYCHIATRIC Hx Anxiety: Yes Hx Bipolar Disorder: Yes Hx Depression: Yes Hx Substance Use: No - SURGICAL HISTORY Hx Surgeries: Yes Hx Pulmonary Surgery: Yes (LEFT LUNG) Hx Tubal Ligation: Yes Other/Comment: HX:left lower lobectomy. HX: BRONCHOSCOPY(05/12/17) - ANESTHESIA Hx Anesthesia: Yes Hx Anesthesia Reactions: No Hx Malignant Hyperthermia: No Meds Allergies/Adverse Reactions: Allergies Allergy/AdvReac Type Severity Reaction Status Date / Time No Known Allergies Allergy Verified 09/20/17 14:31 - Medications Medications: Current Medications Albuterol/Ipratropium (Duoneb 3 Mg/0.5 Mg (3 Ml) Ud) 3 ml INH RQ6 [facility] Last Admin: 05/15/18 08:20 Dose: 3 ml Aspirin (Aspirin) 325 mg PO DAILY [facility] Last Admin: 05/15/18 10:28 Dose: 325 mg Enoxaparin Sodium (Lovenox) 80 mg SC Q12H [facility] Last Admin: 05/15/18 12:57 Dose: Not Given Furosemide (Lasix) 20 mg PO QAM [facility] Last Admin: 05/15/18 10:31 Dose: 20 mg Glipizide (Glucotrol) 5 mg PO DAILY [facility] Ceftriaxone Sodium 1 gm/ (Dextrose) 100 mls @ 50 mls/30 min IVPB DAILY [facility] PRN Reason: Protocol Last Admin: 05/15/18 10:31 Dose: 50 mls/30 min Azithromycin (Zithromax 500mg In Ns Addvantage) 500 mg in 250 mls @ 167 mls/hr IVPB Q24H [facility] PRN Reason: Protocol Last Admin: 05/14/18 22:30 Dose: 167 mls/hr Insulin Aspart (Novolog) 0 unit SC ACHS [facility] PRN Reason: Protocol Last Admin: 05/15/18 17:21 Dose: 6 unit Megestrol Acetate (Megace) 40 mg PO DAILY [facility] Last Admin: 05/15/18 10:28 Dose: 40 mg Methylprednisolone (Solu-Medrol) 40 mg IV Q8 [facility] Last Admin: 05/15/18 13:29 Dose: 40 mg Pantoprazole Sodium (Protonix Inj) 40 mg IVP DAILY [facility] Last Admin: 05/15/18 10:28 Dose: 40 mg Sitagliptin Phosphate (Januvia) 25 mg PO DAILY [facility] Last Admin: 05/15/18 10:28 Dose: 25 mg Temazepam (Restoril) 15 mg PO HS [facility] Last Admin: 05/14/18 22:52 Dose: 15 mg Physical Exam - Constitutional Appears: Non-toxic - Head Exam Head Exam: NORMAL INSPECTION - Eye Exam Eye Exam: Normal appearance - ENT Exam ENT Exam: Mucous Membranes Moist - Neck Exam Neck exam: Positive for: Full Rom - Respiratory Exam Respiratory Exam: Decreased Breath Sounds - Cardiovascular Exam Cardiovascular Exam: REGULAR RHYTHM - GI/Abdominal Exam GI & Abdominal Exam: Normal Bowel Sounds - Rectal Exam Rectal Exam: Deferred - Extremities Exam Extremities exam: Negative for: pedal edema - Back Exam Back exam: NORMAL INSPECTION - Neurological Exam Neurological exam: Alert, Oriented x3 - Psychiatric Exam Psychiatric exam: Normal Affect - Skin Skin Exam: Normal Color Results - Vital Signs Recent Vital Signs: Last Vital Signs Temp 97.3 F L 05/15/18 11:30 Pulse 92 H 05/15/18 11:30 Resp 20 05/15/18 11:30 BP 139/91 H 05/15/18 11:30 Pulse Ox 98 05/15/18 11:30 - Labs Result Diagrams: 05/14/18 16:06 05/14/18 16:06 Labs: Laboratory Results - last 24 hr 05/14/18 05/14/18 05/15/18 19:52 20:46 00:58 POC Glucose (mg/dL) 268 H Total Creatine Kinase 102 CK-MB (Mass) 3.09 Troponin I 0.2050 H* Urine Color Yellow Urine Clarity Clear Urine pH 6.0 Ur Specific [place] 1.005 Urine Protein Negative Urine Glucose (UA) 3+ H Urine Ketones Negative Urine Blood 2+ H Urine Nitrate Negative Urine Bilirubin Negative Urine Urobilinogen 2.0 H Ur Leukocyte Esterase Neg Urine WBC (Auto) 2 Urine RBC (Auto) 14 H Ur Squamous Epith Cells 5 Urine Bacteria Occ H 05/15/18 05/15/18 05/15/18 07:20 08:50 11:33 POC Glucose (mg/dL) 294 H 297 H Total Creatine Kinase 148 H CK-MB (Mass) 2.71 Troponin I 0.1140 Urine Color Urine Clarity Urine pH Ur Specific [place] Urine Protein Urine Glucose (UA) Urine Ketones Urine Blood Urine Nitrate Urine Bilirubin Urine Urobilinogen Ur Leukocyte Esterase Urine WBC (Auto) Urine RBC (Auto) Ur Squamous Epith Cells Urine Bacteria 05/15/18 16:38 POC Glucose (mg/dL) 430 H* Total Creatine Kinase CK-MB (Mass) Troponin I Urine Color Urine Clarity Urine pH Ur Specific [place] Urine Protein Urine Glucose (UA) Urine Ketones Urine Blood Urine Nitrate Urine Bilirubin Urine Urobilinogen Ur Leukocyte Esterase Urine WBC (Auto) Urine RBC (Auto) Ur Squamous Epith Cells Urine Bacteria - EKG Data EKG Interpreted by: Myself EKG shows normal: Sinus rhythm Assessment & Plan (1) Elevated troponin Assessment and Plan: likely not indicative of [place] but related to PE. may have increased RV size. recommend echocardiogram. patient needs management with anticoagulation. Status: Acute (2) Pulmonary embolism Assessment and Plan: recommend anticoagulation Status: Acute (3) Hypertension Assessment and Plan: blood pressure control Status: Chronic
--- NOTE | 2018-05-15 19:10 | CARD ---
APPROVED REPORT Date of service: 05/14/2018 EKG Measurement Heart [id number] <Conclusion> Sinus tachycardia with premature atrial complexes Possible Left atrial enlargement Incomplete right bundle branch block Left anterior fascicular block Left ventricular hypertrophy Abnormal ECG
[2018-05-15] MEDS ORDERED: (Novolog) Insulin Aspart, Recombinant 100 u/ml 10 ml vial SC STA (21:37)
[2018-05-15] MEDS: Azithromycin 500mg/250ML NS 500 MG/250 ML BAG IVPB SCH (21:59)
--- NOTE | 2018-05-15 22:42 | CP.PCM.HP ---
Past Patient History - Infectious Disease Hx of Infectious Diseases: None - Past Medical History & Family History Past Medical History?: Yes - Past Social History Smoking Status: Never Smoked - CARDIAC Hx Congestive Heart Failure: Yes Hx Hypercholesterolemia: Yes Hx Hypertension: Yes - PULMONARY Hx Chronic Obstructive Pulmonary Disease (COPD): No Hx Pneumonia: Yes Hx Pulmonary Embolism: Yes - NEUROLOGICAL Hx Dementia: Yes (FORGETFUL AT TIMES. AAO X 3 AT PRESENT) - HEENT Hx HEENT Problems: No - RENAL Hx Chronic Kidney Disease: Yes Hx Kidney Stones: Yes - HEMATOLOGICAL/ONCOLOGICAL Hx Blood Disorders: No - INTEGUMENTARY Hx Dermatological Problems: No - MUSCULOSKELETAL/RHEUMATOLOGICAL Hx Arthritis: Yes Hx Falls: No - GASTROINTESTINAL Hx Gastrointestinal Disorders: No - GENITOURINARY/GYNECOLOGICAL Hx Genitourinary Disorders: No - PSYCHIATRIC Hx Anxiety: Yes Hx Bipolar Disorder: Yes Hx Depression: Yes Hx Substance Use: No - SURGICAL HISTORY Hx Surgeries: Yes Hx Pulmonary Surgery: Yes (LEFT LUNG) Hx Tubal Ligation: Yes Other/Comment: HX:left lower lobectomy. HX: BRONCHOSCOPY(05/12/17) - ANESTHESIA Hx Anesthesia: Yes Hx Anesthesia Reactions: No Hx Malignant Hyperthermia: No Meds Allergies/Adverse Reactions: Allergies Allergy/AdvReac Type Severity Reaction Status Date / Time No Known Allergies Allergy Verified 09/20/17 14:31 Physical Exam - Constitutional Appears: Non-toxic - Head Exam Head Exam: ATRAUMATIC - Eye Exam Eye Exam: Normal appearance - ENT Exam ENT Exam: Mucous Membranes Moist, Normal Exam - Neck Exam Neck exam: Positive for: Normal Inspection - Respiratory Exam Respiratory Exam: Decreased Breath Sounds - Cardiovascular Exam Cardiovascular Exam: +S1, +S2 - GI/Abdominal Exam GI & Abdominal Exam: Diminished Bowel Sounds - Rectal Exam Rectal Exam: Deferred Results - Vital Signs Recent Vital Signs: Last Vital Signs Temp 97.3 F L 05/15/18 11:30 Pulse 92 H 05/15/18 11:30 Resp 20 05/15/18 11:30 BP 139/91 H 05/15/18 11:30 Pulse Ox 98 05/15/18 11:30 - Labs Result Diagrams: 05/14/18 16:06 05/14/18 16:06 Labs: Laboratory Results - last 24 hr 05/15/18 05/15/18 05/15/18 00:58 07:20 08:50 POC Glucose (mg/dL) 294 H Total Creatine Kinase 102 148 H CK-MB (Mass) 3.09 2.71 Troponin I 0.2050 H* 0.1140 05/15/18 05/15/18 11:33 16:38 POC Glucose (mg/dL) 297 H 430 H* Total Creatine Kinase CK-MB (Mass) Troponin I
[2018-05-16] MEDS: Enoxaparin 80 mg Syringe SC SCH (00:33)
[2018-05-16] MEDS: Albuterol-Ipratrop 3 mg / 0.5 (3 ml) UD INH SCH ×4 (01:45→20:06)
[2018-05-16] MEDS: MethylPREDNISolone 40 mg Vial IV SCH ×2 (06:05→21:36)
[2018-05-16] MEDS: (Novolog) Insulin Aspart, Recombinant 100 u/ml 10 ml vial SC SCH ×3 (08:30→22:01)
[2018-05-16] MEDS ORDERED: cefTRIAXone 1 gm 1 GM/100 ML BAG IVPB SCH (11:30)
--- NOTE | 2018-05-16 13:48 | VASCLAB ---
Date of service: 05/15/2018 PROCEDURE: Lower Extremity Venous Duplex Exam. HISTORY: dvt PRIORS: None. TECHNIQUE: Bilateral common femoral, femoral, popliteal and posterior tibial, peroneal and great saphenous veins were evaluated. Flow was assessed with color Doppler, compressibility, assessment of phasic flow and augmentation response. Report prepared by AZUL Guillaume, RVT FINDINGS: RIGHT: 1. Common Femoral Vein: 1.1. Compressibility - Fully compressible: Thrombus - None : Flow - Phasic: Augmentation -Normal: Reflux - None. 2. Femoral Vein: 2.1. Compressibility - Fully compressible: Thrombus - None : Flow - Phasic: Augmentation -Normal: Reflux - None. 3. Popliteal Vein: 3.1. Compressibility - Fully compressible: Thrombus - None : Flow - Phasic: Augmentation -Normal: Reflux - None. 4. Posterior Tibial Vein: 4.1. Compressibility - Fully compressible: Thrombus - None: Flow - Phasic: Augmentation -Normal: Reflux - None. 5. Peroneal Vein: 5.1. Compressibility - Fully compressible: Thrombus - None: Flow - Phasic: Augmentation -Normal: Reflux - None. 6. Great Saphenous Vein: 6.1. Compressibility - Fully compressible: Thrombus - None: Flow - Phasic: Augmentation - Normal: Reflux - None. LEFT: 1. Common Femoral Vein: 1.1. Compressibility - Fully compressible: Thrombus - None: Flow - Phasic: Augmentation -Normal: Reflux - None. 2. Femoral Vein: 2.1. Compressibility - Fully compressible: Thrombus - None: Flow - Phasic: Augmentation -Normal: Reflux - None. 3. Popliteal Vein: 3.1. Compressibility - Fully compressible: Thrombus - None : Flow - Phasic: Augmentation -Normal: Reflux - None. 4. Posterior Tibial Vein: 4.1. Compressibility - : Thrombus - : Flow - : Augmentation -: Reflux - . 5. Peroneal Vein: 5.1. Compressibility - : Thrombus - : Flow - : Augmentation -: Reflux - . 6. Great Saphenous Vein: 6.1. Compressibility - Fully compressible: Thrombus - None: Flow - Phasic: Augmentation - Normal: Reflux - None. OTHER FINDINGS: Right: None significant. Left: Due to swelling in the calf, the left peroneal and posterior tibial vein are not visualized. IMPRESSION: Right: No evidence of deep or superficial vein thrombosis of the right lower extremity. Normal valve function noted of the right side. Left: No evidence of deep or superficial vein thrombosis of the left lower extremity. Normal valve function noted of the left side.
--- NOTE | 2018-05-16 15:51 | CP.PCM.PN ---
Subjective - Date & Time of Evaluation Date of Evaluation: 05/16/18 Time of Evaluation: 14:45 - Subjective Subjective: patient seen and examined Venous Doppler lower extremities negative for DVT lying Comfortably in no acute distress No chest pain On Lovenox Objective - Vital Signs/Intake and Output Vital Signs (last 24 hours): Temp Pulse Resp BP Pulse Ox 97.6 F 92 H 20 138/85 98 05/15/18 23:25 05/16/18 01:00 05/15/18 23:25 05/15/18 23:25 05/15/18 23:25 Intake and Output: 05/16/18 05/16/18 06:59 18:59 Intake Total 250 Balance 250 - Medications Medications: Current Medications Albuterol/Ipratropium (Duoneb 3 Mg/0.5 Mg (3 Ml) Ud) 3 ml INH RQ6 [facility] Last Admin: 05/16/18 14:36 Dose: Not Given Aspirin (Aspirin) 325 mg PO DAILY [facility] Last Admin: 05/15/18 10:28 Dose: 325 mg Enoxaparin Sodium (Lovenox) 80 mg SC Q12H [facility] Last Admin: 05/16/18 00:33 Dose: 80 mg Furosemide (Lasix) 20 mg PO QAM [facility] Last Admin: 05/15/18 10:31 Dose: 20 mg Glipizide (Glucotrol) 5 mg PO DAILY [facility] Azithromycin (Zithromax 500mg In Ns Addvantage) 500 mg in 250 mls @ 167 mls/hr IVPB Q24H [facility]; Protocol Last Admin: 05/15/18 21:59 Dose: 167 mls/hr Ceftriaxone Sodium 1 gm/ (Sodium Chloride) 100 mls @ 50 mls/30 min IVPB Q24H [facility]; Protocol Insulin Aspart (Novolog) 0 unit SC ACHS [facility]; Protocol Megestrol Acetate (Megace) 40 mg PO DAILY [facility] Last Admin: 05/15/18 10:28 Dose: 40 mg Methylprednisolone (Solu-Medrol) 40 mg IV Q8 [facility] Last Admin: 05/16/18 06:05 Dose: 40 mg Pantoprazole Sodium (Protonix Inj) 40 mg IVP DAILY [facility] Last Admin: 05/15/18 10:28 Dose: 40 mg Sitagliptin Phosphate (Januvia) 25 mg PO DAILY [facility] Last Admin: 05/15/18 10:28 Dose: 25 mg Temazepam (Restoril) 15 mg PO HS [facility] Last Admin: 05/15/18 22:04 Dose: 15 mg - Labs Labs: 05/14/18 16:06 05/14/18 16:06 PT 12.3 SECONDS (9.7-12.2) H 05/14/18 16:06 INR 1.1 05/14/18 16:06 APTT 30 SECONDS (21-34) 05/14/18 16:06 - Head Exam Head Exam: ATRAUMATIC, NORMOCEPHALIC - ENT Exam ENT Exam: Mucous Membranes Moist - Neck Exam Neck Exam: Normal Inspection - Respiratory Exam Respiratory Exam: Clear to Ausculation Bilateral - GI/Abdominal Exam GI & Abdominal Exam: Soft, Normal Bowel Sounds Assessment and Plan (1) Pulmonary embolism Assessment & Plan: Continue Lovenox Venous Doppler negative for DVT Status: Acute (2) Pneumonia Status: Acute
--- NOTE | 2018-05-16 17:35 | CP.PCM.PN ---
Subjective - Date & Time of Evaluation Date of Evaluation: 05/16/18 Time of Evaluation: 10:15 - Subjective Subjective: clinically same Objective - Vital Signs/Intake and Output Vital Signs (last 24 hours): Temp Pulse Resp BP Pulse Ox 97.6 F 92 H 20 138/85 98 05/15/18 23:25 05/16/18 01:00 05/15/18 23:25 05/15/18 23:25 05/15/18 23:25 Intake and Output: 05/16/18 05/16/18 06:59 18:59 Intake Total 250 Balance 250 - Medications Medications: Current Medications Albuterol/Ipratropium (Duoneb 3 Mg/0.5 Mg (3 Ml) Ud) 3 ml INH RQ6 [facility] Last Admin: 05/16/18 14:36 Dose: Not Given Aspirin (Aspirin) 325 mg PO DAILY [facility] Last Admin: 05/15/18 10:28 Dose: 325 mg Enoxaparin Sodium (Lovenox) 80 mg SC Q12H [facility] Last Admin: 05/16/18 00:33 Dose: 80 mg Furosemide (Lasix) 20 mg PO QAM [facility] Last Admin: 05/15/18 10:31 Dose: 20 mg Glipizide (Glucotrol) 5 mg PO DAILY [facility] Azithromycin (Zithromax 500mg In Ns Addvantage) 500 mg in 250 mls @ 167 mls/hr IVPB Q24H [facility]; Protocol Last Admin: 05/15/18 21:59 Dose: 167 mls/hr Ceftriaxone Sodium 1 gm/ (Sodium Chloride) 100 mls @ 50 mls/30 min IVPB Q24H [facility]; Protocol Insulin Aspart (Novolog) 0 unit SC ACHS [facility]; Protocol Megestrol Acetate (Megace) 40 mg PO DAILY [facility] Last Admin: 05/15/18 10:28 Dose: 40 mg Methylprednisolone (Solu-Medrol) 40 mg IV Q8 [facility] Last Admin: 05/16/18 06:05 Dose: 40 mg Pantoprazole Sodium (Protonix Inj) 40 mg IVP DAILY [facility] Last Admin: 05/15/18 10:28 Dose: 40 mg Sitagliptin Phosphate (Januvia) 25 mg PO DAILY [facility] Last Admin: 05/15/18 10:28 Dose: 25 mg Temazepam (Restoril) 15 mg PO HS [facility] Last Admin: 05/15/18 22:04 Dose: 15 mg - Labs Labs: 05/14/18 16:06 05/14/18 16:06 PT 12.3 SECONDS (9.7-12.2) H 05/14/18 16:06 INR 1.1 05/14/18 16:06 APTT 30 SECONDS (21-34) 05/14/18 16:06 - Constitutional Appears: Well - Head Exam Head Exam: ATRAUMATIC, NORMAL INSPECTION, NORMOCEPHALIC - Eye Exam Eye Exam: EOMI, Normal appearance, PERRL Pupil Exam: NORMAL ACCOMODATION, PERRL - ENT Exam ENT Exam: Mucous Membranes Moist, Normal Exam - Neck Exam Neck Exam: Full ROM, Normal Inspection. absent: Lymphadenopathy - Respiratory Exam Respiratory Exam: Decreased Breath Sounds - Cardiovascular Exam Cardiovascular Exam: REGULAR RHYTHM, +S1, +S2 - GI/Abdominal Exam GI & Abdominal Exam: Soft, Diminished Bowel Sounds - Rectal Exam Rectal Exam: Deferred
--- NOTE | 2018-05-16 18:27 | CARD ---
APPROVED REPORT Date of service: 05/15/2018 EKG Measurement Heart [id number] <Conclusion> Normal sinus rhythm Possible Left atrial enlargement Left axis deviation Incomplete right bundle branch block Left ventricular hypertrophy T wave abnormality, consider anterior ischemia Prolonged QT Abnormal ECG
--- NOTE | 2018-05-16 19:09 | CARD ---
APPROVED REPORT Date of service: 05/16/2018 EXAM: Two-dimensional and M-mode echocardiogram with Doppler and color Doppler. Other Information Quality : GoodRhythm : INDICATION Chest Pain Non STEMI RISK FACTORS Hypertension Diabetes 2D DIMENSIONS IVSd1.0 (0.7-1.1cm)LVDd2.8 (3.9-5.9cm) PWd1.1 (0.7-1.1cm)LVDs2.1 (2.5-4.0cm) FS (%) 27.4 %LVEF (%)55.0 (>50%) M-Mode DIMENSIONS Left Atrium (MM)4.21 (2.5-4.0cm)IVSd0.90 (0.7-1.1cm) Aortic Root2.73 (2.2-3.7cm)LVDd4.28 (4.0-5.6cm) Aortic Cusp Exc.1.87 (1.5-2.0cm)PWd0.82 (0.7-1.1cm) FS (%) 38 %LVDs2.67 (2.0-3.8cm) LVEF (%)68 (>50%) Mitral Valve MV E Qiugcpro41.4cm/sMV A Ddygxqph581.6cm/sE/A ratio0.5 TDI E/Lateral E'0.0E/Medial E'0.0 Tricuspid Valve TR Peak [id number]/sTR Peak [id number] <Conclusion> poor window. normal size lv & ra rv. la is mildly dilated. normal lv wall motion,thickness, & systolic function with lvef of 60-65%. lv idastolic dysfunction grade one. normal loooking aortic,mitral,tv & pv. mild tr & pi with mildly elevated pulmonary systolic pressures of 42 mm of hg. slcerotic normal size aortic root. normal size ivc. no pericardial effusion.
[2018-05-16] MEDS: Azithromycin 500mg/250ML NS 500 MG/250 ML BAG IVPB SCH (21:37)
[2018-05-17] MEDS: Enoxaparin 80 mg Syringe SC SCH ×2 (00:18→12:16)
[2018-05-17] MEDS: Albuterol-Ipratrop 3 mg / 0.5 (3 ml) UD INH SCH ×2 (01:34→20:00)
[2018-05-17] MEDS: MethylPREDNISolone 40 mg Vial IV SCH ×3 (07:09→21:55)
[2018-05-17] MEDS: (Novolog) Insulin Aspart, Recombinant 100 u/ml 10 ml vial SC SCH ×4 (08:00→21:53)
--- NOTE | 2018-05-17 16:27 | CP.PCM.CON ---
History of Present Illness - History of Present Illness History of Present Illness: 73 yo old woman with history of metastatic lung cancer, adenocarcinoma, on Carbo/Alimta and Keytruda, tolerating fairly well, history of large PE, 09/08, on Eliquis since, poor compliance, mainly secondary to vaginal bleeding, work up f or which was essentially inconclusive and the patient was reluctant to follow up Past Patient History - Infectious Disease Hx of Infectious Diseases: None - Past Medical History & Family History Past Medical History?: Yes - Past Social History Smoking Status: Never Smoked - CARDIAC Hx Congestive Heart Failure: Yes Hx Hypercholesterolemia: Yes Hx Hypertension: Yes - PULMONARY Hx Chronic Obstructive Pulmonary Disease (COPD): No Hx Pneumonia: Yes Hx Pulmonary Embolism: Yes - NEUROLOGICAL Hx Dementia: Yes (FORGETFUL AT TIMES. AAO X 3 AT PRESENT) - HEENT Hx HEENT Problems: No - RENAL Hx Chronic Kidney Disease: Yes Hx Kidney Stones: Yes - HEMATOLOGICAL/ONCOLOGICAL Hx Blood Disorders: No - INTEGUMENTARY Hx Dermatological Problems: No - MUSCULOSKELETAL/RHEUMATOLOGICAL Hx Arthritis: Yes Hx Falls: No - GASTROINTESTINAL Hx Gastrointestinal Disorders: No - GENITOURINARY/GYNECOLOGICAL Hx Genitourinary Disorders: No - PSYCHIATRIC Hx Anxiety: Yes Hx Bipolar Disorder: Yes Hx Depression: Yes Hx Substance Use: No - SURGICAL HISTORY Hx Surgeries: Yes Hx Pulmonary Surgery: Yes (LEFT LUNG) Hx Tubal Ligation: Yes Other/Comment: HX:left lower lobectomy. HX: BRONCHOSCOPY(05/12/17) - ANESTHESIA Hx Anesthesia: Yes Hx Anesthesia Reactions: No Hx Malignant Hyperthermia: No Meds Allergies/Adverse Reactions: Allergies Allergy/AdvReac Type Severity Reaction Status Date / Time No Known Allergies Allergy Verified 09/20/17 14:31 - Medications Medications: Current Medications Albuterol/Ipratropium (Duoneb 3 Mg/0.5 Mg (3 Ml) Ud) 3 ml INH RQ6 [facility] Last Admin: 05/17/18 01:34 Dose: Not Given Aspirin (Aspirin) 325 mg PO DAILY [facility] Last Admin: 05/17/18 09:59 Dose: 325 mg Enoxaparin Sodium (Lovenox) 80 mg SC Q12H [facility] Last Admin: 05/17/18 12:16 Dose: 80 mg Furosemide (Lasix) 20 mg PO QAM [facility] Last Admin: 05/17/18 09:59 Dose: 20 mg Glipizide (Glucotrol) 5 mg PO DAILY [facility] Last Admin: 05/17/18 10:00 Dose: 5 mg Azithromycin (Zithromax 500mg In Ns Addvantage) 500 mg in 250 mls @ 167 mls/hr IVPB Q24H [facility]; Protocol Last Admin: 05/16/18 21:37 Dose: 167 mls/hr Ceftriaxone Sodium 1 gm/ (Sodium Chloride) 100 mls @ 50 mls/30 min IVPB Q24H [facility]; Protocol Last Admin: 05/17/18 12:15 Dose: 50 mls/30 min Insulin Aspart (Novolog) 0 unit SC ACHS [facility]; Protocol Last Admin: 05/17/18 12:15 Dose: 8 units Megestrol Acetate (Megace) 40 mg PO DAILY [facility] Last Admin: 05/17/18 10:00 Dose: 40 mg Methylprednisolone (Solu-Medrol) 40 mg IV Q8 [facility] Last Admin: 05/17/18 14:40 Dose: Not Given Pantoprazole Sodium (Protonix Ec Tab) 40 mg PO DAILY [facility] Sitagliptin Phosphate (Januvia) 25 mg PO DAILY [facility] Last Admin: 05/17/18 10:00 Dose: 25 mg Temazepam (Restoril) 15 mg PO HS [facility] Last Admin: 05/16/18 22:04 Dose: 15 mg Results - Vital Signs Recent Vital Signs: Last Vital Signs Temp 97.4 F L 05/17/18 08:34 Pulse 94 H 05/17/18 08:34 Resp 20 05/17/18 08:34 BP 123/78 05/17/18 09:59 Pulse Ox 98 05/17/18 08:34 - Labs Result Diagrams: 05/14/18 16:06 05/14/18 16:06 Labs: Laboratory Results - last 24 hr 05/15/18 05/16/18 05/16/18 21:11 12:40 16:30 POC Glucose (mg/dL) 479 H* > 500 H* 404 H* 05/16/18 05/17/18 05/17/18 21:08 06:22 11:53 POC Glucose (mg/dL) 250 H 357 H 329 H
--- NOTE | 2018-05-17 16:58 | CP.PCM.PN ---
Subjective - Date & Time of Evaluation Date of Evaluation: 05/17/18 Time of Evaluation: 13:30 - Subjective Subjective: patient seen and examined Shortness of breath much improved Patient is on Lovenox Objective - Vital Signs/Intake and Output Vital Signs (last 24 hours): Temp Pulse Resp BP Pulse Ox 97.4 F L 94 H 20 123/78 98 05/17/18 08:34 05/17/18 08:34 05/17/18 08:34 05/17/18 09:59 05/17/18 08:34 Intake and Output: 05/17/18 05/17/18 06:59 18:59 Intake Total 600 Balance 600 - Medications Medications: Current Medications Albuterol/Ipratropium (Duoneb 3 Mg/0.5 Mg (3 Ml) Ud) 3 ml INH RQ6 [facility] Last Admin: 05/17/18 01:34 Dose: Not Given Aspirin (Aspirin) 325 mg PO DAILY [facility] Last Admin: 05/17/18 09:59 Dose: 325 mg Enoxaparin Sodium (Lovenox) 80 mg SC Q12H [facility] Last Admin: 05/17/18 12:16 Dose: 80 mg Furosemide (Lasix) 20 mg PO QAM [facility] Last Admin: 05/17/18 09:59 Dose: 20 mg Glipizide (Glucotrol) 5 mg PO DAILY [facility] Last Admin: 05/17/18 10:00 Dose: 5 mg Azithromycin (Zithromax 500mg In Ns Addvantage) 500 mg in 250 mls @ 167 mls/hr IVPB Q24H [facility]; Protocol Last Admin: 05/16/18 21:37 Dose: 167 mls/hr Ceftriaxone Sodium 1 gm/ (Sodium Chloride) 100 mls @ 50 mls/30 min IVPB Q24H [facility]; Protocol Last Admin: 05/17/18 12:15 Dose: 50 mls/30 min Insulin Aspart (Novolog) 0 unit SC ACHS [facility]; Protocol Last Admin: 05/17/18 12:15 Dose: 8 units Megestrol Acetate (Megace) 40 mg PO DAILY [facility] Last Admin: 05/17/18 10:00 Dose: 40 mg Methylprednisolone (Solu-Medrol) 40 mg IV Q8 [facility] Last Admin: 05/17/18 14:40 Dose: Not Given Pantoprazole Sodium (Protonix Ec Tab) 40 mg PO DAILY [facility] Sitagliptin Phosphate (Januvia) 25 mg PO DAILY [facility] Last Admin: 05/17/18 10:00 Dose: 25 mg Temazepam (Restoril) 15 mg PO [facility] Last Admin: 05/16/18 22:04 Dose: 15 mg - Labs Labs: 05/14/18 16:06 05/14/18 16:06 PT 12.3 SECONDS (9.7-12.2) H 05/14/18 16:06 INR 1.1 05/14/18 16:06 APTT 30 SECONDS (21-34) 05/14/18 16:06 - Head Exam Head Exam: ATRAUMATIC, NORMOCEPHALIC - ENT Exam ENT Exam: Mucous Membranes Moist - Neck Exam Neck Exam: Normal Inspection - Respiratory Exam Respiratory Exam: Clear to Ausculation Bilateral - Cardiovascular Exam Cardiovascular Exam: REGULAR RHYTHM - GI/Abdominal Exam GI & Abdominal Exam: Soft, Normal Bowel Sounds Assessment and Plan (1) Pulmonary embolism Assessment & Plan: Continue Lovenox Switch to eliquis Hematology follow-up Status: Acute (2) Pneumonia Status: Acute
[2018-05-17] MEDS: Azithromycin 500mg/250ML NS 500 MG/250 ML BAG IVPB SCH (21:53)
[2018-05-17] MEDS ORDERED: Docusate-Senna 50 mg-8.6 mg Tab PO SCH (22:00)
--- NOTE | 2018-05-17 22:09 | CP.PCM.PN ---
Subjective - Date & Time of Evaluation Date of Evaluation: 05/17/18 Time of Evaluation: 10:15 - Subjective Subjective: clinically same Objective - Vital Signs/Intake and Output Vital Signs (last 24 hours): Temp Pulse Resp BP Pulse Ox 97.6 F 99 H 18 128/83 97 05/17/18 15:00 05/17/18 15:00 05/17/18 15:00 05/17/18 15:00 05/17/18 15:00 - Medications Medications: Current Medications Albuterol/Ipratropium (Duoneb 3 Mg/0.5 Mg (3 Ml) Ud) 3 ml INH RQ6 [facility] Last Admin: 05/17/18 20:00 Dose: 3 ml Aspirin (Aspirin) 325 mg PO DAILY [facility] Last Admin: 05/17/18 09:59 Dose: 325 mg Enoxaparin Sodium (Lovenox) 80 mg SC Q12H [facility] Last Admin: 05/17/18 12:16 Dose: 80 mg Furosemide (Lasix) 20 mg PO QAM [facility] Last Admin: 05/17/18 09:59 Dose: 20 mg Glipizide (Glucotrol) 5 mg PO DAILY [facility] Last Admin: 05/17/18 10:00 Dose: 5 mg Azithromycin (Zithromax 500mg In Ns Addvantage) 500 mg in 250 mls @ 167 mls/hr IVPB Q24H [facility]; Protocol Last Admin: 05/17/18 21:53 Dose: 167 mls/hr Ceftriaxone Sodium 1 gm/ (Sodium Chloride) 100 mls @ 50 mls/30 min IVPB Q24H [facility]; Protocol Last Admin: 05/17/18 12:15 Dose: 50 mls/30 min Insulin Aspart (Novolog) 0 unit SC ACHS [facility]; Protocol Last Admin: 05/17/18 21:53 Dose: 2 units Megestrol Acetate (Megace) 40 mg PO DAILY [facility] Last Admin: 05/17/18 10:00 Dose: 40 mg Methylprednisolone (Solu-Medrol) 40 mg IV Q8 [facility] Last Admin: 05/17/18 21:55 Dose: 40 mg Pantoprazole Sodium (Protonix Ec Tab) 40 mg PO DAILY [facility] Senna/Docusate Sodium (Senokot S 50 Mg-8.6 Mg) 2 tab PO HS [facility] Last Admin: 05/17/18 21:55 Dose: 2 tab Sitagliptin Phosphate (Januvia) 25 mg PO DAILY [facility] Last Admin: 05/17/18 10:00 Dose: 25 mg Temazepam (Restoril) 15 mg PO [facility] Last Admin: 05/17/18 21:55 Dose: 15 mg - Labs Labs: 05/14/18 16:06 05/14/18 16:06 PT 12.3 SECONDS (9.7-12.2) H 05/14/18 16:06 INR 1.1 05/14/18 16:06 APTT 30 SECONDS (21-34) 05/14/18 16:06
[2018-05-18] MEDS: Enoxaparin 80 mg Syringe SC SCH ×3 (00:10→11:47)
[2018-05-18] MEDS: Albuterol-Ipratrop 3 mg / 0.5 (3 ml) UD INH SCH ×3 (01:15→13:26)
[2018-05-18 01:38] VITALS: RESP 20; TEMP 98.6; O2SAT 95
[2018-05-18] MEDS: MethylPREDNISolone 40 mg Vial IV SCH ×2 (06:01→13:43)
[2018-05-18] MEDS: (Novolog) Insulin Aspart, Recombinant 100 u/ml 10 ml vial SC SCH ×2 (08:07→11:51)
[2018-05-18] MEDS ORDERED: Pantoprazole 40 mg EC Tab PO SCH (10:00)
[2018-05-18 10:11] VITALS: BP 139/83
--- NOTE | 2018-05-18 13:04 | CP.PCM.PN ---
Subjective - Date & Time of Evaluation Date of Evaluation: 05/18/18 Time of Evaluation: 13:04 - Subjective Subjective: PT CLEARED FOR D/C HOME TODAY PER Ken TANG AND DR. ARRIAZA. RX GIVEN FOR ZITHROMAX, MEDROL, AND ELIQUIS. PT TO F/U IN THE OFFICE WITHIN 1 WEEK. SEE BELOW FOR FURTHER D/C INSTRUCTIONS PROVIDED TO THE PT. NO FURTHER ORDERS. -FOLLOW UP WITH DR. TANG OR YOUR PRIMARY DOCTOR IN THE OFFICE IN 5 DAYS. -FOLLOW UP WITH DR. GAMBLE IN THE OFFICE WITHIN 1-2 WEEKS. -FOLLOW UP WITH DR. QUEZADA (CARDIOLOGY) AND DR. ARRIAZA (LUNG DOCTOR) IN THEIR OFFICES WITHIN 1-2 WEEKS. -CONTINUE HOME MEDICATIONS USUAL. -YOU HAVE BEEN PRESCRIBED AN ANTIBIOTIC (ZITHROMAX) TO TAKE ONCE A DAY FOR 5 DAYS; STEROID (MEDROL) TO HELP WITH YOUR BREATHING/ -YOU HAVE ALSO BEEN PRESCRIBED ELIQUIS (BLOOD THINNER)---TAKE 1 TABLET BY MOUTH ONCE EVERY DAY. -FOR FURTHER QUESTIONS OR CONCERNS, CONTACT DR. TANG. Objective - Vital Signs/Intake and Output Vital Signs (last 24 hours): Temp Pulse Resp BP Pulse Ox 98.6 F 86 20 139/83 95 05/18/18 00:00 05/18/18 03:59 05/18/18 00:00 05/18/18 10:10 05/18/18 00:00 Intake and Output: 05/18/18 05/18/18 06:59 18:59 Intake Total 350 Balance 350 - Medications Medications: Current Medications Albuterol/Ipratropium (Duoneb 3 Mg/0.5 Mg (3 Ml) Ud) 3 ml INH RQ6 [facility] Last Admin: 05/18/18 07:23 Dose: 3 ml Aspirin (Aspirin) 325 mg PO DAILY [facility] Last Admin: 05/18/18 10:10 Dose: 325 mg Furosemide (Lasix) 20 mg PO QAM [facility] Last Admin: 05/18/18 10:10 Dose: 20 mg Glipizide (Glucotrol) 5 mg PO DAILY [facility] Last Admin: 05/18/18 10:00 Dose: 5 mg Azithromycin (Zithromax 500mg In Ns Addvantage) 500 mg in 250 mls @ 167 mls/hr IVPB Q24H [facility]; Protocol Last Admin: 05/17/18 21:53 Dose: 167 mls/hr Ceftriaxone Sodium 1 gm/ (Sodium Chloride) 100 mls @ 50 mls/30 min IVPB Q24H [facility]; Protocol Last Admin: 05/18/18 11:41 Dose: 50 mls/30 min Insulin Aspart (Novolog) 0 unit SC ACHS [facility]; Protocol Last Admin: 05/18/18 11:51 Dose: 12 units Megestrol Acetate (Megace) 40 mg PO DAILY [facility] Last Admin: 05/18/18 10:01 Dose: 40 mg Methylprednisolone (Solu-Medrol) 40 mg IV Q8 [facility] Last Admin: 05/18/18 06:01 Dose: 40 mg Pantoprazole Sodium (Protonix Ec Tab) 40 mg PO DAILY [facility] Last Admin: 05/18/18 10:02 Dose: 40 mg Senna/Docusate Sodium (Senokot S 50 Mg-8.6 Mg) 2 tab PO HS [facility] Last Admin: 05/17/18 21:55 Dose: 2 tab Sitagliptin Phosphate (Januvia) 25 mg PO DAILY [facility] Last Admin: 05/18/18 10:01 Dose: 25 mg Temazepam (Restoril) 15 mg PO HS [facility] Last Admin: 05/17/18 21:55 Dose: 15 mg - Labs Labs: 05/14/18 16:06 05/14/18 16:06 PT 12.3 SECONDS (9.7-12.2) H 05/14/18 16:06 INR 1.1 05/14/18 16:06 APTT 30 SECONDS (21-34) 05/14/18 16:06
--- NOTE | 2018-05-18 16:22 | CP.PCM.PN ---
Subjective - Date & Time of Evaluation Date of Evaluation: 05/18/18 Time of Evaluation: 10:15 - Subjective Subjective: clinically same Objective - Vital Signs/Intake and Output Vital Signs (last 24 hours): Temp Pulse Resp BP Pulse Ox 98.6 F 86 20 139/83 95 05/18/18 00:00 05/18/18 03:59 05/18/18 00:00 05/18/18 10:10 05/18/18 00:00 Intake and Output: 05/18/18 05/18/18 06:59 18:59 Intake Total 350 Balance 350 - Labs Labs: 05/14/18 16:06 05/14/18 16:06 PT 12.3 SECONDS (9.7-12.2) H 05/14/18 16:06 INR 1.1 05/14/18 16:06 APTT 30 SECONDS (21-34) 05/14/18 16:06 - Constitutional Appears: Well - Head Exam Head Exam: ATRAUMATIC, NORMAL INSPECTION, NORMOCEPHALIC - Eye Exam Eye Exam: EOMI, Normal appearance, PERRL Pupil Exam: NORMAL ACCOMODATION, PERRL - ENT Exam ENT Exam: Mucous Membranes Moist, Normal Exam - Neck Exam Neck Exam: Full ROM, Normal Inspection. absent: Lymphadenopathy - Respiratory Exam Respiratory Exam: Decreased Breath Sounds - Cardiovascular Exam Cardiovascular Exam: REGULAR RHYTHM, +S1, +S2 - GI/Abdominal Exam GI & Abdominal Exam: Soft, Diminished Bowel Sounds - Rectal Exam Rectal Exam: Deferred
--- NOTE | 2018-05-18 17:04 | CP.PCM.PN ---
Subjective - Date & Time of Evaluation Date of Evaluation: 05/18/18 Time of Evaluation: 11:15 - Subjective Subjective: the patient seen and examined Shortness of breath much improved Afebrile No chest pain Objective - Vital Signs/Intake and Output Vital Signs (last 24 hours): Temp Pulse Resp BP Pulse Ox 98.6 F 86 20 139/83 95 05/18/18 00:00 05/18/18 03:59 05/18/18 00:00 05/18/18 10:10 05/18/18 00:00 Intake and Output: 05/18/18 05/18/18 06:59 18:59 Intake Total 350 Balance 350 - Labs Labs: 05/14/18 16:06 05/14/18 16:06 PT 12.3 SECONDS (9.7-12.2) H 05/14/18 16:06 INR 1.1 05/14/18 16:06 APTT 30 SECONDS (21-34) 05/14/18 16:06 - Head Exam Head Exam: ATRAUMATIC, NORMOCEPHALIC - ENT Exam ENT Exam: Mucous Membranes Moist - Neck Exam Neck Exam: Normal Inspection - Respiratory Exam Respiratory Exam: Decreased Breath Sounds - Cardiovascular Exam Cardiovascular Exam: REGULAR RHYTHM - GI/Abdominal Exam GI & Abdominal Exam: Soft, Normal Bowel Sounds Assessment and Plan (1) Pulmonary embolism Assessment & Plan: switch to eliquis stable from pulmonary standpoint Status: Acute (2) Pneumonia Assessment & Plan: p.o. antibiotics Followup in the office Status: Acute
[2018-05-18 17:11] VITALS: PULSE 82
== END 2018-05-18 15:59 | disposition home health service (06) | DRG 280 ==
LOC: C.ER 15:08 → C.9E 20:05 → C.6T 05-15 10:01 → C.9E 05-15 10:31 → C.6T 05-15 10:37
PROVIDERS: ADMIT Internal Medicine Nephrology; ATTEND Internal Medicine Nephrology
DX: I21.4 Non-ST elevation (NSTEMI) myocardial infarction (principal); I26.99 Other pulmonary embolism without acute cor pulmonale; J18.9 Pneumonia, unspecified organism; I13.0 Hypertensive heart and chronic kidney disease with heart failure and stage 1 through stage 4 chronic kidney disease, or unspecified chronic kidney disease; C34.12 Malignant neoplasm of upper lobe, left bronchus or lung; I50.9 Heart failure, unspecified; E11.22 Type 2 diabetes mellitus with diabetic chronic kidney disease; E78.00 Pure hypercholesterolemia, unspecified; F03.90 Unspecified dementia, unspecified severity, without behavioral disturbance, psychotic disturbance, mood disturbance, and anxiety; F31.9 Bipolar disorder, unspecified; N18.9 Chronic kidney disease, unspecified; I25.10 Atherosclerotic heart disease of native coronary artery without angina pectoris; M19.90 Unspecified osteoarthritis, unspecified site; Z79.01 Long term (current) use of anticoagulants; Z87.01 Personal history of pneumonia (recurrent); Z87.442 Personal history of urinary calculi; Z98.51 Tubal ligation status; Z90.2 Acquired absence of lung [part of]; Z79.84 Long term (current) use of oral hypoglycemic drugs; Z86.711 Personal history of pulmonary embolism

== ENCOUNTER 2018-09-25 12:40 | Outpatient (CLI) | payer OTHER | END 2018-09-25 12:41 | disposition home or self-care (01) | LOC: C.CTH 12:40 ==

== ENCOUNTER 2018-12-21 19:18 | Inpatient (IN) | payer OTHER | END 2018-12-25 14:00 | disposition home or self-care (01) | DRG 178 | LOC: C.ER 19:18 → C.9E 21:03 → C.6T 22:08 | PROVIDERS: ADMIT Hospitalist ==